=== PATIENT | female | born 1960 | race Caucasian/White ===

== ENCOUNTER → 2017-01-14 | Outpatient (CLI) | payer BC ==
[~2017-01-14] MED LIST: ASPI81TA3 PO; CAPT25TA3 PO; HEPARIN 1000 UNITS/ML 10 ML INJ ONE; HYD25 PO; LIDOCAINE 2%/EPI 30 ML INJ ONE
--- NOTE | 2017-01-15 16:50 | RADRPT ---
Echocardiogram Report Patient Name: CHANDLER HANSON Gender: Female Date: 1960 Study Date: 14-Jan-2017 Aquatic Biologist: Patel [facility] Location: EKG Ref. Physician: JENNA TSE Quality: Adequate Procedures: Transthoracic echocardiogram with complete 2D, M-Mode, and doppler examination. Indications: Breast Cancer. 2D/M Mode Doppler Measurement Value Normal Ranges Measurement Value Normal Ranges LVIDd 2D 3.6 3.5 - 5.6 cm AV Peak Ramirez 1.2 m/sec LVIDs 2D 2.5 2.1 - 4.1 cm AV Peak PG 5.9 mmHg LVPWd 2D 1.0 0.6 - 1.1 cm LVOT Peak Ramirez 1.1 m/sec IVSd 2D 1.0 0.6 - 1.1 cm LVOT Peak PG 4.7 mmHg AoR Diam 2D 2.7 2.0 - 3.7 cm MV E Peak Ramirez 0.5 m/sec EDV 2D 54.0 cm3 MV A Peak Ramirez 0.9 m/sec ESV 2D 15.1 cm3 MV E/A 0.5 LA Dimen 2D 3.2 2.3 - 4.0 cm MV Decel Time 213 msec MV Decel [place] 2 MV E/A 0.5 Findings Left Ventricle: Normal left ventricular systolic function. Normal left ventricular cavity size. Mild concentric left ventricular hypertrophy. Ejection fraction is visually estimated at 60 %. Abnormal Diastolic Function. Right Ventricle: Normal right ventricular size. Normal right ventricular systolic function. Left Atrium: The left atrium is normal in size. Right Atrium: The right atrium is normal in size. Mitral Valve: Normal appearance and function of the mitral valve with trace physiologic regurgitation. Aortic Valve: Normal appearance of the aortic valve. No significant aortic stenosis or insufficiency. Tricuspid Valve: Normal appearance and function of the tricuspid valve with trace physiologic regurgitation. Unable to obtain RVSP due to minimal presence of tricuspid regurgitation. Pulmonic Valve: Normal pulmonic valve appearance. There is trace pulmonic regurgitation. Pericardium: Normal pericardium with no significant pericardial effusion. Aorta: Normal aortic root. IVC: Normal size and normal respiratory collapse consistent with normal right atrial pressure. Conclusions 1.Normal left ventricular systolic function. Normal left ventricular cavity size. Mild concentric left ventricular hypertrophy. Ejection fraction is visually estimated at 60 %. Abnormal Diastolic Function. 2.Normal appearance and function of the mitral valve with trace physiologic regurgitation. 3.Normal appearance and function of the tricuspid valve with trace physiologic regurgitation. Unable to obtain RVSP due to minimal presence of tricuspid regurgitation. 4.Normal pulmonic valve appearance. There is trace pulmonic regurgitation. Electronically Signed By: Sabas Coughlin 15-Jan-2017 16:49:50 -0700 Patient Name: CHANDLER HANSON Study Date: 14-Jan-2017 [id number]
== END | disposition home or self-care (01) ==
LOC: EKG 10:08
PROVIDERS: ATTEND Internal Medicine Hematology & Oncology
DX: R55 Syncope and collapse (principal); R25.1 Tremor, unspecified; R26.9 Unspecified abnormalities of gait and mobility; G20 Parkinson's disease; E11.9 Type 2 diabetes mellitus without complications; F32.9 Major depressive disorder, single episode, unspecified
CPT/HCPCS: 93306; J1644

== ENCOUNTER 2017-01-15 06:24 | Day surgery (SDC) | payer BC ==
[~2017-01-15] VITALS: Ht 147.3 cm; Wt 56.0 kg
[2017-01-15] MEDS ORDERED: HYD25 PO (07:57)
[2017-01-15] MEDS ORDERED: CAPT25TA3 PO (07:57)
[2017-01-15] MEDS ORDERED: ASPI81TA3 PO (07:58)
[2017-01-15] MEDS ORDERED: SOD CHLORIDE 0.9% 1,000 ML IV SCH (08:00)
[2017-01-15] MEDS ORDERED: POLYMYXIN/BACITRACIN 1L IRRIG IRR ONE (08:00)
[2017-01-15 08:16] VITALS: BP 88/59; PULSE 115; RESP 18; Ht 147.3 cm; Wt 56.0 kg
[2017-01-15] MEDS ORDERED: CEFAZOLIN 1 GM/50 ML (PMX) 50 ML IVPB ONE (08:42)
[2017-01-15] MEDS ORDERED: FENTAnyl 50 MCG/ML VIAL ONE (08:43)
[2017-01-15] MEDS ORDERED: MIDAZOLAM 1 MG/ML 2 ML INJ ONE (08:43)
[2017-01-15] MEDS ORDERED: DIPHENHYDRAMINE 50 MG INJ ONE (08:43)
--- NOTE | 2017-01-15 10:35 | RADRPT ---
AMENDMENT: 01/15/2017 5:42:38 PM Gato Tenorio MD Please delete the original report. The following report is correct. PROCEDURE: FLUOROSCOPIC AND ULTRASONOGRAPHIC-GUIDED PLACEMENT OF LEFT CHEST PORT. CLINICAL INDICATION: History of right breast cancer. Venous access for chemotherapy. TECHNIQUE: INTRAPROCEDURE MEDICATIONS: PB antibiotic solution 40 cc applied topically. 1 gram Ancef intravenous ly, intra-op. IV Versed and Fentanyl per protocol. TECHNIQUE: Informed consent was obtained. The procedure, risks, benefits, complications and alternat raegan were explained to the patient. Risks including bleeding, infection, and pneumothorax were expl ained. The patient understood and was willing to proceed. A procedural pause was performed. The patient's name, date of , and procedure to be performed w ere verified. The central line was inserted with all elements of maximal sterile barrier technique. All of the fol lowing were used: head covering, facial mask, sterile gown, sterile gloves, a large sterile sheet, h and hygiene, and 2% chlorhexidine for cutaneous antisepsis. The left neck and anterior/superior chest wall were prepped and draped in usual sterile fashion. Limited sonography of the left neck was then performed. Noted is a patent left internal jugular vein . Following the local injection of 1% lidocaine, the left internal jugular vein was punctured under so nographic guidance with a 20-gauge needle through which a 0.018 inch floppy tip guidewire was advanc ed into the superior vena cava with fluoroscopic guidance. The tract was dilated to 5 [place] and t he wire was then replaced with a 0.035 in Glidewire. Serial dilatation was then performed and a 7 F rench peel away sheath was introduced. A site just inferior to the clavicle in the superior anterior left chest wall was localized. One per cent lidocaine was used as local anesthesia. A transverse 3 cm incision was made utilizing a 15 blad e scalpel. Utilizing blunt dissection a subcutaneous pocket was created inferior to the incision. Th e cavity was flushed with approximately 40 cc of PB antibiotic solution. The catheter was tunneled underneath the skin from the newly created pocket to the puncture site in the neck. The central line catheter was pulled through the tract. The catheter was then advanced thr ough the sheath until the tip was positioned in the right atrium. The peel-away sheath was removed. The catheter was flushed and clamped. The catheter was then connected to the 6.6 [place] Angiodynamics power port. The port was then placed into the pocket. Prior to closing the instrument and sponge count was verified and was correct. The subcutaneous tissue was closed with 3-0 Vicryl interrupted suture. The skin at the site of the pock et and in the neck was closed with 4-0 Vicryl suture in a running subcuticular technique. The port w as flushed with 2000 units of heparin in 2 cc utilizing a Burnham needle. The needle was removed. A dr essing was applied. The patient tolerated procedure well. COMPARISON: None. FINDINGS: Ultrasound images were recorded and stored in the patient's medical record. 9 images of the chest we re obtained with the image intensifier. Final radiographic images demonstrate the tip of the catheter in the upper right atrium. A total of 0.1 minutes of fluoroscopy time was used. The ultrasound images demonstrate the needle entering th e jugular vein. IMPRESSION: 1. Successful ultrasonographic and fluoroscopic guided placement of left chest port. RPTAT: QQ PROCEDURE: FLUOROSCOPIC AND ULTRASONOGRAPHIC-GUIDED PLACEMENT OF LEFT CHEST PORT. CLINICAL INDICATION: History of right breast cancer. Venous access for chemotherapy. TECHNIQUE: INTRAPROCEDURE MEDICATIONS: PB antibiotic solution 40 cc applied topically. 1 gram Ancef intravenous ly, intra-op. IV Versed and Fentanyl per protocol. TECHNIQUE: Informed consent was obtained. The procedure, risks, benefits, complications and alternat raegan were explained to the patient. Risks including bleeding, infection, and pneumothorax were expl ained. The patient understood and was willing to proceed. A procedural pause was performed. The patient's name, date of , and procedure to be performed w ere verified. The central line was inserted with all elements of maximal sterile barrier technique. All of the fol lowing were used: head covering, facial mask, sterile gown, sterile gloves, a large sterile sheet, h and hygiene, and 2% chlorhexidine for cutaneous antisepsis. The left neck and anterior/superior chest wall were prepped and draped in usual sterile fashion. Limited sonography of the left neck was then performed. Noted is a patent left internal jugular vein . Following the local injection of 1% lidocaine, the left internal jugular vein was punctured under so nographic guidance with a 20-gauge needle through which a 0.018 inch floppy tip guidewire was advanc ed into the superior vena cava with fluoroscopic guidance. The tract was dilated to 5 [place] and t he wire was then replaced with a 0.035 in Glidewire. Serial dilatation was then performed and a 7 F rench peel away sheath was introduced. A site just inferior to the clavicle in the superior anterior left chest wall was localized. One per cent lidocaine was used as local anesthesia. A transverse 3 cm incision was made utilizing a 15 blad e scalpel. Utilizing blunt dissection a subcutaneous pocket was created inferior to the incision. Th e cavity was flushed with approximately 40 cc of PB antibiotic solution. The catheter was tunneled underneath the skin from the newly created pocket to the puncture site in the neck. The central line catheter was pulled through the tract. The catheter was then advanced thr ough the sheath until the tip was positioned in the right atrium. The peel-away sheath was removed. The catheter was flushed and clamped. The catheter was then connected to the 6.6 [place] Angiodynamics power port. The port was then placed into the pocket. Prior to closing the instrument and sponge count was verified and was correct. The subcutaneous tissue was closed with 3-0 Vicryl interrupted suture. The skin at the site of the pock et and in the neck was closed with 4-0 Vicryl suture in a running subcuticular technique. The port w as flushed with 2000 units of heparin in 2 cc utilizing a Burnham needle. The needle was removed. A dr essing was applied. The patient tolerated procedure well. COMPARISON: None. FINDINGS: Ultrasound images were recorded and stored in the patient's medical record. 7 images of the chest we re obtained with the image intensifier. Final radiographic images demonstrate the tip of the catheter in the upper right atrium. A total of 0.1 minutes of fluoroscopy time was used. The ultrasound images demonstrate the needle entering th e jugular vein. IMPRESSION: 1. Successful ultrasonographic and fluoroscopic guided placement of left chest port. RPTAT: QQ .Gato Tenorio MD, MD Date Time Electronically viewed and signed by .Gato Tenorio MD, on 01/15/2017 17:42 .R/
[2017-01-15 10:53] VITALS: BP 118/78; PULSE 94; RESP 17
[2017-01-15] MEDS ORDERED: HYDROCODONE/APAP (5/325) TAB PO PRN (11:00)
[2017-01-15 11:30] VITALS: BP 123/85; PULSE 100; RESP 18
--- NOTE | 2017-01-15 17:25 | RADRPT ---
PROCEDURE: Ultrasound guidance for placement of needle in left internal jugular vein. CLINICAL INDICATION: Venous access. TECHNIQUE: Prior to the procedure, informed consent was obtained. Risks including bleeding, infection, and pneu mothorax were explained to the patient. The patient understood and was willing to proceed. A procedu ral pause was performed. The patient's name, date of , and procedure to be performed were verif ied. The central line was inserted with all elements of maximal sterile barrier technique. All of th e following were used: head covering, facial mask, sterile gown, sterile gloves, a large sterile she et, hand hygiene, and 2% chlorhexidine for cutaneous antisepsis. The left neck and anterior/superi or chest wall was prepped and draped in usual sterile fashion. Limited sonography of the left neck was then performed. Noted is a patent left internal jugular vein . Ultrasound images were recorded and stored in the patient's medical record. Following the local injection of Xylocaine, the left internal jugular vein was punctured under sonog raphic guidance with a 20-gauge needle through which a 0.018 inch floppy tip guidewire was advanced into the superior vena cava. The patient tolerated the procedure well. The remainder of the proced ure was performed and dictated under separate cover. COMPARISON: None. FINDINGS: The ultrasound images demonstrate a patent left internal jugular vein. The subsequent images demons trate the needle entering the left internal jugular vein. IMPRESSION: 1. Ultrasound guidance for a needle placement in left internal jugular vein. RPTAT: QQ .Gato Tenorio MD, Date Time Electronically viewed and signed by .Gato Tenorio MD, on 01/15/2017 17:25 .R/
== END 2017-01-15 12:40 | disposition home or self-care (01) ==
LOC: SDS 06:24
PROVIDERS: ATTEND Internal Medicine Hematology & Oncology
DX: C50.911 Malignant neoplasm of unspecified site of right female breast (principal); I10 Essential (primary) hypertension
CPT/HCPCS: 36561; 76942; C1788; J0690; J1200; J2250; J3010; Z7610

== ENCOUNTER 2017-06-12 07:14 | Inpatient (IN) | payer BC ==
[2017-06-11 10:58] VITALS: BMI 25.0
[~2017-06-12] VITALS: Ht 149.9 cm; Wt 57.2 kg
[2017-06-12] VITALS (25 sets, daily range): BP systolic 124–174; BP diastolic 65–86; PULSE 72–96; RESP 12–20; Ht 149.9 cm; Wt 57.2 kg
[~2017-06-12 07:14] MED LIST changes: +EPHEDrine SULFATE 50 MG/5 ML SYG ONE; -HEPARIN 1000 UNITS/ML 10 ML INJ ONE; -HYD25 PO; +HYDR25TA6 PO; -LIDOCAINE 2%/EPI 30 ML INJ ONE
--- NOTE | 2017-06-12 07:58 | RADRPT ---
PROCEDURE: XR Chest. CLINICAL INDICATION: Breast cancer, preop TECHNIQUE: AP Portable chest. COMPARISON: No pertinent prior examinations were submitted for comparison. FINDINGS: There is a left Port-A-Cath with the tip in the proximal right atrium. The cardiomediastinal silhouette is normal. The aorta is normal. No focal consolidation, pleural eff usion or pneumothorax is seen. The osseous structures are intact. IMPRESSION: No radiographic evidence of acute cardiopulmonary disease. Left Port-A-Cath in satisfactory position . Terry Sena Physician Date Time Electronically viewed and signed by Terry Sena Physician on 06/12/2017 07:57 CS/
[2017-06-12 08:24] LABS: BASOPHILS % 0.2 % (0.0-2.0); EOSINOPHILS % 0.2 % (0.0-7.0); HEMATOCRIT 36.9 % (37.0-47.0); LYMPHOCYTES # 1.8 10^3/ul (0.8-2.9); LYMPHOCYTES % 39.2 % (15.0-51.0); MEAN CORPUSCULAR HEMOGLOBIN 32.5 pg (29.0-33.0); MEAN CORPUSCULAR HGB CONC 32.5 g/dl (32.0-37.0); MEAN PLATELET VOLUME 8.7 fl (7.4-10.4); MONOCYTE # 0.4 10^3/ul (0.3-0.9); NEUTROPHIL # 2.4 10^3/ul (1.6-7.5); PLATELET COUNT 258 10^3/UL (140-415); RED BLOOD COUNT 3.69 10^6/ul (4.20-5.40); RED CELL DISTRIBUTION WIDTH 16.4 % (11.5-14.5); WHITE BLOOD COUNT 4.5 10^3/ul (4.8-10.8)
[2017-06-12 08:41] LABS: INR 0.98
[2017-06-12 08:42] LABS: PARTIAL THROMBOPLASTIN TIME 28.1 Sec (25.0-35.0)
[2017-06-12 08:47] LABS: ALBUMIN/GLOBULIN RATIO 1.37; BILIRUBIN,INDIRECT 0.6 mg/dl (0-1.1); BILIRUBIN,TOTAL 0.6 mg/dl (0.2-1.3); TOTAL PROTEIN 6.9 g/dl (6.1-8.1)
[2017-06-12 08:58] LABS: CALCIUM 9.5 mg/dl (8.4-10.2); CREATININE 0.66 mg/dl (0.44-1.00); POTASSIUM 3.3 mmol/L (3.5-5.1)
[2017-06-12] MEDS ORDERED: CEFAZOLIN 1 GM/50 ML (PMX) 50 ML IVPB ONE (09:00)
[2017-06-12] MEDS ORDERED: SOD CHLORIDE 0.9% 1,000 ML IV ONE (09:00)
[2017-06-12] MEDS ORDERED: ROCURONIUM 50 MG INJ ONE (10:09)
[2017-06-12] MEDS ORDERED: PROPOFOL 20 ML ONE (10:09)
[2017-06-12] MEDS ORDERED: MIDAZOLAM 1 MG/ML 2 ML INJ ONE (10:09)
[2017-06-12] MEDS ORDERED: CEFAZOLIN 1 GM INJ ONE (11:07)
[2017-06-12] MEDS ORDERED: PHENYLephrine (100 MCG/ML) 5ML SYG ONE (11:13)
[2017-06-12] MEDS ORDERED: ACETAMINOPHEN 1000MG/100ML IV 100 ML ONE (11:49)
[2017-06-12] MEDS ORDERED: METOCLOPRAMIDE 10 MG INJ ONE (11:49)
[2017-06-12] MEDS ORDERED: ONDANSETRON 4 MG INJ ONE (11:49)
[2017-06-12] MEDS ORDERED: DEXAMETHASONE 4 MG/ML 1 ML INJ ONE (11:49)
[2017-06-12] MEDS ORDERED: EPHEDrine SULFATE 50 MG/5 ML SYG IV PRN (12:00)
[2017-06-12] MEDS ORDERED: morphine (1 MG/ML) 10ML SYRINGE IV PRN ×3 (12:00)
[2017-06-12] MEDS ORDERED: ONDANSETRON 4 MG INJ IV PRN ×2 (12:00→12:30)
[2017-06-12] MEDS ORDERED: hydrALAzine 20 MG INJ IV PRN (12:00)
[2017-06-12] MEDS ORDERED: MEPERIDINE 25 MG INJ IV PRN (12:00)
[2017-06-12] MEDS ORDERED: LABETALOL HCL 20MG INJ IV PRN (12:00)
[2017-06-12] MEDS ORDERED: FENTAnyl 50 MCG/ML VIAL IV PRN ×3 (12:00)
[2017-06-12] MEDS ORDERED: DIPHENHYDRAMINE 50 MG INJ IV PRN (12:00)
[2017-06-12] MEDS ORDERED: SUGAMMADEX SODIUM 200 MG/2 ML VIAL IV ONE (12:01)
--- NOTE | 2017-06-12 12:22 | OPR ---
DATE OF OPERATION: 06/12/2017 PREOPERATIVE DIAGNOSIS: Invasive cancer, left breast. POSTOPERATIVE DIAGNOSIS: Invasive cancer, left breast. OPERATION PERFORMED: Left modified radical mastectomy. ANESTHESIA: General. ANESTHESIOLOGIST: . SURGEON: Cong Luna MD MAILING MACHINE HELPER: Dr. Jakob Kilgore. INDICATIONS FOR PROCEDURE: The patient is a 57-year-old female who presented with right nipple inve rsion. Radiographic workup and biopsy confirmed an invasive cancer which was HER2 positive; therefo re, the patient underwent neoadjuvant chemotherapy with Herceptin, Perjeta, Taxotere and carboplatin regimen. She had very good response; however, due to the fact that she had presented with nipple i nversion, the recommendation was for her to undergo a modified radical mastectomy. She consented an d was scheduled for surgery. DESCRIPTION OF PROCEDURE: The patient was brought to the operating theater, placed under general en dotracheal tube anesthesia. The right breast and axillary region was prepped and draped in the usua l sterile fashion. Planned elliptical incision around the nipple areolar complex including a portio n of the central skin of the breast was demarcated with marking pen and carried out with 15 blade sc peter. Subcutaneous tissue was dissected with cautery. The skin edges were then elevated with Dionicio s [place] clamps and skin flaps were created using cautery in a sequential fashion, first superiorly t o the clavicle, then medially to the sternal border, inferiorly to the inframammary fold and then la terally until the latissimus dorsi muscle was identified throughout its course. Mastectomy then too k place from medial to lateral using cautery. At the border of the pectoralis major muscle, the pec toralis minor muscle was identified. Clavipectoral fascia was incised with blunt dissection along t he chest wall. The long thoracic nerve was identified and kept out of harm's way. More superiorly, the axillary vein was identified and dissected from medial to lateral. The thoracodorsal neurovasc ular bundle was identified and dissected throughout its course and kept out of harm's way. Signific ant node bearing tissue between the long thoracic nerve and thoracodorsal nerve was then harvested u sing LigaSure device, taking great care to preserve as many intercostal brachial nerves as possible. The specimen was then transected, removed, oriented and sent for permanent pathologic analysis. T he wound was irrigated. Minimal bleeding was controlled with cautery. Two #10 [place] Frantz-Serrano drains were then brought through the right mid axillary line in standard fashion. One was cut to s ize and laid over the pectoralis major muscle, the other was cut to size and laid within the axilla. Both drains were secured in place with 2-0 nylon sutures in the standard fashion and the skin was then reapproximated with skin letty. The patient tolerated the procedure well. The estimated blo od loss was approximately 75 mL. There were no complications and the patient was transported in sta ble condition to the recovery room where circumferential compression dressing was applied. Dictated By: CONG MOCTEZUMA/SERINA Conf#: [id number] DID#: [id number]
--- NOTE | 2017-06-12 12:28 | SIPON ---
Date/Time of Note Date/Time of Note DATE: 06/12/17 TIME: 12:24 Operative Report Preoperative Diagnosis Invasive cancer right breast Postoperative Diagnosis Same Operation/Procedure Performed Right modified radical mastectomy Surgeon see signature line assistant manager airside operations Dr Kilgore Anesthesia: general Estimated blood loss: 50 - 100 ml's Transfusion Required none Specimen Right breast and axillary contents Grafts/Implants none Complications none MAX ROCHA MD Jun 12, 2017 12:28
[2017-06-12] MEDS ORDERED: ACETAMINOPHEN 1000MG/100ML IV 100 ML IVPB PRN (12:30)
[2017-06-12] MEDS: morphine 2 MG INJ IV PRN (13:55)
[2017-06-12] MEDS: D5W-0.45 NACL + KCL 20 MEQ 1,000 ML IV SCH ×2 (13:56→21:53)
[2017-06-13] MEDS: morphine 2 MG INJ IV PRN ×2 (01:47→08:04)
[2017-06-13 02:02] VITALS: BP 128/62; RESP 20
[2017-06-13] MEDS: D5W-0.45 NACL + KCL 20 MEQ 1,000 ML IV SCH (05:13)
[2017-06-13 08:23] VITALS: BP 118/70; RESP 20
[2017-06-13] MEDS ORDERED: GUAIFENESIN/DM 5ML CUP PO PRN (10:30)
[2017-06-13] MEDS ORDERED: HYDROCHLOROTHIAZIDE 25 MG TAB PO SCH (10:30)
[2017-06-13] MEDS: HYDROCODONE/APAP (5/325) TAB PO PRN ×2 (11:21→17:13)
[2017-06-13 12:45] VITALS: BP 115/85; PULSE 88; RESP 20
--- NOTE | 2017-06-13 13:19 | RADRPT ---
Vent Rate: 97 bpm RR Interval: 0 msec CO Interval: 134 msec QRS Duration: 94 msec QT Interval: 372 msec QTC Interval: 472 msec P-R-T [place]: 49 - -1 - 39 degrees Normal sinus rhythm Normal ECG Electronically Signed By: Jeremiah Espino [id number]
[2017-06-13 15:30] VITALS: BP 140/83; RESP 20
[2017-06-13] MEDS ORDERED: HYDR-3498 PO (15:58)
--- NOTE | 2017-06-13 16:39 | HP ---
Date/Time of Note Date/Time of Note DATE: Late entry for 06/12/17 Pt is seen at 16:30 Assessment/Plan VTE Prophylaxis VTE Prophylaxis Intervention: SCD's Lines/Catheters IV Catheter Type (from Nrsg): Peripheral IV Urinary Cath still in place: No Assessment/Plan Assessment/Plan - Invasive cancer of the right breast with nipple inversion, s/p chemo, status post right modified radical mastectomy on 06/[address] Luna. Continue [place] and Morphine for pain. - HTN, continue Hydralazine PRN for pain. D/W Dr Edward. HPI/ROS Admit Date/Time Admit Date/Time Jun 12, 2017 at 07:14 Hx of Present Illness The patient is a 57-year-old female with invasive CA of the right breast. The radiographic workup and biopsy confirmed an invasive cancer which was HER2 positive. Patient underwent neoadjuvant chemotherapy with Herceptin, Perjeta, Taxotere and carboplatin regimen. Patient had a good response; however, due to the fact that she had presented with nipple inversion, the recommendation was for her to undergo a modified radical mastectomy. Patient underwent right radical mastectomy by Dr Luna on 06/12. Postoperatively, patient experience significant pain and she was admitted for for further care and management. ROS per HPI PMH/Family/Social Past Medical History Medical History: hypertension Family History Significant Family History: no pertinent family hx Social History Alcohol Use: none Smoking Status: Never smoker Drug Use: none Exam/Review of Systems Vital Signs Vitals Vital Signs Date Time Temp Pulse Resp B/P Pulse Ox O2 Delivery O2 Flow Rate FiO2 06/13/17 15:30 98.1 97 20 140/83 97 06/13/17 12:45 Room Air 06/12/17 12:24 8.0 Intake and Output 06/12/17 06/12/17 06/13/17 15:00 23:00 07:00 Intake Total 870 ml 1360 ml 1300 ml Output Total 59 ml 40 ml 38 ml Balance 811 ml 1320 ml 1262 ml Exam Constitutional: alert, oriented Head: normocephalic Neck: non-tender, supple Respiratory: normal air movement Cardiovascular: nl pulses Gastrointestinal: non-tender Musculoskeletal: nl extremities to inspection Extremities: normal pulses Neurological: nl mental status Skin: nl turgor, other (s/p Right mastectomy) Additional Comments Left kyle-cath Labs Result Diagram: 06/12/17 0750 06/12/17 0750 Medications Medications Current Medications Ondansetron HCl (Zofran Inj) 4 mg Q6H PRN IV NAUSEA AND/OR VOMITING; Start at 12:30 Morphine Sulfate 2 mg 2 mg Q1H PRN IV PAIN Last administered on 06/13/17 08: 04; Admin Dose 2 MG; Start 06/12/17 at 12:30 Acetaminophen (Ofirmev 1000mg/ 100ml Iv) 100 ml @ 400 mls/hr Q6H PRN IVPB PAIN ; Start 06/12/17 at 12:30 Captopril (Capoten) 25 mg BID PO Last administered on 06/13/17 12:45; Admin Dose 25 MG; Start 06/13/17 at 11:00 Hydrochlorothiazide (Hydrochlorothiazide) 25 mg DAILY PO Last administered on 06/13/17 10:37; Admin Dose 25 MG; Start 06/13/17 at 10:30 Guaifenesin/ Dextromethorphan (Robitussin Dm Liquid Cup) 10 ml Q4H PRN PO COUGH Last administered on 06/13/17 10:37; Admin Dose 10 ML; Start 06/13/17 at 10:30 Acetaminophen/ Hydrocodone Bitart ([place] (5/325)) 1 tab Q4H PRN PO PAIN Last administered on 06/13/17 11:21; Admin Dose 1 TAB; Start 06/13/17 at 10:30 DENI DIXON Jun 13, 2017 16:39
[2017-06-13 16:47] VITALS: BP 127/71; PULSE 86; RESP 18
--- NOTE | 2017-06-13 18:28 | HP ---
DATE OF ADMISSION: 06/12/2017 CHIEF COMPLAINT: A 56-year-old female with approximately 2 cm invasive cancer of her right breast. HISTORY OF PRESENT ILLNESS: The patient states she fell a lump. Eventually, she underwent medical workup and mammography and ultrasonography and biopsy was performed, which revealed a moderately dif ferentiated cancer. She is admitted today for surgery. PAST MEDICAL HISTORY: Significant for hypertension. PAST SURGICAL HISTORY: None. MEDICATIONS: Include Depakote, dose not provided. ALLERGIES: PATIENT HAS NO KNOWN DRUG ALLERGIES. SOCIAL HISTORY: The patient is otherwise healthy, lives with her family, does not abuse cigarettes or alcohol. FAMILY HISTORY: Negative for breast or ovarian cancer. PHYSICAL EXAMINATION: Focused exam is performed. The right breast is examined. There is ecchymosi s consistent with recent biopsy. A vaguely palpable mass at the 12 o'clock location near the nipple -areolar border. No other findings on exam. ASSESSMENT: A 56-year-old female with invasive cancer of her right breast as described above. PLAN: Will proceed with surgery. Dictated By: MAX MOCTEZUMA/SERINA Conf#: [id number] DID#: [id number]
--- NOTE | 2017-06-13 18:36 | PN ---
DATE: 06/13/2017 Status post right modified radical mastectomy with axillary resection. SUBJECTIVE: The patient states that when she walks she has been dizzy and she wants to use a walker . Also when she stands up to walk, she is getting pain in her thighs and knees and legs bilaterally and this is since patient has been started on chemotherapy, which was a couple of months ago. OBJECTIVE: GENERAL: Awake, alert, oriented x3. VITAL SIGNS: Temperature 98.3, heart rate 96, respirations 20, blood pressure 118/70, saturation 98 % on room air. PHYSICAL EXAMINATION: The patient has bilateral cataracts. Dressing is intact. Frantz-Serrano drai ns are with serosanguineous fluid. It is not bloody and in past 24 hours it has drained 105 mL all together, both of them. Abdomen is soft. ASSESSMENT AND PLAN: A 57-year-old female status post right modified radical mastectomy postop day #1. The patient is stable, but apparently it has been a while that she is feeling dizziness when sh e walks and also she has pain in her legs and thighs. This has been going on post chemotherapy. Cosme bobson-Serrano is functioning properly, serosanguineous fluid. I do not know the cause of tachycardia. The cause of dizziness not clear. The cause of pain in the lower extremities not clear. From surgical point of view, the patient is stable from mastectomy op eration. Therefore, the patient can be discharged home today. I requested an order for a walker fo r this patient. I advised the patient's son to take the patient to the primary physician so that ey can investigate the cause of dizziness and pain in the lower extremity and cataracts. It should be mentioned that the patient is supposed to call Dr. Luna' office on Friday and make a p jenny for followup. Also, the patient's son was taught how to take care of the Frantz-Serrano drains. Dictated By: SANDY ROSALES/SERINA Conf#: [id number] DID#: [id number]
--- NOTE | 2017-06-13 21:02 | DS ---
Date/Time of Note Date/Time of Note DATE: 06/13/17 TIME: 21:01 Discharge Summary Admission/Discharge Info Admit Date/Time Jun 12, 2017 at 07:14 Discharge Date/Time Jun 13, 2017 at 17:25 Patient Condition: Stable Hx of Present Illness The patient is a 57-year-old female with invasive CA of the right breast. The radiographic workup and biopsy confirmed an invasive cancer which was HER2 positive. Patient underwent neoadjuvant chemotherapy with Herceptin, Perjeta, Taxotere and carboplatin regimen. Patient had a good response; however, due to the fact that she had presented with nipple inversion, the recommendation was for her to undergo a modified radical mastectomy. Patient underwent right radical mastectomy by Dr Luna on 06/12. Postoperatively, patient experience significant pain and she was admitted for for further care and management. Hospital Course - Invasive cancer of the right breast with nipple inversion, s/p chemo, status post right modified radical mastectomy on 06/[address] Luna. Continue [place] and Morphine for pain. - HTN, continue Hydralazine PRN for pain. Home Meds Active Scripts Hydrocodone Bit-Acetaminophen (Hydrocodone Bit-APAP) 5-325MG Tablet, 1 TAB PO Q4H Y for PAIN, #30 TAB Prov:DENI DIXON 06/13/17 Reported Medications Aspirin* (Aspirin* Chew) 81 Mg Tab.chew, 81 MG PO DAILY, TAB.CHEW 01/15/17 Hydrochlorothiazide* (Hydrochlorothiazide*) 25 Mg Tab, 25 MG PO DAILY, #30 TAB 01/15/17 Captopril* (Captopril*) 25 Mg Tablet, 25 MG PO BID, #60 TAB 01/15/17 Follow-up Plan f/up with Dr Luna in 1 week. Primary Care Provider [facility] Time spent on discharge: > 30 minutes DENI DIXON Jun 13, 2017 21:02
== END 2017-06-13 17:25 | disposition home or self-care (01) | DRG 583 ==
LOC: REC 07:14 → EDSTATUS 10:30 → MS1 13:34
PROVIDERS: ADMIT Surgery Surgical Oncology; ATTEND Surgery Surgical Oncology
PROC: 0HTU0ZZ Resection of Left Breast, Open Approach (ICD-10-PCS; principal; 2017-06-12 10:30)
DX: C50.912 Malignant neoplasm of unspecified site of left female breast (principal); I10 Essential (primary) hypertension
CPT/HCPCS: 71010; 80053; 85025; 85610; 85730; 88307; 93005; J0131; J0360; J0690; J1100; J2250; J2270; J2370; J2405; J2765; J3010; J3480

== ENCOUNTER 2018-09-14 13:52 | Inpatient (IN) | payer BC ==
[~2018-09-14] VITALS: Ht 167.6 cm; Wt 61.7 kg
[2018-09-14] VITALS (10 sets, daily range): BP systolic 120–145; BP diastolic 81–95; PULSE 85–93; RESP 18–25; Ht 167.6 cm; Wt 61.7 kg
[~2018-09-14 13:52] MED LIST changes: +ASPI-903 PO; -ASPI81TA3 PO; -EPHEDrine SULFATE 50 MG/5 ML SYG ONE; +HYDR-3601 PO
[2018-09-14] MEDS: POTASSIUM CHLORIDE 100 ML IVPB SCH ×2 (16:15→18:18)
[2018-09-14] MEDS ORDERED: ONDANSETRON 4 MG INJ IV STA (16:47)
[2018-09-14] MEDS ORDERED: morphine 2 MG INJ IV STA (16:47)
[2018-09-14] MEDS ORDERED: DEXAMETHASONE 10 MG/ML 1 ML INJ IV ONE (17:00)
--- NOTE | 2018-09-14 17:20 | QN ---
Documentation Comment seen and examined OLIVIA VIDES MD Sep 14, 2018 17:20
[2018-09-14] MEDS ORDERED: DOCUSATE SODIUM 100 MG CAP PO PRN (17:30)
[2018-09-14] MEDS ORDERED: ONDANSETRON 4 MG TAB PO PRN (17:30)
[2018-09-14] MEDS ORDERED: NACL 0.9% 3 ML SYG IV SCH (17:30)
--- NOTE | 2018-09-14 18:09 | ERD ---
ER Documentation Chief Complaint Chief Complaint headache x 2 days Hx of HTN HPI The patient is a 58-year-old female, presenting to the ER because of having had headache for 1 week, worse today, denies similar symptoms previously, complains of minimal slurred speech in the ER. She is obtained from the [id number]. She denies blurred vision, facial pain, neck pain, chest pain, dyspnea, abdominal pain, vomiting, dizzy, diarrhea. She does not smoke nor drink Past medical history: Hypertension, history of breast CA treated with mastectomy, chemotherapy a year ago ROS All systems reviewed and are negative except as per history of present illness. Medications Home Meds Active Scripts Hydrocodone Bit-Acetaminophen (Hydrocodone Bit-APAP) 5-325MG Tablet, 1 TAB PO Q4H PRN for PAIN, #30 TAB Prov:DENI DIXON 06/13/17 Reported Medications Aspirin* (Aspirin* Chew) 81 Mg Tab.chew, 81 MG PO DAILY, TAB.CHEW 01/15/17 Hydrochlorothiazide* (Hydrochlorothiazide*) 25 Mg Tab, 25 MG PO DAILY, #30 TAB 01/15/17 Captopril* (Captopril*) 25 Mg Tablet, 25 MG PO BID, #60 TAB 01/15/17 Allergies Allergies: Coded Allergies: No Known Allergy (Unverified , 06/12/17) PMhx/Soc History of Surgery: Yes (RIGHT SIDED MASTECTOMY ) Anesthesia Reaction: No Hx Neurological Disorder: No Hx Respiratory Disorders: No Hx Cardiac Disorders: Yes (HTN) Hx Psychiatric Problems: No Hx Miscellaneous Medical Probl: No Hx Alcohol Use: No Hx Substance Use: No Hx Tobacco Use: No Smoking Status: Never smoker Physical Exam Vitals Vital Signs Date Temp Pulse Resp B/P (MAP) Pulse Ox O2 O2 Flow FiO2 Time Delivery Rate 09/14/18 79 17 141/100 100 Nasal 2.0 17:43 (114) Cannula 09/14/18 80 17 123/82 100 Room Air 2.0 15:14 (96) High Flow Nasal Cannula 09/14/18 97.5 96 20 153/91 100 14:04 (111) Physical Exam Const: No acute distress. Head: Atraumatic. Eyes: Normal Conjunctiva. ENT: Normal External Ears, Nose and Mouth. Neck: Full range of motion. No meningismus. Resp: Clear to auscultation bilaterally. Cardio: Regular rate and rhythm. Abd: Soft, non distended, normal bowel sounds, non tender. Skin: No petechiae or rashes. Back: No midline or flank tenderness. Ext: No cyanosis, or edema. Neur: Awake and alert. No focal deficit Psych: Normal Mood and Affect. Result Diagram: 09/14/18 1515 09/14/18 1515 Results 24 hrs Laboratory Tests Test 09/14/18 15:15 White Blood Count 10.4 10^3/ul Red Blood Count 4.75 10^6/ul Hemoglobin 14.6 g/dl Hematocrit 42.0 % Mean Corpuscular Volume 88.4 fl Mean Corpuscular Hemoglobin 30.7 pg Mean Corpuscular Hemoglobin Concent 34.8 g/dl Red Cell Distribution Width 12.4 % Platelet Count 282 10^3/UL Mean Platelet Volume 8.8 fl Immature Granulocytes % 0.500 % Neutrophils % 65.4 % Lymphocytes % 29.8 % Monocytes % 4.0 % Eosinophils % 0.1 % Basophils % 0.2 % Nucleated Red Blood Cells % 0.0 /100WBC Immature Granulocytes # 0.050 10^3/ul Neutrophils # 6.8 10^3/ul Lymphocytes # 3.1 10^3/ul Monocytes # 0.4 10^3/ul Eosinophils # 0.0 10^3/ul Basophils # 0.0 10^3/ul Nucleated Red Blood Cells # 0.0 10^3/ul Prothrombin Time 12.6 Sec Prothrombin Time Ratio 1.0 INR International Normalized Ratio 0.93 Activated Partial Thromboplast Time 24.0 Sec Sodium Level 132 mmol/L Potassium Level 3.1 mmol/L Chloride Level 93 mmol/L Carbon Dioxide Level 21 mmol/L Anion Gap 18 Blood Urea Nitrogen 14 mg/dl Creatinine 0.59 mg/dl Est Glomerular Filtrat Rate mL/min > 60 mL/min Glucose Level 155 mg/dl Calcium Level 9.9 mg/dl Troponin I < 0.012 ng/ml Current Medications Medications Dose Sig/Chelsey Start Time Status Last (Trade) Ordered Route PRN Stop Time Admin Dose Reason Admin Potassium 100 ml @ Q2H IVPB 09/14/18 09/14/18 Chloride 50 mls/hr 16:00 16:15 09/14/18 19:59 10 mg ONCE ONCE 09/14/18 DC 09/14/18 Dexamethasone IV 17:00 17:24 (Decadron) 09/14/18 17:01 Morphine 2 mg ONCE STAT 09/14/18 DC 09/14/18 Sulfate IV 16:47 17:24 (morphine) 09/14/18 16:48 Ondansetron 4 mg ONCE STAT 09/14/18 DC 09/14/18 HCl (Zofran IV 16:47 17:24 Inj) 09/14/18 16:48 1,000 ml @ Q24H IV 09/14/18 Dextrose/Sodi 20 mls/hr 17:27 um Chloride IV Flush 3 ml PER 09/14/18 (NS 3 ml) PROTOCOL IV 17:30 Ondansetron 4 mg Q6H PRN 09/14/18 HCl (Zofran PO 17:30 Tab) NAUSEA/VOMITI NG 650 mg Q6H PRN 09/14/18 Acetaminophen PO .PAIN 1-3 17:30 (Tylenol OR TEMP Tab) Morphine 2 mg Q4H PRN 09/14/18 Sulfate IV .SEVERE 17:30 (morphine) PAIN 7-10 Docusate 100 mg Q12H PRN 09/14/18 Sodium PO 17:30 (Colace) .CONSTIPATION 40 mg DAILY@06 09/15/18 Pantoprazole IV 06:00 (Protonix Iv) 4 mg Q8 IV 09/14/18 Dexamethasone 22:00 (Decadron) 100 ml @ BID IVPB 09/14/18 Levetiracetam 400 mls/hr 21:00 Procedures/[place] [id number] Radiology Main Line: [phone] DIAGNOSTIC IMAGING REPORT Patient: CHANDLER HANSON : 1960 Age: 58 Sex: F MR #: [id number] DOS: 09/14/18 1504 Ordering MD: ANDRES DICKEY MD Location: E/R Room/Bed: AMENDMENT: 09/14/2018 3:36:55 PM Ramírez Mercer M.D Results called to Dr. Dickey at 03:36 p.m., 09/14/2018. PROCEDURE: CT brain without contrast CLINICAL INDICATION: Headache, anxiety, numbness TECHNIQUE: CT of the brain without contrast was performed on a multidetector CT scanner, with multiplanar reformats. One or more of the following dose reduction techniques were used: Automated exposure control, adjustment in mA and / or kV according to patient size, use of iterative reconstructive technique. CTDIvol = 39 mGy; DLP = 699 mGy-cm. DICOM images are available. COMPARISON: None available FINDINGS: At least a few heterogeneous parenchymal lesions are identified, the largest at the inferior right frontal lobe measuring up to approximately 2.7 cm with mild to moderate surrounding edema, with small lesions also seen in the anterior right frontal, and left parietal lobes with mild adjacent edema. There is also mild edema in the right parietal region. No acute intracranial hemorrhage is identified. No extra-axial fluid collection is seen. No midline shift or definite hydrocephalus is identified. An acute/recent territorial infarct is identified. Atherosclerotic calcification is seen at the intracranial left internal carotid artery. Calvarium and skull base are intact. Mastoid air cells and imaged paranasal sinuses grossly clear. IMPRESSION: 1. Cerebral parenchymal lesions with associated mild-moderate edema, the largest/greatest at the right frontal lobe as described above, suspicious for metastatic disease. Further evaluation with contrast-enhanced MRI of the brain is recommended. 2. No midline shift. RPTAT: VV .Ramírez Mercer MD, MD Date Time Electronically viewed and signed by .Ramírez Mercer MD, on 09/14/2018 15:37 .O/ CC: ANDRES DICKEY MD [phone] Consultation: I discussed the patient with the neurosurgeon Elaine, who was made aware patient condition, and a CT scan finding. He personally reviewed the CT himself and accepted the consult MEDICAL MAKING DECISION: The patient is a 58-year-old female, presenting to the ER with acute severe headache, found to have multiple brain tumor, suspicious for metastasis, acute hypokalemia. She was treated with potassium chloride 40 mg iv acute hypokalemia, Decadron 10 mg IV due to cerebral edema per neurosurgeon's recommendation, morphine 2 mg IV for pain, Zofran 4 mg IV for nausea with good response. The differential diagnoses considered include but are not limited to recurrent breast CA, primary RECEIVABLE CLERK tumor, subarachnoid hemorrhage, occult trauma, CVA, meningitis, encephalitis, hypertension, tension, migraine, cluster, narcotic withdrawal, cervical spine disease. Critical Care: Time: 35 minutes excluding all billable procedures. Treatments/Evaluations: Close monitoring and treatment of unstable vital signs, cardiorespiratory, and neurologic status, while maintaining tight balance of fluid, respiratory, and cardiac interventions. Departure Diagnosis: Primary Impression: Brain tumor Additional Impression: Hypokalemia Condition: Stable Comments I discussed the findings with the patient. I discussed the patient with the hospitalist Dr Longoria at 4 p. who was made aware of the lab, the treatment, the patient condition. The patient is admitted to ICU Disclaimer: Inadvertent spelling and grammatical errors are likely due to EHR/dictation software use and do not reflect on the overall quality of patient care. Also, please note that the electronic time recorded on this note does not necessarily reflect the actual time of the patient encounter. ANDRES DICKEY MD Sep 14, 2018 18:09
[2018-09-14] MEDS: DEXTROSE 5%-0.45% NACL 1,000 ML IV SCH (18:18)
--- NOTE | 2018-09-14 19:09 | HP ---
DATE OF ADMISSION: 06/12/2017 REASON FOR ADMISSION: Headache, nausea, vomiting. HISTORY OF PRESENT ILLNESS: A 58-year-old female with a past medical history of right breast cancer status post right mastectomy followed by Dr. Colunga as an outpatient. The patient had received 6 cycles of chemo and also had right mastectomy. According to oncologist, she had been in remission. According to the patient, she had been having headaches for the past few days. She was also having some episodes of nausea and vomiting. She also noticed blurry vision. The patient was feeling weak and tired. The last 2 days, she was having some episodes of vomiting. She came to the emergency dep artment for further evaluation. On arrival to ED, vital signs showed blood pressure of 127/71, heart rate 86, respirations 18, and is afebrile. The patient had a CT of the head that showed cerebral pa renchymal lesions as well as mild to moderate edema, largest greater than right frontal lobe suspicio us for metastatic disease and no midline shift and the patient was given Decadron, morphine, Zofran a nd was admitted for further management. PAST MEDICAL HISTORY: 1. Right breast cancer status post mastectomy. 2. Hypertension. 3. Prediabetes. ALLERGIES: NONE. PAST SURGICAL HISTORY: Right mastectomy. The patient had a left Port-A-Cath in place. MEDICATIONS: Taking at home: 1. Captopril 25 b.i.d. 2. Aspirin 81 3. Pillager. 4. Hydrochlorothiazide 25. SOCIAL HISTORY: Denies any history of smoking, alcohol or any drug use. Currently lives at home wit h family. FAMILY HISTORY: Not significant for any cancer. REVIEW OF SYSTEMS: The patient complains of frontal headaches, nausea or vomiting for past few days. Also complains of generalized weakness have 2 episodes of vomiting. The patient also is noticing b lurry vision. Denies any hematemesis, any melena, any blood per rectum. Denies any focal neurologic al deficit. PHYSICAL EXAMINATION: VITAL SIGNS: Currently, blood pressure 123/80, pulse 80, respirations 17, saturating 100%. GENERAL: The patient is awake, alert, oriented, able to follow all commands, speak full sentences. HEENT: Pupils equal, round, reactive to light. NECK: Supple, no JVD. HEART: Regular rate and rhythm. LUNGS: Clear to auscultation bilaterally. ABDOMEN: Soft, nontender, nondistended, positive normoactive bowel sounds. EXTREMITIES: No clubbing, cyanosis, or edema. The patient has a right total mastectomy. The patien t has a left Port-A-Cath in place. NEUROLOGIC: Awake, alert, oriented. He is able to move all extremities. Strength 5/5 bilateral upp er and lower extremities. DIAGNOSTIC DATA: Showed sodium 132, potassium 3.1, chloride 93, bicarbonate 21, BUN 14, creatinine 0 .5. White count of 10.4, hemoglobin 14.6, platelet count 282. Brain CT shows cerebral parenchymal l esions mild to moderate edema, large is greater than the right frontal lobe suspicion of metast atic disease. No midline shift. ASSESSMENT AND PLAN: This is a 58-year-old female who presented with: 1. Headache, nausea, vomiting, blurry vision, likely secondary to multiple brain lesions with mild t o moderate edema, likely suspicious of metastatic disease given the history of right breast cancer. 2. Mild hypokalemia. 3. Hyponatremia. 4. History of hypertension. PLAN: At this period of time, the patient will be admitted to telemetry. Case has been discussed wi neurosurgeon and Dr. Colunga who will see the case. The patient will be on Decadron. The raphael ent will have neuro checks every 4 hours. Also, the patient will be on IV Keppra and some Protonix. The patient will also need radiation oncology. MRI of the brain is pending. Rest of the treatment will depend on the patient's hospitalization course. Dictated By: OLIVIA LEMOS/SERINA Conf#: [id number] DID#: [id number] CC: MAX ROCHA MD;*EndCC*
[2018-09-14] MEDS: ACETAMINOPHEN 325 MG TAB PO PRN (21:12)
[2018-09-14] MEDS: LEVETIRACETAM 500 MG (PMX) 100 ML IVPB SCH (21:41)
[2018-09-14] MEDS: DEXAMETHASONE 4 MG/ML 1 ML INJ IV SCH (22:48)
[2018-09-14] MEDS: morphine 2 MG INJ IV PRN (23:13)
[2018-09-14] MEDS ORDERED: ONDANSETRON (ODT) 4 MG TAB ODT PRN (23:30)
[2018-09-15] VITALS (26 sets, daily range): BP systolic 99–141; BP diastolic 69–97; PULSE 59–98; RESP 13–29
[2018-09-15] MEDS: morphine 2 MG INJ IV PRN ×4 (03:23→18:24)
[2018-09-15] MEDS: ONDANSETRON 4 MG INJ IV PRN ×4 (05:19→22:15)
[2018-09-15] MEDS ORDERED: PANTOPRAZOLE 40 MG INJ IV SCH (06:00)
[2018-09-15] MEDS: DEXAMETHASONE 4 MG/ML 1 ML INJ IV SCH ×3 (06:32→21:00)
--- NOTE | 2018-09-15 07:16 | CONS ---
Assessment/Plan Assessment/Plan Assessment/Plan (Daily) Patient with: 1) Brain metastases 2) Cerebral edema These cerebral masses are likely to be related to her prior breast CA (she is a non-smoker, chest X-ray grossly clear). Given their multiplicity, I would not recommend surgical management. Please consider the followin) Radiation oncology consult - breast CA is relatively radiation sensitive 2) Continue dexamethasone. Taper per rad onc, or consider 1 week taper to 2 tid 3) Body imaging for staging - CT C/A/P 4) Floor transfer 5) Regular diet Consultation Date/Type/Reason Admit Date/Time Sep 14, 2018 at 16:47 Date of Consultation: Sep 15, 2018 Type of Consult Neurosurgery Reason for Consultation Brain masses Date/Time of Note DATE: 09/15/18 TIME: 06:58 Hx of Present Illness Ms. Kunz is a 58 year old female who has a history of treated breast cancer dx Spring 2016 s/p mastectomy. She was noted to be free of disease by serum markers but has not had any body imaging in the interval per family. She has had a recent history of headaches and was brought to the ER, where multiple brain masses were found. After starting steroids, her headaches have markedly improved and are currently resolved. She denies weakness or vision difficulties. Neurologic: headache Past Medical History Breast CA Home Meds Active Scripts Hydrocodone Bit-Acetaminophen (Hydrocodone Bit-APAP) 5-325MG Tablet, 1 TAB PO Q4H PRN for PAIN, #30 TAB Prov:DENI DIXON 06/13/17 Reported Medications Aspirin* (Aspirin* Chew) 81 Mg Tab.chew, 81 MG PO DAILY, TAB.CHEW 01/15/17 Hydrochlorothiazide* (Hydrochlorothiazide*) 25 Mg Tab, 25 MG PO DAILY, #30 TAB 01/15/17 Captopril* (Captopril*) 25 Mg Tablet, 25 MG PO BID, #60 TAB 01/15/17 Medications Current Medications Dextrose/Sodium Chloride 1,000 ml @ 20 mls/hr Q24H IV Last administered on at 18:18; Admin Dose 20 MLS/HR; Start 09/14/18 at 17:27 IV Flush (NS 3 ml) 3 ml PER PROTOCOL IV ; Start 09/14/18 at 17:30 Acetaminophen (Tylenol Tab) 650 mg Q6H PRN PO .PAIN 1-3 OR TEMP Last ad ministered on 09/14/18 21:12; Admin Dose 650 MG; Start 09/14/18 at 17:30 Morphine Sulfate (morphine) 2 mg Q4H PRN IV .SEVERE PAIN 7-10 Last administered on 09/15/18 05:24; Admin Dose 2 MG; Start 09/14/18 at 17:30 Docusate Sodium (Colace) 100 mg Q12H PRN PO .CONSTIPATION; Start 09/14/18 at 17:30 Pantoprazole (Protonix Iv) 40 mg DAILY@06 IV Last administered on 09/15/18 06:42; Admin Dose 40 MG; Start 09/15/18 at 06:00 Dexamethasone (Decadron) 4 mg Q8 IV Last administered on 09/15/18 06:32; Admin Dose 4 MG; Start 09/14/18 at 22:00 Levetiracetam 100 ml @ 400 mls/hr BID IVPB Last administered on 09/14/18 21:41; Admin Dose 400 MLS/HR; Start 09/14/18 at 21:00 Ondansetron HCl (Zofran Odt) 4 mg Q6H PRN ODT NAUSEA AND/OR VOMITING; Start 09/14/18 at 23:30 Ondansetron HCl (Zofran Inj) 4 mg Q4H PRN IV NAUSEA AND/OR VOMITING Last administered on 09/15/18 05:19; Admin Dose 4 MG; Start 09/15/18 at 05:30 Allergies: Coded Allergies: No Known Allergy (Unverified , 06/12/17) Social History Smoking Status: Unknown if ever smoked Exam/Review of Systems Exam Vitals Vital Signs Date Temp Pulse Resp B/P (MAP) Pulse Ox O2 O2 Flow FiO2 Time Delivery Rate 09/15/18 70 04:00 09/15/18 97.7 17 105/74 92 Room Air 02:00 (84) 09/14/18 2.0 17:43 Intake and Output 09/14/18 09/14/18 09/15/18 1515:00 23:00 07:00 IntakeIntake Total 225 ml 0 ml OutputOutput Total 320 ml BalanceBalance -95 ml 0 ml Exam Patient is bengali speaking. She is alert, awake and oriented. CN grossly intact 5/5 no drift Results Result Diagram: 09/15/18 0446 09/15/18 0446 Results 24hrs Laboratory Tests Test 09/14/18 15:15 09/15/18 04:46 White Blood Count 10.4 # 7.1 # Red Blood Count 4.75 # 4.37 Hemoglobin 14.6 # 13.4 Hematocrit 42.0 39.1 Mean Corpuscular Volume 88.4 89.5 Mean Corpuscular Hemoglobin 30.7 30.7 Mean Corpuscular Hemoglobin Concent 34.8 34.3 Red Cell Distribution Width 12.4 # 12.1 Platelet Count 282 251 Mean Platelet Volume 8.8 8.6 Immature Granulocytes % 0.500 H 0.400 Neutrophils % 65.4 84.2 H Lymphocytes % 29.8 14.9 L Monocytes % 4.0 0.4 Eosinophils % 0.1 0.0 Basophils % 0.2 0.1 Nucleated Red Blood Cells % 0.0 0.0 Immature Granulocytes # 0.050 H 0.030 Neutrophils # 6.8 5.9 Lymphocytes # 3.1 H 1.1 Monocytes # 0.4 0.0 L Eosinophils # 0.0 0.0 Basophils # 0.0 0.0 Nucleated Red Blood Cells # 0.0 0.0 Prothrombin Time 12.6 Prothrombin Time Ratio 1.0 INR International Normalized Ratio 0.93 Activated Partial Thromboplast Time 24.0 Sodium Level 132 L 132 L Potassium Level 3.1 L 3.7 Chloride Level 93 L 90 L Carbon Dioxide Level 21 25 Anion Gap 18 H 17 H Blood Urea Nitrogen 14 18 Creatinine 0.59 0.56 Est Glomerular Filtrat Rate mL/min > 60 > 60 Glucose Level 155 173 Calcium Level 9.9 9.7 Troponin I < 0.012 Phosphorus Level 4.4 Magnesium Level 1.8 Imaging Imaging MRI demonstrates at least 5 medium sized brain metastases. There is moderate cerebral edema related to an inferior right frontal metastasis. Medications Medication Current Medications Dextrose/Sodium Chloride 1,000 ml @ 20 mls/hr Q24H IV Last administered on 09/14/18at 18:18; Admin Dose 20 MLS/HR; Start 09/14/18 at 17:27 IV Flush (NS 3 ml) 3 ml PER PROTOCOL IV ; Start 09/14/18 at 17:30 Acetaminophen (Tylenol Tab) 650 mg Q6H PRN PO .PAIN 1-3 OR TEMP Last administered on 09/14/18 21:12; Admin Dose 650 MG; Start 09/14/18 at 17:30 Morphine Sulfate (morphine) 2 mg Q4H PRN IV .SEVERE PAIN 7-10 Last administered on 09/15/18 05:24; Admin Dose 2 MG; Start 09/14/18 at 17:30 Docusate Sodium (Colace) 100 mg Q12H PRN PO .CONSTIPATION; Start 09/14/18 at 17 :30 Pantoprazole (Protonix Iv) 40 mg DAILY@06 IV Last administered on 09/15/18 06:42; Admin Dose 40 MG; Start 09/15/18 at 06:00 Dexamethasone (Decadron) 4 mg Q8 IV Last administered on 09/15/18 06:32; Admin Dose 4 MG; Start 09/14/18 at 22:00 Levetiracetam 100 ml @ 400 mls/hr BID IVPB Last administered on 09/14/18 21:41; Admin Dose 400 MLS/HR; Start 09/14/18 at 21:00 Ondansetron HCl (Zofran Odt) 4 mg Q6H PRN ODT NAUSEA AND/OR VOMITING; Start 09/14/18 at 23:30 Ondansetron HCl (Zofran Inj) 4 mg Q4H PRN IV NAUSEA AND/OR VOMITING Last administered on 09/15/18 05:19; Admin Dose 4 MG; Start 09/15/18 at 05:30 KARY MCCABE MD Sep 15, 2018 07:09
[2018-09-15] MEDS: LEVETIRACETAM 500 MG (PMX) 100 ML IVPB SCH ×2 (08:34→20:52)
[2018-09-15] MEDS: ACETAMINOPHEN 325 MG TAB PO PRN ×2 (08:37→16:42)
--- NOTE | 2018-09-15 10:59 | PN ---
Date/Time of Note Date/Time of Note DATE: 09/15/18 TIME: 10:51 Assessment/Plan VTE Prophylaxis Risk score (from Ns)>0 risk: 2 SCD applied (from Ns): Yes Pharmacological prophylaxis: NA/contraindicated Pharm contraindication: low risk/ambulating Lines/Catheters IV Catheter Type (from [facility]): [place] Assessment/Plan Hospital Course 58 y/o with #Multiple brain masses likely secondary to breast cancer headaches nausea vomiting and blurry vision #hx of right breast cancer status post mastectomy # Pre DM # HTN Plan -Seen by neurosurgery and not deemed any surgical candidate -Dr. Hassan radiation oncology called -Dr. Guzman and will see the patient today - CT CAP - IV Decadron 4 mg q 8 - seizure precautions - neuro checks q4 - pain control - zofran Result Diagram: 09/15/1844509/15/186 Results 24hrs Laboratory Tests Test 09/14/18 15:15 09/15/18 04:46 White Blood Count 10.4 # 7.1 # Red Blood Count 4.75 # 4.37 Hemoglobin 14.6 # 13.4 Hematocrit 42.0 39.1 Mean Corpuscular Volume 88.4 89.5 Mean Corpuscular Hemoglobin 30.7 30.7 Mean Corpuscular Hemoglobin Concent 34.8 34.3 Red Cell Distribution Width 12.4 # 12.1 Platelet Count 282 251 Mean Platelet Volume 8.8 8.6 Immature Granulocytes % 0.500 H 0.400 Neutrophils % 65.4 84.2 H Lymphocytes % 29.8 14.9 L Monocytes % 4.0 0.4 Eosinophils % 0.1 0.0 Basophils % 0.2 0.1 Nucleated Red Blood Cells % 0.0 0.0 Immature Granulocytes # 0.050 H 0.030 Neutrophils # 6.8 5.9 Lymphocytes # 3.1 H 1.1 Monocytes # 0.4 0.0 L Eosinophils # 0.0 0.0 Basophils # 0.0 0.0 Nucleated Red Blood Cells # 0.0 0.0 Prothrombin Time 12.6 Prothrombin Time Ratio 1.0 INR International Normalized Ratio 0.93 Activated Partial Thromboplast Time 24.0 Sodium Level 132 L 132 L Potassium Level 3.1 L 3.7 Chloride Level 93 L 90 L Carbon Dioxide Level 21 25 Anion Gap 18 H 17 H Blood Urea Nitrogen 14 18 Creatinine 0.59 0.56 Est Glomerular Filtrat Rate mL/min > 60 > 60 Glucose Level 155 173 Calcium Level 9.9 9.7 Troponin I < 0.012 Hemoglobin A1c 5.5 Phosphorus Level 4.4 Magnesium Level 1.8 Subjective 24 Hr Interval Summary Free Text/Dictation some headches episodes of nausea/vomiting Exam/Review of Systems Exam Vitals Vital Signs Date Temp Pulse Resp B/P (MAP) Pulse Ox O2 O2 Flow FiO2 Time Delivery Rate 09/15/18 77 08:00 09/15/18 20 130/87 95 07:30 (101) 09/15/18 97.7 06:30 09/15/18 Room Air 05:00 09/14/18 2.0 17:43 Intake and Output 09/14/18 09/14/18 09/15/18 1515:00 23:00 07:00 IntakeIntake Total 225 ml 0 ml OutputOutput Total 320 ml BalanceBalance -95 ml 0 ml Exam Patient is kazakh speaking. She is alert, awake and oriented. CN grossly intact 5/5 no drift rt mastectomy left portacath Results Results 24hrs Laboratory Tests Test 09/14/18 15:15 09/15/18 04:46 White Blood Count 10.4 # 7.1 # Red Blood Count 4.75 # 4.37 Hemoglobin 14.6 # 13.4 Hematocrit 42.0 39.1 Mean Corpuscular Volume 88.4 89.5 Mean Corpuscular Hemoglobin 30.7 30.7 Mean Corpuscular Hemoglobin Concent 34.8 34.3 Red Cell Distribution Width 12.4 # 12.1 Platelet Count 282 251 Mean Platelet Volume 8.8 8.6 Immature Granulocytes % 0.500 H 0.400 Neutrophils % 65.4 84.2 H Lymphocytes % 29.8 14.9 L Monocytes % 4.0 0.4 Eosinophils % 0.1 0.0 Basophils % 0.2 0.1 Nucleated Red Blood Cells % 0.0 0.0 Immature Granulocytes # 0.050 H 0.030 Neutrophils # 6.8 5.9 Lymphocytes # 3.1 H 1.1 Monocytes # 0.4 0.0 L Eosinophils # 0.0 0.0 Basophils # 0.0 0.0 Nucleated Red Blood Cells # 0.0 0.0 Prothrombin Time 12.6 Prothrombin Time Ratio 1.0 INR International Normalized Ratio 0.93 Activated Partial Thromboplast Time 24.0 Sodium Level 132 L 132 L Potassium Level 3.1 L 3.7 Chloride Level 93 L 90 L Carbon Dioxide Level 21 25 Anion Gap 18 H 17 H Blood Urea Nitrogen 14 18 Creatinine 0.59 0.56 Est Glomerular Filtrat Rate mL/min > 60 > 60 Glucose Level 155 173 Calcium Level 9.9 9.7 Troponin I < 0.012 Hemoglobin A1c 5.5 Phosphorus Level 4.4 Magnesium Level 1.8 Medications Medication Current Medications Dextrose/Sodium Chloride 1,000 ml @ 20 mls/hr Q24H IV Last administered on 09/14/18 18:18; Admin Dose 20 MLS/HR; Start 09/14/18 at 17:27 IV Flush (NS 3 ml) 3 ml PER PROTOCOL IV ; Start 09/14/18 at 17:30 Acetaminophen (Tylenol Tab) 650 mg Q6H PRN PO .PAIN 1-3 OR TEMP Last administered on 09/15/18 08:37; Admin Dose 650 MG; Start 09/14/18 at 17:30 Morphine Sulfate (morphine) 2 mg Q4H PRN IV .SEVERE PAIN 7-10 Last administered on 09/15/18 09:48; Admin Dose 2 MG; Start 09/14/18 at 17:30 Docusate Sodium (Colace) 100 mg Q12H PRN PO .CONSTIPATION; Start 09/14/18 at 17:30 Pantoprazole (Protonix Iv) 40 mg DAILY@06 IV Last administered on 09/15/18 06:42; Admin Dose 40 MG; Start 09/15/18 at 06:00 Dexamethasone (Decadron) 4 mg Q8 IV Last administered on 09/15/18 06:32; Admin Dose 4 MG; Start 09/14/18 at 22:00 Levetiracetam 100 ml @ 400 mls/hr BID IVPB Last administered on 09/15/18 08:34; Admin Dose 400 MLS/HR; Start 09/14/18 at 21:00 Ondansetron HCl (Zofran Odt) 4 mg Q6H PRN ODT NAUSEA AND/OR VOMITING; Start 09/14/18 at 23:30 Ondansetron HCl (Zofran Inj) 4 mg Q4H PRN IV NAUSEA AND/OR VOMITING Last administered on 2/19/19at 10:44; Admin Dose 4 MG; Start 09/15/18 at 05:30 OLIVIA VIDES MD Sep 15, 2018 10:59
[2018-09-15] MEDS ORDERED: IOHEXOL 100 ML ONE (13:56)
[2018-09-15] MEDS ORDERED: SOD CHLORIDE 0.9% 100 ML ONE (13:56)
--- NOTE | 2018-09-15 13:58 | CONS ---
DATE OF ADMISSION: 09/14/2018 DATE OF CONSULTATION: 09/15/2018 REASON FOR EVALUATION: Breast cancer now mets to the brain. HISTORY OF PRESENT ILLNESS: This is a 58-year-old female who was diagnosed with right-sided locally advanced amplified HER-2 positive breast cancer back in 2016, underwent neoadjuvant preopera tive systemic chemotherapy PTCH - pertuzumab, Taxotere, carboplatin, Herceptin with complete response . On 05/2017, the patient underwent modified radical mastectomy and virgie evaluation which showed no residual carcinoma, only inflammatory cells. All lymph nodes are negative. Post-neoadjuvant treatm ent, PCR pathological complete response, T0 N0 MX. The patient had ER positive, CO negative, HER-2/n eu amplified. She was put on letrozole tablets, hormonal blockade and neratinib tablets. Unfortunat rin, she comes to [facility] last night because of neurological symptoms including headache, blurred vision, balance problems with nausea and vomiting. Imaging studies: MRI and CAT s can of the brain showed multiple bilateral brain metastases, largest 2-1/2 cm likely metastatic carci noma with some brain edema and probable cerebellar changes with meningeal irritation and carcinomatos is. Currently, she is in the ICU getting neuro evaluation. Neurosurgery has been evaluated. Not a candidate for surgery on Decadron IV to decrease the pressure in addition to diuretic and Keppra anti -seizure medication. No active bleeding, no hematemesis, no melena. The headache is improved. PAST MEDICAL HISTORY: Positive for breast cancer in 2017, hypertension, prediabetes. MEDICATIONS: 1. Captopril. 2. Aspirin. 3. [place]. 4. Hydrochlorothiazide. SOCIAL HISTORY: Does not smoke, does not drink. . Has adult sons at bedside. FAMILY HISTORY: Negative for cancer. PHYSICAL EXAMINATION: VITAL SIGNS: Temperature is 97, BP 120/78, respiration 18, pulse of 76. LYMPHATICS: No supraclavicular nodes, no axillary nodes. CHEST: Clear. HEART: Normal S1, S2. ABDOMEN: Soft. 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 The largest lesion is 2.5 cm. ASSESSMENT: 1. A 58-year-old unfortunate female with locally advanced right-sided HER-2 amplified breast cancer in 2017. 2. Status post neoadjuvant chemotherapy PTCH. 3. Status post surgery of mastectomy on the right breast that showed no evidence of disease, T0 N0 M X disease, has been on hormonal blockade and anti-HER2 adjuvant treatment neratinib. Unfortunately d isease recurrence mainly in the brain, central nervous system and metastatic disease. PLAN: 1. Steroids will be continued, Decadron, to decrease the pressure. 2. Diuretic to decrease cerebral edema. 3. Radiation therapy evaluation for whole brain radiation. 4. We will change the medications later on to [place] anti-HER2 that passes the blood brain barrier B BB in addition to Xeloda per protocol as an outpatient. 5. Prognosis is poor and discussed with the family in agreement. 6. We will see the patient. Probably if no improvement over the next few weeks, she may need to und ergo an intrathecal, IT methotrexate if the symptoms do not disappear. Dictated By: JENNA HAAS Conf#: [id number] DID#: [id number] CC: OLIVIA VIDES;*EndCC*
[2018-09-15] MEDS ORDERED: ONDANSETRON INJ 8 MG in DEXTROSE 5% 50 ML IV PRN (14:00)
[2018-09-15] MEDS: DEXTROSE 5%-0.45% NACL 1,000 ML IV SCH (16:29)
[2018-09-16] VITALS (12 sets, daily range): BP systolic 112–147; BP diastolic 59–79; PULSE 68–80; RESP 16–19
[2018-09-16] MEDS: HYDROmorphONE 1 MG/ML SYG IV PRN ×3 (00:47→22:10)
[2018-09-16] MEDS: DEXAMETHASONE 4 MG/ML 1 ML INJ IV SCH ×4 (05:02→23:23)
[2018-09-16] MEDS: PANTOPRAZOLE (EC) 40 MG TAB PO SCH (05:02)
[2018-09-16] MEDS: ONDANSETRON 4 MG INJ IV PRN ×2 (05:02→09:09)
[2018-09-16] MEDS: KETOROLAC 15 MG INJ IV PRN ×2 (07:32→13:21)
[2018-09-16] MEDS: LEVETIRACETAM 500 MG (PMX) 100 ML IVPB SCH ×2 (09:39→20:37)
--- NOTE | 2018-09-16 10:12 | PN ---
Date/Time of Note Date/Time of Note DATE: 09/16/18 TIME: 10:09 Assessment/Plan VTE Prophylaxis Risk score (from Ns)>0 risk: 2 SCD applied (from Ns): Yes Pharmacological prophylaxis: NA/contraindicated Pharm contraindication: low risk/ambulating Lines/Catheters IV Catheter Type (from [facility]): Peripheral IV Assessment/Plan Hospital Course 58 y/o with # Stage IV breast cancer now with multiple brain masses likely secondary to breast cancer headaches nausea vomiting and blurry vision with increased intracranial pressure #hx of right breast cancer status post mastectomy # Pre DM # HTN #Hyponatremia likely secondary to SIADH Plan -Spoke to neurosurgery again will get another CAT scan of the head due to headaches nausea vomiting to evaluate for increased intracranial edema -Increase Decadron to 6 mg IV every 6 -Dr. Hassan radiation oncology called> have seen the patient with Dr. Sandoval and will discuss with him, plan of care -Toradol/Dilaudid for pain Zofran nausea vomiting - seizure precautions -? Role of mannitol discussed with neurosurgery who will evaluate -Repeat sodium check in the afternoon fluid restriction, recheck check a urine sodium and urine osmolarity - neuro checks q4 - pain control - scd Result Diagram: 09/15/18 0446 09/16/18 0509 Results 24hrs Laboratory Tests Test 09/16/18 05:09 Sodium Level 126 L Potassium Level 3.3 L Chloride Level 91 L Carbon Dioxide Level 26 Anion Gap 9 # Blood Urea Nitrogen 25 H Creatinine 0.55 Est Glomerular Filtrat Rate mL/min > 60 Glucose Level 155 Calcium Level 9.2 Subjective 24 Hr Interval Summary Free Text/Dictation Patient still having headaches. Dilaudid was added last night however Toradol today helped with the pain Had episode of nausea vomiting last night Sodium 126 Exam/Review of Systems Exam Vitals Vital Signs Date Temp Pulse Resp B/P (MAP) Pulse Ox O2 O2 Flow FiO2 Time Delivery Rate 09/16/18 73 08:07 09/16/18 97.7 19 127/79 97 07:16 (95) 09/15/18 Room Air 16:18 09/14/18 2.0 17:43 Intake and Output 09/15/18 09/15/18 09/16/18 1414:59 22:59 06:59 IntakeIntake Total 900 ml 280 ml 650 ml OutputOutput Total 200 ml BalanceBalance 900 ml 80 ml 650 ml Exam atient is japanese speaking. She is alert, awake and oriented. CN grossly intact 5/5 no drift rt mastectomy left portacath Results Results 24hrs Laboratory Tests Test 09/16/18 05:09 Sodium Level 126 L Potassium Level 3.3 L Chloride Level 91 L Carbon Dioxide Level 26 Anion Gap 9 # Blood Urea Nitrogen 25 H Creatinine 0.55 Est Glomerular Filtrat Rate mL/min > 60 Glucose Level 155 Calcium Level 9.2 Medications Medication Current Medications IV Flush (NS 3 ml) 3 ml PER PROTOCOL IV ; Start 09/14/18 at 17:30 Acetaminophen (Tylenol Tab) 650 mg Q6H PRN PO .PAIN 1-3 OR TEMP Last administered on 09/15/18 16:42; Admin Dose 650 MG; Start 09/14/18 at 17:30 Docusate Sodium (Colace) 100 mg Q12H PRN PO .CONSTIPATION; Start 09/14/18 at 17:30 Levetiracetam 100 ml @ 400 mls/hr BID IVPB Last administered on 09/15/18at 20:52; Admin Dose 400 MLS/HR; Start 09/14/18 at 21:00 Ondansetron HCl (Zofran Odt) 4 mg Q6H PRN ODT NAUSEA AND/OR VOMITING; Start 09/14/18 at 23:30 Ondansetron HCl (Zofran Inj) 4 mg Q4H PRN IV NAUSEA AND/OR VOMITING Last administered on 09/16/18 09:09; Admin Dose 4 MG; Start 09/15/18 at 05:30 Pantoprazole (Protonix Tab) 40 mg DAILY@06 PO Last administered on 09/16/18at 05:02; Admin Dose 40 MG; Start 09/16/18 at 06:00 Ondansetron HCl 8 mg/Dextrose 54 ml @ 108 mls/hr Q6H PRN IV NAUSEA AND/OR VOMITING; Start 09/15/18 at 14:00 Hydromorphone HCl (Dilaudid) 1 mg Q4H PRN IV SEVERE PAIN LEVEL 7-10 Last administered on 09/16/18at 00:47; Admin Dose 1 MG; Start 09/15/18 at 22:00 Ketorolac Tromethamine (Toradol) 15 mg Q6H PRN IV PAIN Last administered on 09/16/18at 07:32; Admin Dose 15 MG; Start 09/15/18 at 22:00; Stop 09/18/18 at 21:59 Potassium Chloride 100 ml @ 50 mls/hr Q2H IVPB ; Start 09/16/18 at 09:00; Stop 09/16/18 at 12:59 Dexamethasone (Decadron) 6 mg Q6 IV ; Start 09/16/18 at 12:00; Status UNV Sodium Chloride 1,000 ml @ 30 mls/hr Q24H IV ; Start 09/16/18 at 10:30; Status UNV OLIVIA VIDES MD Sep 16, 2018 10:12
[2018-09-16] MEDS: POTASSIUM CHLORIDE 100 ML IVPB SCH ×2 (10:16→10:57)
[2018-09-16] MEDS ORDERED: SOD CHLORIDE 0.45% 1,000 ML IV SCH (10:30)
--- NOTE | 2018-09-16 15:55 | CONS ---
Assessment/Plan Assessment/Plan Hospital Course 58 F c/ reported Hx of breast Ca s/p surgery and chemo...who presents for evaluation of days of headache, blurred vision, N/V.. She was found on MRI brain to have multiple supra and intra-tentorial enhancing lesions with surrounding edema, consistent w/ metastases...which is certainly the underlying cause of her acute Sx.. P: Agree w/ increased Decadron in the short-term Schedule Toradol for now (rather than prn) Keppra not essential in the absence of prior seizure.. Ativan iv prn prolonged seizure (> 5 min) SIADH and other medical management per primary Will follow Consultation Date/Type/Reason Admit Date/Time Sep 14, 2018 at 16:47 Type of Consult Neurology Reason for Consultation brain mets complicated by headache w/ N/V Date/Time of Note DATE: 09/16/18 TIME: 15:43 Hx of Present Illness A 58-year-old female with a past medical history of right breast cancer status post right mastectomy followed by Dr. Colunga as an outpatient. The patient had received 6 cycles of chemo and also had right mastectomy. According to oncologist, she had been in remission. According to the patient, she had been having headaches for the past few days. She was also having some episodes of nausea and vomiting. She also noticed blurry vision. The patient was feeling weak and tired. The last 2 days, she was having some episodes of vomiting. She came to the emergency department for further evaluation. On arrival to ED, vital signs showed blood pressure of 127/71, heart rate 86, respirations 18, and is afebrile. The patient had a CT of the head that showed cerebral parenchymal lesions as well as mild to moderate edema, largest greater than right frontal lobe suspicious for metastatic disease and no midline shift and the patient was given Decadron, morphine, Zofran and was admitted for further management. 12 PT ROS otherwise negative, barring that noted in HPI Exam/Review of Systems Exam Vitals Vital Signs Date Temp Pulse Resp B/P (MAP) Pulse Ox O2 O2 Flow FiO2 Time Delivery Rate 09/16/18 98.5 72 18 133/78 93 15:07 (96) 09/15/18 Room Air 16:18 09/14/18 2.0 17:43 Intake and Output 2/09/15/18 09/16/18 1515:00 23:00 07:00 IntakeIntake Total 1020 ml 160 ml 650 ml OutputOutput Total 200 ml BalanceBalance 1020 ml -40 ml 650 ml Exam PE: Gen Appearance: Visibly in discomfort HEENT: Normocephalic Cardiovascular: Regular rate Abdomen: Soft Extremities: Dry NE: The patient was awake, though sparsely verbal. Cranial nerve examination was limited. Pupils were equal and reactive to light. There was no afferent pupillary defect. Funduscopic examination was limited. Face was grossly symmetric, w/ present corneal and cough reflexes. Tone was normal. Muscle bulk was normal. I did not see fasciculations. The patient moved her limbs spontaneously. Coordination and gait testing was limited by mental status. Arm and leg reflexes were within normal limits and symmetric. Jose's sign was absent. Plantar responses were flexor. Results Result Diagram: 09/15/18 0446 09/16/18 0509 Results 24hrs Laboratory Tests Test 09/16/18 05:09 09/16/18 13:00 Sodium Level 126 L Potassium Level 3.3 L Chloride Level 91 L Carbon Dioxide Level 26 Anion Gap 9 # Blood Urea Nitrogen 25 H Creatinine 0.55 Est Glomerular Filtrat Rate mL/min > 60 Glucose Level 155 Calcium Level 9.2 Urine Osmolality 893 Urine Random Sodium 164 H Medications Medication Current Medications IV Flush (NS 3 ml) 3 ml PER PROTOCOL IV ; Start 09/14/18 at 17:30 Acetaminophen (Tylenol Tab) 650 mg Q6H PRN PO .PAIN 1-3 OR TEMP Last administered on 09/15/18at 16:42; Admin Dose 650 MG; Start 09/14/18 at 17:30 Docusate Sodium (Colace) 100 mg Q12H PRN PO .CONSTIPATION; Start 09/14/18 at 17:30 Levetiracetam 100 ml @ 400 mls/hr BID IVPB Last administered on 09/16/18at 09:39; Admin Dose 400 MLS/HR; Start 09/14/18 at 21:00 Ondansetron HCl (Zofran Odt) 4 mg Q6H PRN ODT NAUSEA AND/OR VOMITING; Start 09/14/18 at 23:30 Ondansetron HCl (Zofran Inj) 4 mg Q4H PRN IV NAUSEA AND/OR VOMITING Last administered on 09/16/18 09:09; Admin Dose 4 MG; Start 09/15/18 at 05:30 Pantoprazole (Protonix Tab) 40 mg DAILY@06 PO Last administered on 09/16/18 05:02; Admin Dose 40 MG; Start 09/16/18 at 06:00 Ondansetron HCl 8 mg/Dextrose 54 ml @ 108 mls/hr Q6H PRN IV NAUSEA AND/OR VOMITING Last administered on 09/16/18 12:09; Admin Dose 108 MLS/HR; Start 09/15/18 at 14:00 Hydromorphone HCl (Dilaudid) 1 mg Q4H PRN IV SEVERE PAIN LEVEL 7-10 Last administered on 09/16/18 15:01; Admin Dose 1 MG; Start 09/15/18 at 22:00 Ketorolac Tromethamine (Toradol) 15 mg Q6H PRN IV PAIN Last administered on 13:21; Admin Dose 15 MG; Start 09/15/18 at 22:00; Stop 09/18/18 at 21:59 Dexamethasone (Decadron) 6 mg Q6 IV Last administered on 09/16/18at 11:11; Admin Dose 6 MG; Start 09/16/18 at 12:00 Sodium Chloride 1,000 ml @ 30 mls/hr Q24H IV Last administered on 09/16/18at 10:57; Admin Dose 30 MLS/HR; Start 09/16/18 at 10:30 Past Medical History reviewed Home Meds Active Scripts Hydrocodone Bit-Acetaminophen (Hydrocodone Bit-APAP) 5-325MG Tablet, 1 TAB PO Q4H PRN for PAIN, #30 TAB Prov:DENI DIXON 06/13/17 Reported Medications Aspirin* (Aspirin* Chew) 81 Mg Tab.chew, 81 MG PO DAILY, TAB.CHEW 01/15/17 Hydrochlorothiazide* (Hydrochlorothiazide*) 25 Mg Tab, 25 MG PO DAILY, #30 TAB 01/15/17 Captopril* (Captopril*) 25 Mg Tablet, 25 MG PO BID, #60 TAB 01/15/17 Medications Current Medications IV Flush (NS 3 ml) 3 ml PER PROTOCOL IV ; Start 09/14/18 at 17:30 Acetaminophen (Tylenol Tab) 650 mg Q6H PRN PO .PAIN 1-3 OR TEMP Last adminis tered on 09/15/18 16:42; Admin Dose 650 MG; Start 09/14/18 at 17:30 Docusate Sodium (Colace) 100 mg Q12H PRN PO .CONSTIPATION; Start 09/14/18 at 17:30 Levetiracetam 100 ml @ 400 mls/hr BID IVPB Last administered on 09/16/18 09:39; Admin Dose 400 MLS/HR; Start 09/14/18 at 21:00 Ondansetron HCl (Zofran Odt) 4 mg Q6H PRN ODT NAUSEA AND/OR VOMITING; Start 09/14/18 at 23:30 Ondansetron HCl (Zofran Inj) 4 mg Q4H PRN IV NAUSEA AND/OR VOMITING Last administered on 09/16/18 09:09; Admin Dose 4 MG; Start 09/15/18 at 05:30 Pantoprazole (Protonix Tab) 40 mg DAILY@06 PO Last administered on 09/16/18 05:02; Admin Dose 40 MG; Start 09/16/18 at 06:00 Ondansetron HCl 8 mg/Dextrose 54 ml @ 108 mls/hr Q6H PRN IV NAUSEA AND/OR VOMITING Last administered on 09/16/18 12:09; Admin Dose 108 MLS/HR; Start 09/15/18 at 14:00 Hydromorphone HCl (Dilaudid) 1 mg Q4H PRN IV SEVERE PAIN LEVEL 7-10 Last adm inistered on 09/16/18 15:01; Admin Dose 1 MG; Start 09/15/18 at 22:00 Ketorolac Tromethamine (Toradol) 15 mg Q6H PRN IV PAIN Last administered on 09/16/18 13:21; Admin Dose 15 MG; Start 09/15/18 at 22:00; Stop 09/18/18 at 21:59 Dexamethasone (Decadron) 6 mg Q6 IV Last administered on 09/16/18 11:11; Admin Dose 6 MG; Start 09/16/18 at 12:00 Sodium Chloride 1,000 ml @ 30 mls/hr Q24H IV Last administered on 09/16/18 10:57; Admin Dose 30 MLS/HR; Start 09/16/18 at 10:30 Allergies: Coded Allergies: No Known Allergy (Unverified , 06/12/17) Past Surgical History reviewed Social History Smoking Status: Unknown if ever smoked KELLY OBANDO Sep 16, 2018 15:54
[2018-09-16] MEDS: KETOROLAC 15 MG INJ IV SCH ×3 (16:45→21:32)
[2018-09-16] MEDS ORDERED: SOD CHLORIDE 0.9% 1,000 ML IV SCH (18:30)
[2018-09-17] VITALS (14 sets, daily range): BP systolic 102–142; BP diastolic 75–85; PULSE 62–90; RESP 15–26
[2018-09-17] MEDS: SODIUM CHLORIDE 1 GM TAB PO SCH ×2 (03:38→08:11)
[2018-09-17] MEDS: KETOROLAC 15 MG INJ IV SCH ×4 (03:39→21:08)
[2018-09-17] MEDS: PANTOPRAZOLE (EC) 40 MG TAB PO SCH (05:24)
[2018-09-17] MEDS: DEXAMETHASONE 4 MG/ML 1 ML INJ IV SCH ×3 (05:24→20:18)
[2018-09-17] MEDS: HYDROmorphONE 1 MG/ML SYG IV PRN (06:55)
[2018-09-17] MEDS: LEVETIRACETAM 500 MG (PMX) 100 ML IVPB SCH (08:11)
--- NOTE | 2018-09-17 09:17 | PN ---
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 Given the multiplicity of her tumors and the presence of leptomeningeal disease, in particular, surgery for resection is absolutely contraindicated. Her new symptoms of delirium are partly attributable to hyponatremia, as her repeat CT scan is stable. - Would consider whole-brain radiotherapy - Med/onc recs - chemo? intrathecal chemo (could consider [place] reservoir if indicated)? - Aggressively treat hyponatremia as this will increase confusion and ICP - Would fluid restrict to 800cc Subjective 24 Hr Interval Summary Pt with Multiple brain metastases and leptomeningeal disease Now more confused, Repeat CT was stable, no midline shift or herniation Hyponatremic --> fluid restricted Exam/Review of Systems Vital Signs Vitals Vital Signs Date Temp Pulse Resp B/P (MAP) Pulse Ox O2 O2 Flow FiO2 Time Delivery Rate 09/17/18 64 08:07 09/17/18 97.7 16 131/77 95 07:36 (95) 09/15/18 Room Air 16:18 09/14/18 2.0 17:43 Intake and Output 09/16/18 09/16/18 09/17/18 1515:00 23:00 07:00 IntakeIntake Total 354 ml 200 ml 820 ml OutputOutput Total 300 ml BalanceBalance 354 ml -100 ml 820 ml Exam Free Text/Dictation Patient is talking, but does not participate in conversation Moving all extremities Results Result Diagram: 09/17/18 0524 09/17/18 0524 KARY MCCABE MD Sep 17, 2018 09:17
--- NOTE | 2018-09-17 11:35 | PN ---
Date/Time of Note Date/Time of Note DATE: 09/17/18 TIME: 11:35 Assessment/Plan VTE Prophylaxis Risk score (from [place])>0 risk: 5 [place] [facility] [place] contraindicated: low risk/ambulating Pharmacological prophylaxis: NA/contraindicated Pharm contraindication: low risk/ambulating Lines/Catheters IV Catheter Type (from [facility]): Peripheral IV Assessment/Plan Hospital Course 58 y/o with # Stage IV breast cancer now with multiple brain masses likely secondary to breast cancer headaches nausea vomiting and blurry vision with increased intracranial pressure With leptomeningeal spread #hx of right breast cancer status post mastectomy # Pre DM # HTN #Hyponatremia likely secondary to SIADH consistent with high urine sodium and high urine osmolarity # AMS due to metabolic encephalopathy Plan -repeat CT of the head is stable - cw Decadron to 6 mg IV every 6 -Spoke to neurology and neurosurgery there is no role of mannitol currently it can worsen the condition -Fluid restriction/salt tablets if does not consume it will put in NG tube and probably also give Samsca -Dr. Hassan radiation oncology called> is submitted authorization to insurance -Toradol/zofran ; avoid Dilaudid due to AMS - seizure precautions, first neurosurgery is okay now to give Keppra since sodium levels are low -Sodium checks every 8 hours - neuro checks q4 - pain control - scd -Second line of chemo per Dr. Guzman Spoke to the son/[id number] at bedside and all questions were answered Result Diagram: 09/17/18 0524 09/17/18 0524 Results 24hrs Laboratory Tests Test 09/16/18 13:00 09/16/18 16:14 09/16/18 18:54 09/17/18 00:27 Urine Osmolality 893 Urine Random Sodium 164 H Sodium Level 122 L 123 L 122 L Test 09/17/18 05:24 White Blood Count 11.5 #H Red Blood Count 4.15 L Hemoglobin 12.8 Hematocrit 36.2 L Mean Corpuscular 87.2 Volume Mean Corpuscular 30.8 Hemoglobin Mean Corpuscular 35.4 Hemoglobin Concent Red Cell 11.9 Distribution Width Platelet Count 260 Mean Platelet Volume 8.8 Immature 1.000 H Granulocytes % Neutrophils % 87.3 H Lymphocytes % 7.4 L Monocytes % 4.1 Eosinophils % 0.0 Basophils % 0.2 Nucleated Red Blood 0.0 Cells % Immature 0.110 H Granulocytes # Neutrophils # 10.0 H Lymphocytes # 0.9 Monocytes # 0.5 Eosinophils # 0.0 Basophils # 0.0 Nucleated Red Blood 0.0 Cells # Sodium Level 122 L Potassium Level 3.6 Chloride Level 89 L Carbon Dioxide Level 22 Anion Gap 12 Blood Urea Nitrogen 22 H Creatinine 0.48 Est Glomerular > 60 Filtrat Rate mL/min Glucose Level 134 Calcium Level 8.9 Phosphorus Level 3.0 Magnesium Level 1.9 Subjective 24 Hr Interval Summary Free Text/Dictation Patient is more confused today And is pulling out more things Spoke to the family they were frustrated about further actions and treatment Spoke to Dr. Harley and discussed plan of care patient he submitted authorization to the insurance for radiation treatments Spoke to Dr. Brasher who will offer a second line of treatment Sodium 123 today pt is not eating Exam/Review of Systems Exam Vitals Vital Signs Date Temp Pulse Resp B/P (MAP) Pulse Ox O2 O2 Flow FiO2 Time Delivery Rate 09/17/18 64 08:07 09/17/18 97.7 16 131/77 95 07:36 (95) 09/15/18 Room Air 16:18 09/14/18 2.0 17:43 Intake and Output 09/16/18 09/16/18 09/17/18 1515:00 23:00 07:00 IntakeIntake Total 354 ml 200 ml 820 ml OutputOutput Total 300 ml BalanceBalance 354 ml -100 ml 820 ml Exam atient is tamazight speaking. Awake, only responds to her name, does not follow any commands CN grossly intact 5/5 no drift rt mastectomy left portacath Results Results 24hrs Laboratory Tests Test 09/16/18 13:00 09/16/18 16:14 09/16/18 18:54 09/17/18 00:27 Urine Osmolality 893 Urine Random Sodium 164 H Sodium Level 122 L 123 L 122 L Test 09/17/18 05:24 White Blood Count 11.5 #H Red Blood Count 4.15 L Hemoglobin 12.8 Hematocrit 36.2 L Mean Corpuscular 87.2 Volume Mean Corpuscular 30.8 Hemoglobin Mean Corpuscular 35.4 Hemoglobin Concent Red Cell 11.9 Distribution Width Platelet Count 260 Mean Platelet Volume 8.8 Immature 1.000 H Granulocytes % Neutrophils % 87.3 H Lymphocytes % 7.4 L Monocytes % 4.1 Eosinophils % 0.0 Basophils % 0.2 Nucleated Red Blood 0.0 Cells % Immature 0.110 H Granulocytes # Neutrophils # 10.0 H Lymphocytes # 0.9 Monocytes # 0.5 Eosinophils # 0.0 Basophils # 0.0 Nucleated Red Blood 0.0 Cells # Sodium Level 122 L Potassium Level 3.6 Chloride Level 89 L Carbon Dioxide Level 22 Anion Gap 12 Blood Urea Nitrogen 22 H Creatinine 0.48 Est Glomerular > 60 Filtrat Rate mL/min Glucose Level 134 Calcium Level 8.9 Phosphorus Level 3.0 Magnesium Level 1.9 Medications Medication Current Medications IV Flush (NS 3 ml) 3 ml PER PROTOCOL IV ; Start 09/14/18 at 17:30 Acetaminophen (Tylenol Tab) 650 mg Q6H PRN PO .PAIN 1-3 OR TEMP Last administered on 09/15/18 16:42; Admin Dose 650 MG; Start 09/14/18 at 17:30 Docusate Sodium (Colace) 100 mg Q12H PRN PO .CONSTIPATION; Start 09/14/18 at 17:30 Ondansetron HCl (Zofran Odt) 4 mg Q6H PRN ODT NAUSEA AND/OR VOMITING; Start at 23:30 Ondansetron HCl (Zofran Inj) 4 mg Q4H PRN IV NAUSEA AND/OR VOMITING Last administered on 09/16/18 09:09; Admin Dose 4 MG; Start 09/15/18 at 05:30 Pantoprazole (Protonix Tab) 40 mg DAILY@06 PO Last administered on 09/17/18 05:24; Admin Dose 40 MG; Start 09/16/18 at 06:00 Ondansetron HCl 8 mg/Dextrose 54 ml @ 108 mls/hr Q6H PRN IV NAUSEA AND/OR VOMITING Last administered on 09/16/18 12:09; Admin Dose 108 MLS/HR; Start 09/15/18 at 14:00 Hydromorphone HCl (Dilaudid) 1 mg Q4H PRN IV SEVERE PAIN LEVEL 7-10 Last administered on 09/17/18 06:55; Admin Dose 1 MG; Start 09/15/18 at 22:00 Dexamethasone (Decadron) 6 mg Q6 IV Last administered on 2/21/19at 11:33; Admin Dose 6 MG; Start 09/16/18 at 12:00 Ketorolac Tromethamine (Toradol) 15 mg Q6H IV Last administered on 09/17/18at 10:26; Admin Dose 15 MG; Start 09/16/18 at 16:00; Stop 09/19/18 at 15:59 Sodium Chloride (Nacl) 2 gm BID PO ; Start 09/17/18 at 21:00 OLIVIA VIDES MD Sep 17, 2018 11:35
--- NOTE | 2018-09-17 13:29 | CONS ---
DATE OF ADMISSION: 09/14/2018 DATE OF CONSULTATION: DIAGNOSIS: Carcinoma of the breast with multiple brain metastases. HISTORY OF PRESENT ILLNESS: The patient is a 58-year-old female with no family history of breast can cer whose oncologic history dates back to early 2016 when she presented to medical attention with a p alpable mass located at the 12 o'clock position of the right breast. Diagnostic mammography on November 21, 2016, confirmed the presence of a 2.5 cm mass in the right upper hemisphere with no calcificatio ns. On ultrasound, this was a 19 mm mass at 12 o'clock. The axilla was negative. A biopsy on November 252016, confirmed moderately to poorly differentiated invasive ductal carcinoma, ER-positive, [place]-pos itive, HER-2/michael-positive with a high proliferation index. She then received 6 cycles of P-TCH start ing in December and completed in April 2017. On June 12, 2017, she underwent a right modified radi janes mastectomy, and no residual carcinoma was detected in the breast or in 7 lymph nodes. She was th en seen by me for consideration of post-mastectomy irradiation in July 2017. I found no indicatio n for such a recommendation. She did continue, thereafter, for a total of 1 year of adjuvant Hercept in. She now remains on letrozole and neratinib. The patient had been well until mid-May when she began to complain of generalized weakness and f atigue. More recently, she had developed complaints of progressive headaches with some dizziness. O ne to 2 days shortly before admission, she also did experience nausea and vomiting and double vision. On 09/14/2018, the patient underwent a CT brain without contrast. This observed several heterogene ous parenchymal lesions, the largest at the inferior right frontal lobe measuring nearly 3 cm with mi [id number] surrounding edema. Smaller lesions were also identified in the anterior right frontal and left parietal lobes with mild edema. There was no evidence of hemorrhage. There was no midline shift or hydrocephalus. The patient then underwent a whole brain MRI with gadolinium on 09/15/2018, and this, again, confirmed multiple enhancing lesions throughout the cerebral and cerebellar hemisph eres with surrounding vasogenic edema. A 2.5 cm abnormality was noted in the right frontal lobe, a 2 mm lesion also in the right frontal lobe, a 13 mm lesion in the right parietal lobe, a 4 mm finding in the left parasagittal front lobe, a 21 mm lesion in the left parietal lobe and an 11 mm abnormalit y in the right lateral cerebellar hemisphere. There was also nodular and leptomeningeal enhancement identified. The patient was started on steroids, and the headache and dizziness as well as the nause a and vomiting have resolved. She still, however, remains quite fatigued. She denies any specific b jamari discomfort. She has no new pulmonary complaints. She denies any appetite or weight loss. PAST MEDICAL HISTORY: 1. Hypertension. 2. Prediabetes. PAST SURGICAL HISTORY: Right mastectomy in 2017. MEDICATIONS: 1. Captopril. 2. Aspirin. 3. [place]. 4. Hydrochlorothiazide. 5. Decadron. SOCIAL HISTORY: She is . She has 2 sons. She denies any significant tobacco or alcohol use. FAMILY HISTORY: There is no family history of breast, uterine, or ovarian cancer. REVIEW OF SYSTEMS: GENERAL: Admits to fatigue. No fevers, chills, or sweats. ENT: Denies otalgia, dysphagia, or hoarseness. NEUROLOGIC: No history of seizure activity or focal extremity weakness. She does admit to generaliz ed weakness, especially in the lower extremities. RESPIRATORY: Denies shortness of breath, cough, hemoptysis, or wheezing. CARDIOVASCULAR: No history chest pain, palpitations, heart attacks, or strokes. GASTROINTESTINAL: As above. No cramping, diarrhea, or constipation. No rectal bleeding. GENITOURINARY: No dysuria, hematuria, or incontinence. ENDOCRINE: No history of thyroid disease. SKIN: No history of lupus or scleroderma. MUSCULOSKELETAL: No new worsening back, hip, or rib pain. PHYSICAL EXAMINATION: GENERAL: Well-developed female who is lying comfortably in bed. HEENT: Normocephalic, atraumatic. Sclerae anicteric. No facial asymmetry. Cranial nerves intact. Extraocular motions are intact. No facial droop. Oral cavity without mucositis or thrush. NODES: No palpable cervical, supraclavicular, or axillary adenopathy. LUNGS: Clear without wheezes. ABDOMEN: Soft, nontender. No rebound or guarding. EXTREMITIES: No cyanosis or edema. MUSCULOSKELETAL: No spine or flank tenderness. NEUROLOGIC EXAMINATION: Again, cranial nerves are intact. No focal motor or sensory deficits in the upper or lower extremities. No dysmetria. Gait not assessed. The patient is awake, alert, and jose m ented. IMPRESSION AND PLAN: The patient is a 58-year-old female who was diagnosed with clinical T2N0 invasi ve ductal carcinoma of the right breast, triple positive, who underwent neoadjuvant therapy with a co mplete pathologic response. She was not offered post-mastectomy radiation. She did continue on adju vant endocrine therapy as well as adjuvant anti-HER-2/michael medications. She now has been found to hav e evidence of multiple brain metastases with edema. I do agree with the recommendation regarding steroid administration. I do await the patient to be ev aluated by neurology. Though, I do not believe that there is any indication for surgical interventio n, the family may want to consider a neurosurgery evaluation just to more clearly understand standard recommendations. Also, I believe there would be benefit to complete staging studies with a computed tomography (CT) of the chest, abdomen, and pelvis. This would further allow for better understandin g as to the patient's current disease burden. Based on the current findings within the brain, I do not feel that she is a candidate for stereotacti c treatment. I would recommend whole brain irradiation with a slower fractionation scheme to minimiz e acute and late side effects. Because of the potential for neurocognitive complications, I would al so recommend the use of Namenda going forward. The patient would require a computed tomography (CT) simulation for planning purposes. The nature, rational, risks, and benefits of treatment were review ed. Side effects were discussed. This includes, but is not limited to, discussion of the potential for significant fatigue, including somnolence syndrome; worsening intracranial pressure; brain necros is; neurocognitive complications, including worsening short-term memory, concentration, and focus; mtz ir loss and skin changes. Questions were answered. The family does wish to take some time to make a formal decision, but I did suggest submitting for urgent authorization for if and when they are read y to proceed. Dictated By: ZURI ARELLANO/SERINA Conf#: [id number] DID#: [id number] CC: JENNA TSE; OLIVIA VIDES;*EndCC*
[2018-09-17] MEDS ORDERED: TOLVAPTAN 15 MG TABLET PO ONE (14:00)
--- NOTE | 2018-09-17 14:36 | CONS ---
Assessment/Plan Assessment/Plan Hospital Course 58 F c/ reported Hx of breast Ca s/p surgery and chemo...who presents for evaluation of days of headache, blurred vision, N/V.. She was found on MRI brain to have multiple supra and intra-tentorial enhancing lesions with surrounding edema, consistent w/ metastases...which is certainly the underlying cause of her acute Sx.. P: Agree w/ increased Decadron in the short-term Cont scheduled Toradol for now (rather than prn); monitor renal function closely.. Keppra not essential in the absence of prior seizure.. Ativan iv prn prolonged seizure (> 5 min) SIADH and other medical management per primary Will follow Consultation Date/Type/Reason Admit Date/Time Sep 14, 2018 at 16:47 Type of Consult Neurology Requesting Provider: OLIVIA VIDES MD Date/Time of Note DATE: 09/17/18 TIME: 14:36 24 HR Interval Summary Free Text/Dictation Continues telemetry monitoring. Pt reportedly more lethargic today. Still hyponatremic. No c/o further headaches Exam Vital Signs Vitals Vital Signs Date Temp Pulse Resp B/P (MAP) Pulse Ox O2 O2 Flow FiO2 Time Delivery Rate 09/17/18 64 12:27 09/17/18 97.7 16 131/77 95 07:36 (95) 09/15/18 Room Air 16:18 09/14/18 2.0 17:43 Intake and Output 09/16/18 09/16/18 09/17/18 1515:00 23:00 07:00 IntakeIntake Total 354 ml 200 ml 820 ml OutputOutput Total 300 ml BalanceBalance 354 ml -100 ml 820 ml Exam PE: Gen Appearance: Visibly in discomfort HEENT: Normocephalic Cardiovascular: Regular rate Abdomen: Soft Extremities: Dry NE: The patient was awake, though sparsely verbal. Cranial nerve examination was limited. Pupils were equal and reactive to light. There was no afferent pupillary defect. Funduscopic examination was limited. Face was grossly symmetric, w/ present corneal and cough reflexes. Tone was normal. Muscle bulk was normal. I did not see fasciculations. The patient moved her limbs spontaneously. Coordination and gait testing was limited by mental status. Arm and leg reflexes were within normal limits and symmetric. Jose's sign was absent. Plantar responses were flexor. BEENA NIETO NP Sep 17, 2018 14:36 KELLY OBANDO Sep 17, 2018 20:11
[2018-09-17] MEDS ORDERED: SODIUM CHLORIDE 1 GM TAB PO SCH (21:00)
[2018-09-17] MEDS: LEVETIRACETAM IV 500 MG in DEXTROSE 5% 100 ML IVPB SCH (21:13)
[2018-09-18] VITALS (20 sets, daily range): BP systolic 87–148; BP diastolic 65–100; PULSE 67–102; RESP 9–27
[2018-09-18] MEDS: DEXAMETHASONE 4 MG/ML 1 ML INJ IV SCH ×4 (00:16→21:11)
[2018-09-18] MEDS: KETOROLAC 15 MG INJ IV SCH ×2 (04:51→10:00)
[2018-09-18] MEDS: PANTOPRAZOLE (EC) 40 MG TAB PO SCH (05:00)
--- NOTE | 2018-09-18 08:38 | PN ---
Date/Time of Note Date/Time of Note DATE: 09/18/18 TIME: 08:33 Outpatient Progress Note HPI better less vomiting no pain no bleeding Review of Systems Const: No Fever, no chills, no Wt. loss, no Fatigue, normal appetite, no diaphoresis. S1S2 CLEAR LUNGS SOFT ABDOMEN Physical Exam Vital Signs Date Temp Pulse Resp B/P (MAP) Pulse Ox O2 O2 Flow FiO2 Time Delivery Rate 09/18/18 97.8 69 15 148/86 Room Air 05:00 (106) 09/17/18 96 20:00 09/14/18 2.0 17:43 Intake and Output 09/17/18 09/17/18 09/18/18 1414:59 22:59 06:59 IntakeIntake Total 220 ml 155 ml 120 ml BalanceBalance 220 ml 155 ml 120 ml Result Diagram: 09/17/1852309/17/18 2247 Allergies Coded Allergies: No Known Allergy (Unverified , 06/12/17) Assessment/Plan Recurrent breast cancer mainly multiple brain mets Her2 amplified progressed after Herceptin based therapy Progressed even being on Neratinib PO Optione 1 comfort care supportive measures 2 Whole brain RT >> Dr. Sai Curran, js morales, 3 Later to add Tykerb Xeloda which is ordered already 4 Hyponatremia improving already 5. Prognosis poor survival 10 % only 6 family aware Medications Home Meds Active Scripts Hydrocodone Bit-Acetaminophen (Hydrocodone Bit-APAP) 5-325MG Tablet, 1 TAB PO Q4H PRN for PAIN, #30 TAB Prov:DENI DIXON 06/13/17 Reported Medications Aspirin* (Aspirin* Chew) 81 Mg Tab.chew, 81 MG PO DAILY, TAB.CHEW 01/15/17 Hydrochlorothiazide* (Hydrochlorothiazide*) 25 Mg Tab, 25 MG PO DAILY, #30 TAB 01/15/17 Captopril* (Captopril*) 25 Mg Tablet, 25 MG PO BID, #60 TAB 01/15/17 JENNA TSE Sep 18, 2018 08:38
[2018-09-18] MEDS: LEVETIRACETAM IV 500 MG in DEXTROSE 5% 100 ML IVPB SCH ×2 (09:26→21:11)
--- NOTE | 2018-09-18 13:00 | CONS ---
Assessment/Plan Assessment/Plan Hospital Course 58 F c/ reported Hx of breast Ca s/p surgery and chemo...who presents for evaluation of days of headache, blurred vision, N/V.. She was found on MRI brain to have multiple supra and intra-tentorial enhancing lesions with surrounding edema, consistent w/ metastases...which is certainly the underlying cause of her acute Sx.. P: Agree w/ Decadron in the short-term Change Toradol to prn (rather than scheduled); given significantly improved headache Keppra not essential in the absence of prior seizure.. Ativan iv prn prolonged seizure (> 5 min) SIADH and other medical management per primary Will follow Consultation Date/Type/Reason Admit Date/Time Sep 14, 2018 at 16:47 Type of Consult Neurology Requesting Provider: OLIVIA VIDES MD Date/Time of Note DATE: 09/18/18 TIME: 13:00 24 HR Interval Summary Free Text/Dictation Transferred to ICU for increasing ams/agitation in the context of hyponatremia. Sodium corrected today. Pt reportedly more calm, awake and alert today. Pt denies headaches. States that she is upset about her brain cancer. Exam Vital Signs Vitals Vital Signs Date Temp Pulse Resp B/P (MAP) Pulse Ox O2 O2 Flow FiO2 Time Delivery Rate 09/18/18 87 08:00 09/18/18 97.8 15 148/86 Room Air 05:00 (106) 09/17/18 96 20:00 09/14/18 2.0 17:43 Intake and Output 09/17/18 09/17/18 09/18/18 1515:00 23:00 07:00 IntakeIntake Total 220 ml 155 ml 120 ml BalanceBalance 220 ml 155 ml 120 ml Exam PE: Gen Appearance: No Apparent Distress HEENT: Normocephalic Cardiovascular: Regular rate Lungs: Clear bilaterally Abdomen: Soft Extremities: Dry NE: The patient was alert and mildly disoriented. Language was normal. Fund of knowledge was adequate. Pupils were equal and reactive to light. There was no afferent pupillary defect. Visual [place] were normal. Funduscopic examination was limited.. Extra-ocular movements were full. Ptosis was absent. There was no nystagmus. Facial sensation was normal. Face was symmetric with normal strength. Hearing was intact. Palate movements were normal. Neck strength was normal. There was normal tongue bulk and speed of movement. Tone was normal. Muscle bulk was normal. I did not see fasciculations. Arms and legs were strong. Vibration sensation was normal. Temperature and pinprick sensation was normal. Rapid alternating movements were normal. There was no dysmetria. There was no intention tremor. Gait was deferred due to bedrest. Arm and leg reflexes were 2+ and symmetric. Jose's sign was absent. Plantar responses were flexor. BEENA NIETO NP Sep 18, 2018 13:00 KELLY OBANDO Sep 18, 2018 15:41
--- NOTE | 2018-09-18 13:48 | PN ---
CORINA TIERNEY 09/18/18 1348: Date/Time of Note Date/Time of Note DATE: 09/18/18 TIME: 13:44 Assessment/Plan VTE Prophylaxis Risk score (from [facility] [place]0 risk: 5 SCD applied (from [facility] [place]): No SCD contraindicated: other (apply) Pharmacological prophylaxis: NA/contraindicated Pharm contraindication: other Lines/Catheters IV Catheter Type (from [facility] [place] Assessment/Plan Hospital Course # Stage IV breast cancer now with multiple brain masses likely secondary to breast cancer headaches nausea vomiting and blurry vision with increased intracranial pressure With leptomeningeal spread # hx of right breast cancer status post mastectomy # Pre DM # HTN # Hyponatremia likely secondary to SIADH consistent with high urine sodium and high urine osmolarity # AMS due to metabolic encephalopathy Assessment/Plan -advance diet -repeat CT of the head is stable - cw Decadron to 6 mg IV every 6 -Spoke to neurology and neurosurgery there is no role of mannitol currently it can worsen the condition -Fluid restriction/salt tablets if does not consume it will put in NG tube and probably also give Samscrey -Dr. Hassan radiation oncology called> is submitted authorization to insurance -Toradol/zofran ; avoid Dilaudid due to AMS - seizure precautions, first neurosurgery is okay now to give Keppra since sodium levels are low -Sodium checks every 8 hours - neuro checks q4 - pain control - scd -Second line of chemo per Dr. Guzman Result Diagram: 09/17/18 0524 09/18/18 0841 Results 24hrs Laboratory Tests Test 09/17/18 15:46 09/17/18 22:47 09/18/18 08:41 Sodium Level 121 L 132 L 136 Aspartate Amino Transf (AST/SGOT) 22 Alanine Aminotransferase (ALT/SGPT) 25 Subjective 24 Hr Interval Summary Constitutional: improved Exam/Review of Systems Exam Vitals Vital Signs Date Temp Pulse Resp B/P (MAP) Pulse Ox O2 O2 Flow FiO2 Time Delivery Rate 09/18/18 87 08:00 09/18/18 97.8 15 148/86 Room Air 05:00 (106) 09/17/18 96 20:00 09/14/18 2.0 17:43 Intake and Output 09/17/18 09/17/18 09/18/18 1515:00 23:00 07:00 IntakeIntake Total 220 ml 155 ml 120 ml BalanceBalance 220 ml 155 ml 120 ml Constitutional: alert, oriented Respiratory: clear to auscultation Cardiovascular: regular rate and rhythm Gastrointestinal: soft Results Result Diagram: 09/17/18 0524 09/18/18 0841 Results 24hrs Laboratory Tests Test 09/17/18 15:46 09/17/18 22:47 09/18/18 08:41 Sodium Level 121 L 132 L 136 Aspartate Amino Transf (AST/SGOT) 22 Alanine Aminotransferase (ALT/SGPT) 25 Medications Medication Current Medications IV Flush (NS 3 ml) 3 ml PER PROTOCOL IV ; Start 09/14/18 at 17:30 Acetaminophen (Tylenol Tab) 650 mg Q6H PRN PO .PAIN 1-3 OR TEMP Last administered on 09/15/18at 16:42; Admin Dose 650 MG; Start 09/14/18 at 17:30 Docusate Sodium (Colace) 100 mg Q12H PRN PO .CONSTIPATION; Start 09/14/18 at 17:30 Ondansetron HCl (Zofran Odt) 4 mg Q6H PRN ODT NAUSEA AND/OR VOMITING; Start 09/14/18 at 23:30 Ondansetron HCl (Zofran Inj) 4 mg Q4H PRN IV NAUSEA AND/OR VOMITING Last ad ministered on 09/16/18at 09:09; Admin Dose 4 MG; Start 09/15/18 at 05:30 Pantoprazole (Protonix Tab) 40 mg DAILY@06 PO Last administered on 09/18/18 05:00; Admin Dose 40 MG; Start 09/16/18 at 06:00 Ondansetron HCl 8 mg/Dextrose 54 ml @ 108 mls/hr Q6H PRN IV NAUSEA AND/OR VOMITING Last administered on 09/16/18 12:09; Admin Dose 108 MLS/HR; Start 09/15/18 at 14:00 Dexamethasone (Decadron) 6 mg Q6 IV Last administered on 09/18/18 05:00; Admin Dose 6 MG; Start 09/16/18 at 12:00 Ketorolac Tromethamine (Toradol) 15 mg Q6H IV Last administered on 09/18/18 04:51; Admin Dose 15 MG; Start 09/16/18 at 16:00; Stop 09/19/18 at 15:59 Levetiracetam 500 mg/Dextrose 105 ml @ 430 mls/hr Q12 IVPB Last administered on 09/18/18at 09:26; Admin Dose 430 MLS/HR; Start 09/17/18 at 21:00 OLIVIA VIDES MD 09/18/18 1836: Assessment/Plan Assessment/Plan Assessment/Plan SEEN AND EXAMIEND WITH FIRING PIN GAUGER DEC STEROIDS NA CORRECTED TOO FAST ADD D5W AND WATER TO DRINK Result Diagram: 09/17/18 0524 09/18/18 0841 CORINA TIERNEY Sep 18, 2018 13:48 OLIVIA VIDES MD Sep 18, 2018 18:36
[2018-09-18] MEDS ORDERED: KETOROLAC 15 MG INJ IV PRN (16:00)
[2018-09-18] MEDS ORDERED: DEXTROSE 5% 1,000 ML IV SCH (16:00)
[2018-09-19] VITALS (11 sets, daily range): BP systolic 114–127; BP diastolic 60–83; PULSE 64–94; RESP 18–19
[2018-09-19] MEDS: ZOLPIDEM 5 MG TAB PO PRN ×2 (00:15→20:59)
[2018-09-19] MEDS: DEXAMETHASONE 4 MG/ML 1 ML INJ IV SCH ×3 (05:12→21:00)
[2018-09-19] MEDS: PANTOPRAZOLE (EC) 40 MG TAB PO SCH (05:13)
[2018-09-19] MEDS: LEVETIRACETAM IV 500 MG in DEXTROSE 5% 100 ML IVPB SCH (08:48)
--- NOTE | 2018-09-19 10:04 | CONS ---
Assessment/Plan Assessment/Plan Hospital Course 58 F c/ reported Hx of breast Ca s/p surgery and chemo...who presents for evaluation of days of headache, blurred vision, N/V.. She was found on MRI brain to have multiple supra and intra-tentorial enhancing lesions with surrounding edema, consistent w/ metastases...which is certainly the underlying cause of her acute Sx.. P: Agree w/ increased Decadron in the short-term Cont prn Toradol for now Keppra not essential in the absence of prior seizure.. Ativan iv prn prolonged seizure (> 5 min) Will follow Consultation Date/Type/Reason Admit Date/Time Sep 14, 2018 at 16:47 Type of Consult Neurology Requesting Provider: OLIVIA VIDES MD Date/Time of Note DATE: 09/19/18 TIME: 10:04 24 HR Interval Summary Free Text/Dictation Continues telemetry monitoring. No c/o headaches or other changes today. Exam Vital Signs Vitals Vital Signs Date Temp Pulse Resp B/P (MAP) Pulse Ox O2 O2 Flow FiO2 Time Delivery Rate 09/19/18 70 08:01 09/19/18 98.1 19 119/60 95 07:19 (79) 09/18/18 Room Air 05:00 Intake and Output 09/18/18 09/18/18 09/19/18 1515:00 23:00 07:00 IntakeIntake Total 160 ml 105 ml 550 ml BalanceBalance 160 ml 105 ml 550 ml Exam PE: Gen Appearance: No Apparent Distress HEENT: Normocephalic Cardiovascular: Regular rate Lungs: Clear bilaterally Abdomen: Soft Extremities: Dry NE: The patient was alert and mildly disoriented. Language was normal. Fund of knowledge was adequate. Pupils were equal and reactive to light. There was no afferent pupillary defect. Visual madison were normal. Funduscopic examination was limited.. Extra-ocular movements were full. Ptosis was absent. There was no nystagmus. Facial sensation was normal. Face was symmetric with normal strength. Hearing was intact. Palate movements were normal. Neck strength was normal. There was normal tongue bulk and speed of movement. Tone was normal. Muscle bulk was normal. I did not see fasciculations. Arms and legs were strong. Vibration sensation was normal. Temperature and pinprick sensation was normal. Rapid alternating movements were normal. There was no dysmetria. There was no intention tremor. Gait was deferred due to bedrest. Arm and leg reflexes were 2+ and symmetric. Jose's sign was absent. Plantar responses were flexor. BEENA NEITO NP Sep 19, 2018 10:04 KELLY OBANDO Sep 19, 2018 11:52
--- NOTE | 2018-09-19 11:52 | PN ---
Date/Time of Note Date/Time of Note DATE: 09/19/18 TIME: 11:50 Assessment/Plan VTE Prophylaxis Risk score (from [facility] [place])>0 risk: 1 SCD applied (from [facility] [place]): No SCD contraindicated: low risk/ambulating Pharmacological prophylaxis: NA/contraindicated Pharm contraindication: low risk/ambulating Lines/Catheters IV Catheter Type (from [facility]): Saline Lock Urinary Cath still in place: No Assessment/Plan Hospital Course # Stage IV breast cancer now with multiple brain masses likely secondary to breast cancer headaches nausea vomiting and blurry vision with increased intracranial pressure With leptomeningeal spread # hx of right breast cancer status post mastectomy # Pre DM # HTN # Hyponatremia likely secondary to SIADH consistent with high urine sodium and high urine osmolarity # AMS due to metabolic encephalopathy Assessment/Plan -c/w advance diet -repeat CT of the head is stable - cw Decadron to 6 mg IV every 6 -Fluid restriction/salt tablets if does not consume it will put in NG tube and probably also give Samsca -Dr. Hassan radiation oncology called> is submitted authorization to insurance -Toradol/zofran ; avoid Dilaudid due to AMS - seizure precautions, first neurosurgery is okay now to give Keppra since sodium levels are low - neuro checks q4 - pain control - scd -Second line of chemo per Dr. Guzman Result Diagram: 09/19/18 0509 09/19/18 0509 Results 24hrs Laboratory Tests Test 09/18/18 17:20 09/18/18 22:03 09/19/18 05:09 Sodium Level 139 133 L 132 L White Blood Count 11.1 H Red Blood Count 4.99 # Hemoglobin 15.5 # Hematocrit 43.8 # Mean Corpuscular Volume 87.8 Mean Corpuscular Hemoglobin 31.1 Mean Corpuscular Hemoglobin Concent 35.4 Red Cell Distribution Width 12.7 Platelet Count 310 Mean Platelet Volume 8.7 Immature Granulocytes % 0.700 H Neutrophils % 82.3 H Lymphocytes % 10.5 L Monocytes % 6.3 Eosinophils % 0.0 Basophils % 0.2 Nucleated Red Blood Cells % 0.0 Immature Granulocytes # 0.080 H Neutrophils # 9.1 H Lymphocytes # 1.2 Monocytes # 0.7 Eosinophils # 0.0 Basophils # 0.0 Nucleated Red Blood Cells # 0.0 Potassium Level 3.4 L Chloride Level 99 # Carbon Dioxide Level 22 Anion Gap 11 Blood Urea Nitrogen 37 #H Creatinine 0.73 Est Glomerular Filtrat Rate mL/min > 60 Glucose Level 142 Calcium Level 9.5 Subjective 24 Hr Interval Summary Free Text/Dictation insomnia Exam/Review of Systems Exam Vitals Vital Signs Date Temp Pulse Resp B/P (MAP) Pulse Ox O2 O2 Flow FiO2 Time Delivery Rate 09/19/18 98.3 69 19 115/80 96 11:39 (92) 09/18/18 Room Air 05:00 Intake and Output 09/18/18 09/18/18 09/19/18 1414:59 22:59 06:59 IntakeIntake Total 160 ml 105 ml 550 ml BalanceBalance 160 ml 105 ml 550 ml Exam no right breast Constitutional: alert, oriented Respiratory: clear to auscultation Cardiovascular: regular rate and rhythm Results Results 24hrs Laboratory Tests Test 09/18/18 17:20 09/18/18 22:03 09/19/18 05:09 Sodium Level 139 133 L 132 L White Blood Count 11.1 H Red Blood Count 4.99 # Hemoglobin 15.5 # Hematocrit 43.8 # Mean Corpuscular Volume 87.8 Mean Corpuscular Hemoglobin 31.1 Mean Corpuscular Hemoglobin Concent 35.4 Red Cell Distribution Width 12.7 Platelet Count 310 Mean Platelet Volume 8.7 Immature Granulocytes % 0.700 H Neutrophils % 82.3 H Lymphocytes % 10.5 L Monocytes % 6.3 Eosinophils % 0.0 Basophils % 0.2 Nucleated Red Blood Cells % 0.0 Immature Granulocytes # 0.080 H Neutrophils # 9.1 H Lymphocytes # 1.2 Monocytes # 0.7 Eosinophils # 0.0 Basophils # 0.0 Nucleated Red Blood Cells # 0.0 Potassium Level 3.4 L Chloride Level 99 # Carbon Dioxide Level 22 Anion Gap 11 Blood Urea Nitrogen 37 #H Creatinine 0.73 Est Glomerular Filtrat Rate mL/min > 60 Glucose Level 142 Calcium Level 9.5 Medications Medication Current Medications IV Flush (NS 3 ml) 3 ml PER PROTOCOL IV ; Start 09/14/18 at 17:30 Acetaminophen (Tylenol Tab) 650 mg Q6H PRN PO .PAIN 1-3 OR TEMP Last administered on 09/15/18at 16:42; Admin Dose 650 MG; Start 09/14/18 at 17:30 Docusate Sodium (Colace) 100 mg Q12H PRN PO .CONSTIPATION; Start 09/14/18 at 17:30 Ondansetron HCl (Zofran Odt) 4 mg Q6H PRN ODT NAUSEA AND/OR VOMITING; Start 09/14/18 at 23:30 Ondansetron HCl (Zofran Inj) 4 mg Q4H PRN IV NAUSEA AND/OR VOMITING Last administered on 09/16/18at 09:09; Admin Dose 4 MG; Start 09/15/18 at 05:30 Pantoprazole (Protonix Tab) 40 mg DAILY@06 PO Last administered on 09/19/18at 05:13; Admin Dose 40 MG; Start 09/16/18 at 06:00 Ondansetron HCl 8 mg/Dextrose 54 ml @ 108 mls/hr Q6H PRN IV NAUSEA AND/OR VOMITING Last administered on 09/16/18at 12:09; Admin Dose 108 MLS/HR; Start 09/15/18 at 14:00 Dexamethasone (Decadron) 6 mg Q8 IV Last administered on 09/19/18at 05:12; Admin Dose 6 MG; Start 09/18/18 at 22:00 Ketorolac Tromethamine (Toradol) 15 mg Q6H PRN IV headache; Start 09/18/18 at 16:00; Stop 09/21/18 at 15:59 Zolpidem Tartrate (Ambien) 5 mg HS PRN PO INSOMNIA Last administered on 09/19/18at 00:15; Admin Dose 5 MG; Start 09/19/18 at 00:30 Levetiracetam (Keppra) 500 mg BID PO ; Start 09/19/18 at 21:00; Status CORINA BALDWIN Sep 19, 2018 11:52
[2018-09-19] MEDS ORDERED: POTASSIUM CHLORIDE 20 MEQ POWDER FOR ORAL SOLN GTB ONE (12:00)
--- NOTE | 2018-09-19 16:42 | CONS ---
Assessment/Plan Assessment/Plan Assessment/Plan (Daily) 1. A 58-year-old unfortunate female with locally advanced right-sided HER-2 amplified breast cancer in 2017. 2. Status post neoadjuvant chemotherapy PTCH. 3. Status post surgery of mastectomy on the right breast that showed no evidence of disease, T0 N0 MX disease, has been on hormonal blockade and anti- HER2 adjuvant treatment neratinib. Unfortunately disease recurrence mainly in the brain, central nervous system and metastatic disease. 4. Acute Hypokalemia- replace per PMD PLAN: 1. continue Steroids- Decadron, to decrease the pressure. 2. Diuretic to decrease cerebral edema. 3. Radiation therapy by Dr Hassan- SCHEDULED ON FRIDAY 4. Plan to change the medications later on to Tykerb anti-HER2 that passes the blood brain barrier BBB in addition to Xeloda per protocol as an outpatient. 5. Cont Keppra; Seizure precautions 6. cont Antiemetics 7. Prognosis is poor and discussed with the family in agreement by Dr Colunga 8. Probably if no improvement over the next few weeks, she may need to undergo an intrathecal, IT methotrexate if the symptoms do not disappear. Patient seen in collaboration with Dr Colunga Consultation Date/Type/Reason Admit Date/Time Sep 14, 2018 at 16:47 Initial Consult Date 09/15/18 Type of Consult ONCOLOGY Reason for Consultation RIGHT BREAST CANCER Requesting Provider: OLIVIA VIDES MD Date/Time of Note DATE: 09/19/18 TIME: 14:41 24 HR Interval Summary Free Text/Dictation - C/O pain right breast - effective pain control Radiation therapy by Dr Hassan- SCHEDULED ON FRIDAY - family at bed side-all Qs answered - no new issues reported overnight Detailed Summary Eyes: no complaints ENT: no complaints Respiratory: no complaints Cardiovascular: no complaints Gastrointestinal: no complaints Genitourinary: no complaints Musculoskeletal: no complaints Exam/Review of Systems Exam Vitals Vital Signs Date Temp Pulse Resp B/P (MAP) Pulse Ox O2 O2 Flow FiO2 Time Delivery Rate 09/19/18 94 12:01 09/19/18 98.3 19 115/80 96 11:39 (92) 09/18/18 Room Air 05:00 Intake and Output 09/18/18 09/18/18 09/19/18 1515:00 23:00 07:00 IntakeIntake Total 160 ml 105 ml 550 ml BalanceBalance 160 ml 105 ml 550 ml Constitutional: alert, well developed Psych: nl mood/affect Head: normocephalic Eyes: EOMI, nl lids, nl sclera ENMT: nl external ears & nose Neck: non-tender Respiratory: clear to auscultation Cardiovascular: nl pulses, other Gastrointestinal: soft, non-tender Musculoskeletal: nl extremities to inspection Extremities: normal pulses Neurological: nl mental status, nl speech Skin: nl turgor Lymph: nontender Results Result Diagram: 09/19/18 0509 09/19/18 0509 Results 24hrs Laboratory Tests Test 09/18/18 17:20 09/18/18 22:03 09/19/18 05:09 Sodium Level 139 133 L 132 L White Blood Count 11.1 H Red Blood Count 4.99 # Hemoglobin 15.5 # Hematocrit 43.8 # Mean Corpuscular Volume 87.8 Mean Corpuscular Hemoglobin 31.1 Mean Corpuscular Hemoglobin Concent 35.4 Red Cell Distribution Width 12.7 Platelet Count 310 Mean Platelet Volume 8.7 Immature Granulocytes % 0.700 H Neutrophils % 82.3 H Lymphocytes % 10.5 L Monocytes % 6.3 Eosinophils % 0.0 Basophils % 0.2 Nucleated Red Blood Cells % 0.0 Immature Granulocytes # 0.080 H Neutrophils # 9.1 H Lymphocytes # 1.2 Monocytes # 0.7 Eosinophils # 0.0 Basophils # 0.0 Nucleated Red Blood Cells # 0.0 Potassium Level 3.4 L Chloride Level 99 # Carbon Dioxide Level 22 Anion Gap 11 Blood Urea Nitrogen 37 #H Creatinine 0.73 Est Glomerular Filtrat Rate mL/min > 60 Glucose Level 142 Calcium Level 9.5 Medications Medication Current Medications IV Flush (NS 3 ml) 3 ml PER PROTOCOL IV ; Start 09/14/18 at 17:30 Acetaminophen (Tylenol Tab) 650 mg Q6H PRN PO .PAIN 1-3 OR TEMP Last administered on 09/15/18at 16:42; Admin Dose 650 MG; Start 09/14/18 at 17:30 Docusate Sodium (Colace) 100 mg Q12H PRN PO .CONSTIPATION; Start 09/14/18 at 17:30 Ondansetron HCl (Zofran Odt) 4 mg Q6H PRN ODT NAUSEA AND/OR VOMITING; Start 09/14/18 at 23:30 Ondansetron HCl (Zofran Inj) 4 mg Q4H PRN IV NAUSEA AND/OR VOMITING Last administered on 09/16/18 09:09; Admin Dose 4 MG; Start 09/15/18 at 05:30 Pantoprazole (Protonix Tab) 40 mg DAILY@06 PO Last administered on 09/19/18at 05:13; Admin Dose 40 MG; Start 09/16/18 at 06:00 Ondansetron HCl 8 mg/Dextrose 54 ml @ 108 mls/hr Q6H PRN IV NAUSEA AND/OR VOMITING Last administered on 09/16/18at 12:09; Admin Dose 108 MLS/HR; Start 09/15/18 at 14:00 Dexamethasone (Decadron) 6 mg Q8 IV Last administered on 09/19/18at 13:55; Admin Dose 6 MG; Start 09/18/18 at 22:00 Ketorolac Tromethamine (Toradol) 15 mg Q6H PRN IV headache; Start 09/18/18 at 16:00; Stop 09/21/18 at 15:59 Zolpidem Tartrate (Ambien) 5 mg HS PRN PO INSOMNIA Last administered on 09/19/18at 00:15; Admin Dose 5 MG; Start 09/19/18 at 00:30 Levetiracetam (Keppra) 500 mg BID PO ; Start 09/19/18 at 21:00 RONALD VILLARREAL Sep 19, 2018 14:51
[2018-09-19] MEDS: LEVETIRACETAM 500 MG TAB PO SCH (20:59)
[2018-09-20] VITALS (11 sets, daily range): BP systolic 115–134; BP diastolic 74–85; PULSE 60–77; RESP 18–19
[2018-09-20] MEDS: PANTOPRAZOLE (EC) 40 MG TAB PO SCH (05:26)
[2018-09-20] MEDS: DEXAMETHASONE 4 MG/ML 1 ML INJ IV SCH ×3 (05:26→21:04)
[2018-09-20] MEDS: LEVETIRACETAM 500 MG TAB PO SCH ×2 (08:28→21:04)
--- NOTE | 2018-09-20 08:46 | CONS ---
Assessment/Plan Assessment/Plan Hospital Course 58 F c/ reported Hx of breast Ca s/p surgery and chemo...who presents for evaluation of days of headache, blurred vision, N/V.. She was found on MRI brain to have multiple supra and intra-tentorial enhancing lesions with surrounding edema, consistent w/ metastases...which is certainly the underlying cause of her acute Sx.. P: Agree w/ increased Decadron in the short-term Cont prn Toradol for now Keppra not essential in the absence of prior seizure.. Ativan iv prn prolonged seizure (> 5 min) Will sign off for now; please call w/ ?s Consultation Date/Type/Reason Admit Date/Time Sep 14, 2018 at 16:47 Type of Consult Neurology Reason for Consultation brain mets complicated by headache w/ N/V Requesting Provider: OLIVIA VIDES MD Date/Time of Note DATE: 09/20/18 TIME: 08:46 24 HR Interval Summary Free Text/Dictation Continues acute care Exam Vital Signs Vitals Vital Signs Date Temp Pulse Resp B/P (MAP) Pulse Ox O2 O2 Flow FiO2 Time Delivery Rate 09/20/18 98.2 68 19 133/85 95 07:18 (101) 09/18/18 Room Air 05:00 Intake and Output 09/19/18 09/19/18 09/20/18 1414:59 22:59 06:59 IntakeIntake Total 100 ml 500 ml 250 ml BalanceBalance 100 ml 500 ml 250 ml Exam PE: Gen Appearance: No Apparent Distress HEENT: Normocephalic Cardiovascular: Regular rate Lungs: Clear bilaterally Abdomen: Soft Extremities: Dry NE: The patient was alert and mildly disoriented. Language was normal. Fund of knowledge was adequate. Pupils were equal and reactive to light. There was no afferent pupillary defect. Visual madison were normal. Funduscopic examination was limited.. Extra-ocular movements were full. Ptosis was absent. There was no nystagmus. Facial sensation was normal. Face was symmetric with normal strength. Hearing was intact. Palate movements were normal. Neck strength was normal. There was normal tongue bulk and speed of movement. Tone was normal. Muscle bulk was normal. I did not see fasciculations. Arms and legs were strong. Vibration sensation was normal. Temperature and pinprick sensation was normal. Rapid alternating movements were normal. There was no dysmetria. There was no intention tremor. Gait was deferred due to bedrest. Arm and leg reflexes were 2+ and symmetric. Jose's sign was absent. Plantar responses were flexor. KELLY OBANDO Sep 20, 2018 08:46
--- NOTE | 2018-09-20 13:21 | CONS ---
Assessment/Plan Assessment/Plan Assessment/Plan (Daily) 1. A 58-year-old unfortunate female with locally advanced right-sided HER-2 amplified breast cancer in 2017. 2. Status post neoadjuvant chemotherapy PTCH. 3. Status post surgery of mastectomy on the right breast that showed no evidence of disease, T0 N0 MX disease, has been on hormonal blockade and anti- HER2 adjuvant treatment neratinib. Unfortunately disease recurrence mainly in the brain, central nervous system and metastatic disease. 4. Acute Hypokalemia- replace per PMD PLAN: 1. continue Steroids- Decadron, to decrease the pressure. 2. Diuretic to decrease cerebral edema. 3. Radiation therapy by Dr Hassan- SCHEDULED ON FRIDAY 4. Plan to change the medications later on to Tykerb anti-HER2 that passes the blood brain barrier BBB in addition to Xeloda per protocol as an outpatient. 5. Cont Keppra; Seizure precautions 6. cont Antiemetics 7. Prognosis is poor and discussed with the family in agreement by Dr Colunga 8. Probably if no improvement over the next few weeks, she may need to undergo an intrathecal, IT methotrexate if the symptoms do not disappear. Patient seen in collaboration with Dr Colunga Consultation Date/Type/Reason Admit Date/Time Sep 14, 2018 at 4:47 pm Initial Consult Date 09/15/18 Type of Consult ONCOLOGY Reason for Consultation RIGHT BREAST CANCER Requesting Provider: OLIVIA VIDES MD Date/Time of Note DATE: 09/20/18 TIME: 13:18 24 HR Interval Summary Free Text/Dictation - denies any pain - family at bed side-all Qs answered -Radiation therapy by Dr Hassan- SCHEDULED ON FRIDAY - no new issues reported overnight Detailed Summary Eyes: no complaints ENT: no complaints Respiratory: no complaints Cardiovascular: no complaints Gastrointestinal: no complaints Genitourinary: no complaints Musculoskeletal: no complaints Skin: no complaints Endocrine: no complaints Lymphatic: no complaints Psychological: nl mood/affect Exam/Review of Systems Exam Vitals Vital Signs Date Temp Pulse Resp B/P (MAP) Pulse Ox O2 O2 Flow FiO2 Time Delivery Rate 09/20/18 75 12:42 09/20/18 98.2 18 133/79 98 11:24 (97) 09/18/18 Room Air 05:00 Intake and Output 09/19/18 09/19/18 09/20/18 1515:00 23:00 07:00 IntakeIntake Total 100 ml 500 ml 250 ml BalanceBalance 100 ml 500 ml 250 ml Constitutional: alert, well developed Psych: nl mood/affect Head: normocephalic Eyes: nl lids ENMT: nl external ears & nose Neck: non-tender Respiratory: clear to auscultation Cardiovascular: nl pulses, other (s1s2) Gastrointestinal: soft, non-tender Musculoskeletal: nl extremities to inspection Extremities: normal pulses Neurological: nl mental status, nl speech Skin: nl turgor Lymph: nontender Results Result Diagram: 09/20/1844909/20/18 045 Results 24hrs Laboratory Tests Test 09/20/18 04:50 White Blood Count 10.5 Red Blood Count 4.74 Hemoglobin 14.8 Hematocrit 43.5 Mean Corpuscular Volume 91.8 Mean Corpuscular Hemoglobin 31.2 Mean Corpuscular Hemoglobin Concent 34.0 Red Cell Distribution Width 12.9 Platelet Count 299 Mean Platelet Volume 8.7 Immature Granulocytes % 0.800 H Neutrophils % 83.0 H Lymphocytes % 10.1 L Monocytes % 5.9 Eosinophils % 0.0 Basophils % 0.2 Nucleated Red Blood Cells % 0.0 Immature Granulocytes # 0.080 H Neutrophils # 8.7 H Lymphocytes # 1.1 Monocytes # 0.6 Eosinophils # 0.0 Basophils # 0.0 Nucleated Red Blood Cells # 0.0 Sodium Level 138 Potassium Level 3.9 Chloride Level 107 Carbon Dioxide Level 21 Anion Gap 10 Blood Urea Nitrogen 35 H Creatinine 0.63 Est Glomerular Filtrat Rate mL/min > 60 Glucose Level 157 Calcium Level 9.2 Medications Medication Current Medications IV Flush (NS 3 ml) 3 ml PER PROTOCOL IV ; Start 09/14/18 at 17:30 Acetaminophen (Tylenol Tab) 650 mg Q6H PRN PO .PAIN 1-3 OR TEMP Last administered on 09/15/18at 16:42; Admin Dose 650 MG; Start 09/14/18 at 17:30 Docusate Sodium (Colace) 100 mg Q12H PRN PO .CONSTIPATION Last administered on 09/19/18at 16:11; Admin Dose 100 MG; Start 09/14/18 at 17:30 Ondansetron HCl (Zofran Odt) 4 mg Q6H PRN ODT NAUSEA AND/OR VOMITING; Start 09/14/18 at 23:30 Ondansetron HCl (Zofran Inj) 4 mg Q4H PRN IV NAUSEA AND/OR VOMITING Last administered on 09/16/18 09:09; Admin Dose 4 MG; Start 09/15/18 at 05:30 Pantoprazole (Protonix Tab) 40 mg DAILY@06 PO Last administered on 09/20/18 05:26; Admin Dose 40 MG; Start 09/16/18 at 06:00 Ondansetron HCl 8 mg/Dextrose 54 ml @ 108 mls/hr Q6H PRN IV NAUSEA AND/OR VOMITING Last administered on 09/16/18 12:09; Admin Dose 108 MLS/HR; Start 09/15/18 at 14:00 Dexamethasone (Decadron) 6 mg Q8 IV Last administered on 09/20/18 05:26; Admin Dose 6 MG; Start 09/18/18 at 22:00 Ketorolac Tromethamine (Toradol) 15 mg Q6H PRN IV headache; Start 09/18/18 at 16:00; Stop 09/21/18 at 15:59 Zolpidem Tartrate (Ambien) 5 mg HS PRN PO INSOMNIA Last administered on 09/19/18 20:59; Admin Dose 5 MG; Start 09/19/18 at 00:30 Levetiracetam (Keppra) 500 mg BID PO Last administered on 09/20/18 08:28; Admin Dose 500 MG; Start 09/19/18 at 21:00 RONALD VILLARREAL Sep 20, 2018 13:21
--- NOTE | 2018-09-20 16:36 | PN ---
Date/Time of Note Date/Time of Note DATE: 09/20/18 TIME: 16:34 Assessment/Plan VTE Prophylaxis Risk score (from [facility])>0 risk: 1 SCD applied (from [facility]): Yes SCD contraindicated: other Pharmacological prophylaxis: other Lines/Catheters IV Catheter Type (from [facility]): Peripheral IV Urinary Cath still in place: No Assessment/Plan Hospital Course # Stage IV breast cancer now with multiple brain masses likely secondary to breast cancer With leptomeningeal spread stable # hx of right breast cancer status post mastectomy # Pre DM # HTN # Hyponatremia likely secondary to SIADH plan per oncology Result Diagram: 09/20/18 04509/20/18 0450 Results 24hrs Laboratory Tests Test 09/20/18 04:50 White Blood Count 10.5 Red Blood Count 4.74 Hemoglobin 14.8 Hematocrit 43.5 Mean Corpuscular Volume 91.8 Mean Corpuscular Hemoglobin 31.2 Mean Corpuscular Hemoglobin Concent 34.0 Red Cell Distribution Width 12.9 Platelet Count 299 Mean Platelet Volume 8.7 Immature Granulocytes % 0.800 H Neutrophils % 83.0 H Lymphocytes % 10.1 L Monocytes % 5.9 Eosinophils % 0.0 Basophils % 0.2 Nucleated Red Blood Cells % 0.0 Immature Granulocytes # 0.080 H Neutrophils # 8.7 H Lymphocytes # 1.1 Monocytes # 0.6 Eosinophils # 0.0 Basophils # 0.0 Nucleated Red Blood Cells # 0.0 Sodium Level 138 Potassium Level 3.9 Chloride Level 107 Carbon Dioxide Level 21 Anion Gap 10 Blood Urea Nitrogen 35 H Creatinine 0.63 Est Glomerular Filtrat Rate mL/min > 60 Glucose Level 157 Calcium Level 9.2 Subjective 24 Hr Interval Summary Cardiovascular: no complaints Gastrointestinal: no complaints Neurologic: no complaints, dizziness; No confusion, No focal-weakness, No headache, No syncope, No seizure Exam/Review of Systems Exam Vitals Vital Signs Date Temp Pulse Resp B/P (MAP) Pulse Ox O2 O2 Flow FiO2 Time Delivery Rate 09/20/18 98.3 74 18 134/74 98 16:12 (94) 09/18/18 Room Air 05:00 Intake and Output 09/19/18 09/19/18 09/20/18 1515:00 23:00 07:00 IntakeIntake Total 100 ml 500 ml 250 ml BalanceBalance 100 ml 500 ml 250 ml Neck: supple Respiratory: clear to auscultation Cardiovascular: regular rate and rhythm Gastrointestinal: soft Musculoskeletal: nl extremities to inspection Extremities: normal pulses Neurological: COUNSELING PSYCHOLOGIST II-XII intact Results Results 24hrs Laboratory Tests Test 09/20/18 04:50 White Blood Count 10.5 Red Blood Count 4.74 Hemoglobin 14.8 Hematocrit 43.5 Mean Corpuscular Volume 91.8 Mean Corpuscular Hemoglobin 31.2 Mean Corpuscular Hemoglobin Concent 34.0 Red Cell Distribution Width 12.9 Platelet Count 299 Mean Platelet Volume 8.7 Immature Granulocytes % 0.800 H Neutrophils % 83.0 H Lymphocytes % 10.1 L Monocytes % 5.9 Eosinophils % 0.0 Basophils % 0.2 Nucleated Red Blood Cells % 0.0 Immature Granulocytes # 0.080 H Neutrophils # 8.7 H Lymphocytes # 1.1 Monocytes # 0.6 Eosinophils # 0.0 Basophils # 0.0 Nucleated Red Blood Cells # 0.0 Sodium Level 138 Potassium Level 3.9 Chloride Level 107 Carbon Dioxide Level 21 Anion Gap 10 Blood Urea Nitrogen 35 H Creatinine 0.63 Est Glomerular Filtrat Rate mL/min > 60 Glucose Level 157 Calcium Level 9.2 Medications Medication Current Medications IV Flush (NS 3 ml) 3 ml PER PROTOCOL IV ; Start 09/14/18 at 17:30 Acetaminophen (Tylenol Tab) 650 mg Q6H PRN PO .PAIN 1-3 OR TEMP Last administered on 09/15/18at 16:42; Admin Dose 650 MG; Start 09/14/18 at 17:30 Docusate Sodium (Colace) 100 mg Q12H PRN PO .CONSTIPATION Last administered on 09/19/18at 16:11; Admin Dose 100 MG; Start 09/14/18 at 17:30 Ondansetron HCl (Zofran Odt) 4 mg Q6H PRN ODT NAUSEA AND/OR VOMITING; Start 09/14/18 at 23:30 Ondansetron HCl (Zofran Inj) 4 mg Q4H PRN IV NAUSEA AND/OR VOMITING Last administered on 09/16/18at 09:09; Admin Dose 4 MG; Start 09/15/18 at 05:30 Pantoprazole (Protonix Tab) 40 mg DAILY@06 PO Last administered on 09/20/18at 05:26; Admin Dose 40 MG; Start 09/16/18 at 06:00 Ondansetron HCl 8 mg/Dextrose 54 ml @ 108 mls/hr Q6H PRN IV NAUSEA AND/OR VOMITING Last administered on 09/16/18 12:09; Admin Dose 108 MLS/HR; Start 09/15/18 at 14:00 Dexamethasone (Decadron) 6 mg Q8 IV Last administered on 09/20/18 14:18; Admin Dose 6 MG; Start 09/18/18 at 22:00 Ketorolac Tromethamine (Toradol) 15 mg Q6H PRN IV headache; Start 09/18/18 at 16:00; Stop 09/21/18 at 15:59 Zolpidem Tartrate (Ambien) 5 mg HS PRN PO INSOMNIA Last administered on at 20:59; Admin Dose 5 MG; Start 09/19/18 at 00:30 Levetiracetam (Keppra) 500 mg BID PO Last administered on 09/20/18 08:28; Admin Dose 500 MG; Start 09/19/18 at 21:00 KATARZYNA HUMPHREY MD Sep 20, 2018 16:36
[2018-09-20] MEDS: ZOLPIDEM 5 MG TAB PO PRN (21:04)
[2018-09-21] VITALS (13 sets, daily range): BP systolic 117–139; BP diastolic 74–113; PULSE 63–99; RESP 16–18
[2018-09-21] MEDS: PANTOPRAZOLE (EC) 40 MG TAB PO SCH (05:09)
[2018-09-21] MEDS: DEXAMETHASONE 4 MG/ML 1 ML INJ IV SCH ×3 (05:10→22:47)
[2018-09-21] MEDS: LEVETIRACETAM 500 MG TAB PO SCH ×2 (08:16→21:41)
--- NOTE | 2018-09-21 09:18 | PN ---
Date/Time of Note Date/Time of Note DATE: 09/21/18 TIME: 09:12 Assessment/Plan VTE Prophylaxis Risk score (from Ns)>0 risk: 4 SCD applied (from Ns): Yes Pharmacological prophylaxis: NA/contraindicated Pharm contraindication: low risk/ambulating Lines/Catheters [facility] Saline Lock Urinary Cath still in place: No Assessment/Plan Hospital Course 58 y/o with # Stage IV breast cancer now with multiple brain masses likely secondary to breast cancer headaches nausea vomiting and blurry vision with increased intracranial pressure With leptomeningeal spread #hx of right breast cancer status post mastectomy # Pre DM # HTN # Hyponatremia likely secondary to SIADH consistent with high urine sodium and high urine osmolarity # AMS due to metabolic encephalopathy improved Plan -repeat CT of the head is stable -Decrease Decadron -Left call out to Dr. Escamilla status/Dr. Sandoval seen to talk to the patient -Patient scheduled for radiation today [facility]zo[facility] - seizure precaution -Second line of chemo per Dr. Guzman - SCD Spoke to the son/[id number] at bedside and all questions were answered Result Diagram: 09/20/18 0450 09/20/18 0450 Subjective 24 Hr Interval Summary Free Text/Dictation . Patient is wide awake and has questions before starting radiation today Spoke to the patient/[id number]-wl-kgo at bedside tried reaching Dr. ESCAMILLA/Dr. GUZMAN Exam/Review of Systems Exam Vitals Vital Signs Date Temp Pulse Resp B/P (MAP) Pulse Ox O2 O2 Flow FiO2 Time Delivery Rate 09/21/18 80 08:56 09/21/18 97.7 17 131/80 97 07:43 (97) 09/18/18 Room Air 05:00 Intake and Output 09/20/18 09/20/18 09/21/18 1515:00 23:00 07:00 IntakeIntake Total 700 ml 150 ml BalanceBalance 700 ml 150 ml Exam That is post right mastectomy Patient is awake alert oriented Constitutional: alert, oriented Respiratory: clear to auscultation Cardiovascular: regular rate and rhythm Medications Medication Current Medications IV Flush (NS 3 ml) 3 ml PER PROTOCOL IV ; Start 09/14/18 at 17:30 Acetaminophen (Tylenol Tab) 650 mg Q6H PRN PO .PAIN 1-3 OR TEMP Last administered on 09/15/18 16:42; Admin Dose 650 MG; Start 09/14/18 at 17:30 Docusate Sodium (Colace) 100 mg Q12H PRN PO .CONSTIPATION Last administered on 09/19/18 16:11; Admin Dose 100 MG; Start 09/14/18 at 17:30 Ondansetron HCl (Zofran Odt) 4 mg Q6H PRN ODT NAUSEA AND/OR VOMITING; Start 09/14/18 at 23:30 Ondansetron HCl (Zofran Inj) 4 mg Q4H PRN IV NAUSEA AND/OR VOMITING Last administered on 09/16/18 09:09; Admin Dose 4 MG; Start 09/15/18 at 05:30 Pantoprazole (Protonix Tab) 40 mg DAILY@06 PO Last administered on 09/21/18 05:09; Admin Dose 40 MG; Start 09/16/18 at 06:00 Ondansetron HCl 8 mg/Dextrose 54 ml @ 108 mls/hr Q6H PRN IV NAUSEA AND/OR VOMITING Last administered on 09/16/18 12:09; Admin Dose 108 MLS/HR; Start 09/15/18 at 14:00 Ketorolac Tromethamine (Toradol) 15 mg Q6H PRN IV headache; Start 09/18/18 at 16:00; Stop 09/21/18 at 15:59 Zolpidem Tartrate (Ambien) 5 mg HS PRN PO INSOMNIA Last administered on 09/20/18 21:04; Admin Dose 5 MG; Start 09/19/18 at 00:30 Levetiracetam (Keppra) 500 mg BID PO Last administered on 09/21/18 08:16; Admin Dose 500 MG; Start 09/19/18 at 21:00 Dexamethasone (Decadron) 4 mg Q8 IV ; Start 09/21/18 at 14:00 OLIVIA VIDES MD Sep 21, 2018 09:18
[2018-09-21] MEDS: ZOLPIDEM 5 MG TAB PO PRN (21:41)
[2018-09-22 05:23] VITALS: BP 137/94; PULSE 73; RESP 18
[2018-09-22] MEDS: PANTOPRAZOLE (EC) 40 MG TAB PO SCH (05:59)
[2018-09-22] MEDS: DEXAMETHASONE 4 MG/ML 1 ML INJ IV SCH ×2 (05:59→13:53)
[2018-09-22 07:21] VITALS: BP 141/79; PULSE 71; RESP 14
--- NOTE | 2018-09-22 08:29 | CONS ---
Assessment/Plan Assessment/Plan Assessment/Plan (Daily) Stage IV breast cancer multiple brain metastasis with mental status changes nausea and vomiting Hypertension be treated by primary care physician Hyponatremia secondary to MADYSON DH Plan from a palliative care standpoint Contact primary care physician and oncology prior to any discussion of palliation of care. Consultation Date/Type/Reason Admit Date/Time Sep 14, 2018 at 4:47 pm Date/Time of Note DATE: 09/22/18 TIME: 08:27 Hx of Present Illness Have been asked to see this unfortunate female by Dr. Gilliam. She is a 58-year-ol d female who presented to [facility] with new onset of visual disturbances. Patient has a history of metastatic breast cancer with CT findings which shows new cerebral lesions, edema. She has been treated aggressively with steroids and opioids and has markedly improved since admission. Patient's initial diagnosis goes back to 2016 that that time was diagnosed with right breast cancer. She had negative axillary biopsy at that time and november 2016 biopsy confirmed a poorly differentiated invasive ductal carcinoma, ER positive, UT positive, Her2/michael pos. According to medical records patient had been well until May 2018 then presented August 2018 with neurological findings as noted above. Patient is status post six cycles of chemotherapy status post right mastectomy. I am asked to speak to family members introduce myself in offer only supportive measures at this time. I had an initial discussion with patients family at bedside introduce myself and will take the opportunity speak patients primary care physician as well as oncology before initiating any further discus duglas on goals of care, and level of care. Past Medical History Medical History: cancer Home Meds Active Scripts Hydrocodone Bit-Acetaminophen (Hydrocodone Bit-APAP) 5-325MG Tablet, 1 TAB PO Q4H PRN for PAIN, #30 TAB Prov:DENI DIXON 06/13/17 Reported Medications Aspirin* (Aspirin* Chew) 81 Mg Tab.chew, 81 MG PO DAILY, TAB.CHEW 01/15/17 Hydrochlorothiazide* (Hydrochlorothiazide*) 25 Mg Tab, 25 MG PO DAILY, #30 TAB 01/15/17 Captopril* (Captopril*) 25 Mg Tablet, 25 MG PO BID, #60 TAB 01/15/17 Medications Current Medications IV Flush (NS 3 ml) 3 ml PER PROTOCOL IV ; Start 09/14/18 at 17:30 Acetaminophen (Tylenol Tab) 650 mg Q6H PRN PO .PAIN 1-3 OR TEMP Last administered on 09/15/18 16:42; Admin Dose 650 MG; Start 09/14/18 at 17:30 Docusate Sodium (Colace) 100 mg Q12H PRN PO .CONSTIPATION Last administered on 09/19/18 16:11; Admin Dose 100 MG; Start 09/14/18 at 17:30 Ondansetron HCl (Zofran Odt) 4 mg Q6H PRN ODT NAUSEA AND/OR VOMITING; Start 09/14/18 at 23:30 Ondansetron HCl (Zofran Inj) 4 mg Q4H PRN IV NAUSEA AND/OR VOMITING Last administered on 09/16/18 09:09; Admin Dose 4 MG; Start 09/15/18 at 05:30 Pantoprazole (Protonix Tab) 40 mg DAILY@06 PO Last administered on 09/22/18 05:59; Admin Dose 40 MG; Start 09/16/18 at 06:00 Ondansetron HCl 8 mg/Dextrose 54 ml @ 108 mls/hr Q6H PRN IV NAUSEA AND/OR VOMI TING Last administered on 09/16/18 12:09; Admin Dose 108 MLS/HR; Start 09/15/18 at 14:00 Zolpidem Tartrate (Ambien) 5 mg HS PRN PO INSOMNIA Last administered on 09/21/18 21:41; Admin Dose 5 MG; Start 09/19/18 at 00:30 Levetiracetam (Keppra) 500 mg BID PO Last administered on 09/21/18 21:41; Adm in Dose 500 MG; Start 09/19/18 at 21:00 Dexamethasone (Decadron) 4 mg Q8 IV Last administered on 09/22/18 05:59; Admin Dose 4 MG; Start 09/21/18 at 14:00 Allergies: Coded Allergies: No Known Allergy (Unverified , 06/12/17) Past Surgical History Past Surgical Hx: other (Right mastectomy) Social History Alcohol Use: none Smoking Status: Unknown if ever smoked Drug Use: none Exam/Review of Systems Exam Vitals Vital Signs Date Temp Pulse Resp B/P (MAP) Pulse Ox O2 O2 Flow FiO2 Time Delivery Rate 09/22/18 97.8 71 14 141/79 99 07:21 (99) Intake and Output 09/21/18 09/21/18 09/22/18 1515:00 23:00 07:00 IntakeIntake Total 300 ml BalanceBalance 300 ml Constitutional: alert, oriented, well developed Eyes: nl conjunctiva, EOMI, nl lids, nl sclera, PERRL ENMT: No nl external ears & nose, No nl lips & teeth, No nl nasal mucosa & septum, No mucosa pink and moist, No intubated, No tympanic membranes, No other Respiratory: clear to auscultation, normal air movement Cardiovascular: regular rate and rhythm, nl pulses Neurological: SKEIN DRIER II-XII intact, nl mental status, nl speech, nl strength Results Result Diagram: 09/20/1844909/22/18 0427 Results 24hrs Laboratory Tests Test 09/22/18 04:27 Sodium Level 136 Potassium Level 4.0 Chloride Level 101 Carbon Dioxide Level 26 Anion Gap 9 Blood Urea Nitrogen 23 #H Creatinine 0.58 Est Glomerular Filtrat Rate mL/min > 60 Glucose Level 127 Calcium Level 8.9 Medications Medication Current Medications IV Flush (NS 3 ml) 3 ml PER PROTOCOL IV ; Start 09/14/18 at 17:30 Acetaminophen (Tylenol Tab) 650 mg Q6H PRN PO .PAIN 1-3 OR TEMP Last administered on 09/15/18at 16:42; Admin Dose 650 MG; Start 09/14/18 at 17:30 Docusate Sodium (Colace) 100 mg Q12H PRN PO .CONSTIPATION Last administered on 09/19/18at 16:11; Admin Dose 100 MG; Start 09/14/18 at 17:30 Ondansetron HCl (Zofran Odt) 4 mg Q6H PRN ODT NAUSEA AND/OR VOMITING; Start 09/14/18 at 23:30 Ondansetron HCl (Zofran Inj) 4 mg Q4H PRN IV NAUSEA AND/OR VOMITING Last administered on 09/16/18at 09:09; Admin Dose 4 MG; Start 09/15/18 at 05:30 Pantoprazole (Protonix Tab) 40 mg DAILY@06 PO Last administered on 09/22/18at 05:59; Admin Dose 40 MG; Start 09/16/18 at 06:00 Ondansetron HCl 8 mg/Dextrose 54 ml @ 108 mls/hr Q6H PRN IV NAUSEA AND/OR VOMITING Last administered on 09/16/18 12:09; Admin Dose 108 MLS/HR; Start 09/15/18 at 14:00 Zolpidem Tartrate (Ambien) 5 mg HS PRN PO INSOMNIA Last administered on 09/21/18 21:41; Admin Dose 5 MG; Start 09/19/18 at 00:30 Levetiracetam (Keppra) 500 mg BID PO Last administered on 09/21/18at 21:41; Admin Dose 500 MG; Start 09/19/18 at 21:00 Dexamethasone (Decadron) 4 mg Q8 IV Last administered on 09/22/18 05:59; Admin Dose 4 MG; Start 09/21/18 at 14:00 MOISÉS QUINTANA Sep 22, 2018 08:29
[2018-09-22] MEDS: LEVETIRACETAM 500 MG TAB PO SCH ×2 (08:46→20:58)
--- NOTE | 2018-09-22 14:27 | PN ---
Date/Time of Note Date/Time of Note DATE: 09/22/18 TIME: 14:25 Outpatient Progress Note Chief Complaint better no pain no vomiting no bleeding Review of Systems Const: No Fever, no chills, no Wt. loss, no Fatigue, normal appetite, no diaphoresis. Eyes: No pain, no discharge, no redness, no visual change, no foreign body. ENT: No pain, no bleeding, no congestion, no sore throat, no dysphagia, no d ischarge or rhinitis. Lymph: No adenopathy, no tender nodes, no lymphedema. Resp: No SOB, no cough, no sputum, no wheezing, no chest pain. CV: No chest pain, no palpitaions, no PARSONS, no PND, no edema. GI: Normal appetite, no pain, no nausea, no vomiting, no diarrhea, no blood, no constipation. : No frequency, no urgency, no dysuria, no hematuria, no flank pain, no discharge, no bleeding. Musc: No bone/joint pain, no back pain, no neck pain, no knee pain, no restricted ROM. Skin: No rash, no skin lesions, no erythema, no laceration, no bruising, no pruritus. Neuro: No MACDONALD, no dizziness, no syncope, no seizure, no focal-weakness. Endo: No polyuria, no polydypsia, no dry-skin, no temp-intolerance. Psych: No hallucinations, no depression, no anxiety, no suicidal ideation. Ext: No edema, no pain, no ulcer, no weakness. Physical Exam Vital Signs Date Temp Pulse Resp B/P (MAP) Pulse Ox O2 O2 Flow FiO2 Time Delivery Rate 09/22/18 97.8 71 14 141/79 99 07:21 (99) Intake and Output 09/21/18 09/21/18 09/22/18 1414:59 22:59 06:59 IntakeIntake Total 300 ml BalanceBalance 300 ml General Appearance: A [] year-old [] who appears well-developed, well-nourished, in no acute distress. HEENT: Head normocephalic, atraumatic. Pupils equal, round, reactive to light and accommodate. Sclerae are no jaundice. Nasal turbinates pink without erythema or nasal discharge. Mucous membranes pink and moist without lesions. Oropharynx clear without any exudate or discharge. NECK: Supple. Trachea midline, No thyromegaly, No cervical lymphadenopathy, No mass, No carotid bruits, No JVD, Carotid pulses 2+ bilaterally. PULMONARY: Clear to auscultaion bilaterally, No retractions, Chest expansion symmetric bilaterally, no rales, no ronchi, no dulness on percussion. CARDIAC: Normal SI and S2, Regular rate and rythm, no murmur, gallop, or rub. GASTROINTESTINAL: Abdomen is soft, non-tender, Non Rigid, No distention, Positive bowel sounds x4 quadrants, Liver normal. SKIN: Warm, dry, no rash, no bruise, no echmosis. EXTREMITIES: Bilateral lower extremities normal, no edema, no phlabitus, pulse palpable, no contracture. MUSCULOSKELETAL: Spine Normal, Non-tender, Normal range of motion, No swelling, no deformity, no clubbing, or cyanosis, the patient has no edema to bilateral lower extremities, dorsalis pedis pulses palpable bilaterally. NEUROLOGIC: The patient is awake, alert, oriented, responding to yes/no questions appropriately, moving all extremities, cranial nerve intact, normal strenght, normal power, normal coordination, normal gait. Result Diagram: 09/20/18 0450 09/22/18 0427 Allergies Coded Allergies: No Known Allergy (Unverified , 06/12/17) Assessment/Plan Recurrent breast cancer mainly multiple brain mets Her2 amplified progressed after Herceptin perjeta based therapy Progressed even being on Neratinib PO 1 stage 4 breast cancer 2 Whole brain RT >> Dr. Sai Curran, js morales, 3 Later to add Tykerb Xeloda which is ordered already 4 Hyponatremia improving already 5. Prognosis poor 6 family aware Medications Home Meds Active Scripts Hydrocodone Bit-Acetaminophen (Hydrocodone Bit-APAP) 5-325MG Tablet, 1 TAB PO Q4H PRN for PAIN, #30 TAB Prov:DENI DIXON 06/13/17 Reported Medications Aspirin* (Aspirin* Chew) 81 Mg Tab.chew, 81 MG PO DAILY, TAB.CHEW 01/15/17 Hydrochlorothiazide* (Hydrochlorothiazide*) 25 Mg Tab, 25 MG PO DAILY, #30 TAB 01/15/17 Captopril* (Captopril*) 25 Mg Tablet, 25 MG PO BID, #60 TAB 01/15/17 JENNA TSE Sep 22, 2018 14:27
[2018-09-22 14:30] VITALS: BP 134/89; PULSE 89; RESP 16
--- NOTE | 2018-09-22 16:55 | PN ---
Date/Time of Note Date/Time of Note DATE: 09/22/18 TIME: 16:51 Assessment/Plan VTE Prophylaxis Risk score (from Ns)>0 risk: 1 SCD applied (from Ns): Yes Pharmacological prophylaxis: NA/contraindicated Pharm contraindication: low risk/ambulating Lines/Catheters IV Catheter Type (from [facility]rsg): Peripheral IV Urinary Cath still in place: No Assessment/Plan Hospital Course 58 y/o with # Stage IV breast cancer now with multiple brain masses likely secondary to [place] cancer headaches nausea vomiting and blurry vision with increased intracranial pressure With leptomeningeal spread #hx of right breast cancer status post mastectomy # Pre DM # HTN # Hyponatremia likely secondary to SIADH consistent with high urine sodium and high urine osmolarity # AMS due to metabolic encephalopathy improved Plan -repeat CT of the head is stable -Decadron to p.o. -Patient scheduled for radiation tmw - Toradol/zofran - seizure precaution -Second line of chemo per Dr. Guzman after discharged - SCD spoke To Dr. Colunga/Dr. Hassan plan is to to give 2 radiations in-house if patient is clinically feeling better after that than to discharge home to her to follow-up with out patient radiation treatments [employer] to arrange for transportation Result Diagram: 09/20/18 0450 09/22/18 0427 Results 24hrs Laboratory Tests Test 09/22/18 04:27 Sodium Level 136 Potassium Level 4.0 Chloride Level 101 Carbon Dioxide Level 26 Anion Gap 9 Blood Urea Nitrogen 23 #H Creatinine 0.58 Est Glomerular Filtrat Rate mL/min > 60 Glucose Level 127 Calcium Level 8.9 Subjective 24 Hr Interval Summary Free Text/Dictation She is going to start radiation tomorrow no Acute events Exam/Review of Systems Exam Vitals Vital Signs Date Temp Pulse Resp B/P (MAP) Pulse Ox O2 O2 Flow FiO2 Time Delivery Rate 09/22/18 98.3 89 16 134/89 98 14:30 (104) Intake and Output 09/21/18 09/21/18 09/22/18 1515:00 23:00 07:00 IntakeIntake Total 300 ml BalanceBalance 300 ml Exam Exam That is post right mastectomy Patient is awake alert oriented Constitutional: alert, oriented Respiratory: clear to auscultation Cardiovascular: regular rate and rhythm Results Results 24hrs Laboratory Tests Test 09/22/18 04:27 Sodium Level 136 Potassium Level 4.0 Chloride Level 101 Carbon Dioxide Level 26 Anion Gap 9 Blood Urea Nitrogen 23 #H Creatinine 0.58 Est Glomerular Filtrat Rate mL/min > 60 Glucose Level 127 Calcium Level 8.9 Medications Medication Current Medications IV Flush (NS 3 ml) 3 ml PER PROTOCOL IV ; Start 09/14/18 at 17:30 Acetaminophen (Tylenol Tab) 650 mg Q6H PRN PO .PAIN 1-3 OR TEMP Last administered on 09/15/18 16:42; Admin Dose 650 MG; Start 09/14/18 at 17:30 Docusate Sodium (Colace) 100 mg Q12H PRN PO .CONSTIPATION Last administered on 09/19/18 16:11; Admin Dose 100 MG; Start 09/14/18 at 17:30 Ondansetron HCl (Zofran Odt) 4 mg Q6H PRN ODT NAUSEA AND/OR VOMITING; Start 09/14/18 at 23:30 Ondansetron HCl (Zofran Inj) 4 mg Q4H PRN IV NAUSEA AND/OR VOMITING Last administered on 09/16/18 09:09; Admin Dose 4 MG; Start 09/15/18 at 05:30 Pantoprazole (Protonix Tab) 40 mg DAILY@06 PO Last administered on 09/22/18 05:59; Admin Dose 40 MG; Start 09/16/18 at 06:00 Ondansetron HCl 8 mg/Dextrose 54 ml @ 108 mls/hr Q6H PRN IV NAUSEA AND/OR VOMITING Last administered on 09/16/18 12:09; Admin Dose 108 MLS/HR; Start 09/15/18 at 14:00 Zolpidem Tartrate (Ambien) 5 mg HS PRN PO INSOMNIA Last administered on 09/21/18 21:41; Admin Dose 5 MG; Start 09/19/18 at 00:30 Levetiracetam (Keppra) 500 mg BID PO Last administered on 09/22/18 08:46; Admin Dose 500 MG; Start 09/19/18 at 21:00 Dexamethasone (Decadron) 4 mg Q8 IV Last administered on 09/22/18 13:53; Admin Dose 4 MG; Start 09/21/18 at 14:00 OLIVIA VIDES MD Sep 22, 2018 16:55
[2018-09-22 19:26] VITALS: BP 138/91; PULSE 77; RESP 18
[2018-09-22 19:34] VITALS: BP 84/52; PULSE 82; RESP 18
[2018-09-22] MEDS: DEXAMETHASONE 4 MG TAB PO SCH (20:58)
[2018-09-22] MEDS: ZOLPIDEM 5 MG TAB PO PRN (20:59)
[2018-09-23 01:43] VITALS: BP 108/70; PULSE 76; RESP 18
[2018-09-23 01:46] VITALS: BP 108/70; PULSE 69; RESP 18
[2018-09-23] MEDS: PANTOPRAZOLE (EC) 40 MG TAB PO SCH (05:44)
[2018-09-23 07:59] VITALS: BP 130/87; PULSE 69; RESP 18
[2018-09-23] MEDS: LEVETIRACETAM 500 MG TAB PO SCH ×2 (08:52→20:59)
[2018-09-23] MEDS: DEXAMETHASONE 4 MG TAB PO SCH ×3 (08:52→22:40)
[2018-09-23] MEDS: ACETAMINOPHEN 325 MG TAB PO PRN ×2 (11:44→21:16)
--- NOTE | 2018-09-23 12:58 | PN ---
Date/Time of Note Date/Time of Note DATE: 09/23/18 TIME: 12:55 Outpatient Progress Note HPI BETTER NO HEADACHES no bleeding no SOB NO VOMITING Review of Systems Const: No Fever, no chills, no Wt. loss, no Fatigue, normal appetite, no diaphoresis. Eyes: No pain, no discharge, no redness, no visual change, no foreign body. ENT: No pain, no bleeding, no congestion, no sore throat, no dysphagia, no d ischarge or rhinitis. Lymph: No adenopathy, no tender nodes, no lymphedema. Resp: No SOB, no cough, no sputum, no wheezing, no chest pain. CV: No chest pain, no palpitaions, no PARSONS, no PND, no edema. GI: Normal appetite, no pain, no nausea, no vomiting, no diarrhea, no blood, no constipation. : No frequency, no urgency, no dysuria, no hematuria, no flank pain, no discharge, no bleeding. Musc: No bone/joint pain, no back pain, no neck pain, no knee pain, no restricted ROM. Skin: No rash, no skin lesions, no erythema, no laceration, no bruising, no pruritus. Neuro: No MACDONALD, no dizziness, no syncope, no seizure, no focal-weakness. Endo: No polyuria, no polydypsia, no dry-skin, no temp-intolerance. Psych: No hallucinations, no depression, no anxiety, no suicidal ideation. Ext: No edema, no pain, no ulcer, no weakness. Physical Exam Vital Signs Date Temp Pulse Resp B/P (MAP) Pulse Ox O2 O2 Flow FiO2 Time Delivery Rate 09/23/18 98.4 69 18 130/87 97 07:59 (101) Intake and Output 09/22/18 09/22/18 09/23/18 1515:00 23:00 07:00 IntakeIntake Total 680 ml 560 ml OutputOutput Total 900 ml BalanceBalance 680 ml -340 ml General Appearance: A [] year-old [] who appears well-developed, well-nourished, in no acute distress. HEENT: Head normocephalic, atraumatic. Pupils equal, round, reactive to light and accommodate. Sclerae are no jaundice. Nasal turbinates pink without erythema or nasal discharge. Mucous membranes pink and moist without lesions. Oropharynx clear without any exudate or discharge. NECK: Supple. Trachea midline, No thyromegaly, No cervical lymphadenopathy, No mass, No carotid bruits, No JVD, Carotid pulses 2+ bilaterally. PULMONARY: Clear to auscultaion bilaterally, No retractions, Chest expansion symmetric bilaterally, no rales, no ronchi, no dulness on percussion. CARDIAC: Normal SI and S2, Regular rate and rythm, no murmur, gallop, or rub. GASTROINTESTINAL: Abdomen is soft, non-tender, Non Rigid, No distention, Positive bowel sounds x4 quadrants, Liver normal. SKIN: Warm, dry, no rash, no bruise, no echmosis. EXTREMITIES: Bilateral lower extremities normal, no edema, no phlabitus, pulse palpable, no contracture. MUSCULOSKELETAL: Spine Normal, Non-tender, Normal range of motion, No swelling, no deformity, no clubbing, or cyanosis, the patient has no edema to bilateral lower extremities, dorsalis pedis pulses palpable bilaterally. NEUROLOGIC: The patient is awake, alert, oriented, responding to yes/no questions appropriately, moving all extremities, cranial nerve intact, normal strenght, normal power, normal coordination, normal gait. 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 Sai Curran, js morales, 3 Later to add Tykerb Xeloda which is ordered already 4 Hyponatremia improving already 5. Prognosis poor 6 family aware 7. Later out pt XRT 8. Add PPI Medications Home Meds Active Scripts Hydrocodone Bit-Acetaminophen (Hydrocodone Bit-APAP) 5-325MG Tablet, 1 TAB PO Q4H PRN for PAIN, #30 TAB Prov:YIN DIXONLANA 06/13/17 Reported Medications Aspirin* (Aspirin* Chew) 81 Mg Tab.chew, 81 MG PO DAILY, TAB.CHEW 01/15/17 Hydrochlorothiazide* (Hydrochlorothiazide*) 25 Mg Tab, 25 MG PO DAILY, #30 TAB 01/15/17 Captopril* (Captopril*) 25 Mg Tablet, 25 MG PO BID, #60 TAB 01/15/17 JENNA TSE Sep 23, 2018 12:57
--- NOTE | 2018-09-23 13:52 | PN ---
Date/Time of Note Date/Time of Note DATE: 09/23/18 TIME: 13:51 Assessment/Plan VTE Prophylaxis Risk score (from Ns)>0 risk: 3 SCD applied (from Ns): Yes Pharmacological prophylaxis: NA/contraindicated Pharm contraindication: low risk/ambulating Lines/Catheters IV Catheter Type (from Nrsg): Peripheral IV Urinary Cath still in place: No Assessment/Plan Hospital Course 58 y/o with # Stage IV breast cancer now with multiple brain masses likely secondary to br east cancer headaches nausea vomiting and blurry vision with increased intracranial pressure With leptomeningeal spread #hx of right breast cancer status post mastectomy # Pre DM # HTN # Hyponatremia likely secondary to SIADH consistent with high urine sodium and high urine osmolarity # AMS due to metabolic encephalopathy improved Plan -repeat CT of the head is stable -Decadron to p.o. -Patient scheduled for radiation bhupinder - Toradol/zofran - seizure precaution -Second line of chemo per Dr. Guzman after discharged - SCD spoke To Dr. Colunga/Dr. Hassan plan is to to give 2 radiations in-house if patient is clinically feeling better after that than to discharge home to her to follow-up with out patient radiation treatments possibly dc tmw Result Diagram: 09/20/18 0450 09/22/18 0427 Subjective 24 Hr Interval Summary Free Text/Dictation Feels good s/p XRT # 1 today Exam/Review of Systems Exam Vitals Vital Signs Date Temp Pulse Resp B/P (MAP) Pulse Ox O2 O2 Flow FiO2 Time Delivery Rate 09/23/18 98.4 69 18 130/87 97 07:59 (101) Intake and Output 09/22/18 09/22/18 09/23/18 1515:00 23:00 07:00 IntakeIntake Total 680 ml 560 ml OutputOutput Total 900 ml BalanceBalance 680 ml -340 ml Exam Exam That is post right mastectomy Patient is awake alert oriented Constitutional: alert, oriented Respiratory: clear to auscultation Cardiovascular: regular rate and rhythm Medications Medication Current Medications IV Flush (NS 3 ml) 3 ml PER PROTOCOL IV ; Start 09/14/18 at 17:30 Acetaminophen (Tylenol Tab) 650 mg Q6H PRN PO .PAIN 1-3 OR TEMP Last administered on 09/23/18at 11:44; Admin Dose 650 MG; Start 09/14/18 at 17:30 Docusate Sodium (Colace) 100 mg Q12H PRN PO .CONSTIPATION Last administered on 09/19/18 16:11; Admin Dose 100 MG; Start 09/14/18 at 17:30 Ondansetron HCl (Zofran Odt) 4 mg Q6H PRN ODT NAUSEA AND/OR VOMITING; Start 09/14/18 at 23:30 Ondansetron HCl (Zofran Inj) 4 mg Q4H PRN IV NAUSEA AND/OR VOMITING Last administered on 09/16/18 09:09; Admin Dose 4 MG; Start 09/15/18 at 05:30 Pantoprazole (Protonix Tab) 40 mg DAILY@06 PO Last administered on 09/23/18 05:44; Admin Dose 40 MG; Start 09/16/18 at 06:00 Ondansetron HCl 8 mg/Dextrose 54 ml @ 108 mls/hr Q6H PRN IV NAUSEA AND/OR VOMITING Last administered on 09/16/18 12:09; Admin Dose 108 MLS/HR; Start 09/15/18 at 14:00 Zolpidem Tartrate (Ambien) 5 mg HS PRN PO INSOMNIA Last administered on 09/22/18 20:59; Admin Dose 5 MG; Start 09/19/18 at 00:30 Levetiracetam (Keppra) 500 mg BID PO Last administered on 09/23/18 08:52; Admin Dose 500 MG; Start 09/19/18 at 21:00 Dexamethasone (Decadron) 4 mg TID PO Last administered on 09/23/18 13:14; Admin Dose 4 MG; Start 09/22/18 at 21:00 OLIVIA VIDES MD Sep 23, 2018 13:52
[2018-09-23 14:04] VITALS: BP 124/85; PULSE 79; RESP 18
[2018-09-23 19:29] VITALS: BP 105/80; PULSE 89; RESP 18
[2018-09-24 01:45] VITALS: BP 113/80; PULSE 80; RESP 18
[2018-09-24] MEDS: PANTOPRAZOLE (EC) 40 MG TAB PO SCH (06:19)
[2018-09-24 07:37] VITALS: BP 120/82; PULSE 61; RESP 18
[2018-09-24] MEDS: LEVETIRACETAM 500 MG TAB PO SCH (10:42)
[2018-09-24] MEDS: DEXAMETHASONE 4 MG TAB PO SCH ×2 (10:42→13:31)
[2018-09-24 15:06] VITALS: BP 138/80; PULSE 60; RESP 18
--- NOTE | 2018-09-24 16:26 | PDOCDIS ---
Discharge Instructions DIAGNOSIS Discharge Diagnosis metastatic cancer to brain CONDITION [id number] Patient Condition: Byjvw4m Fair HOME CARE INSTRUCTIONS: [id number] Diet Instructions: Aagyy2s Regular ACTIVITY: [id number] Activity Restrictions: [id number] Slowly Increase Activity Rest between Activity Avoid heavy lifting FOLLOW UP/APPOINTMENTS Follow-up Plan f/u XRT EVERYDAY F/U PCP in 1-2 weeks f/U dr Guzman in 2 weeks OLIVIA VIDES MD Sep 24, 2018 16:26
[2018-09-24] MEDS ORDERED: DEC4 PO (16:29)
[2018-09-24] MEDS ORDERED: ONDA4TAB14 ODT (16:29)
[2018-09-24] MEDS ORDERED: DOCU-144 PO (16:29)
== END 2018-09-24 17:47 | disposition home or self-care (01) | DRG 54 ==
LOC: E/R 13:52 → ICU 16:47 → 6WM 09-15 16:00 → ICU 09-17 15:00 → 6WM 09-18 16:20 → 2NE 09-21 18:00
PROVIDERS: ADMIT Internal Medicine; ATTEND Internal Medicine
DX: C79.31 Secondary malignant neoplasm of brain (principal); G93.6 Cerebral edema; G93.41 Metabolic encephalopathy; C79.32 Secondary malignant neoplasm of cerebral meninges; E22.2 Syndrome of inappropriate secretion of antidiuretic hormone; I10 Essential (primary) hypertension; R73.03 Prediabetes; E87.6 Hypokalemia; Z90.11 Acquired absence of right breast and nipple; Z85.3 Personal history of malignant neoplasm of breast; Z79.82 Long term (current) use of aspirin
CPT/HCPCS: 36415; 70450; 70553; 71045; 71260; 74177; 77014; 77290; 77334; 77412; 80048; 80177; 83036; 83735; 83935; 84100; 84295; 84300; 84450; 84460; 84484; 85025; 85610; 85730; 97110; 97116; 97162; 97530; C9113; J1100; J1170; J1885; J1953; J2270; J2405; J3480; J7030; J7042; J7070; Q9967

== ENCOUNTER 2018-11-10 09:12 | Emergency (ER) | payer BC ==
[~2018-11-10] VITALS: Ht 149.9 cm; Wt 61.6 kg
[~2018-11-10 09:12] MED LIST changes: +DEC4 PO; +DOCU-144 PO; -HYDR-3601 PO; +ONDA4TAB14 ODT
[2018-11-10 09:14] VITALS: Ht 149.9 cm; Wt 61.6 kg
[2018-11-10] MEDS ORDERED: ONDANSETRON (ODT) 4 MG TAB ODT STA (09:26)
[2018-11-10] MEDS ORDERED: SOD CHLORIDE 0.9% 1,000 ML IV STA (09:28)
[2018-11-10] MEDS ORDERED: HYDROCODONE/APAP (10/325) TAB PO ONE (09:30)
[2018-11-10] MEDS ORDERED: METO-335 PO (10:08)
[2018-11-10] MEDS ORDERED: TYKE250 PO (10:11)
[2018-11-10] MEDS ORDERED: MEMA5TAB PO (10:12)
[2018-11-10] MEDS ORDERED: CAPE500T17 PO (10:13)
[2018-11-10] MEDS ORDERED: POTASSIUM CHLORIDE (SR) 20 MEQ TAB PO STA (10:28)
[2018-11-10] MEDS ORDERED: IBUP-1542 PO (11:15)
[2018-11-10] MEDS ORDERED: HYDR-3980 PO (11:16)
[2018-11-10] MEDS ORDERED: NALO4SPR NS (11:16)
[2018-11-10 11:31] VITALS: BP 141/78; PULSE 74; RESP 19
--- NOTE | 2018-11-10 12:28 | ERD ---
ER Documentation Chief Complaint Chief Complaint head pain/bilat eye "pressure" body weakness x his am Brain CA HPI Patient is a 58-year-old female with hypertension and breast cancer with metastases to brain who presents with bilateral eye pain. The symptoms started this morning at 3 AM. The patient has had no treatment as of yet. She had radiation done on October 10 and she is getting chemotherapy. She has generalized weakness. Upon review of old medical records this is the patient's third visit to the ER since May 2017. She has a primary doctor and oncologist. ROS All systems reviewed and are negative except as per history of present illness. Medications Home Meds Active Scripts Naloxone HCl nasal spray (Narcan 4 mg/0.1 mL nasal) 4 Mg Florence, 4 MG NS .Q2-3MIN for OPIOID OVERDOSE, #2 SPRAY 0 Refills Florence 0.1 mL into one nostril. Repeat with second device into other nostril after 2-3 minutes if no or minimal response Prov:DANNY BRANCH MD 11/10/18 Hydrocodone/Acetaminophen ([place] 10-325 Tablet) 1 Each Tablet, 1 TAB PO Q6H PRN for PAIN, #7 TAB Prov:DANNY BRANCH MD 11/10/18 Ibuprofen* (Motrin*) 600 Mg Tab, 600 MG PO Q6H PRN for PAIN AND OR ELEVATED TEMP, #30 TAB Prov:DANNY BRANCH MD 11/10/18 Reported Medications Capecitabine* (Xeloda*) 500 Mg Tablet, 1000 MG PO BID, TBS STOP FOR 7 DAYS, START DAY 11/12/18 11/10/18 Memantine* (Namenda*) 5 Mg Tablet, 5 MG PO DAILY, #30 TAB 11/10/18 Lapatinib (Tykerb) 250 Mg Tab, 250 MG PO Q 2 OR 3 HOURS, TAB TAKE 5 TAB-DAILY 11/10/18 Metoprolol Succinate* (Toprol XL*) 25 Mg Tab.sr.24h, 25 MG PO QHS, #30 TAB 11/10/18 Discontinued Reported Medications Aspirin* (Aspirin* Chew) 81 Mg Tab.chew, 81 MG PO DAILY, TAB.CHEW 01/15/17 Hydrochlorothiazide* (Hydrochlorothiazide*) 25 Mg Tab, 25 MG PO DAILY, #30 TAB 01/15/17 Captopril* (Captopril*) 25 Mg Tablet, 25 MG PO BID, #60 TAB 01/15/17 Discontinued Scripts Ondansetron (Ondansetron Odt) 4 Mg Tab.rapdis, 4 MG ODT Q6H PRN for NAUSEA AND/OR VOMITING for 30 Days Prov:OLIVIA VIDES MD 09/24/18 Docusate Sodium* (Colace*) 100 Mg Capsule, 100 MG PO Q12H PRN for .CONSTIPATION for 30 Days, CAP Prov:OLIVIA VIDES MD 09/24/18 Dexamethasone* (Decadron*) 4 Mg Tab, 4 MG PO TID for 30 Days, TAB Prov:OLIVIA VIDES MD 09/24/18 Allergies Allergies: Coded Allergies: No Known Allergy (Unverified , 11/10/18) PMhx/Soc History of Surgery: Yes (R mastectomy) Anesthesia Reaction: No Hx Neurological Disorder: No Hx Respiratory Disorders: No Hx Cardiac Disorders: Yes (HTN) Hx Psychiatric Problems: No Hx Miscellaneous Medical Probl: Yes (See technical record) Hx Alcohol Use: No Hx Substance Use: No Hx Tobacco Use: No Smoking Status: Never smoker FmHx Family History: diabetes Physical Exam Vitals Vital Signs Date Temp Pulse Resp B/P (MAP) Pulse Ox O2 O2 Flow FiO2 Time Delivery Rate 11/10/18 98.1 74 19 141/78 97 Room Air 11:31 (99) 11/10/18 97.2 105 19 147/109 97 09:14 (122) Physical Exam Const: Moderate distress Head: Atraumatic Eyes: Normal Conjunctiva ENT: Normal External Ears, Nose and Mouth. Neck: Full range of motion. No meningismus. Resp: Clear to auscultation bilaterally Cardio: Regular rate and rhythm, no murmurs Abd: Soft, non tender, non distended. Normal bowel sounds Skin: No petechiae or rashes Back: No midline or flank tenderness Ext: No cyanosis, or edema Neur: Awake and alert, cranial nerves II through XII intact, strength is 5 out of 5 in all 4 extremities, no slurred speech, no pronator drift Psych: Normal Mood and Affect Result Diagram: 11/10/18 0947 11/10/18 0947 Results 24 hrs Laboratory Tests Test 11/10/18 09:47 11/10/18 10:45 White Blood Count 6.5 10^3/ul Red Blood Count 4.21 10^6/ul Hemoglobin 13.3 g/dl Hematocrit 38.8 % Mean Corpuscular Volume 92.2 fl Mean Corpuscular Hemoglobin 31.6 pg Mean Corpuscular Hemoglobin Concent 34.3 g/dl Red Cell Distribution Width 17.7 % Platelet Count 120 10^3/UL Mean Platelet Volume 8.1 fl Immature Granulocytes % 4.600 % Neutrophils % 77.8 % Lymphocytes % 12.6 % Monocytes % 4.8 % Eosinophils % 0.0 % Basophils % 0.2 % Nucleated Red Blood Cells % 0.9 /100WBC Immature Granulocytes # 0.300 10^3/ul Neutrophils # 5.1 10^3/ul Lymphocytes # 0.8 10^3/ul Monocytes # 0.3 10^3/ul Eosinophils # 0.0 10^3/ul Basophils # 0.0 10^3/ul Nucleated Red Blood Cells # 0.1 10^3/ul Sodium Level 131 mmol/L Potassium Level 2.9 mmol/L Chloride Level 95 mmol/L Carbon Dioxide Level 30 mmol/L Anion Gap 6 Blood Urea Nitrogen 14 mg/dl Creatinine 0.46 mg/dl Est Glomerular Filtrat Rate mL/min > 60 mL/min Glucose Level 92 mg/dl Calcium Level 8.7 mg/dl Urine Color STRAW Urine Clarity CLEAR Urine pH 7.0 Urine Specific Spring 1.006 Urine Ketones NEGATIVE mg/dL Urine Nitrite NEGATIVE mg/dL Urine Bilirubin NEGATIVE mg/dL Urine Urobilinogen NEGATIVE mg/dL Urine Leukocyte Esterase NEGATIVE Deon/ul Urine Microscopic RBC 2 /HPF Urine Microscopic WBC 1 /HPF Urine Hemoglobin 1+ mg/dL Urine Glucose NEGATIVE mg/dL Urine Total Protein NEGATIVE mg/dl Current Medications Medications Dose Sig/Chelsey Start Time Status Last (Trade) Ordered Route PRN Stop Time Admin Dose Reason Admin 1 tab ONCE ONCE 11/10/18 DC 11/10/18 Acetaminophen PO 09:30 09:53 / 11/10/18 09:31 Hydrocodone Bitart ([place] ()) Ondansetron 4 mg ONCE STAT 11/10/18 DC 11/10/18 HCl (Zofran ODT 09:26 09:52 Odt) 11/10/18 09:27 Sodium 1,000 ml @ Q1H STAT 11/10/18 DC 11/10/18 Chloride 1,000 mls/hr IV 09:28 09:53 11/10/18 10:27 Potassium 40 meq ONCE STAT 11/10/18 DC 11/10/18 Chloride PO 10:28 10:46 (Klor-Con 20) 11/10/18 10:30 Procedures/MDM CT brain shows improvement from previous per radiology. Patient is a 58-year-old female who presents with bilateral eye pain and headache. CT scan shows improvement. Laboratory studies show mild hypokalemia and the patient was given potassium by mouth. The patient feels better after p ain medication and fluids. The patient will be discharged but will need to follow-up with the primary oncologist for reevaluation within 24-48 hours. The patient can return for any worsening symptoms. Departure Diagnosis: Primary Impression: Headache Headache type: unspecified Headache chronicity pattern: acute headache Intractability: not intractable Qualified Codes: R51 - Headache Additional Impressions: Acute weakness Hypokalemia Condition: Fair Patient Instructions: Self-Care for Headaches Referrals: JENNA TSE Additional Instructions: Call your primary care doctor TOMORROW for an appointment during the next 1-2 days.See the doctor sooner or return here if your condition worsens before your appointment time. DANNY BRANCH MD Nov 10, 2018 12:28
== END 2018-11-10 11:32 | disposition home or self-care (01) ==
LOC: E/R 09:12
DX: R51 Headache (principal); R53.1 Weakness; E87.6 Hypokalemia; I10 Essential (primary) hypertension
CPT/HCPCS: 36415; 70450; 80048; 81001; 85025; 86850; 86900; 86901; J7030; Z7502; Z7610

== ENCOUNTER 2018-11-10 21:59 | Inpatient (IN) | payer BC ==
[~2018-11-10] VITALS: Ht 149.9 cm; Wt 63.3 kg
[~2018-11-10 21:59] MED LIST changes: +CAPE500T17 PO; +HYDR-3980 PO; +IBUP-1542 PO; +MEMA5TAB PO; +METO-335 PO; +NALO4SPR NS; +TYKE250 PO
[2018-11-10] MEDS ORDERED: SOD CHLORIDE 0.9% 500 ML IV STA (22:28)
[2018-11-10] MEDS ORDERED: ONDANSETRON 4 MG INJ IV STA (22:28)
[2018-11-11] VITALS (10 sets, daily range): BP systolic 111–135; BP diastolic 78–88; PULSE 78–127; RESP 16–19; Ht 149.9 cm; Wt 63.3 kg
[2018-11-11] MEDS: POTASSIUM CHLORIDE 100 ML IVPB SCH ×4 (00:18→09:54)
--- NOTE | 2018-11-11 01:18 | ERD ---
ER Documentation Chief Complaint Chief Complaint MACDONALD, NAUSEA, VOMITING. HX OF BRAIN TUMOR, ACTIVE CHEMOTHARAPY HPI This is a very pleasant patient who is seen earlier today for nausea and vomiting. Patient has history of metastatic brain cancer and is on active chemotherapy. Apparently she was discharged and went home and continued to vomit. Family brought her making after having 3-4 episodes nonbilious nonbloody vomiting. She is unable to tolerate p.o. ROS All systems reviewed and are negative except as per history of present illness. Medications Home Meds Active Scripts Naloxone HCl nasal spray (Narcan 4 mg/0.1 mL nasal) 4 Mg Franklin, 4 MG NS .Q2-3MIN for OPIOID OVERDOSE, #2 SPRAY 0 Refills Franklin 0.1 mL into one nostril. Repeat with second device into other nostril after 2-3 minutes if no or minimal response Prov:DANNY BRANCH MD 11/10/18 Hydrocodone/Acetaminophen ([place] 10-325 Tablet) 1 Each Tablet, 1 TAB PO Q6H PRN for PAIN, #7 TAB Prov:DANNY BRANCH MD 11/10/18 Ibuprofen* (Motrin*) 600 Mg Tab, 600 MG PO Q6H PRN for PAIN AND OR ELEVATED TEMP, #30 TAB Prov:DANNY BRANCH MD 11/10/18 Reported Medications Capecitabine* (Xeloda*) 500 Mg Tablet, 1000 MG PO BID, TBS STOP FOR 7 DAYS, START DAY 11/12/18 11/10/18 Memantine* (Namenda*) 5 Mg Tablet, 5 MG PO DAILY, #30 TAB 11/10/18 Lapatinib (Tykerb) 250 Mg Tab, 250 MG PO Q 2 OR 3 HOURS, TAB TAKE 5 TAB-DAILY 11/10/18 Metoprolol Succinate* (Toprol XL*) 25 Mg Tab.sr.24h, 25 MG PO QHS, #30 TAB 11/10/18 Discontinued Reported Medications Aspirin* (Aspirin* Chew) 81 Mg Tab.chew, 81 MG PO DAILY, TAB.CHEW 01/15/17 Hydrochlorothiazide* (Hydrochlorothiazide*) 25 Mg Tab, 25 MG PO DAILY, #30 TAB 01/15/17 Captopril* (Captopril*) 25 Mg Tablet, 25 MG PO BID, #60 TAB 01/15/17 Discontinued Scripts Ondansetron (Ondansetron Odt) 4 Mg Tab.rapdis, 4 MG ODT Q6H PRN for NAUSEA AND/OR VOMITING for 30 Days Prov:OLIVIA VIDES MD 09/24/18 Docusate Sodium* (Colace*) 100 Mg Capsule, 100 MG PO Q12H PRN for .CONSTIPATION for 30 Days, CAP Prov:OLIVIA VIDES MD 09/24/18 Dexamethasone* (Decadron*) 4 Mg Tab, 4 MG PO TID for 30 Days, TAB Prov:OLIVIA VIDES MD 09/24/18 Allergies Allergies: Coded Allergies: No Known Allergy (Unverified , 11/10/18) PMhx/Soc History of Surgery: Yes (R mastectomy) Anesthesia Reaction: No Hx Neurological Disorder: No Hx Respiratory Disorders: No Hx Cardiac Disorders: Yes (HTN) Hx Psychiatric Problems: No Hx Miscellaneous Medical Probl: Yes (See technical record) Hx Alcohol Use: No Hx Substance Use: No Hx Tobacco Use: No Smoking Status: Never smoker Physical Exam Vitals Vital Signs Date Temp Pulse Resp B/P (MAP) Pulse Ox O2 O2 Flow FiO2 Time Delivery Rate 11/10/18 Nasal 2 23:07 Cannula 11/10/18 97.1 80 20 133/91 97 Room Air 22:35 (105) 11/10/18 97.1 97 20 146/94 97 22:07 (111) Physical Exam Const: No acute distress Head: Atraumatic Eyes: Normal Conjunctiva ENT: Normal External Ears, Nose and Mouth. Neck: Full range of motion. No meningismus. Resp: Clear to auscultation bilaterally Cardio: Regular rate and rhythm, no murmurs Abd: Soft, non tender, non distended. Normal bowel sounds Skin: No petechiae or rashes Back: No midline or flank tenderness Ext: No cyanosis, or edema Neur: Awake and alert Psych: Normal Mood and Affect Result Diagram: 11/10/18225711/10/182257 Results 24 hrs Laboratory Tests Test 11/10/18 22:58 White Blood Count 5.1 10^3/ul Red Blood Count 3.73 10^6/ul Hemoglobin 12.1 g/dl Hematocrit 34.8 % Mean Corpuscular Volume 93.3 fl Mean Corpuscular Hemoglobin 32.4 pg Mean Corpuscular Hemoglobin Concent 34.8 g/dl Red Cell Distribution Width 17.0 % Platelet Count 81 10^3/UL Mean Platelet Volume 7.6 fl Immature Granulocytes % 4.100 % Neutrophils % 81.4 % Lymphocytes % 8.2 % Monocytes % 5.5 % Eosinophils % 0.2 % Basophils % 0.6 % Nucleated Red Blood Cells % 0.4 /100WBC Immature Granulocytes # 0.210 10^3/ul Neutrophils # 4.2 10^3/ul Lymphocytes # 0.4 10^3/ul Monocytes # 0.3 10^3/ul Eosinophils # 0.0 10^3/ul Basophils # 0.0 10^3/ul Nucleated Red Blood Cells # 0.0 10^3/ul Sodium Level 121 mmol/L Potassium Level 2.8 mmol/L Chloride Level 85 mmol/L Carbon Dioxide Level 26 mmol/L Anion Gap 10 Blood Urea Nitrogen 11 mg/dl Creatinine 0.34 mg/dl Est Glomerular Filtrat Rate mL/min > 60 mL/min Glucose Level 101 mg/dl Calcium Level 8.4 mg/dl Total Bilirubin 2.0 mg/dl Direct Bilirubin 0.00 mg/dl Indirect Bilirubin 2.0 mg/dl Aspartate Amino Transf (AST/SGOT) 27 IU/L Alanine Aminotransferase (ALT/SGPT) 33 IU/L Alkaline Phosphatase 96 IU/L Troponin I < 0.012 ng/ml B-Type Natriuretic Peptide 101 PG/ML Total Protein 5.8 g/dl Albumin 3.3 g/dl Globulin 2.50 g/dl Albumin/Globulin Ratio 1.32 Current Medications Medications Dose Sig/Chelsey Start Time Status Last (Trade) Ordered Route PRN Stop Time Admin Dose Reason Admin Sodium 500 ml @ Q1H STAT 11/10/18 DC 11/10/18 Chloride 500 mls/hr IV 22:28 23:02 11/10/18 23:27 Ondansetron 4 mg ONCE STAT 11/10/18 DC 11/10/18 HCl (Zofran IV 22:28 23:02 Inj) 11/10/18 22:31 Potassium 100 ml @ Q2H IVPB 11/11/18 11/11/18 Chloride 50 mls/hr 00:00 00:18 11/11/18 07:59 Procedures/MDM Medical decision making: This patient worsening hypokalemia and hyponatremia and volume depletion. She is been repleted here. Patient be admitted to on-call for Dr. Gilliam Departure Diagnosis: Primary Impression: Hypokalemia Condition: Serious JUAN F MERRITT Nov 11, 2018 01:18
[2018-11-11] MEDS ORDERED: LAPATINIB 250 MG PO SCH (04:30)
[2018-11-11] MEDS ORDERED: NON-FORMULARY/PATIENT OWN MED (Naloxone HCl nasal spray (Narcan 4 mg/0.1 mL nasal) 4 MG) XX SCH (04:30)
[2018-11-11] MEDS ORDERED: HYDROCODONE/APAP (10/325) TAB PO PRN (04:30)
[2018-11-11] MEDS ORDERED: ACETAMINOPHEN 325 MG TAB PO PRN (05:00)
[2018-11-11] MEDS ORDERED: PANTOPRAZOLE 40 MG INJ IV SCH (06:00)
[2018-11-11] MEDS ORDERED: CAPECITABINE 500 MG TAB PO SCH (09:00)
[2018-11-11] MEDS: MEMANTINE 5 MG TAB PO SCH (09:54)
--- NOTE | 2018-11-11 15:01 | QN ---
Documentation Comment pt seen and examined OLIVIA VIDES MD Nov 11, 2018 15:01
[2018-11-11] MEDS ORDERED: [UNRECOGNIZED DRUG - OTHER] PO ONE (18:30)
[2018-11-11] MEDS ORDERED: TYKERB PO ONE (18:30)
--- NOTE | 2018-11-11 19:57 | HP ---
DATE OF ADMISSION: 11/11/2018 REASON FOR ADMISSION: Weakness. HISTORY OF PRESENTING ILLNESS: This is a 58-year-old female with a history of right breast cancer st atus post right mastectomy, who was admitted in 08/2018 secondary to brain mets. At that time, the p atient had stage IV breast cancer. The patient had multiple mets to the brain with leptomeningeal sp read. The patient was seen discharged on 09/24/2018. Followup with radiology/oncology as an outpati ent. The patient was started on radiation as an outpatient and received 15 cycles. The patient was just started on oral chemotherapy [address] Tse. According to the patient and raphaele nt's family, the patient has been having nausea and vomiting for past 2 days. The patient was also f eeling generalized weakness. She was unable to tolerate any p.o. and came to the emergency departmen t for further evaluation. On arrival, vital signs showed blood pressure 146/96, heart rate of 97. L abs showed white count of 5.1, hemoglobin 12.1, platelet count 81, sodium was 121, potassium 2.8, chl oride 85, bicarbonate 26, BUN of 11, creatinine 0.34. The patient received NS bolus, had chest x-ray and patient was admitted for further management. PAST MEDICAL HISTORY: 1. Hypertension. 2. History of right breast cancer, status post right mastectomy and now stage IV with brain mets. 3. Prediabetes. 4. History of hyponatremia secondary to SIADH. 5. History of delirium. ALLERGIES: NONE. PAST SURGICAL HISTORY: Right mastectomy and the left Port-A-Cath placement. SOCIAL HISTORY: No history of smoking, alcohol or any drug use. Currently lives at home with the rachael lee. MEDICATIONS TAKING AT HOME: 1. Xeloda 1000 p.o. b.i.d. 2. Tykerb 250 mg p.o. q.2. 3. Metoprolol XL 25 at bedtime. 4. Vicodin one tab p.o. q.6 p.r.n. pain. 5. Motrin p.r.n. pain. 6. Namenda 5 mg p.o. daily. REVIEW OF SYSTEMS: The patient complains of some generalized weakness and some burning in the eyes. Has episodes of nausea and vomiting yesterday. Denied any hematemesis, any melena, any bright red b lood per rectum. The patient just came off of Decadron. PHYSICAL EXAMINATION: VITAL SIGNS: Currently afebrile, heart rate 80s, respirations 18, blood pressure 111/82, saturating 99%. GENERAL: The patient is awake, alert, oriented, does not appear to in any acute distress. HEENT: The patient has alopecia. NECK: Supple. No JVD. HEART: Tachycardic. LUNGS: Clear to auscultation bilaterally. ABDOMEN: Soft, nontender, nondistended. Positive normoactive bowel sounds. EXTREMITIES: No clubbing, cyanosis or edema. NEUROLOGIC: Nonfocal. SKIN: The patient has a left Port-A-Cath in place. LABORATORY DATA: Show initial sodium 121, potassium 2.8, chloride 85, bicarbonate 26, BUN of 11, cre atinine 0.34. UA had showed a urine osmolality of 111. Urine sodium was 14. ASSESSMENT AND PLAN: This is a 58-year-old female who presented with: 1. Hypokalemia, likely secondary to the nausea, vomiting secondary to chemo. 2. Hyponatremia, likely hypovolemic, with a urine sodium less than 14, responded to fluids. 3. Stage IV breast cancer with metastases to the brain. 4. Nausea and vomiting secondary to #1. 5. Hypertension. 6. History of breast cancer. PLAN: At this point of time, the patient is admitted to telemetry. The patient received already flu ids and sodium has improved. Potassium will be adequately repleted. Serial troponins were done that were negative. We will also call oncology consultation with Dr. Tse. Rest of the treatment will depend on the patient's hospitalization course. Dictated By: OLIVIA LEMOS/SERINA Conf#: [id number] DID#: [id number] CC: JENNA TSE;*EndCC*
[2018-11-11] MEDS: ONDANSETRON 4 MG INJ IV PRN (20:14)
[2018-11-11] MEDS: METOPROLOL (XL) 25 MG TAB PO SCH (20:14)
[2018-11-12] VITALS (9 sets, daily range): BP systolic 106–152; BP diastolic 74–92; PULSE 87–122; RESP 18–19
[2018-11-12] MEDS: PANTOPRAZOLE (EC) 40 MG TAB PO SCH (05:22)
[2018-11-12] MEDS: TYKERB PO SCH ×4 (07:00→13:00)
[2018-11-12] MEDS: [UNRECOGNIZED DRUG - OTHER] PO SCH ×4 (07:00→13:00)
[2018-11-12] MEDS: ONDANSETRON 4 MG INJ IV PRN (08:04)
[2018-11-12] MEDS: SPECIAL NON-STANDARD MEDICATION (CHEMO) PO SCH (09:00)
[2018-11-12] MEDS: MEMANTINE 5 MG TAB PO SCH (09:42)
[2018-11-12] MEDS ORDERED: METOPROLOL (XL) 25 MG TAB PO ONE (13:30)
[2018-11-12] MEDS ORDERED: LORAZEPAM 0.5 MG TAB PO PRN (14:00)
--- NOTE | 2018-11-12 14:23 | PN ---
Date/Time of Note Date/Time of Note DATE: 11/12/18 TIME: 14:20 Assessment/Plan VTE Prophylaxis Risk score (from Ns)>0 risk: 4 SCD applied (from Ns): Yes Pharmacological prophylaxis: NA/contraindicated Pharm contraindication: low risk/ambulating Lines/Catheters [facility]from [facility] portacath Urinary Cath still in place: No Assessment/Plan Hospital Course 58-year-old female who presented with: 1. Hypokalemia, likely secondary to the nausea, vomiting secondary to chemo. 2. Hyponatremia, likely hypovolemic, with a urine sodium less than 14, respond ed to fluids. 3. Stage IV breast cancer with metastases to the brain. 4. Nausea and vomiting secondary to #1. 5. Hypertension. 6. History of breast cancer. 7 sinus tachycardia could be secondary to anxiety/dehydration Plan -MRI of the brain per oncology -Zofran to be given before chemotherapy -Check TSH d-dimer, gentle IV fluids, Ativan as needed anxiety -Follow-up with oncology recs -Repeat sodium in the evening -GI/DVT prophylaxis Result Diagram: 11/10/18 2258 11/12/18 0720 Results 24hrs Laboratory Tests Test 11/11/18 18:05 11/12/18 07:20 Sodium Level 133 L 132 L Potassium Level 4.8 Chloride Level 95 L Carbon Dioxide Level 31 Anion Gap 6 Blood Urea Nitrogen 8 Creatinine 0.50 Est Glomerular Filtrat Rate mL/min > 60 Glucose Level 101 Calcium Level 8.7 Phosphorus Level 2.9 Magnesium Level 2.0 Subjective 24 Hr Interval Summary Free Text/Dictation Patient says that she is feeling anxious. She was refusing chemo medication having nausea Exam/Review of Systems Exam Vitals Vital Signs Date Temp Pulse Resp B/P (MAP) Pulse Ox O2 O2 Flow FiO2 Time Delivery Rate 11/12/18 122 13:33 11/12/18 98.2 18 152/92 98 Room Air 11:20 (112) 11/12/18 1.0 08:00 Exam GENERAL: The patient is awake, alert, oriented, does not appear to in any acute distress. HEENT: The patient has alopecia. NECK: Supple. No JVD. HEART: Tachycardic. LUNGS: Clear to auscultation bilaterally. ABDOMEN: Soft, nontender, nondistended. Positive normoactive bowel sounds. EXTREMITIES: No clubbing, cyanosis or edema. NEUROLOGIC: Nonfocal. SKIN: The patient has a left Port-A-Cath in place. Results Results 24hrs Laboratory Tests Test 11/11/18 18:05 11/12/18 07:20 Sodium Level 133 L 132 L Potassium Level 4.8 Chloride Level 95 L Carbon Dioxide Level 31 Anion Gap 6 Blood Urea Nitrogen 8 Creatinine 0.50 Est Glomerular Filtrat Rate mL/min > 60 Glucose Level 101 Calcium Level 8.7 Phosphorus Level 2.9 Magnesium Level 2.0 Medications Medication Current Medications Acetaminophen/ Hydrocodone Bitart ([place] (10)) 1 tab Q6H PRN PO PAIN; Start 11/11/18 at 04:30 Memantine (Namenda) 5 mg DAILY PO Last administered on 11/12/18at 09:42; Admin Dose 5 MG; Start 11/11/18 at 09:00 Metoprolol Succinate (Toprol Xl) 25 mg QHS PO Last administered on 11/11/18at 20:14; Admin Dose 25 MG; Start 11/11/18 at 21:00 Acetaminophen (Tylenol Tab) 650 mg Q6H PRN PO MILD PAIN(1-3)OR ELEVATED TEMP; Start 11/11/18 at 05:00 Non-Formulary Medication 2 dose BID PO ; Start 11/12/18 at 09:00 Pantoprazole (Protonix Tab) 40 mg DAILY@06 PO Last administered on 11/12/18at 05:22; Admin Dose 40 MG; Start 11/12/18 at 06:00 Non-Formulary Medication 1 dose 0700,0900,1100,1300 PO ; Start 11/12/18 at 07:00 Non-Formulary Medication 1 dose 1500 PO ; Start 11/12/18 at 15:00 Metoprolol Succinate (Toprol Xl) 25 mg ONCE ONCE PO ; Start 11/12/18 at 13:30; Stop 11/12/18 at 13:31; Status UNV Ondansetron HCl (Zofran Inj) 4 mg Q8 IV ; Start 11/12/18 at 18:00; Status UNV Sodium Chloride 1,000 ml @ 40 mls/hr Q24H IV ; Start 11/12/18 at 14:30; Status UNV Lorazepam (Ativan) 0.5 mg Q12 PRN PO ANXIETY; Start 11/12/18 at 14:30; Status UNV OLIVIA VIDES MD Nov 12, 2018 14:23
[2018-11-12] MEDS ORDERED: [UNRECOGNIZED DRUG - OTHER] PO SCH (15:00)
[2018-11-12] MEDS ORDERED: TYKERB PO SCH (15:00)
[2018-11-12] MEDS ORDERED: ONDANSETRON 4 MG INJ ONE (15:15)
[2018-11-12] MEDS: LORAZEPAM 0.5 MG TAB PO PRN ×2 (15:19→21:34)
[2018-11-12] MEDS: ONDANSETRON 4 MG INJ IV SCH ×2 (15:23→21:34)
[2018-11-12] MEDS: ENOXAPARIN 40 MG/0.4 ML SYG SC SCH (16:36)
[2018-11-12] MEDS: SOD CHLORIDE 0.9% 1,000 ML IV SCH (16:39)
[2018-11-12] MEDS ORDERED: ONDANSETRON 4 MG INJ IV SCH (18:00)
[2018-11-12] MEDS: METOPROLOL (XL) 25 MG TAB PO SCH (21:34)
[2018-11-13] VITALS (11 sets, daily range): BP systolic 103–114; BP diastolic 74–80; PULSE 90–126; RESP 19–22
[2018-11-13] MEDS: SPECIAL NON-STANDARD MEDICATION (CHEMO) PO SCH ×3 (01:03→21:00)
[2018-11-13] MEDS: PANTOPRAZOLE (EC) 40 MG TAB PO SCH (06:11)
[2018-11-13] MEDS: ONDANSETRON 4 MG INJ IV SCH ×3 (06:11→20:54)
[2018-11-13] MEDS: [UNRECOGNIZED DRUG - OTHER] PO SCH (07:21)
[2018-11-13] MEDS: TYKERB PO SCH (07:21)
[2018-11-13] MEDS ORDERED: SPECIAL NON-STANDARD MEDICATION (CHEMO) PO SCH ×3 (09:00→12:52)
[2018-11-13] MEDS: MEMANTINE 5 MG TAB PO SCH (09:38)
[2018-11-13] MEDS: ENOXAPARIN 40 MG/0.4 ML SYG SC SCH (09:42)
[2018-11-13] MEDS ORDERED: POTASSIUM CHLORIDE (SR) 20 MEQ TAB PO STA (09:56)
--- NOTE | 2018-11-13 10:25 | CONS ---
DATE OF ADMISSION: 11/11/2018 DATE OF CONSULTATION: 11/13/2018 REASON FOR CONSULTATION: Advanced HER2 positive breast cancer. HISTORY OF PRESENT ILLNESS: This is a 58-year-old female who was diagnosed with locally adv anced right-sided breast cancer back in 2016. She underwent neoadjuvant chemotherapy, pertuzumab, Ta xotere, carboplatin, Herceptin per protocol. Thereafter, she underwent modified radical mastectomy a nd virgie evaluation, had complete response after the neoadjuvant chemotherapy. Her Herceptin based c hemotherapy continued. Unfortunately, back into the early 2018, she was admitted to [facility] because of neurological symptoms, weakness, fatigue, headaches, blurred vision and found to have multiple brain metastases. The patient underwent radiation therapy per Dr. Curran. Currently on Tykerb and Xeloda pills per protocol, which started 09/2018. She has been tolerating it well. She comes now to [facility] because of generalized weakness, fatigue, anx iety and some visual changes mainly pain in her right eye. She got some medications a couple of days ago, sent home and still felt bad, came back to [facility]. On admission, found t o have some electrolyte disturbance including hypokalemia and hyponatremia, currently doing better. Her potassium is normal now after supplements. Latest potassium 5.4 and sodium also improved to 134. No headache, no blurred vision, no active bleeding, no hematemesis, no melena. She has stage IV HE R2 positive breast cancer with recurrent disease mainly in the brain. She completed radiation therap y few weeks ago. PAST MEDICAL HISTORY: Hypertension. SOCIAL HISTORY: She does not smoke, does not drink. , has 2 sons. FAMILY HISTORY: Negative for cancer. SOCIAL HISTORY: She does not smoke. PHYSICAL EXAMINATION: VITAL SIGNS: At this time include the following: Temperature 97, respiration of 18, pulse of 82, Bl ood pressure 125/85. NECK: No supraclavicular nodes. No axillary nodes. LUNGS: Clear. HEART: Normal S1, S2. ABDOMEN: Soft. LABORATORY DATA: Per EMR. ASSESSMENT AND PLAN: 1. A 58-year-old female with initially diagnosed poorly differentiated HER-2 amplified right-sided breast cancer diagnosed in 2016. 2. Completed neoadjuvant chemotherapy PTCH per protocol, completed adjuvant Herceptin then neratinib tablets. 3. 08/2018. This is recurrent, mainly in the brain. Completed radiation therapy. 4. Continue Tykerb and Xeloda per protocol. We will do some adjustment apparently the medication is getting too strong on her instead of taking 5 tablets of Tykerb, we will lower to 3 tablets a day an d Xeloda also will modify the dose instead of 2 tablets twice a day. We will lower the dose to 1 tab let twice a day. 5. MRI of the brain will be ordered to evaluate the disease recurrence and response to treatment rad iation therapy. 6. Fluid, electrolyte balance. 7. EKG evaluation to evaluate the QT interval. Dictated By: JENNA HOWELL/SERINA Conf#: [id number] DID#: [id number] CC: OLIVIA VIDES; JENNA TSE;*[facility]*
[2018-11-13] MEDS ORDERED: SOD CHLORIDE 0.9% 100 ML ONE (10:42)
[2018-11-13] MEDS ORDERED: IOHEXOL 100 ML ONE (10:42)
[2018-11-13] MEDS: SOD CHLORIDE 0.9% 1,000 ML IV SCH ×2 (11:34→20:54)
--- NOTE | 2018-11-13 11:36 | PN ---
Date/Time of Note Date/Time of Note DATE: 11/13/18 TIME: 11:32 Assessment/Plan VTE Prophylaxis Risk score (from Ns)>0 risk: 6 SCD applied (from Nsg): Yes Pharmacological prophylaxis: LMWH Lines/Catheters IV Catheter Type (from Nrs): Port-A-cath Urinary Cath still in place: No Assessment/Plan Hospital Course 1. Hypokalemia, likely secondary to the nausea, vomiting secondary to chemo. 2. Hyponatremia, likely hypovolemic, with a urine sodium less than 14, responded to fluids. 3. Stage IV breast cancer with metastases to the brain. 4. Nausea and vomiting secondary to #1. 5. Hypertension. 6. History of breast cancer. 7 sinus tachycardia could be secondary to anxiety/dehydration 8. Overweight Assessment/Plan -MRI of the brain per oncology pending -Zofran to be given before chemotherapy -normal TSH -d-dimer elevated, 1848, -c/w gentle IV fluids, Ativan as needed anxiety -Follow-up with oncology recs -Repeat sodium 133-134 -GI proph. Protonix 40 mg po -DVT prophylaxis Lovenox -K was supplemented today Result Diagram: 11/10/18 2258 11/13/18 0604 Results 24hrs Laboratory Tests Test 11/12/18 18:20 11/13/18 06:04 Sodium Level 134 L 133 L D-Dimer 1848.85 H D-Dimer Comment Potassium Level 3.2 L Chloride Level 99 Carbon Dioxide Level 28 Anion Gap 6 Blood Urea Nitrogen 7 Creatinine 0.40 L Est Glomerular Filtrat Rate mL/min > 60 Glucose Level 89 Calcium Level 8.1 L Thyroid Stimulating Hormone (TSH) 0.950 Subjective 24 Hr Interval Summary Free Text/Dictation weakness Exam/Review of Systems Exam Vitals Vital Signs Date Temp Pulse Resp B/P (MAP) Pulse Ox O2 O2 Flow FiO2 Time Delivery Rate 11/13/18 98.7 112 22 112/80 96 Nasal 2.0 11:30 (91) Cannula Intake and Output 11/12/18 11/12/18 11/13/18 1515:00 23:00 07:00 IntakeIntake Total 750 ml BalanceBalance 750 ml Exam left chest Portocath Constitutional: alert, oriented Neck: supple Respiratory: clear to auscultation Cardiovascular: regular rate and rhythm Results Results 24hrs Laboratory Tests Test 11/12/18 18:20 11/13/18 06:04 Sodium Level 134 L 133 L D-Dimer 1848.85 H D-Dimer Comment Potassium Level 3.2 L Chloride Level 99 Carbon Dioxide Level 28 Anion Gap 6 Blood Urea Nitrogen 7 Creatinine 0.40 L Est Glomerular Filtrat Rate mL/min > 60 Glucose Level 89 Calcium Level 8.1 L Thyroid Stimulating Hormone (TSH) 0.950 Medications Medication Current Medications Acetaminophen/ Hydrocodone Bitart ([place] (10/325)) 1 tab Q6H PRN PO PAIN; Star t 11/11/18 at 04:30 Memantine (Namenda) 5 mg DAILY PO Last administered on 11/13/18 09:38; Admin Dose 5 MG; Start 11/11/18 at 09:00 Metoprolol Succinate (Toprol Xl) 25 mg QHS PO Last administered on 11/12/18 21:34; Admin Dose 25 MG; Start 11/11/18 at 21:00 Acetaminophen (Tylenol Tab) 650 mg Q6H PRN PO MILD PAIN(1-3)OR ELEVATED TEMP; Start 11/11/18 at 05:00 Pantoprazole (Protonix Tab) 40 mg DAILY@06 PO Last administered on 11/13/18 06:11; Admin Dose 40 MG; Start 11/12/18 at 06:00 Non-Formulary Medication 1 dose 1500 PO Last administered on 11/12/18 15:00; Admin Dose 1 DOSE; Start 11/12/18 at 15:00 Ondansetron HCl (Zofran Inj) 4 mg Q8 IV Last administered on 11/13/18 06:11; Admin Dose 4 MG; Start 11/12/18 at 18:00 Sodium Chloride 1,000 ml @ 70 mls/hr [id number] IV Last administered on 11/12/18 16:39; Admin Dose 40 MLS/HR; Start 11/12/18 at 14:30 Lorazepam (Ativan) 0.5 mg Q12 PRN PO ANXIETY Last administered on 11/12/18 21:34; Admin Dose 0.5 MG; Start 11/12/18 at 14:30 Enoxaparin Sodium (Lovenox) 40 mg DAILY SC Last administered on 11/13/18 09:42; Admin Dose 40 MG; Start 4/18/19 at 14:30 Non-Formulary Medication 1 dose BID PO ; Start 11/13/18 at 09:00 Non-Formulary Medication 1 dose BID PO ; Start 11/13/18 at 09:00 CORINA TIERNEY Nov 13, 2018 11:36
[2018-11-13] MEDS ORDERED: LORAZEPAM 2 MG INJ IV ONE (13:30)
[2018-11-13] MEDS: METOPROLOL (XL) 25 MG TAB PO SCH (21:00)
[2018-11-14] VITALS (9 sets, daily range): BP systolic 112–173; BP diastolic 72–88; PULSE 79–125; RESP 18–20
[2018-11-14] MEDS: PANTOPRAZOLE (EC) 40 MG TAB PO SCH (05:52)
[2018-11-14] MEDS: ONDANSETRON 4 MG INJ IV SCH ×2 (05:52→14:11)
[2018-11-14] MEDS: MEMANTINE 5 MG TAB PO SCH (10:18)
[2018-11-14] MEDS: METOPROLOL (XL) 25 MG TAB PO SCH (10:18)
[2018-11-14] MEDS: ENOXAPARIN 40 MG/0.4 ML SYG SC SCH (10:20)
[2018-11-14] MEDS: SPECIAL NON-STANDARD MEDICATION (CHEMO) PO SCH ×2 (10:21)
[2018-11-14] MEDS: SOD CHLORIDE 0.9% 1,000 ML IV SCH (10:29)
--- NOTE | 2018-11-14 14:15 | PN ---
Date/Time of Note Date/Time of Note DATE: 11/14/18 TIME: 14:14 Assessment/Plan VTE Prophylaxis Risk score (from Ns)>0 risk: 1 SCD applied (from Ns): No SCD contraindicated: low risk/ambulating Pharmacological prophylaxis: LMWH Lines/Catheters IV [facility] Port-A-cath Urinary Cath still in place: No Assessment/Plan Hospital Course 1. Hypokalemia, likely secondary to the nausea, vomiting secondary to chemo. 2. Hyponatremia, likely hypovolemic, with a urine sodium less than 14, responded to fluids. 3. Stage IV breast cancer with metastases to the brain. 4. Nausea and vomiting secondary to #1. 5. Hypertension. 6. History of breast cancer. 7 sinus tachycardia could be secondary to anxiety/dehydration 8. Overweight Assessment/Plan -MRI of the brain: 1. No acute intracranial abnormality. No intracranial hemorrhage, infarction or hydrocephalous. Significant interval treatment response, with severe improvement in the size and appearance of the multiple intracranial metastases as discussed above, with near-complete resolution of the right parietal lobe metastasis and the right cerebellar metastasis as well as improved leptomeningeal enhancement overlying the cerebellum. Moderate patchy periventricular and subcortical white matter lesions, likely related to post- treatment changes versus chronic microangiopathic changes. -Zofran to be given before chemotherapy -normal TSH -d-dimer elevated, 1848, -c/w gentle IV fluids, Ativan as needed anxiety -Follow-up with oncology recs -Repeat sodium 133-134 -GI proph. Protonix 40 mg po -DVT prophylaxis Lovenox -K was supplemented today Result Diagram: 11/14/18 0626 11/14/18 0626 Results 24hrs Laboratory Tests Test 11/14/18 06:26 White Blood Count 3.2 #L Red Blood Count 3.32 L Hemoglobin 10.7 L Hematocrit 31.1 L Mean Corpuscular Volume 93.7 Mean Corpuscular Hemoglobin 32.2 Mean Corpuscular Hemoglobin Concent 34.4 Red Cell Distribution Width 17.7 H Platelet Count 77 L Mean Platelet Volume 7.7 Immature Granulocytes % 0.900 H Neutrophils % 76.5 Lymphocytes % 15.4 Monocytes % 6.9 Eosinophils % 0.0 Basophils % 0.3 Nucleated Red Blood Cells % 0.0 Immature Granulocytes # 0.030 Neutrophils # 2.4 Lymphocytes # 0.5 L Monocytes # 0.2 L Eosinophils # 0.0 Basophils # 0.0 Nucleated Red Blood Cells # 0.0 Sodium Level 131 L Potassium Level 3.3 L Chloride Level 99 Carbon Dioxide Level 25 Anion Gap 7 Blood Urea Nitrogen 5 L Creatinine 0.42 L Est Glomerular Filtrat Rate mL/min > 60 Glucose Level 96 Calcium Level 7.8 L Subjective 24 Hr Interval Summary Constitutional: no complaints, improved Exam/Review of Systems Exam Vitals Vital Signs Date Temp Pulse Resp B/P (MAP) Pulse Ox O2 O2 Flow FiO2 Time Delivery Rate 11/14/18 112 12:01 11/14/18 98.4 19 125/88 97 11:13 (100) 11/14/18 Room Air 04:00 11/13/18 2.0 11:30 Intake and Output 11/13/18 11/13/18 11/14/18 1515:00 23:00 07:00 IntakeIntake Total 300 ml 1950 ml 400 ml BalanceBalance 300 ml 1950 ml 400 ml Constitutional: alert, oriented Eyes: nl conjunctiva Neck: supple Respiratory: clear to auscultation Cardiovascular: regular rate and rhythm Gastrointestinal: soft Results Results 24hrs Laboratory Tests Test 11/14/18 06:26 White Blood Count 3.2 #L Red Blood Count 3.32 L Hemoglobin 10.7 L Hematocrit 31.1 L Mean Corpuscular Volume 93.7 Mean Corpuscular Hemoglobin 32.2 Mean Corpuscular Hemoglobin Concent 34.4 Red Cell Distribution Width 17.7 H Platelet Count 77 L Mean Platelet Volume 7.7 Immature Granulocytes % 0.900 H Neutrophils % 76.5 Lymphocytes % 15.4 Monocytes % 6.9 Eosinophils % 0.0 Basophils % 0.3 Nucleated Red Blood Cells % 0.0 Immature Granulocytes # 0.030 Neutrophils # 2.4 Lymphocytes # 0.5 L Monocytes # 0.2 L Eosinophils # 0.0 Basophils # 0.0 Nucleated Red Blood Cells # 0.0 Sodium Level 131 L Potassium Level 3.3 L Chloride Level 99 Carbon Dioxide Level 25 Anion Gap 7 Blood Urea Nitrogen 5 L Creatinine 0.42 L Est Glomerular Filtrat Rate mL/min > 60 Glucose Level 96 Calcium Level 7.8 L Medications Medication Current Medications Acetaminophen/ Hydrocodone Bitart ([place] (10/325)) 1 tab Q6H PRN PO PAIN; Start 11/11/18 at 04:30 Memantine (Namenda) 5 mg DAILY PO Last administered on 11/14/18 10:18; Admin Dose 5 MG; Start 11/11/18 at 09:00 Acetaminophen (Tylenol Tab) 650 mg Q6H PRN PO MILD PAIN(1-3)OR ELEVATED TEMP; Start 11/11/18 at 05:00 Pantoprazole (Protonix Tab) 40 mg DAILY@06 PO Last administered on 11/14/18 05:52; Admin Dose 40 MG; Start 11/12/18 at 06:00 Ondansetron HCl (Zofran Inj) 4 mg Q8 IV Last administered on 11/14/18 14:11; Admin Dose 4 MG; Start 11/12/18 at 18:00 Sodium Chloride 1,000 ml @ 70 mls/hr [id number] IV Last administered on 11/14/18 10:29; Admin Dose 70 MLS/HR; Start 11/12/18 at 14:30 Lorazepam (Ativan) 0.5 mg Q12 PRN PO ANXIETY Last administered on 11/12/18 21:34; Admin Dose 0.5 MG; Start 11/12/18 at 14:30 Enoxaparin Sodium (Lovenox) 40 mg DAILY SC Last administered on 11/14/18 10:20; Admin Dose 40 MG; Start 11/12/18 at 14:30 Non-Formulary Medication 1 dose BID PO Last administered on 11/14/18 10:21; Admin Dose 1 DOSE; Start 11/13/18 at 21:00 Non-Formulary Medication 1 dose BID PO Last administered on 11/14/18 10:21; Admin Dose 1 DOSE; Start 11/13/18 at 21:00 Metoprolol Succinate (Toprol Xl) 25 mg BID PO Last administered on 11/14/18 10:18; Admin Dose 25 MG; Start 11/13/18 at 21:00 CORINA TIERNEY Nov 14, 2018 14:15
[2018-11-14] MEDS ORDERED: POTASSIUM CHLORIDE 20 MEQ POWDER FOR ORAL SOLN PO ONE (14:30)
--- NOTE | 2018-11-14 15:11 | PDOCDIS ---
Discharge Instructions DIAGNOSIS Discharge Diagnosis hypokalemia CONDITION [id number] Patient Condition: [id number] Stable HOME CARE INSTRUCTIONS: [id number] Diet Instructions: [id number] Regular ACTIVITY: [id number] Activity Restrictions: [id number] Slowly Increase Activity Rest between Activity Avoid heavy lifting FOLLOW UP/APPOINTMENTS Follow-up Plan PCP 1 week, f/up Oncology CORINA TIERNEY Nov 14, 2018 15:11
--- NOTE | 2018-11-14 15:11 | CONS ---
Assessment/Plan Assessment/Plan Assessment/Plan (Daily) 1. A 58-year-old female with initially diagnosed poorly differentiated HER-2 amplified right-sided breast cancer diagnosed in 2017. 2. Completed neoadjuvant chemotherapy PTCH per protocol, completed adjuvant Herceptin then neratinib tablets. 3. 08/2018. This is recurrent, mainly in the brain. Completed radiation therapy. 4. Continue Tykerb and Xeloda per protocol. We will do some adjustment apparently the medication is getting too strong on her instead of taking tablets of Tykerb, we will lower to 3 tablets a day and Xeloda also will modify the dose instead of 2 tablets twice a day. We will lower the dose to 1 tablet twice a day. 5. MRI of the brain - - Significant interval treatment response, with severe improvement in the size and appearance of the multiple intracranial metastases as discussed above, with near-complete resolution of the right parietal lobe metastasis and the right cerebellar metastasis as well as improved leptomeningeal enhancement overlying the cerebellum. 6. Fluid, electrolyte balance. 7. EKG evaluation to evaluate the QT interval. Patient seen in collaboration with Dr Pham Consultation Date/Type/Reason Admit Date/Time Nov 11, 2018 at 00:36 Initial Consult Date Type of Consult ONCOLOGY/HEMATOLOGY Reason for Consultation BREAST CANCER Date/Time of Note DATE: 11/14/18 TIME: 15:06 24 HR Interval Summary Free Text/Dictation feels better; nausea/pain controlled family at bed side-all Qs answered no new events reported last night dw staff Exam/Review of Systems Exam Vitals Vital Signs Date Temp Pulse Resp B/P (MAP) Pulse Ox O2 O2 Flow FiO2 Time Delivery Rate 11/14/18 112 12:01 11/14/18 98.4 19 125/88 97 11:13 (100) 11/14/18 Room Air 04:00 11/13/18 2.0 11:30 Intake and Output 11/13/18 11/13/18 11/14/18 1515:00 23:00 07:00 IntakeIntake Total 300 ml 1950 ml 400 ml BalanceBalance 300 ml 1950 ml 400 ml Constitutional: alert, well developed Psych: nl mood/affect Head: atraumatic Eyes: nl lids, nl sclera ENMT: nl external ears & nose Neck: non-tender Respiratory: clear to auscultation Cardiovascular: nl pulses, other (s1s2) Gastrointestinal: soft, non-tender Musculoskeletal: nl extremities to inspection Extremities: normal pulses Neurological: nl mental status, nl speech Skin: nl turgor Lymph: nontender Results Result Diagram: 11/14/1862511/14/18625 Results 24hrs Laboratory Tests Test 11/14/18 06:26 White Blood Count 3.2 #L Red Blood Count 3.32 L Hemoglobin 10.7 L Hematocrit 31.1 L Mean Corpuscular Volume 93.7 Mean Corpuscular Hemoglobin 32.2 Mean Corpuscular Hemoglobin Concent 34.4 Red Cell Distribution Width 17.7 H Platelet Count 77 L Mean Platelet Volume 7.7 Immature Granulocytes % 0.900 H Neutrophils % 76.5 Lymphocytes % 15.4 Monocytes % 6.9 Eosinophils % 0.0 Basophils % 0.3 Nucleated Red Blood Cells % 0.0 Immature Granulocytes # 0.030 Neutrophils # 2.4 Lymphocytes # 0.5 L Monocytes # 0.2 L Eosinophils # 0.0 Basophils # 0.0 Nucleated Red Blood Cells # 0.0 Sodium Level 131 L Potassium Level 3.3 L Chloride Level 99 Carbon Dioxide Level 25 Anion Gap 7 Blood Urea Nitrogen 5 L Creatinine 0.42 L Est Glomerular Filtrat Rate mL/min > 60 Glucose Level 96 Calcium Level 7.8 L Medications Medication Current Medications Acetaminophen/ Hydrocodone Bitart ([place] (10325)) 1 tab Q6H PRN PO PAIN; Start 11/11/18 at 04:30 Memantine (Namenda) 5 mg DAILY PO Last administered on 11/14/18at 10:18; Admin Dose 5 MG; Start 11/11/18 at 09:00 Acetaminophen (Tylenol Tab) 650 mg Q6H PRN PO MILD PAIN(1-3)OR ELEVATED TEMP; Start 11/11/18 at 05:00 Pantoprazole (Protonix Tab) 40 mg DAILY@06 PO Last administered on 11/14/18at 05:52; Admin Dose 40 MG; Start 11/12/18 at 06:00 Ondansetron HCl (Zofran Inj) 4 mg Q8 IV Last administered on 11/14/18at 14:11; Admin Dose 4 MG; Start 11/12/18 at 18:00 Sodium Chloride 1,000 ml @ 70 mls/hr [id number] IV Last administered on 11/14/18at 10:29; Admin Dose 70 MLS/HR; Start 11/12/18 at 14:30 Lorazepam (Ativan) 0.5 mg Q12 PRN PO ANXIETY Last administered on 11/12/18 21:34; Admin Dose 0.5 MG; Start 11/12/18 at 14:30 Enoxaparin Sodium (Lovenox) 40 mg DAILY SC Last administered on 11/14/18 10:20; Admin Dose 40 MG; Start 11/12/18 at 14:30 Non-Formulary Medication 1 dose BID PO Last administered on 11/14/18 10:21; Admin Dose 1 DOSE; Start 11/13/18 at 21:00 Non-Formulary Medication 1 dose BID PO Last administered on 11/14/18 10:21; Admin Dose 1 DOSE; Start 11/13/18 at 21:00 Metoprolol Succinate (Toprol Xl) 25 mg BID PO Last administered on 11/14/18 10:18; Admin Dose 25 MG; Start 11/13/18 at 21:00 RONALD VILLARREAL Nov 14, 2018 15:11
--- NOTE | 2018-11-14 15:12 | DS ---
Date/Time of Note Date/Time of Note DATE: 11/14/18 TIME: 15:12 Discharge Summary Admission/Discharge Info Admit Date/Time Nov 11, 2018 at 00:36 Discharge Date/Time Discharge Diagnosis hypokalemia Patient Condition: Stable Consults [facility] Hospital Course This is a 58-year-old female with a history of right breast cancer status post right mastectomy, who was admitted in 08/2018 secondary to brain mets. At that time, the patient had stage IV breast cancer. 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 The patient was seen discharged on 09/24/2018. Followup with radiology/oncology as an outpatient. The patient was started on radiation as an outpatient and received 15 cycles. The patient was just started on oral chemotherapy [address] Colunga. According to the patient and patient's family, the patient has been having nausea and vomiting for past 2 days. The patient was also feeling generalized weakness. She was unable to tolerate any p.o. and came to the emergency department for further evaluation. On arrival, vital signs showed blood pressure 146/96, heart rate of 97. Labs showed white count of 5.1, hemoglobin 12.1, platelet count 81, sodium was 121, potassium 2.8, chloride 85, bicarbonate 26, BUN of 11, creatinine 0.34. The patient received NS bolus, had chest x-ray and patient was admitted for further management. PAST MEDICAL HISTORY: 1. Hypertension. 2. History of right breast cancer, status post right mastectomy and now stage IV with brain mets. 3. Prediabetes. 4. History of hyponatremia secondary to SIADH. 5. History of delirium. Admission ds: 1. Hypokalemia, likely secondary to the nausea, vomiting secondary to chemo. 2. Hyponatremia, likely hypovolemic, with a urine sodium less than 14, responded to fluids. 3. Stage IV breast cancer with metastases to the brain. 4. Nausea and vomiting secondary to #1. 5. Hypertension. 6. History of breast cancer. 7 sinus tachycardia could be secondary to anxiety/dehydration 8. Overweight During hospitalization pt had MRI of the brain, that showed : 1. No acute intr acranial abnormality. No intracranial hemorrhage, infarction or hydrocephalous. Significant interval treatment response, with severe improvement in the size and appearance of the multiple intracranial metastases as discussed above, with near-complete resolution of the right parietal lobe metastasis and the right cerebellar metastasis as well as improved leptomeningeal enhancement overlying the cerebellum. Moderate patchy periventricular and subcortical white matter lesions, likely related to post-treatment changes versus chronic microangiopathic changes. Pt was managed by technical services specialist Dr Garcia, she was given Zofran before chemotherapy. We determined that pt has normal TSH. We found that d-dimer elevated, 1848. We gave pt gentle IV fluids,we gave her Ativan as needed anxiety. We repeat sodium periodically, it is consistednt with SIADH and in range 133-134. We used for DVT prophylaxis Lovenox. K was supplemented often. Dr Colunga, technical services specialist reported completion of neoadjuvant chemotherapy PTCH per protocol, completed adjuvant Herceptin then neratinib tablets. He recommended to continue Tykerb and Xeloda per protocol. We followed all his recommendations. Pt reported improvement Home Meds Active Scripts Naloxone HCl nasal spray (Narcan 4 mg/0.1 mL nasal) 4 Mg [place], 4 MG NS .Q2-3MIN for OPIOID OVERDOSE, #2 SPRAY 0 Refills [place] 0.1 mL into one nostril. Repeat with second device into other nostril after 2-3 minutes if no or minimal response Prov:DANNY BRANCH MD 11/10/18 Hydrocodone/Acetaminophen ([place] 10-325 Tablet) 1 Each Tablet, 1 TAB PO Q6H PRN for PAIN, #7 TAB Prov:DANNY BRANCH MD 11/10/18 Ibuprofen* (Motrin*) 600 Mg Tab, 600 MG PO Q6H PRN for PAIN AND OR ELEVATED TEMP, #30 TAB Prov:DANNY BRANCH MD 11/10/18 Reported Medications Capecitabine* (Xeloda*) 500 Mg Tablet, 1000 MG PO BID, TBS STOP FOR 7 DAYS, START DAY 11/12/18 11/10/18 Memantine* (Namenda*) 5 Mg Tablet, 5 MG PO DAILY, #30 TAB 11/10/18 Lapatinib (Tykerb) 250 Mg Tab, 250 MG PO Q 2 OR 3 HOURS, TAB TAKE 5 TAB-DAILY 11/10/18 Metoprolol Succinate* (Toprol XL*) 25 Mg Tab.sr.24h, 25 MG PO QHS, #30 TAB 11/10/18 Discontinued Reported Medications Aspirin* (Aspirin* Chew) 81 Mg Tab.chew, 81 MG PO DAILY, TAB.CHEW 01/15/17 Hydrochlorothiazide* (Hydrochlorothiazide*) 25 Mg Tab, 25 MG PO DAILY, #30 TAB 01/15/17 Captopril* (Captopril*) 25 Mg Tablet, 25 MG PO BID, #60 TAB 01/15/17 Discontinued Scripts Ondansetron (Ondansetron Odt) 4 Mg Tab.rapdis, 4 MG ODT Q6H PRN for NAUSEA AND/OR VOMITING for 30 Days Prov:OLIVIA VIDES MD 09/24/18 Docusate Sodium* (Colace*) 100 Mg Capsule, 100 MG PO Q12H PRN for .CONSTIPATION for 30 Days, CAP Prov:OLIVIA VIDSE MD 09/24/18 Dexamethasone* (Decadron*) 4 Mg Tab, 4 MG PO TID for 30 Days, TAB Prov:OLIVIA VIDES MD 09/24/18 Follow-up Plan PCP 1 week, f/up Oncology Primary Care Provider Not On Staff Doctor Time spent on discharge: < 30 minutes Pending Labs Laboratory Tests Test 11/14/18 06:26 White Blood Count 3.2 10^3/ul (4.8-10.8) Red Blood Count 3.32 10^6/ul (4.20-5.40) Hemoglobin 10.7 g/dl (12.0-16.0) Hematocrit 31.1 % (37.0-47.0) Mean Corpuscular Volume 93.7 fl (82.0-101.0) Mean Corpuscular Hemoglobin 32.2 pg (29.0-33.0) Mean Corpuscular Hemoglobin Concent 34.4 g/dl (32.0-37.0) Red Cell Distribution Width 17.7 % (11.5-14.5) Platelet Count 77 10^3/UL (140-415) Mean Platelet Volume 7.7 fl (7.4-10.4) Immature Granulocytes % 0.900 % (0.001-0.429) Neutrophils % 76.5 % (39.0-77.0) Lymphocytes % 15.4 % (15.0-51.0) Monocytes % 6.9 % (0.0-11.0) Eosinophils % 0.0 % (0.0-7.0) Basophils % 0.3 % (0.0-2.0) Nucleated Red Blood Cells % 0.0 /100WBC (0.0-0.0) Immature Granulocytes # 0.030 10^3/ul (0.0-0.031) Neutrophils # 2.4 10^3/ul (1.6-7.5) Lymphocytes # 0.5 10^3/ul (0.8-2.9) Monocytes # 0.2 10^3/ul (0.3-0.9) Eosinophils # 0.0 10^3/ul (0.0-0.5) Basophils # 0.0 10^3/ul (0.0-0.1) Nucleated Red Blood Cells # 0.0 10^3/ul (0.0-0.0) Sodium Level 131 mmol/L (135-144) Potassium Level 3.3 mmol/L (3.5-5.1) Chloride Level 99 mmol/L (97-110) Carbon Dioxide Level 25 mmol/L (21-31) Anion Gap 7 (5-13) Blood Urea Nitrogen 5 mg/dl (7-20) Creatinine 0.42 mg/dl (0.44-1.00) Est Glomerular Filtrat Rate mL/min > 60 mL/min (>60) Glucose Level 96 mg/dl (70-220) Calcium Level 7.8 mg/dl (8.4-10.2) CORINA TIERNEY Nov 14, 2018 15:12
[2018-11-14] MEDS ORDERED: HEPARIN (100 UNITS/ML) 5 ML SYG CATHETER ONE (16:00)
== END 2018-11-14 16:27 | disposition home or self-care (01) | DRG 641 ==
LOC: E/R 21:59 → TEL 11-11 00:36
PROVIDERS: ADMIT Internal Medicine; ATTEND Internal Medicine
DX: E87.6 Hypokalemia (principal); C79.31 Secondary malignant neoplasm of brain; E22.2 Syndrome of inappropriate secretion of antidiuretic hormone; R11.2 Nausea with vomiting, unspecified; T45.1X5A Adverse effect of antineoplastic and immunosuppressive drugs, initial encounter; I10 Essential (primary) hypertension; R73.03 Prediabetes; F41.9 Anxiety disorder, unspecified; E86.0 Dehydration; E66.3 Overweight; C50.911 Malignant neoplasm of unspecified site of right female breast; Z68.28 Body mass index [BMI] 28.0-28.9, adult
CPT/HCPCS: 36415; 70552; 71045; 71275; 80048; 80053; 82550; 82553; 83735; 83880; 83935; 84100; 84295; 84300; 84443; 84484; 85025; 85378; 93005; 96374; C9113; J1642; J1650; J2060; J2405; J3480; J7030; J7040; Q9967

== ENCOUNTER 2018-11-28 01:25 | Emergency (ER) | payer BC ==
[~2018-11-28] VITALS: Ht 149.9 cm; Wt 61.1 kg
[~2018-11-28 01:25] MED LIST changes: -ASPI-903 PO; -CAPT25TA3 PO; -DEC4 PO; -DOCU-144 PO; -HYDR25TA6 PO; -ONDA4TAB14 ODT
[2018-11-28 01:30] VITALS: Ht 149.9 cm; Wt 61.1 kg
--- NOTE | 2018-11-28 01:54 | ERD ---
ER Documentation Chief Complaint Chief Complaint pressure MACDONALD started in the morning,nausea,dizziness,hx HTN,brain tumors HPI This is a 58-year-old woman with history of metastatic breast cancer to the brain and meninges presenting with mild headache all day long and some nausea and dizziness. She has been using acetaminophen only at home without relief. She has had no slurred speech or paresis, no vomiting or diarrhea, no blood per rectum or melena. Patient is currently undergoing oral chemotherapy ROS All systems reviewed and are negative except as per history of present illness. Medications Home Meds Active Scripts Cephalexin* (Keflex*) 500 Mg Capsule, 500 MG PO QID for 5 Days, CAP Prov:MAYRA JURADO MD 11/28/18 Oxycodone HCl/Acetaminophen (Percocet 5-325 mg Tablet) 1 Each Tablet, 1 EACH PO TID PRN for PAIN, #15 TAB Prov:MAYRA JURADO MD 11/28/18 Naloxone HCl nasal spray (Narcan 4 mg/0.1 mL nasal) 4 Mg [place], 4 MG NS .Q2-3MIN for OPIOID OVERDOSE, #2 SPRAY 0 Refills [place] 0.1 mL into one nostril. Repeat with second device into other nostril after 2-3 minutes if no or minimal response Prov:DANNY BRANCH MD 11/10/18 Hydrocodone/Acetaminophen ([place] 10-325 Tablet) 1 Each Tablet, 1 TAB PO Q6H PRN for PAIN, #7 TAB Prov:DANNY BRANCH MD 11/10/18 Ibuprofen* (Motrin*) 600 Mg Tab, 600 MG PO Q6H PRN for PAIN AND OR ELEVATED TEMP, #30 TAB Prov:DANNY BRANCH MD 11/10/18 Reported Medications Capecitabine* (Xeloda*) 500 Mg Tablet, 1000 MG PO BID, TBS STOP FOR 7 DAYS, START DAY 11/12/18 11/10/18 Memantine* (Namenda*) 5 Mg Tablet, 5 MG PO DAILY, #30 TAB 11/10/18 Lapatinib (Tykerb) 250 Mg Tab, 250 MG PO Q 2 OR 3 HOURS, TAB TAKE 5 TAB-DAILY 11/10/18 Metoprolol Succinate* (Toprol XL*) 25 Mg Tab.sr.24h, 25 MG PO QHS, #30 TAB 11/10/18 Allergies Allergies: Coded Allergies: No Known Allergy (Unverified , 11/10/18) PMhx/Soc History of metastatic right breast cancer status post mastectomy with brain and leptomeningeal metastasis, active chemotherapy, diabetes mellitus, SIADH and hyponatremia, diabetes mellitus, hypertension, anxiety History of Surgery: Yes (R mastectomy) Anesthesia Reaction: No Hx Neurological Disorder: No Hx Respiratory Disorders: No Hx Cardiac Disorders: Yes (HTN) Hx Psychiatric Problems: No Hx Miscellaneous Medical Probl: Yes (Brain tumor, Active chemotherapy) Hx Alcohol Use: No Hx Substance Use: No Hx Tobacco Use: No FmHx Family History: No diabetes Physical Exam Vitals Vital Signs Date Temp Pulse Resp B/P (MAP) Pulse Ox O2 O2 Flow FiO2 Time Delivery Rate 11/28/18 97.5 88 18 133/94 98 01:30 (107) Physical Exam Const: No acute distress, afebrile Resp: Clear to auscultation bilaterally Cardio: Regular rate and rhythm, no murmurs Skin: No petechiae or rashes. No ecchymosis or contusions Back: No midline or flank tenderness Ext: No cyanosis, or edema Neur: Awake and alert x3, no focal deficits or facial asymmetry, pupils equal round reactive to light Psych: Normal Mood and Affect Result Diagram: 11/28/1821811/28/18 0219 Results 24 hrs Laboratory Tests Test 11/28/18 02:19 White Blood Count 4.5 10^3/ul Red Blood Count 3.75 10^6/ul Hemoglobin 12.1 g/dl Hematocrit 35.7 % Mean Corpuscular Volume 95.2 fl Mean Corpuscular Hemoglobin 32.3 pg Mean Corpuscular Hemoglobin Concent 33.9 g/dl Red Cell Distribution Width 19.4 % Platelet Count 213 10^3/UL Mean Platelet Volume 7.7 fl Immature Granulocytes % 3.800 % Neutrophils % % Lymphocytes % % Monocytes % % Eosinophils % % Basophils % % Nucleated Red Blood Cells % 0.0 /100WBC Immature Granulocytes # 0.170 10^3/ul Neutrophils # 10^3/ul Lymphocytes # 10^3/ul Monocytes # 10^3/ul Eosinophils # 10^3/ul Basophils # 10^3/ul Nucleated Red Blood Cells # 10^3/ul Urine Color RED Urine Clarity CLEAR Urine pH 9.0 Urine Specific [place] 1.004 Urine Ketones NEGATIVE mg/dL Urine Nitrite NEGATIVE mg/dL Urine Bilirubin NEGATIVE mg/dL Urine Urobilinogen NEGATIVE mg/dL Urine Leukocyte Esterase TRACE [place]/ul Urine Microscopic RBC 1 /HPF Urine Microscopic WBC 4 /HPF Urine Hemoglobin 1+ mg/dL Urine Glucose NEGATIVE mg/dL Urine Total Protein NEGATIVE mg/dl Sodium Level 139 mmol/L Potassium Level 4.1 mmol/L Chloride Level 101 mmol/L Carbon Dioxide Level 32 mmol/L Anion Gap 6 Blood Urea Nitrogen 7 mg/dl Creatinine 0.56 mg/dl Est Glomerular Filtrat Rate mL/min > 60 mL/min Glucose Level 92 mg/dl Calcium Level 9.3 mg/dl Total Bilirubin 0.8 mg/dl Direct Bilirubin 0.00 mg/dl Indirect Bilirubin 0.8 mg/dl Aspartate Amino Transf (AST/SGOT) 21 IU/L Alanine Aminotransferase (ALT/SGPT) 28 IU/L Alkaline Phosphatase 105 IU/L Total Protein 6.1 g/dl Albumin 3.2 g/dl Globulin 2.90 g/dl Albumin/Globulin Ratio 1.10 Lipase 191 U/L Current Medications Medications Dose Sig/Chelsey Start Time Status Last (Trade) Ordered Route PRN Stop Time Admin Dose Reason Admin Sodium 500 ml @ Q1H STAT 11/28/18 DC 11/28/18 Chloride 500 mls/hr IV 02:03 11/28/18 02:48 03:02 Ondansetron 4 mg ONCE STAT 11/28/18 DC 11/28/18 HCl (Zofran IV 02:03 11/28/18 02:48 Inj) 02:05 Ketorolac 15 mg ONCE STAT 11/28/18 DC 11/28/18 Tromethamine IV 02:03 11/28/18 02:48 (Toradol) 02:05 Oxycodone/ 1 tab ONCE ONCE 11/28/18 DC 11/28/18 Acetaminophen PO 02:30 11/28/18 02:48 (Percocet 02:31 (5/ )) Procedures/MDM IV line was established patient was placed on cardiac rehabilitation specialist rhythm strip revealed a sinus rhythm at about 80 bpm with upright P and T waves. Patient was afebrile I administered 500 cc normal saline IV, Toradol 15 mg IV, Zofran 4 mg IV, Percocet 1 tablet p.o. CBC and electrolytes were normal, liver function tests were normal, urinalysis concerning for early infection CT scan of the brain was negative for acute bleed mass or shift, IMPRESSION: 1. Multiple low attenuation brain lesions correlate with metastases identified on recent MRI of 11/13/2018, largest lesion at the base of the right frontal lobe measures 1.6 cm diameter. No significant interim change compared with previous imaging. 2. Negative for intracranial hemorrhage or significant mass effect. Differential diagnoses considered, included but not limited to acute coronary syndrome, pulmonary embolism, aortic dissection, abdominal aortic aneurysm, sep sis, stroke, meningitis, encephalitis, pneumonia, appendicitis, cholecystitis, bowel obstruction, pyelonephritis, nephrolithiasis, cystitis, as well as metabolic, hematologic, and electrolyte abnormalities. As well as abscess, cellulitis, fractures, and dislocations. Patient feels much better at this time, and vital signs are normal, symptoms have improved. I did give strict instructions to return to the ED if symptoms continue or worsen, patient will otherwise follow-up with primary care physi jerel. Patient understood instructions and agreed to plan. Disclaimer: Inadvertent spelling and grammatical errors are likely due to EHR/dictation software use and do not reflect on the overall quality of patient care. Also, please note that the electronic time recorded on this note does not necessarily reflect the actual time of the patient encounter. Departure Diagnosis: Primary Impression: Metastatic breast cancer Additional Impressions: Headache Headache type: tension-type Headache chronicity pattern: acute headache Intractability: not intractable Qualified Codes: G44.209 - Tension-type headache, unspecified, not intractable Acute UTI Condition: MAYRA Neal MD November 28, 2018 01:54
[2018-11-28] MEDS ORDERED: KETOROLAC 15 MG INJ IV STA (02:03)
[2018-11-28] MEDS ORDERED: SOD CHLORIDE 0.9% 500 ML IV STA (02:03)
[2018-11-28] MEDS ORDERED: ONDANSETRON 4 MG INJ IV STA (02:03)
[2018-11-28] MEDS ORDERED: OXYCODONE/ACETAMINOPHEN (5/325) TAB PO ONE (02:30)
[2018-11-28] MEDS ORDERED: CEPH-443 PO (03:57)
[2018-11-28] MEDS ORDERED: OXYC-279 PO (03:57)
[2018-11-28 04:21] VITALS: BP 116/79; PULSE 69; RESP 18
== END 2018-11-28 04:24 | disposition home or self-care (01) ==
LOC: E/R 01:25
DX: C79.81 Secondary malignant neoplasm of breast (principal); I10 Essential (primary) hypertension; E11.9 Type 2 diabetes mellitus without complications; N39.0 Urinary tract infection, site not specified; G44.209 Tension-type headache, unspecified, not intractable
CPT/HCPCS: 36415; 70450; 80053; 81001; 83690; 85025; 96374; 96375; J1885; J2405; J7040; Z7502; Z7610

== ENCOUNTER 2018-12-31 20:25 | Inpatient (IN) | payer BC ==
[~2018-12-31] VITALS: Ht 147.3 cm; Wt 58.1 kg
[~2018-12-31 20:25] MED LIST changes: +CEPH-443 PO; +OXYC-279 PO
[2018-12-31] MEDS ORDERED: SODIUM CHLORIDE 0.9% 1L BAG IV* STA (21:18)
[2018-12-31] MEDS ORDERED: CEFEPIME 2GM/50 ML (PMX) 50 ML IVPB STA (21:18)
[2018-12-31] MEDS ORDERED: morphine 4 MG/ML VIAL IV STA (21:18)
[2018-12-31] MEDS ORDERED: ONDANSETRON 4 MG INJ IV STA (21:18)
[2018-12-31] MEDS ORDERED: VANCOMYCIN 1 GM (PMX) 250 ML IVPB ONE (21:30)
[2018-12-31] MEDS ORDERED: MEMA5TAB14 PO (22:48)
[2018-12-31] MEDS ORDERED: IBUP-1542 PO (22:48)
[2018-12-31] MEDS ORDERED: TRAZ-149 PO (22:48)
[2018-12-31] MEDS ORDERED: HYDR25TA6 PO (22:48)
[2018-12-31] MEDS ORDERED: VALS40TA10 PO (22:48)
--- NOTE | 2018-12-31 23:20 | ERD ---
ER Documentation Chief Complaint Chief Complaint headache since last night, glf this am, c/o back pain,on chemo/brain tumor HPI Patient is a 58-year-old female with breast cancer and brain tumor as well as hypertension who presents with headache. Headache is radiating to the front. The symptoms started last night. Patient has no fevers. The patient is on chemotherapy. Her heart rate was fast. She took to not Tylenol at 3:30 PM. She fell yesterday. Upon review of old medical records the patient has multiple visits to the ER since 2017. ROS All systems reviewed and are negative except as per history of present illness. Medications Home Meds Active Scripts Hydrocodone/Acetaminophen ([place] 10-325 Tablet) 1 Each Tablet, 1 TAB PO Q6H PRN for PAIN, #7 TAB Prov:DANNY BRANCH MD 11/10/18 Ibuprofen* (Motrin*) 600 Mg Tab, 600 MG PO Q6H PRN for PAIN AND OR ELEVATED TEMP, #30 TAB Prov:DANNY BRANCH MD 11/10/18 Reported Medications Memantine HCl (Memantine HCl) 5 Mg Tablet, 5 MG PO BID for 30 Days, #60 12/31/18 Ibuprofen* (Ibuprofen*) 600 Mg Tablet, 600 MG PO Q6H for PAIN for 10 Days, #30 12/31/18 Valsartan (Valsartan) 40 Mg Tablet, 40 MG PO DAILY for 30 Days, #30 12/31/18 Trazodone Hcl* (Desyrel*) 50 Mg Tab, 50 MG PO QHS for 30 Days, #30 12/31/18 Hydrochlorothiazide* (Hydrochlorothiazide*) 25 Mg Tab, 25 MG PO DAILY for 30 Days, #30 12/31/18 Capecitabine* (Xeloda*) 500 Mg Tablet, 1000 MG PO BID, TBS STOP FOR 7 DAYS, START DAY 11/12/18 11/10/18 Lapatinib (Tykerb) 250 Mg Tab, 250 MG PO Q 2 OR 3 HOURS, TAB TAKE 5 TAB-DAILY 11/10/18 Metoprolol Succinate* (Toprol XL*) 25 Mg Tab.sr.24h, 25 MG PO QHS, #30 TAB 11/10/18 Discontinued Reported Medications Memantine* (Namenda*) 5 Mg Tablet, 5 MG PO DAILY, #30 TAB 11/10/18 Discontinued Scripts Cephalexin* (Keflex*) 500 Mg Capsule, 500 MG PO QID for 5 Days, CAP Prov:MAYRA JURADO MD 11/28/18 Oxycodone HCl/Acetaminophen (Percocet 5-325 mg Tablet) 1 Each Tablet, 1 EACH PO TID PRN for PAIN, #15 TAB Prov:MAYRA JURADO MD 11/28/18 Naloxone HCl nasal spray (Narcan 4 mg/0.1 mL nasal) 4 Mg [place], 4 MG NS .Q2-3MIN for OPIOID OVERDOSE, #2 SPRAY 0 Refills [place] 0.1 mL into one nostril. Repeat with second device into other nostril after 2-3 minutes if no or minimal response Prov:DANNY BRANCH MD 11/10/18 Allergies Allergies: Coded Allergies: No Known Allergy (Unverified , 12/31/18) PMhx/Soc History of Surgery: Yes (R mastectomy) Anesthesia Reaction: No Hx Neurological Disorder: No Hx Respiratory Disorders: No Hx Cardiac Disorders: Yes (HTN) Hx Psychiatric Problems: No Hx Miscellaneous Medical Probl: Yes (Brain tumor, Active chemotherapy) Hx Alcohol Use: No Hx Substance Use: No Hx Tobacco Use: No Smoking Status: Never smoker FmHx Family History: diabetes Physical Exam Vitals Vital Signs Date Temp Pulse Resp B/P (MAP) Pulse Ox O2 O2 Flow FiO2 Time Delivery Rate 12/31/18 98.1 138 22 152/90 99 20:41 (110) Physical Exam Const: Moderate distress Head: Atraumatic Eyes: Normal Conjunctiva ENT: Normal External Ears, Nose and Mouth. Neck: Full range of motion. No meningismus. Resp: Clear to auscultation bilaterally Cardio: Tachycardic rate without murmur Abd: Soft, non tender, non distended. Normal bowel sounds Skin: No petechiae or rashes Back: No midline or flank tenderness Ext: No cyanosis, or edema Neur: Awake and alert Psych: Normal Mood and Affect Result Diagram: 12/31/18211412/31/182114 Results 24 hrs Laboratory Tests Test 12/31/18 21:15 12/31/18 21:18 White Blood Count 5.3 10^3/ul Red Blood Count 4.41 10^6/ul Hemoglobin 14.6 g/dl Hematocrit 43.6 % Mean Corpuscular Volume 98.9 fl Mean Corpuscular Hemoglobin 33.1 pg Mean Corpuscular Hemoglobin Concent 33.5 g/dl Red Cell Distribution Width 17.8 % Platelet Count 332 10^3/UL Mean Platelet Volume 8.6 fl Immature Granulocytes % 0.200 % Neutrophils % 43.2 % Lymphocytes % 44.8 % Monocytes % 11.2 % Eosinophils % 0.4 % Basophils % 0.2 % Nucleated Red Blood Cells % 0.0 /100WBC Immature Granulocytes # 0.010 10^3/ul Neutrophils # 2.3 10^3/ul Lymphocytes # 2.4 10^3/ul Monocytes # 0.6 10^3/ul Eosinophils # 0.0 10^3/ul Basophils # 0.0 10^3/ul Nucleated Red Blood Cells # 0.0 10^3/ul Prothrombin Time 12.3 Sec Prothrombin Time Ratio 1.0 INR International Normalized Ratio 0.90 Activated Partial Thromboplast Time 26.8 Sec Urine Color YELLOW Urine Clarity CLEAR Urine pH 6.0 Urine Specific [place] 1.004 Urine Ketones NEGATIVE mg/dL Urine Nitrite NEGATIVE mg/dL Urine Bilirubin NEGATIVE mg/dL Urine Urobilinogen NEGATIVE mg/dL Urine Leukocyte Esterase 2+ [place]/ul Urine Microscopic RBC 1 /HPF Urine Microscopic WBC 15 /HPF Urine Bacteria FEW /HPF Urine Hemoglobin 2+ mg/dL Urine Glucose NEGATIVE mg/dL Urine Total Protein NEGATIVE mg/dl Sodium Level 135 mmol/L Potassium Level 3.6 mmol/L Chloride Level 98 mmol/L Carbon Dioxide Level 25 mmol/L Anion Gap 12 Blood Urea Nitrogen 6 mg/dl Creatinine 0.58 mg/dl Est Glomerular Filtrat Rate mL/min > 60 mL/min Glucose Level 117 mg/dl Calcium Level 9.4 mg/dl Total Bilirubin 1.1 mg/dl Direct Bilirubin 0.00 mg/dl Indirect Bilirubin 1.1 mg/dl Aspartate Amino Transf (AST/SGOT) 38 IU/L Alanine Aminotransferase (ALT/SGPT) 24 IU/L Alkaline Phosphatase 92 IU/L Troponin I < 0.012 ng/ml Total Protein 6.9 g/dl Albumin 3.7 g/dl Globulin 3.20 g/dl Albumin/Globulin Ratio 1.15 POC Venous Lactate 2.4 mmol/L Current Medications Medications Dose Sig/Chelsey Start Time Status Last (Trade) Ordered Route PRN Stop Time Admin Dose Reason Admin Sodium 1,700 ml BOLUS OVER 2 12/31/18 DC 12/31/18 Chloride HOURS STAT 21:18 12/31/18 21:26 (NS) IV* 21:20 Morphine 4 mg ONCE STAT 12/31/18 DC 12/31/18 Sulfate IV 21:18 12/31/18 21:26 (morphine) 21:20 Ondansetron 4 mg ONCE STAT 12/31/18 DC 12/31/18 HCl (Zofran IV 21:18 12/31/18 21:26 Inj) 21:20 Cefepime HCl 50 ml @ ONCE STAT 12/31/18 DC 12/31/18 100 mls/hr IVPB 21:18 12/31/18 21:26 21:47 Vancomycin 250 ml @ ONCE ONCE 12/31/18 12/31/18 HCl 125 mls/hr IVPB 21:30 12/31/18 22:04 23:29 Ondansetron 4 mg BRIDGE ORDER 12/31/18 HCl (Zofran PRN IV 23:30 01/01/19 Inj) NAUSEA/VOMITI 23:29 NG 650 mg ER BRIDGE 12/31/18 Acetaminophen PRN PO 23:30 01/01/19 (Tylenol .MILD PAIN 23:29 Tab) 1-3 OR TEMP Procedures/MDM CT brain read by radiology. CT abdomen pelvis read by radiology. Chest x-ray read by radiology. EKG read by me: Rate/Rhythm: Sinus tachycardia without ischemia Intervals: Normal Impression: Tachycardia without ischemia Sepsis Documentation: Patient's infectious symptoms have not stabilized and the patient is at risk of rapid decompensation. The patient will be admitted for careful hydration, antibiotic therapy, and infectious source control. SEVERE SEPSIS CRITERIA: Infectious source: Cystitis End organ damage indicated by: Lactate greater than 2 SEPSIS MANAGEMENT Time of recognition of sepsis: 2117. Time of recognition of severe sepsis: 2117. Time of recognition of septic shock: No septic shock at this time. 3 HOUR BUNDLE Blood cultures x 2 before broad-spectrum antibiotics: Yes 30 ml/kg NS bolus completed Initial lactate 2.4 Repeat lactate pending SEPTIC SHOCK ASSESSMENT: No lactic acid > 4.0 No persistent hypotension (SBP < 90 or 40 mmHg drop, MAP < 65) despite 30 mL/kg IV fluid bolus VOLUME REASSESSMENT FOR SEPTIC SHOCK: No septic shock at this time PERSISTENT HYPOTENSION TREATMENT: Comfort care no Central line not Required Vasopressor started not required I considered further perfusion assessment with CVP measurement, SCVO2, bedside ultrasound volume assessment, passive leg raise, trial of further fluid bolus. And proceeded with 30 ml/kg fluid bolus of NSS, broad spectrum antibiotics, and admission. I spoke with Dr. Gilliam for admission via [employer] as the patient has [facility] insurance. CRITICAL CARE Critical care time 35 minutes Emergent fluid management while maintaining close respiratory support. Provision of immediate and broad-spectrum antibiotic therapy. Simultaneous assessment for possible sources in order to direct targeted therapy. Consideration for invasive and chemical support to prevent cardiopulmonary collapse. Critical care time is independent of procedures performed. Departure Diagnosis: Primary Impression: Severe sepsis Additional Impressions: Headache Headache type: unspecified Headache chronicity pattern: acute headache Intractability: not intractable Qualified Codes: R51 - Headache Cystitis Condition: DANNY Jasso MD Dec 31, 2018 23:20
[2018-12-31] MEDS ORDERED: ONDANSETRON 4 MG INJ IV PRN (23:30)
[2018-12-31] MEDS ORDERED: ACETAMINOPHEN 325 MG TAB PO PRN (23:30)
[2019-01-01 01:56] VITALS: Ht 147.3 cm; Wt 58.1 kg
[2019-01-01 02:15] VITALS: BP 137/67; PULSE 95; RESP 18
[2019-01-01] MEDS ORDERED: DOCUSATE SODIUM 100 MG CAP PO PRN (03:00)
[2019-01-01] MEDS ORDERED: ACETAMINOPHEN 325 MG TAB PO PRN (03:00)
[2019-01-01] MEDS ORDERED: HYDROCODONE/APAP (5/325) TAB PO PRN (03:00)
[2019-01-01] MEDS: SOD CHLORIDE 0.9% 1,000 ML IV SCH (03:10)
[2019-01-01] MEDS: CEFTRIAXONE 1 GM/50 ML (PMX) 50 ML IVPB SCH (03:10)
[2019-01-01] MEDS: ONDANSETRON 4 MG INJ IV PRN ×2 (03:21→10:00)
[2019-01-01] MEDS ORDERED: CAPE500T13 PO (04:04)
[2019-01-01] MEDS ORDERED: TYKE250 PO (04:08)
[2019-01-01] MEDS ORDERED: OMEP20CA16 PO (04:08)
[2019-01-01 07:35] VITALS: BP 121/88; PULSE 83; RESP 18
--- NOTE | 2019-01-01 07:59 | HP ---
CORINA TIERNEY 01/01/19 0759: Date/Time of Note Date/Time of Note DATE: 01/01/19 TIME: 07:57 Assessment/Plan VTE Prophylaxis Pharmacological prophylaxis: NA/contraindicated Pharm contraindication: low risk/ambulating Lines/Catheters IV Catheter Type (from Nrsg): kyle catheter site Central line still needed: Yes Assessment/Plan Hospital Course 1. S/p fall ground , headache and back pain on arrival to ER 2. SIRS 2/2 UTI, one of 3 lactic acid was abnormal 3. Hypertension. 4. History of right breast cancer, status post right mastectomy and now stage IV with brain mets. On oral chemotherapy Xeloda, ordered by dr Olson. Nausea 5. History of delirium. 6. Prediabetes. 7. Port-A-Cath placement. 8. History of hyponatremia secondary to SIADH Assessment/Plan -medsurg -CT scan abd. and pelvis reviewed normal -Brain CT scan is similar to previous , no changes -GI proph. Protonix -c/w home meds, inc Onco treatment -DVT proph. SCD in bed -c.w ab -c/w IV fluids -CT scan of back Result Diagram: 12/31/18211412/31/182114 Results 24hrs Laboratory Tests Test 12/31/18 21:15 12/31/18 21:18 12/31/18 22:43 01/01/19 02:25 White Blood Count 5.3 Red Blood Count 4.41 Hemoglobin 14.6 # Hematocrit 43.6 # Mean Corpuscular Volume 98.9 Mean Corpuscular 33.1 H Hemoglobin Mean Corpuscular 33.5 Hemoglobin Concent Red Cell Distribution 17.8 H Width Platelet Count 332 # Mean Platelet Volume 8.6 Immature Granulocytes % 0.200 Neutrophils % 43.2 Lymphocytes % 44.8 Monocytes % 11.2 H Eosinophils % 0.4 Basophils % 0.2 Nucleated Red Blood 0.0 Cells % Immature Granulocytes # 0.010 Neutrophils # 2.3 Lymphocytes # 2.4 Monocytes # 0.6 Eosinophils # 0.0 Basophils # 0.0 Nucleated Red Blood 0.0 Cells # Prothrombin Time 12.3 Prothrombin Time Ratio 1.0 INR International 0.90 Normalized Ratio Activated 26.8 Partial Thromboplast Time Urine Color YELLOW Urine Clarity CLEAR Urine pH 6.0 Urine Specific [place] 1.004 Urine Ketones NEGATIVE Urine Nitrite NEGATIVE Urine Bilirubin NEGATIVE Urine Urobilinogen NEGATIVE Urine Leukocyte Esterase 2+ H Urine Microscopic RBC 1 Urine Microscopic WBC 15 H Urine Bacteria FEW A Urine Hemoglobin 2+ H Urine Glucose NEGATIVE Urine Total Protein NEGATIVE Sodium Level 135 Potassium Level 3.6 Chloride Level 98 Carbon Dioxide Level 25 Anion Gap 12 Blood Urea Nitrogen 6 L Creatinine 0.58 Est Glomerular Filtrat > 60 Rate mL/min Glucose Level 117 Calcium Level 9.4 Total Bilirubin 1.1 Direct Bilirubin 0.00 Indirect Bilirubin 1.1 Aspartate Amino 38 Transf (AST/SGOT) Alanine 24 Aminotransferase (ALT/SG PT) Alkaline Phosphatase 92 Troponin I < 0.012 Total Protein 6.9 Albumin 3.7 Globulin 3.20 Albumin/Globulin Ratio 1.15 POC Venous Lactate 2.4 *H Lactic Acid Level 1.3 1.4 HPI/ROS Admit Date/Time Admit Date/Time Dec 31, 2018 at 23:16 Hx of Present Illness This 58-year-old female with right breast cancer, brain tumor (with leptomeningeal spread) , status post right mastectomy, hypertension who presents with headache to ER after fall. She was watering gruber and lost balance. Headache is radiating to the front of the head 01/04, she said it started before fall 1 day prior fall. She also has has back pain and left flank bruise, her symptoms are not relieved with Tylenol. The patient was discharged on 10/2018. She is followup with radiology as an outpatient. The patient is on active chemotherapy with Xeloda. Her oncology MD is Dr. Colunga. On arrival, vital signs showed blood pressure 152/90, heart rate of 138, respiration 22. Labs showed CBC and BMP normal, lactic acid was 2.4. The patient had abdomen and pelvic CT scan, brain CT scan, and chest x-ray and patient was admitted for further management. PAST MEDICAL HISTORY: 1. Hypertension. 2. History of right breast cancer, status post right mastectomy and now stage IV with brain mets. 3. Prediabetes. 4. History of hyponatremia secondary to SIADH. 5. History of delirium. PAST SURGICAL HISTORY: Right mastectomy and the left Port-A-Cath placement. ROS unable to eat solid food for 3 month, has nausea Eyes: no complaints ENT: no complaints, bleeding, pain (head), congestion, discharge, dysphagia, sore throat, other Gastrointestinal: no complaints, pain, blood, constipation, decreased appetite, diarrhea, flatus, nausea, passing stool, vomiting (2 times last week), other Musculoskeletal: back pain Skin: bruising PMH/Family/Social Past Medical History Medical History: hypertension Medications Current Medications Sodium Chloride 1,000 ml @ 40 mls/hr Q24H IV Last administered on 01/01/19at 03:10; Admin Dose 40 MLS/HR; Start 01/01/19 at 03:00 Acetaminophen (Tylenol Tab) 650 mg Q6H PRN PO MILD PAIN(1-3)OR ELEVATED TEMP; Start 01/01/19 at 03:00 Docusate Sodium (Colace) 100 mg BID PRN PO CONSTIPATION; Start 01/01/19 at 03:00 Ondansetron HCl (Zofran Inj) 4 mg Q6H PRN IV NAUSEA AND/OR VOMITING Last administered on 01/01/19at 03:21; Admin Dose 4 MG; Start 01/01/19 at 03:00 Ceftriaxone Sodium 50 ml @ 100 mls/hr Q24H IVPB Last administered on 01/01/19at 03:10; Admin Dose 100 MLS/HR; Start 01/01/19 at 03:00 Acetaminophen/ Hydrocodone Bitart ([place] (5/325)) 1 tab Q6H PRN PO MODERATE PAIN LEVEL 4-6; Start 01/01/19 at 03:00 Memantine (Namenda) 5 mg BID PO ; Start 01/01/19 at 09:00 Metoprolol Succinate (Toprol Xl) 25 mg QHS PO ; Start 01/01/19 at 21:00 Capecitabine (Xeloda) 500 mg BID PO ; Start 01/01/19 at 09:00; Status UNV Miscellaneous Information (*Order Clarification Bulletin) MEDICATION REQUIRES CLARIFICATI... Q8H XX ; Start 01/01/19 at 04:30 Miscellaneous Information (* Miscellaneous Pharmacy Order) 250 ea ONCE XX ; Start 01/01/19 at 09:00; Status UNV Coded Allergies: No Known Allergy (Unverified , 12/31/18) Past Surgical History Past Surgical Hx: other (status post right mastectomy, Port a cath placement) Family History Significant Family History: no pertinent family hx Social History Alcohol Use: none Smoking Status: Never smoker Drug Use: none Exam/Review of Systems Vital Signs Vitals Vital Signs Date Temp Pulse Resp B/P (MAP) Pulse Ox O2 O2 Flow FiO2 Time Delivery Rate 01/01/19 97.8 95 18 137/67 98 02:15 (90) 01/01/19 Room Air 01:08 Intake and Output 12/31/18 12/31/18 01/01/19 1515:00 23:00 07:00 IntakeIntake Total 50 ml 380 ml BalanceBalance 50 ml 380 ml Exam Exam lumbar pain on palpation Constitutional: alert, oriented Neck: supple Respiratory: clear to auscultation, other (port a cath) Gastrointestinal: soft Genitourinary - Female: CVA tenderness; No nl adnexae, No nl external genitalia, No CMT, No uterus, No other Musculoskeletal: other (bruise left flank) OLIVIA VIDES MD 01/01/19 1519: Assessment/Plan Assessment/Plan Assessment/Plan PT WAS EEN AND EXAMINED LOW BACK SP FALL> CT ORDERED WEAKNESS IN LEG DUE TO UTI/CHEMO ABX UCX PT EVAL Result Diagram: 12/31/18211412/31/18 2115 PMH/Family/Social Past Medical History Coded Allergies: No Known Allergy (Unverified , 12/31/18) CORINA TIERNEY Jan 01, 2019 07:59 OLIVIA VIDES MD Jan 01, 2019 15:19
[2019-01-01] MEDS ORDERED: CAPECITABINE 500 MG TAB PO SCH ×2 (09:00)
[2019-01-01] MEDS: MEMANTINE 5 MG TAB PO SCH ×2 (10:00→20:42)
[2019-01-01] MEDS: PANTOPRAZOLE (EC) 40 MG TAB PO SCH (10:03)
[2019-01-01] MEDS ORDERED: XELODA 500 MG PO SCH (13:00)
[2019-01-01] MEDS: TYKERB PO SCH ×2 (14:00→20:32)
[2019-01-01 14:28] VITALS: BP 124/78; PULSE 92; RESP 16
[2019-01-01 20:22] VITALS: BP 117/77; PULSE 77; RESP 2
[2019-01-01] MEDS: XELODA 500 MG PO SCH (20:32)
[2019-01-01] MEDS: METOPROLOL (XL) 25 MG TAB PO SCH (20:42)
[2019-01-02 02:25] VITALS: BP 98/63; PULSE 106; RESP 2
[2019-01-02] MEDS: CEFTRIAXONE 1 GM/50 ML (PMX) 50 ML IVPB SCH (02:46)
[2019-01-02] MEDS: SOD CHLORIDE 0.9% 1,000 ML IV SCH (05:51)
[2019-01-02] MEDS: PANTOPRAZOLE (EC) 40 MG TAB PO SCH (05:52)
[2019-01-02] MEDS ORDERED: POTASSIUM CHLORIDE (SR) 20 MEQ TAB PO STA (08:17)
[2019-01-02 08:23] VITALS: BP 118/74; PULSE 85; RESP 16
[2019-01-02] MEDS ORDERED: MULTIVITAMINS 30 ML CUP GTB SCH (09:00)
[2019-01-02] MEDS: MEMANTINE 5 MG TAB PO SCH ×2 (09:02→21:09)
[2019-01-02] MEDS: XELODA 500 MG PO SCH ×2 (09:04→21:13)
[2019-01-02] MEDS: TYKERB PO SCH ×3 (09:05→21:12)
--- NOTE | 2019-01-02 09:32 | PN ---
Date/Time of Note Date/Time of Note DATE: 01/02/19 TIME: 09:31 Assessment/Plan VTE Prophylaxis Risk score (from Nsg)>0 risk: 2 SCD applied (from Ns): Yes SCD contraindicated: low risk/ambulating Pharmacological prophylaxis: NA/contraindicated Pharm contraindication: low risk/ambulating Lines/Catheters IV [facility] (from [facility] kyle catheter site Assessment/Plan Hospital Course 1. S/p fall ground , headache and back pain on arrival to ER.ct SCAN SHOWED: At L4-L5 there is a small left eccentric disc bulge and mild facet arthropathy with moderate left and mild right foraminal stenosis. At L5-S1 there is small right eccentric disc bulge and mild facet arthropathy with mild right foraminal stenosis. No evidence of fracture. 2. SIRS 2/2 UTI, one of 3 lactic acid was abnormal 3. Hypertension. 4. History of right breast cancer, status post right mastectomy and now stage IV with brain mets. On oral chemotherapy Xeloda, ordered by dr Olson. Nausea 5. History of delirium. 6. Prediabetes. 7. Port-A-Cath placement. 8. History of hyponatremia secondary to SIADH 9. Hypokalemia Assessment/Plan -potassium supplement -CT scan abd. and pelvis reviewed normal -Brain CT scan is similar to previous , no changes -GI proph. Protonix -blood culture is neg. so far -c/w home meds, inc Onco treatment -DVT proph. SCD in bed -c.w ab -c/w IV fluids -CT scan of back noramal Result Diagram: 01/02/19 0501/02/19 0513 Results 24hrs Laboratory Tests Test 01/02/19 05:13 White Blood Count 3.4 #L Red Blood Count 3.89 L Hemoglobin 13.0 Hematocrit 38.7 Mean Corpuscular Volume 99.5 Mean Corpuscular Hemoglobin 33.4 H Mean Corpuscular Hemoglobin Concent 33.6 Red Cell Distribution Width 17.5 H Platelet Count 253 # Mean Platelet Volume 8.9 Immature Granulocytes % 0.300 Neutrophils % 53.3 Lymphocytes % 31.7 Monocytes % 13.2 H Eosinophils % 1.2 Basophils % 0.3 Nucleated Red Blood Cells % 0.0 Immature Granulocytes # 0.010 Neutrophils # 1.8 Lymphocytes # 1.1 Monocytes # 0.5 Eosinophils # 0.0 Basophils # 0.0 Nucleated Red Blood Cells # 0.0 Sodium Level 138 Potassium Level 2.7 *L Chloride Level 105 Carbon Dioxide Level 26 Anion Gap 7 Blood Urea Nitrogen 2 L Creatinine 0.44 Est Glomerular Filtrat Rate mL/min > 60 Glucose Level 88 Calcium Level 8.5 Subjective 24 Hr Interval Summary Constitutional: improved Exam/Review of Systems Exam Vitals Vital Signs Date Temp Pulse Resp B/P (MAP) Pulse Ox O2 O2 Flow FiO2 Time Delivery Rate 01/02/19 97.7 85 16 118/74 93 08:23 (89) 01/01/19 Room Air 14:28 Intake and Output 01/01/19 01/01/19 01/02/19 1515:00 23:00 07:00 IntakeIntake Total 810 ml 1270 ml OutputOutput Total 125 ml BalanceBalance 685 ml 1270 ml Constitutional: alert, oriented Psych: no complaints Neck: supple Respiratory: clear to auscultation Cardiovascular: regular rate and rhythm Gastrointestinal: soft Results Results 24hrs Laboratory Tests Test 01/02/19 05:13 White Blood Count 3.4 #L Red Blood Count 3.89 L Hemoglobin 13.0 Hematocrit 38.7 Mean Corpuscular Volume 99.5 Mean Corpuscular Hemoglobin 33.4 H Mean Corpuscular Hemoglobin Concent 33.6 Red Cell Distribution Width 17.5 H Platelet Count 253 # Mean Platelet Volume 8.9 Immature Granulocytes % 0.300 Neutrophils % 53.3 Lymphocytes % 31.7 Monocytes % 13.2 H Eosinophils % 1.2 Basophils % 0.3 Nucleated Red Blood Cells % 0.0 Immature Granulocytes # 0.010 Neutrophils # 1.8 Lymphocytes # 1.1 Monocytes # 0.5 Eosinophils # 0.0 Basophils # 0.0 Nucleated Red Blood Cells # 0.0 Sodium Level 138 Potassium Level 2.7 *L Chloride Level 105 Carbon Dioxide Level 26 Anion Gap 7 Blood Urea Nitrogen 2 L Creatinine 0.44 Est Glomerular Filtrat Rate mL/min > 60 Glucose Level 88 Calcium Level 8.5 Medications Medication Current Medications Sodium Chloride 1,000 ml @ 40 mls/hr Q24H IV Last administered on 01/02/19at 05:51; Admin Dose 40 MLS/HR; Start 01/01/19 at 03:00 Acetaminophen (Tylenol Tab) 650 mg Q6H PRN PO MILD PAIN(1-3)OR ELEVATED TEMP; Start 01/01/19 at 03:00 Docusate Sodium (Colace) 100 mg BID PRN PO CONSTIPATION; Start 01/01/19 at 03:00 Ondansetron HCl (Zofran Inj) 4 mg Q6H PRN IV NAUSEA AND/OR VOMITING Last administered on 01/01/19 10:00; Admin Dose 4 MG; Start 01/01/19 at 03:00 Ceftriaxone Sodium 50 ml @ 100 mls/hr Q24H IVPB Last administered on 01/02/19 02:46; Admin Dose 100 MLS/HR; Start 01/01/19 at 03:00 Memantine (Namenda) 5 mg BID PO Last administered on 01/02/19 09:02; Admin Dose 5 MG; Start 01/01/19 at 09:00 Metoprolol Succinate (Toprol Xl) 25 mg QHS PO Last administered on 01/01/19 20:42; Admin Dose 25 MG; Start 01/01/19 at 21:00 Pantoprazole (Protonix Tab) 40 mg DAILY@06 PO Last administered on 01/02/19 05:52; Admin Dose 40 MG; Start 01/01/19 at 09:00 Patient Own Medication 1 ea TID PO Last administered on 01/02/19 09:05; Admin Dose 1 EA; Start 01/01/19 at 14:00 Patient Own Medication 1 ea BID PO Last administered on 01/02/19 09:04; Admin Dose 1 EA; Start 01/01/19 at 21:00 CORINA TIERNEY Jan 02, 2019 09:32
[2019-01-02 14:52] VITALS: BP 120/66; PULSE 100; RESP 16
[2019-01-02 20:00] VITALS: BP 121/84; PULSE 83; RESP 18
[2019-01-02] MEDS: METOPROLOL (XL) 25 MG TAB PO SCH (21:14)
[2019-01-02 21:19] VITALS: BP 135/80; PULSE 80
[2019-01-03 02:00] VITALS: BP 131/90; PULSE 88; RESP 18
[2019-01-03] MEDS: SOD CHLORIDE 0.9% 1,000 ML IV SCH (03:00)
[2019-01-03] MEDS: CEFTRIAXONE 1 GM/50 ML (PMX) 50 ML IVPB SCH (03:08)
[2019-01-03] MEDS: PANTOPRAZOLE (EC) 40 MG TAB PO SCH (06:21)
[2019-01-03 08:06] VITALS: BP 100/74; PULSE 79; RESP 16
[2019-01-03] MEDS: TYKERB PO SCH (08:26)
[2019-01-03] MEDS: MEMANTINE 5 MG TAB PO SCH (08:26)
[2019-01-03] MEDS: XELODA 500 MG PO SCH (08:26)
[2019-01-03] MEDS ORDERED: POTASSIUM CHLORIDE 20 MEQ POWDER FOR ORAL SOLN PO ONE (09:30)
--- NOTE | 2019-01-03 09:47 | PDOCDIS ---
Discharge Instructions CONDITION [id number] Patient Condition: [id number] Stable HOME CARE INSTRUCTIONS: [id number] Special Diet: [id number] hogh potassium diet ACTIVITY: [id number] Activity Restrictions: [id number] Slowly Increase Activity Rest between Activity Avoid heavy lifting FOLLOW UP/APPOINTMENTS Follow-up Plan F/up your oncology CORINA KHAN Jan 03, 2019 09:47
[2019-01-03] MEDS ORDERED: NITR100C7 PO (09:52)
[2019-01-03] MEDS ORDERED: POTA20TA9 PO (09:52)
--- NOTE | 2019-01-03 09:53 | DS ---
Date/Time of Note Date/Time of Note DATE: 01/03/19 TIME: 09:52 Discharge Summary Admission/Discharge Info Admit Date/Time Dec 31, 2018 at 23:16 Discharge Date/Time Discharge Diagnosis s/p fall, UTI Patient Condition: Stable Hx of Present Illness Hospital Course This 58-year-old female with right breast cancer, brain tumor (with leptomeningeal spread) , status post right mastectomy, hypertension who presents with headache to ER after fall. She was watering gruber and lost balance. Headache is radiating to the front of the head 01/04, she said it started before fall 1 day prior fall. She also has has back pain and left flank bruise, her symptoms are not relieved with Tylenol. The patient was discharged on 10/2018. She is followup with radiology as an outpatient. The patient is on active chemotherapy with Xeloda. Her oncology MD is Dr. Colunga. On arrival, vital signs showed blood pressure 152/90, heart rate of 138, respiration 22. Labs showed CBC and BMP normal, lactic acid was 2.4. The patient had abdomen and pelvic CT scan, brain CT scan, and chest x-ray and pat ient was admitted for further management. PAST MEDICAL HISTORY: 1. Hypertension. 2. History of right breast cancer, status post right mastectomy and now stage IV with brain mets. 3. Prediabetes. 4. History of hyponatremia secondary to SIADH. 5. History of delirium. PAST SURGICAL HISTORY: Right mastectomy and the left Port-A-Cath placement. 1. S/p fall ground , headache and back pain on arrival to ER.ct SCAN SHOWED: At L4-L5 there is a small left eccentric disc bulge and mild facet arthropathy with moderate left and mild right foraminal stenosis. At L5-S1 there is small right eccentric disc bulge and mild facet arthropathy with mild right foraminal stenosis. No evidence of fracture. 2. SIRS 2/2 UTI, one of 3 lactic acid was abnormal 3. Hypertension. 4. History of right breast cancer, status post right mastectomy and now stage IV with brain mets. On oral chemotherapy Xeloda, ordered by dr Olson. Nausea 5. History of delirium. 6. Prediabetes. 7. Port-A-Cath placement. 8. History of hyponatremia secondary to SIADH 9. Hypokalemia During hospitalization pt was on IV a/b for urinary tract infection. She was taking her oral chemotherapy and was supplemented potassium as needed. CT scan of back showed DDD and she was offered NSAIDs. Pt reported less pain in back and was sent home with additional potassium supplement due to hypokalemia, she was instructed to use high in Potassium food and in event of weakness take one 20 meQ tablet of potassium chloride Home Meds Active Scripts Nitrofurantoin Macrocrystal* (Nitrofurantoin Macrocrystal*) 100 Mg Capsule, 100 MG PO HS for 7 Days, CAP Prov:CORINA TIERNEY 01/03/19 Potassium Chloride (Klor-Con M20) 20 Meq Tab.prt.sr, 20 MEQ PO DAILY for 10 Days Prov:CORINA TIERNEY 01/03/19 Hydrocodone/Acetaminophen ([place] 10-325 Tablet) 1 Each Tablet, 1 TAB PO Q6H PRN for PAIN, #7 TAB Prov:DANNY BRANCH MD 11/10/18 Reported Medications Omeprazole* (Omeprazole*) 20 Mg Capsule.dr, 20 MG PO DAILY, #30 CAP 01/01/19 Lapatinib (Tykerb) 250 Mg Tab, 250 MG PO TID, TAB 01/01/19 Memantine HCl (Memantine HCl) 5 Mg Tablet, 5 MG PO BID for 30 Days, #60 12/31/18 Ibuprofen* (Ibuprofen*) 600 Mg Tablet, 600 MG PO Q6H for PAIN for 10 Days, #30 12/31/18 Trazodone Hcl* (Desyrel*) 50 Mg Tab, 50 MG PO QHS for 30 Days, #30 12/31/18 Hydrochlorothiazide* (Hydrochlorothiazide*) 25 Mg Tab, 25 MG PO DAILY for 30 Day s, #30 12/31/18 Capecitabine* (Xeloda*) 500 Mg Tablet, 1000 MG PO BID, TBS STOP FOR 7 DAYS, START DAY 11/12/18 11/10/18 Metoprolol Succinate* (Toprol XL*) 25 Mg Tab.sr.24h, 25 MG PO QHS, #30 TAB 11/10/18 Discontinued Reported Medications Capecitabine (Capecitabine) 500 Mg Tablet, 500 MG PO BID, TAB 01/01/19 Valsartan (Valsartan) 40 Mg Tablet, 40 MG PO DAILY for 30 Days, #30 6/6/19 Lapatinib (Tykerb) 250 Mg Tab, 250 MG PO Q 2 OR 3 HOURS, TAB TAKE 5 TAB-DAILY 11/10/18 Discontinued Scripts Ibuprofen* (Motrin*) 600 Mg Tab, 600 MG PO Q6H PRN for PAIN AND OR ELEVATED TEMP, #30 TAB Prov:DANNY BRANCH MD 11/10/18 Follow-up Plan F/up your oncology MD Primary Care Provider Not On Staff Doctor Time spent on discharge: < 30 minutes Pending Labs Laboratory Tests Test 01/02/19 14:56 01/03/19 05:29 Potassium Level 3.8 mmol/L (3.5-5.1) 2.7 mmol/L (3.5-5.1) White Blood Count 3.2 10^3/ul (4.8-10.8) Red Blood Count 3.19 10^6/ul (4.20-5.40) Hemoglobin 10.9 g/dl (12.0-16.0) Hematocrit 32.5 % (37.0-47.0) Mean Corpuscular Volume 101.9 fl (82.0-101.0) Mean Corpuscular Hemoglobin 34.2 pg (29.0-33.0) Mean Corpuscular 33.5 g/dl (32.0-37.0) Hemoglobin Concent Red Cell Distribution Width 17.4 % (11.5-14.5) Platelet Count 225 10^3/UL (140-415) Mean Platelet Volume 8.5 fl (7.4-10.4) Immature Granulocytes % 0.300 % (0.001-0.429) Neutrophils % 57.9 % (39.0-77.0) Lymphocytes % 29.7 % (15.0-51.0) Monocytes % 10.9 % (0.0-11.0) Eosinophils % 0.9 % (0.0-7.0) Basophils % 0.3 % (0.0-2.0) Nucleated Red Blood Cells % 0.0 /100WBC (0.0-0.0) Immature Granulocytes # 0.010 10^3/ul (0.0-0.031) Neutrophils # 1.9 10^3/ul (1.6-7.5) Lymphocytes # 1.0 10^3/ul (0.8-2.9) Monocytes # 0.4 10^3/ul (0.3-0.9) Eosinophils # 0.0 10^3/ul (0.0-0.5) Basophils # 0.0 10^3/ul (0.0-0.1) Nucleated Red Blood Cells # 0.0 10^3/ul (0.0-0.0) Sodium Level 138 mmol/L (135-144) Chloride Level 111 mmol/L (97-110) Carbon Dioxide Level 22 mmol/L (21-31) Anion Gap 5 (5-13) Blood Urea Nitrogen 3 mg/dl (7-20) Creatinine 0.43 mg/dl (0.44-1.00) Est Glomerular Filtrat > 60 mL/min (>60) Rate mL/min Glucose Level 85 mg/dl (70-220) Calcium Level 7.4 mg/dl (8.4-10.2) CORINA TIERNEY Jan 03, 2019 09:53
== END 2019-01-03 11:20 | disposition home or self-care (01) | DRG 690 ==
LOC: E/R 20:25 → MS1 23:16 → PP2 01-01 02:25
PROVIDERS: ADMIT Internal Medicine Nephrology; ATTEND Internal Medicine Nephrology
DX: N39.0 Urinary tract infection, site not specified (principal); C79.31 Secondary malignant neoplasm of brain; E22.2 Syndrome of inappropriate secretion of antidiuretic hormone; I10 Essential (primary) hypertension; E87.6 Hypokalemia; Z91.81 History of falling; Z85.3 Personal history of malignant neoplasm of breast; Z90.11 Acquired absence of right breast and nipple
CPT/HCPCS: 36415; 70450; 71045; 72131; 74176; 80048; 80053; 81001; 83605; 84132; 84484; 85025; 85610; 85730; 87045; 87086; 93005; 96365; 96368; 96375; 97162; J0692; J0696; J2270; J2405; J3370; J7030

== ENCOUNTER 2019-01-25 20:07 | Inpatient (IN) | payer BC ==
[~2019-01-25] VITALS: Ht 149.9 cm; Wt 54.4 kg
[~2019-01-25 20:07] MED LIST changes: -CEPH-443 PO; +HYDR25TA6 PO; -MEMA5TAB PO; +MEMA5TAB14 PO; -NALO4SPR NS; +NITR100C7 PO; +OMEP20CA16 PO; -OXYC-279 PO; +POTA20TA9 PO; +TRAZ-149 PO
[2019-01-25 20:34] VITALS: Ht 149.9 cm; Wt 54.4 kg
[2019-01-25] MEDS ORDERED: DIPHENHYDRAMINE 50 MG INJ IV STA (21:13)
[2019-01-25] MEDS ORDERED: METOCLOPRAMIDE 10 MG INJ IV STA (21:13)
[2019-01-25] MEDS ORDERED: SOD CHLORIDE 0.9% 1,000 ML IV STA (21:13)
--- NOTE | 2019-01-25 21:15 | ERD ---
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 She has intermittent dizziness and blurry vision. No focal weakness or numbness. She was taking [place] for her pain today. She was not getting much relief. She had one episode of nonbloody and nonbilious vomiting. Because her pain was not improving, she came to the ER for evaluation. Patient has finished radiation to the brain for the brain tumors and is currently only on oral chemotherapy. She has experienced headaches like this before and this is not the worst. ROS All systems reviewed and are negative except as per history of present illness. Medications Home Meds Active Scripts Nitrofurantoin Macrocrystal* (Nitrofurantoin Macrocrystal*) 100 Mg Capsule, 100 MG PO HS for 7 Days, CAP Prov:CORINA TIERNEY 01/03/19 Potassium Chloride (Klor-Con M20) 20 Meq Tab.prt.sr, 20 MEQ PO DAILY for 10 Days Prov:CORINA TIERNEY 01/03/19 Hydrocodone/Acetaminophen ([place] 10-325 Tablet) 1 Each Tablet, 1 TAB PO Q6H PRN for PAIN, #7 TAB Prov:DANNY BRANCH MD 11/10/18 Reported Medications Omeprazole* (Omeprazole*) 20 Mg Capsule.dr, 20 MG PO DAILY, #30 CAP 01/01/19 Lapatinib (Tykerb) 250 Mg Tab, 250 MG PO TID, TAB 01/01/19 Memantine HCl (Memantine HCl) 5 Mg Tablet, 5 MG PO BID for 30 Days, #60 12/31/18 Ibuprofen* (Ibuprofen*) 600 Mg Tablet, 600 MG PO Q6H for PAIN for 10 Days, #30 12/31/18 Trazodone Hcl* (Desyrel*) 50 Mg Tab, 50 MG PO QHS for 30 Days, #30 12/31/18 Hydrochlorothiazide* (Hydrochlorothiazide*) 25 Mg Tab, 25 MG PO DAILY for 30 Days, #30 12/31/18 Capecitabine* (Xeloda*) 500 Mg Tablet, 1000 MG PO BID, TBS STOP FOR 7 DAYS, START DAY 11/12/18 11/10/18 Metoprolol Succinate* (Toprol XL*) 25 Mg Tab.sr.24h, 25 MG PO QHS, #30 TAB 11/10/18 Allergies Allergies: Coded Allergies: morphine (Verified Allergy, Unknown, 01/25/19) PMhx/Soc History of Surgery: Yes (right radical mastectomy(2017)) Anesthesia Reaction: No Hx Neurological Disorder: No Hx Respiratory Disorders: No Hx Cardiac Disorders: Yes (htn) Hx Psychiatric Problems: No Hx Miscellaneous Medical Probl: Yes (HTN, right breast cancer, s/p mastectomy and now stage IV with brain mets,) Hx Alcohol Use: No Hx Substance Use: No Hx Tobacco Use: No Smoking Status: Never smoker FmHx Family History: diabetes Physical Exam Vitals Vital Signs Date Temp Pulse Resp B/P (MAP) Pulse Ox O2 O2 Flow FiO2 Time Delivery Rate 01/26/19 85 18 118/82 100 Room Air 02:11 (94) 01/26/19 81 18 108/94 100 Room Air 00:30 (99) 01/25/19 85 18 109/81 100 Room Air 23:50 (90) 01/25/19 82 18 108/79 100 Room Air 23:10 (89) 01/25/19 80 18 137/90 100 Room Air 22:46 (106) 01/25/19 96 20 126/95 100 Room Air 21:08 (105) 01/25/19 97.8 121 22 131/83 98 20:34 (99) Physical Exam Const: No acute distress Head: Atraumatic Eyes: Normal Conjunctiva, PERRLA, EOMI. No nystagmus ENT: Normal External Ears, Nose and Mouth. dry mucous membranes. Neck: Full range of motion. No meningismus. Resp: Clear to auscultation bilaterally Cardio: Regular rate and rhythm, no murmurs. 2+ distal pulses in all 4 extremities Abd: Soft, non tender, non distended. Normal bowel sounds Skin: No petechiae or rashes Back: No midline or flank tenderness Ext: No cyanosis, or edema Neur: Awake and alert, oriented x3, normal speech, cranial nerves intact, strength and sensations intact in all 4 extremities. Psych: Normal Mood and Affect Result Diagram: 01/25/19212001/25/192120 Results 24 hrs Laboratory Tests Test 01/25/19 21:21 White Blood Count 3.7 10^3/ul Red Blood Count 3.66 10^6/ul Hemoglobin 12.6 g/dl Hematocrit 36.0 % Mean Corpuscular Volume 98.4 fl Mean Corpuscular Hemoglobin 34.4 pg Mean Corpuscular Hemoglobin Concent 35.0 g/dl Red Cell Distribution Width 15.2 % Platelet Count 237 10^3/UL Mean Platelet Volume 8.4 fl Immature Granulocytes % 0.500 % Neutrophils % 68.7 % Lymphocytes % 18.6 % Monocytes % 11.9 % Eosinophils % 0.0 % Basophils % 0.3 % Nucleated Red Blood Cells % 0.0 /100WBC Immature Granulocytes # 0.020 10^3/ul Neutrophils # 2.6 10^3/ul Lymphocytes # 0.7 10^3/ul Monocytes # 0.4 10^3/ul Eosinophils # 0.0 10^3/ul Basophils # 0.0 10^3/ul Nucleated Red Blood Cells # 0.0 10^3/ul Prothrombin Time 16.0 Sec Prothrombin Time Ratio 1.3 INR International Normalized Ratio 1.27 Activated Partial Thromboplast Time > 180.0 Sec Sodium Level 132 mmol/L Potassium Level 2.8 mmol/L Chloride Level 98 mmol/L Carbon Dioxide Level 23 mmol/L Anion Gap 11 Blood Urea Nitrogen 8 mg/dl Creatinine 0.55 mg/dl Est Glomerular Filtrat Rate mL/min > 60 mL/min Glucose Level 122 mg/dl Calcium Level 8.5 mg/dl Current Medications Medications Dose Sig/Chelsey Start Time Status Last (Trade) Ordered Route PRN Stop Time Admin Dose Reason Admin Sodium 1,000 ml @ Q1H STAT 01/25/19 DC 01/25/19 Chloride 1,000 mls/hr IV 21:13 01/25/19 21:31 22:12 10 mg ONCE STAT 01/25/19 DC 01/25/19 Metoclopramid IV 21:13 01/25/19 21:32 e HCl 21:14 (Reglan) 25 mg ONCE STAT 01/25/19 DC 01/25/19 Diphenhydrami IV 21:13 01/25/19 21:32 ne HCl 21:14 (Benadryl) 0.5 mg ONCE STAT 01/25/19 DC 01/25/19 Hydromorphone IV 21:24 01/25/19 21:31 HCl 21:26 (Dilaudid) Magnesium 50 ml @ 25 ONCE ONCE 01/25/19 DC 01/25/19 Sulfate mls/hr IVPB 22:00 01/25/19 22:06 23:59 Potassium 40 meq ONCE ONCE 01/25/19 DC 01/25/19 Chloride PO 22:00 01/25/19 22:07 (Potassium 22:01 Chloride Pwd/Soln) Potassium 100 ml @ Q2H IVPB 01/25/19 DC 01/26/19 Chloride 50 mls/hr 22:00 01/26/19 00:59 01:59 Ondansetron 4 mg BRIDGE ORDER 01/26/19 HCl (Zofran PRN IV 00:30 01/27/19 Inj) NAUSEA/VOMITI 00:29 NG 650 mg ER BRIDGE 01/26/19 Acetaminophen PRN PO 00:30 01/27/19 (Tylenol .MILD PAIN 00:29 Tab) 1-3 OR TEMP Procedures/MDM EMERGENT LABS AND DIAGNOSTIC STUDIES: Lab Results above were reviewed and interpreted by me. CBC: Mild leukopenia. No anemia or evidence of infection BMP: Hyponatremia with potassium 2.8. No e/o severe acidosis, alkalosis, renal failure, diabetic ketoacidosis EKG: Rate/Rhythm: Normal Sinus Rhythm QRS, ST, T-waves: No changes consistent w/ acute ischemia Impression: No changes of hypokalemia. No evidence of ischemia or arrhythm ia Radiology Results as interpreted by Radiology below were reviewed by Araceli Mitchell MD: CT brain: Lesions noted, unchanged from previous CT. No evidence of increased intracranial pressure or acute hemorrhage Initial Nursing notes reviewed. Previous Medical Records requested via the Electronic Health Record. EMERGENCY DEPARTMENT COURSE / MEDICAL DECISION MAKING: Patient is presenting with headache and vomiting. She is neurovascularly intact on exam and afebrile with normal vital signs. Given her history of mets to the brain and worsening headache, CT was done and did not show any acute abnormalities. However her labs were notable for hypokalemia. This is likely due to her vomiting and poor p.o. intake. She was treated with IV fluids, IV potassium, oral potassium, and IV magnesium supplementation. She will require admission for further stabilization. Currently she has no EKG changes of hypokalemia. Accepting Care Team: Current data and ongoing care discussed. Time: Time of admission Primary Provider: Dr. Mane Castellanos Diagnosis: Primary Impression: Headache Headache type: tension-type Headache chronicity pattern: episodic headache Intractability: not intractable Qualified Codes: G44.219 - Episodic tension-type headache, not intractable Additional Impression: Hypokalemia Condition: MERCY Rojas MD Jan 25, 2019 21:15
[2019-01-25] MEDS ORDERED: HYDROmorphONE 0.5 MG/0.5 ML SYG IV STA (21:24)
[2019-01-25] MEDS ORDERED: POTASSIUM CHLORIDE 20 MEQ POWDER FOR ORAL SOLN PO ONE (22:00)
[2019-01-25] MEDS ORDERED: MAGNESIUM SULFATE 2 GM/50 ML 50 ML IVPB ONE (22:00)
[2019-01-25] MEDS: POTASSIUM CHLORIDE 100 ML IVPB SCH (22:06)
[2019-01-26] MEDS ORDERED: ACETAMINOPHEN 325 MG TAB PO PRN ×2 (00:30→04:00)
[2019-01-26] MEDS ORDERED: ONDANSETRON 4 MG INJ IV PRN ×2 (00:30→20:00)
[2019-01-26] MEDS: POTASSIUM CHLORIDE 100 ML IVPB SCH (00:59)
[2019-01-26 03:00] VITALS: BP 95/56; PULSE 82; RESP 18
[2019-01-26] MEDS ORDERED: MAGNESIUM HYDROXIDE 30ML CUP PO PRN (04:00)
[2019-01-26] MEDS ORDERED: OXYCODONE/ACETAMINOPHEN (5/325) TAB PO PRN (04:00)
[2019-01-26] MEDS ORDERED: DOCUSATE SODIUM 100 MG CAP PO PRN (04:00)
[2019-01-26] MEDS ORDERED: SOD CHLORIDE 0.9% 1,000 ML IV SCH (04:00)
[2019-01-26 07:36] VITALS: BP 118/71; RESP 19
[2019-01-26] MEDS: FAMOTIDINE 20 MG TAB GTB SCH ×2 (08:33→20:32)
[2019-01-26] MEDS: LOSARTAN 25 MG TAB PO SCH (08:33)
[2019-01-26] MEDS: SPECIAL NON-STANDARD MEDICATION (CHEMO) PO SCH ×4 (08:37→20:00)
[2019-01-26] MEDS: METOCLOPRAMIDE 10 MG TAB PO SCH ×4 (08:41→20:32)
--- NOTE | 2019-01-26 12:13 | QN ---
Documentation Comment pt seen and examined OLIVIA VIEDS MD Jan 26, 2019 12:13
--- NOTE | 2019-01-26 12:30 | PDOCDIS ---
Discharge Instructions DIAGNOSIS Discharge Diagnosis hypokalemia nausea CONDITION [id number] Patient Condition: [id number] Fair HOME CARE INSTRUCTIONS: [id number] Diet Instructions: [id number] Regular ACTIVITY: [id number] Activity Restrictions: [id number] Slowly Increase Activity Rest between Activity Avoid heavy lifting FOLLOW UP/APPOINTMENTS Follow-up Plan fu PCP in 1-2 weeks for BMP check zofran prn nausea/vommting fu Dr Edwards for XRT Return to ER if has headches/nausea/vomting OLIVIA VIDES MD Jan 26, 2019 12:30
--- NOTE | 2019-01-26 13:29 | HP ---
DATE OF ADMISSION: 01/26/2019 REASON FOR ADMISSION: Headache and nausea. HISTORY OF PRESENT ILLNESS: This is a 58-year-old female well known to our service with a history of right breast cancer with brain mets status post right mastectomy, hypertension who presented to an emergency department on 01/25 secondary to worsening headache and nausea for 1 to 2 days. The patient had been seen by Dr. Colunga as an outpatient, Dr. Hassan for radiation. The patient finished her radiation treatment a couple of months ago. The patient was told that her cancer has been stabilized. The patient has been followed by Dr. Colunga as an outpatient and Xeloda had been reduced from 2 pills to 1 pill due to her nausea. According to the patient, yesterday she felt severe headache on the back and started having any worsening nausea and came to the emergency department for further evaluation. The patient said that she has weakness to the arms and the legs and some tingling sensation which has been secondary to chemotherapy. On arrival to ED, vital signs showed temperature 97.8, heart rate of 82, respirations 18, blood pressure of 131/83. Initial sodium 132, potassium 2.8 and the patient had a repeat CT of the head that showed no acute intracranial findings, multiple scattered hypodense foci consistent with metatstati_ disease which have been unchanged prior CT scan on 12/31/2018, and the patient received potassium supplement with IV and p.o. and was admitted for further management. PAST MEDICAL HISTORY: 1. History of right breast cancer status post mastectomy and with brain metastases. 2. Hypertension. 3. History of delirium. 4. Prediabetes. 5. Port-A-Cath placement. 6. History of hyponatremia secondary to SIADH. ALLERGIES: MORPHINE. MEDICATIONS TAKING AT HOME: 1. Reglan. 2. Prilosec. 3. Metoprolol 25 at bedtime. 4. Lapatinib 250 p.o. t.i.d. 5. Xeloda. SOCIAL HISTORY: Denies any history of smoking, alcohol or any drug use. PAST SURGICAL HISTORY: Significant for a Port-A-Cath placement and right mastectomy. Lives with family at home. REVIEW OF SYSTEMS: The patient complains weakness, some nausea, headache, which has been resolved. Her nausea is always persistent. Denies any abdominal pain, any hematemesis, any melena, any bright red per rectum. PHYSICAL EXAMINATION: VITAL SIGNS: Currently, blood pressure 118/71, afebrile, pulse of 82, saturating 98% on room air. GENERAL: The patient is awake, alert, oriented, does not appear to be in any acute distress. HEENT: Pupils are equal, round and reactive to light. NECK: Supple, no JVD. HEART: Regular rate and rhythm. LUNGS: Clear to auscultation bilaterally. ABDOMEN: Soft, nontender, nondistended, positive normoactive bowel sounds. EXTREMITIES: No clubbing, cyanosis or edema. The patient has a left Port-A-Cath in place. NEUROLOGIC: Awake, alert, oriented. Normal speech. _ 5/5 bilateral upper and lower extremities. LABORATORY DATA: White count 3.7. Potassium is 2.8, sodium 132, BUN of 8, creatinine 0.55. A CT of the head is unchanged. EKG normal sinus rhythm. ASSESSMENT: This is a 58-year-old female who presented with: 1. Headache, nausea. The patient has stage IV breast cancer with brain mets. The patient has completed radiation; however, CT of the head is unchanged from before. The patient is neurovascularly intact. 2. Persistent nausea could be secondary to chemo, could be secondary to GI disease. however no abdominal pain 3 Severe hypokalemia with no EKG changes likely secondary to nasuea/vomitting 4. History of right breast cancer status post mastectomy, now stage IV. 5. Hypertension. 6. History of hyponatremia. PLAN: At this period of time, the patient is admitted to [facility]. Potassium was aggressively repleted. The patient will be continued on chemotherapy. The patient is started on Reglan with meals, gentle fluids. Rest of the treatment will depend of the patient's hospitalization course. Dictated By: OLIVIA LEMOS/SERINA Conf#: [id number] DID#: [id number] CC: KATARZYNA HUMPHREY MD;*EndCC* MTDD
[2019-01-26] MEDS ORDERED: ONDA4VIA6 IV (14:05)
[2019-01-26] MEDS ORDERED: HEPARIN (100 UNITS/ML) 5 ML SYG CATHETER ONE (15:40)
--- NOTE | 2019-01-26 17:39 | DS ---
DATE OF ADMISSION: 01/26/2019 DATE OF DISCHARGE: 01/26/2019 HISTORY OF PRESENT ILLNESS: Please see the history and physical which was dictated. Today, a 58-yea r-old female with a past medical history of right breast cancer, brain mets status post right mastect jamaal, undergoing brain radiation, presented to the emergency couple of months ago, presented to the emergency department complaining of nausea, headache for past 2 to 3 days. On admission, vital s igns were stable. Initial sodium was 132, potassium 2.8. She had a repeat CT scan that showed mets were stable which was unchanged. The patient received potassium supplement and was admitted for furt her management. Potassium was continuously, vigorously repleted. Nausea and vomiting improved. The patient was tolerating diet. I spoke to the family over the phone and they said that they are follo wing with Dr. Hassan in about 1 to 2 weeks for repeat MRI. The patient is discharged in stable cond ition. FINAL DISCHARGE DIAGNOSES: 1. Headache and nausea, likely secondary to breast cancer with metastases. 2. Hypokalemia with nausea, resolved. 3. Persistent nausea secondary to chemo. 4. History of right breast cancer post-mastectomy. 5. Hypertension. DISCHARGE CONDITION: Stable. DISCHARGE DIET: Regular diet. DISCHARGE MEDICATIONS: Zofran. Continue with: 1. Xeloda. 2. Vicodin. 3. Ibuprofen. 4. Lapatinib. 5. Metoprolol 25 mg. 6. Omeprazole 20. 7. Potassium supplement was given 20 mEq for 15 days. 8. Reglan. DISCHARGE INSTRUCTIONS: The patient will follow up with BMP check for potassium in about 1 week with PCP. Dictated By: OLIVIA LEMOS/SERINA Conf#: [id number] DID#: [id number] CC: KATARZYNA HUMPHREY MD;*EndCC*
[2019-01-26 18:38] VITALS: BP 119/80; PULSE 87; RESP 20
[2019-01-26 20:02] VITALS: BP 129/74; PULSE 82; RESP 1; RESP 18
[2019-01-26] MEDS: METOPROLOL (XL) 25 MG TAB PO SCH (20:32)
[2019-01-26] MEDS: DEXTROSE 5%-0.45% NACL 1,000 ML IV SCH (22:08)
[2019-01-27 02:03] VITALS: BP 98/66; PULSE 72; RESP 18
[2019-01-27] MEDS: METOCLOPRAMIDE 10 MG TAB PO SCH ×4 (07:42→20:46)
[2019-01-27] MEDS: KETOROLAC 15 MG INJ IV PRN ×2 (07:43→19:59)
[2019-01-27 08:30] VITALS: BP 110/77; PULSE 76; RESP 18
[2019-01-27] MEDS: FAMOTIDINE 20 MG TAB GTB SCH ×2 (09:00→20:47)
[2019-01-27] MEDS: LOSARTAN 25 MG TAB PO SCH (09:00)
[2019-01-27] MEDS: SPECIAL NON-STANDARD MEDICATION (CHEMO) PO SCH ×4 (09:38→17:59)
--- NOTE | 2019-01-27 11:40 | PN ---
Date/Time of Note Date/Time of Note DATE: 01/27/19 TIME: 11:36 Assessment/Plan VTE Prophylaxis Risk score (from Ns)>0 risk: 5 SCD applied (from Ns): Yes Pharmacological prophylaxis: NA/contraindicated Pharm contraindication: low risk/ambulating Lines/Catheters [facility] portacath Urinary Cath still in place: No Assessment/Plan Assessment/Plan is is a 58-year-old female who presented with: 1. Headache, nausea. The patient has stage IV breast cancer with brain mets. The patient has completed radiation; however, CT of the head 02/12 is unchanged from before. The patient is neurovascularly intact. Could it be still due to increased intracranial pressure/versus chemo versus GI issues 2. Persistent nausea could be secondary to chemo, could be secondary to GI disease. however no abdominal pain 3 Severe hypokalemia with no EKG changes likely secondary to nasuea/vomitting 4. History of right breast cancer status post mastectomy, now stage IV. 5. Hypertension. 6. History of hyponatremia. plan -Check LFTs lipase again -KUB was negative -spoke to Dr. Curran will get MRI of the brain -We will also reconsult Dr. Colunga - NPO/iv fluids - iv pepcid - Reglan/zofran - cw losartan/MTP Result Diagram: 01/26/19 0440 01/27/19 1059 Results 24hrs Laboratory Tests Test 01/26/19 18:10 01/27/19 10:59 Bedside Glucose 117 Sodium Level 136 Potassium Level 3.1 L Chloride Level 108 Carbon Dioxide Level 22 Anion Gap 6 Blood Urea Nitrogen 2 L Creatinine 0.46 Est Glomerular Filtrat Rate mL/min > 60 Glucose Level 99 Calcium Level 8.1 L Total Bilirubin 0.7 Direct Bilirubin 0.00 Indirect Bilirubin 0.7 Aspartate Amino Transf (AST/SGOT) 33 Alanine Aminotransferase (ALT/SGPT) 28 Alkaline Phosphatase 52 Total Protein 5.3 L Albumin 2.7 L Globulin 2.60 Albumin/Globulin Ratio 1.03 Lipase 31 Subjective 24 Hr Interval Summary Free Text/Dictation Patient had an episode of headache and vomiting again Per registered nurse it was reported patient had green vomitus Exam/Review of Systems Exam Vitals Vital Signs Date Temp Pulse Resp B/P (MAP) Pulse Ox O2 O2 Flow FiO2 Time Delivery Rate 01/27/19 98.1 76 18 110/77 96 08:30 (88) 01/26/19 Room Air 02:11 Intake and Output 01/26/19 01/26/19 01/27/19 1515:00 23:00 07:00 IntakeIntake Total 270 ml 480 ml 450 ml OutputOutput Total 500 ml 2 ml BalanceBalance 270 ml -20 ml 448 ml Exam ENERAL: The patient is awake, alert, oriented, does not appear to be in any acute distress. HEENT: Pupils are equal, round and reactive to light. NECK: Supple, no JVD. HEART: Regular rate and rhythm. LUNGS: Clear to auscultation bilaterally. ABDOMEN: Soft, nontender, nondistended, positive normoactive bowel sounds. EXTREMITIES: No clubbing, cyanosis or edema. The patient has a left Port-A-Cath in place. NEUROLOGIC: Awake, alert, oriented. Normal speech. _ 5/5 strength bilateral upper and lower extremities. Results Results 24hrs Laboratory Tests Test 01/26/19 18:10 01/27/19 10:59 Bedside Glucose 117 Sodium Level 136 Potassium Level 3.1 L Chloride Level 108 Carbon Dioxide Level 22 Anion Gap 6 Blood Urea Nitrogen 2 L Creatinine 0.46 Est Glomerular Filtrat Rate mL/min > 60 Glucose Level 99 Calcium Level 8.1 L Total Bilirubin 0.7 Direct Bilirubin 0.00 Indirect Bilirubin 0.7 Aspartate Amino Transf (AST/SGOT) 33 Alanine Aminotransferase (ALT/SGPT) 28 Alkaline Phosphatase 52 Total Protein 5.3 L Albumin 2.7 L Globulin 2.60 Albumin/Globulin Ratio 1.03 Lipase 31 Medications Medication Current Medications Docusate Sodium (Colace) 100 mg DAILY PRN PO CONSTIPATION; Start 01/26/19 at 04:00 Magnesium Hydroxide (Milk Of Mag) 30 ml BID PRN PO CONSTIPATION; Start 01/26/19 at 04:00 Acetaminophen (Tylenol Tab) 650 mg Q6H PRN PO MILD PAIN(1-3)OR ELEVATED TEMP; Start 01/26/19 at 04:00 Oxycodone/ Acetaminophen (Percocet (5/ 325)) 1 tab Q6 PRN PO MODERATE PAIN LEVEL 4-6 Last administered on 01/26/19at 14:02; Admin Dose 1 TAB; Start 01/26/19 at 04:00 Famotidine (Pepcid) 20 mg BID GTB Last administered on 01/26/19 08:33; Admin Dose 20 MG; Start 01/26/19 at 09:00 Metoclopramide HCl (Reglan) 10 mg AC MEALS AND BEDTIME PO Last administered on 01/27/19 07:42; Admin Dose 10 MG; Start 01/26/19 at 07:20 Metoprolol Succinate (Toprol Xl) 25 mg HS PO ; Start 01/26/19 at 21:00 Losartan Potassium (Cozaar) 25 mg DAILY PO Last administered on 01/26/19 08:33; Admin Dose 25 MG; Start 01/26/19 at 09:00 Non-Formulary Medication 1 dose BID WITH MEALS PO Last administered on 01/27/19 09:38; Admin Dose 1 DOSE; Start 01/26/19 at 07:50 Non-Formulary Medication 1 dose BID WITH MEALS PO Last administered on 01/27/19 09:39; Admin Dose 1 DOSE; Start 01/26/19 at 07:50; Stop 02/07/19 at 07:49 Dextrose/Sodium Chloride 1,000 ml @ 50 mls/hr Q20H IV Last administered on 01/26/19 22:08; Admin Dose 50 MLS/HR; Start 01/26/19 at 20:00 Ondansetron HCl (Zofran Inj) 4 mg Q4H PRN IV NAUSEA AND/OR VOMITING; Start 01/26/19 at 20:00 Ketorolac Tromethamine (Toradol) 15 mg Q6H PRN IV PAIN Last administered on 01/27/19 07:43; Admin Dose 15 MG; Start 01/27/19 at 07:00; Stop 01/30/19 at 06:59 Lorazepam (Ativan) 0.5 mg ONCE ONCE PO ; Start 01/27/19 at 12:00; Stop 01/27/19 at 12:01; Status OLIVIA SCHULTZ MD Jan 27, 2019 11:39
[2019-01-27] MEDS ORDERED: LORAZEPAM 1 MG TAB PO ONE ×2 (12:00→23:02)
[2019-01-27] MEDS ORDERED: LORAZEPAM 0.5 MG TAB PO ONE (12:00)
[2019-01-27] MEDS: DEXTROSE 5%-0.45% NACL 1,000 ML IV SCH (16:46)
[2019-01-27 20:04] VITALS: BP 127/83; PULSE 80; RESP 18
[2019-01-27] MEDS: METOPROLOL (XL) 25 MG TAB PO SCH (20:47)
--- NOTE | 2019-01-27 21:29 | CONS ---
DATE OF ADMISSION: 01/27/2019 DATE OF CONSULTATION: 01/27/2019 TYPE OF CONSULTATION: Gastroenterology. From Dr. Tree Machuca to Dr. Leilani Vides. Dear Dr. Vides: Thank you for asking me to evaluate your patient. HISTORY OF PRESENT ILLNESS: The patient is a 58-year-old female with a history of breast cancer with mets to the brain, on oral chemotherapeutic agent, has been complaining of nausea, vomiting and poor appetite for the last 1 month. She had a CAT scan of the head done which was unchanged. She denies of any GI bleeding, no chest pain, no shortness of breath, no fever, no chills, no or [employer] problem . PAST MEDICAL HISTORY: Breast cancer with mets to the brain, history of hypertension. Also, history of hypokalemia. SOCIAL HISTORY: Does not smoke or drink. MEDICATIONS: All the medications reviewed. She was on: 1. Reglan. 2. Prilosec. 3. Metoprolol. 4. Xeloda. PHYSICAL EXAMINATION: GENERAL: Moderately built, nourished, not in distress. VITAL SIGNS: Stable. HEENT: Unremarkable. NECK: Supple, no thyromegaly, no lymphadenopathy. CARDIOVASCULAR: No murmur, gallop or click. LUNGS: Clear. ABDOMEN: Benign. EXTREMITIES: No edema. CENTRAL NERVOUS SYSTEM: Grossly within normal limits. LABORATORY DATA: Hematocrit is 34. WBC is 3.8, platelet is normal. CMP is also grossly within norm al limits. INR is 1.27. Abdominal x-ray was nonspecific. MEDICATIONS: All reviewed. She is on: 1. Toradol. 2. Toprol. 3. Pepcid. 4. Cozaar. 5. Reglan. IMPRESSION: 1. Nausea, vomiting. Etiology is unclear at this point. Could be related to gastroparesis, peptic ulcer disease or gastritis. Secondary possible mets to the brain, possible chemotherapeutic agent. 2. Anorexia. 3. Hypertension. PLAN: To continue Reglan, PPI. We will start her on Megace to stimulate her appetite and if the sym ptoms persist, then we will proceed with EGD. Dictated By: TREE BENJAMIN/SERINA Conf#: [id number] DID#: [id number] CC: TREE MACHUCA MD; LEILANI VIDES; KATARZYNA HUMPHREY MD;*End*
[2019-01-28 02:37] VITALS: BP 105/68; PULSE 72; RESP 18
[2019-01-28 07:23] VITALS: BP 114/71; PULSE 74; RESP 16
[2019-01-28] MEDS: SPECIAL NON-STANDARD MEDICATION (CHEMO) PO SCH ×2 (07:50→08:54)
[2019-01-28] MEDS: LOSARTAN 25 MG TAB PO SCH (08:53)
[2019-01-28] MEDS: METOCLOPRAMIDE 10 MG TAB PO SCH ×2 (08:53→12:20)
[2019-01-28] MEDS: FAMOTIDINE 20 MG TAB GTB SCH (08:53)
[2019-01-28] MEDS: KETOROLAC 15 MG INJ IV PRN (12:20)
[2019-01-28] MEDS: DEXTROSE 5%-0.45% NACL 1,000 ML IV SCH (12:25)
[2019-01-28] MEDS ORDERED: HEPARIN (100 UNITS/ML) 5 ML SYG CATHETER ONE (12:30)
--- NOTE | 2019-01-28 16:27 | DS ---
DATE OF ADMISSION: 01/27/2019 DATE OF DISCHARGE: 01/28/2019 ADDENDUM The patient's discharge summary was dictated on 01/26/2019, however, please refer to the old discharg e summary. Discharge was held as the patient was again nauseous and had episode of vomiting. HOSPITAL COURSE: The patient was seen by GI consultation, was kept on Reglan and Zofran. Case was d iscussed with Dr. Hassan and Dr. Machuca. The patient had a repeat MRI, which was done and that show ed mets in the brain, where they were unchanged. There were no new intracranial mets. Per Dr. Wagner ck, the patient would not qualify for any new radiation. The patient was advanced diet again and was able to tolerate it; however, patient was suggested to have an endoscopy. The patient was very anxi ous to go home. I spoke to the daughter at the bedside. They would like to proceed with endoscopy a s an outpatient. DISCHARGE MEDICATIONS: New medication was [place] 1 tab p.o. q.4h. p.r.n. pain. Dictated By: OLIVIA LEMOS/SERINA Conf#: [id number] DID#: [id number] CC: KATARZYNA HUMPHREY MD;*End*
== END 2019-01-28 13:49 | disposition home or self-care (01) | DRG 55 ==
LOC: E/R 20:07 → MS1 01-26 00:23 → OBSVTOIN 01-27 11:02
PROVIDERS: ADMIT Internal Medicine Nephrology; ATTEND Internal Medicine Nephrology
DX: C79.31 Secondary malignant neoplasm of brain (principal); R51 Headache; C50.911 Malignant neoplasm of unspecified site of right female breast; R11.2 Nausea with vomiting, unspecified; R73.03 Prediabetes; E87.6 Hypokalemia; I10 Essential (primary) hypertension; Z79.899 Other long term (current) drug therapy
CPT/HCPCS: 36415; 70450; 70553; 74018; 80048; 80053; 82962; 83690; 85025; 85610; 85730; 93005; 96374; 96375; G0378; J1170; J1200; J1642; J1885; J2765; J3475; J3480; J7030; J7042

== ENCOUNTER 2019-02-01 13:45 | Emergency (ER) | payer BC ==
[~2019-02-01] VITALS: Ht 149.9 cm; Wt 53.3 kg
[~2019-02-01 13:45] MED LIST changes: +ONDA4VIA6 IV
[2019-02-01 13:59] VITALS: Ht 149.9 cm; Wt 53.3 kg
--- NOTE | 2019-02-01 14:21 | ERD ---
ER Documentation Chief Complaint Chief Complaint BREAST CANCER ON CHEMO. N/V HPI The patient is a 58-year-old female, presenting to the ER because of acute on chronic vomiting since she is on chemotherapy for 3 years/diarrhea intermi ttently/lower back pain for the last 5 days, hematemesis/hematochezia. She was discharged showed 5 days ago for similar symptoms. She was evaluated by GI and treated with medication to increase appetite and possible EGD in the near future. She denies fever, chills, neck pain, chest pain, dyspnea, dysuria. She does not smoke nor drink Past medical history: Metastatic right breast CA, hypertension Past surgical history: Right mastectomy, Port-A-Cath ROS All systems reviewed and are negative except as per history of present illness. Medications Home Meds Active Scripts Pantoprazole* (Protonix*) 40 Mg Tablet., 40 MG PO DAILY, #10 TAB Prov:ANDRES DICKEY MD 02/01/19 Prochlorperazine* (Prochlorperazine*) 5 Mg Tablet, 5 MG PO Q4H PRN for NAUSEA, #10 TAB Prov:ANDRES DICKEY MD 02/01/19 Hydrocodone/Acetaminophen ([place] 10-325 Tablet) 1 Each Tablet, 1 TAB PO Q6H PRN for PAIN, #7 TAB Prov:DANNY BRANCH MD 11/10/18 Reported Medications Acetaminophen* (Acetaminophen*) 500 MG Extra Strength Tablet, 500 MG PO Q4H PRN for PAIN AND OR ELEVATED TEMP, TAB 02/01/19 Ondansetron Hcl* (Ondansetron Hcl*) 8 Mg Tablet, 1 TAB ORAL TID 02/01/19 Metoclopramide Hcl* (Metoclopramide Hcl*) 10 Mg Tablet, 1 TAB ORAL QID 02/01/19 Omeprazole* (Omeprazole*) 20 Mg Capsule.dr, 20 MG PO DAILY, #30 CAP 01/01/19 Lapatinib (Tykerb) 250 Mg Tab, 250 MG PO TID, TAB 01/01/19 Capecitabine* (Xeloda*) 500 Mg Tablet, 1000 MG PO BID, TBS STOP FOR 7 DAYS, START DAY 11/12/18 11/10/18 Metoprolol Succinate* (Toprol XL*) 25 Mg Tab.sr.24h, 25 MG PO QHS, #30 TAB 11/10/18 Discontinued Reported Medications Ibuprofen* (Ibuprofen*) 600 Mg Tablet, 600 MG PO Q6H for PAIN for 10 Days, #30 12/31/18 Trazodone Hcl* (Desyrel*) 50 Mg Tab, 50 MG PO QHS for 30 Days, #30 12/31/18 Discontinued Scripts Ondansetron Hcl* (Ondansetron Hcl* Inj) 4 Mg/2 Ml Vial, 4 MG IV .BRIDGE ORDER PRN for NAUSEA/VOMITING for 14 Days, VIAL Prov:OLIVIA VIDES MD 01/26/19 Potassium Chloride (Klor-Con M20) 20 Meq Tab.prt.sr, 20 MEQ PO DAILY for 10 Days Prov:CORINA TIERNEY 01/03/19 Allergies Allergies: Coded Allergies: morphine (Verified Allergy, Unknown, 02/01/19) PMhx/Soc History of Surgery: Yes (MASTECTOMY) Anesthesia Reaction: No Hx Neurological Disorder: Yes (METS TO THE BRAIN) Hx Respiratory Disorders: No Hx Cardiac Disorders: No Hx Psychiatric Problems: No Hx Alcohol Use: No Hx Substance Use: No Hx Tobacco Use: No Physical Exam Vitals Vital Signs Date Temp Pulse Resp B/P (MAP) Pulse Ox O2 O2 Flow FiO2 Time Delivery Rate 02/01/19 96 20 133/90 99 Room Air 16:02 (104) 02/01/19 98.4 117 26 149/81 98 13:59 (103) Physical Exam Const: No acute distress. Head: Atraumatic. Eyes: Normal Conjunctiva. ENT: Normal External Ears, Nose and Mouth. Neck: Full range of motion. No meningismus. Resp: Clear to auscultation bilaterally. Cardio: Regular tachycardic Abd: Soft, non distended, normal bowel sounds, non tender. Skin: No petechiae or rashes. Back: Mild lumbar tenderness. Ext: No cyanosis, or edema. Neur: Awake and alert. No focal deficit Psych: Normal Mood and Affect. Result Diagram: 02/01/19 1515 02/01/19 1515 Results 24 hrs Laboratory Tests Test 02/01/19 15:15 02/01/19 15:23 White Blood Count 4.0 10^3/ul Red Blood Count 3.81 10^6/ul Hemoglobin 13.1 g/dl Hematocrit 37.9 % Mean Corpuscular Volume 99.5 fl Mean Corpuscular Hemoglobin 34.4 pg Mean Corpuscular Hemoglobin Concent 34.6 g/dl Red Cell Distribution Width 15.2 % Platelet Count 230 10^3/UL Mean Platelet Volume 8.6 fl Immature Granulocytes % 0.300 % Neutrophils % 75.3 % Lymphocytes % 16.3 % Monocytes % 7.5 % Eosinophils % 0.3 % Basophils % 0.3 % Nucleated Red Blood Cells % 0.0 /100WBC Immature Granulocytes # 0.010 10^3/ul Neutrophils # 3.0 10^3/ul Lymphocytes # 0.7 10^3/ul Monocytes # 0.3 10^3/ul Eosinophils # 0.0 10^3/ul Basophils # 0.0 10^3/ul Nucleated Red Blood Cells # 0.0 10^3/ul Sodium Level 134 mmol/L Potassium Level 3.6 mmol/L Chloride Level 102 mmol/L Carbon Dioxide Level 20 mmol/L Anion Gap 12 Blood Urea Nitrogen 10 mg/dl Creatinine 0.47 mg/dl Est Glomerular Filtrat Rate mL/min > 60 mL/min Glucose Level 81 mg/dl Calcium Level 8.7 mg/dl Total Bilirubin 0.7 mg/dl Direct Bilirubin 0.00 mg/dl Indirect Bilirubin 0.7 mg/dl Aspartate Amino Transf (AST/SGOT) 31 IU/L Alanine Aminotransferase (ALT/SGPT) 34 IU/L Alkaline Phosphatase 62 IU/L Total Protein 5.6 g/dl Albumin 3.0 g/dl Globulin 2.60 g/dl Albumin/Globulin Ratio 1.15 Lipase 54 U/L Bedside Urine pH (LAB) 5.5 Bedside Urine Protein (LAB) Negative Bedside Urine Glucose (UA) Negative Bedside Urine Ketones (LAB) 3+ Bedside Urine Blood 2+ Bedside Urine Nitrite (LAB) Negative Bedside Urine Leukocyte Esterase (L Negative Current Medications Medications Dose Sig/Chelsey Start Time Status Last (Trade) Ordered Route PRN Stop Time Admin Dose Reason Admin Ondansetron 4 mg ONCE STAT 02/01/19 DC 02/01/19 HCl (Zofran IV 14:35 02/01/19 15:37 Inj) 14:37 10 mg ONCE ONCE 02/01/19 DC 02/01/19 Metoclopramid IV 15:00 02/01/19 15:37 e HCl 15:01 (Reglan) Sodium 1,000 ml @ Q1H ONCE 02/01/19 DC 02/01/19 Chloride 1,000 mls/hr IV 18:00 02/01/19 17:50 18:45 Procedures/MDM [place] [address] Radiology Main Line: [phone] DIAGNOSTIC IMAGING REPORT Patient: CHANDLER HANSON : 1960 Age: 58 Sex: F MR #: [id number] DOS: 02/01/19 1437 Ordering MD: ANDRES DICKEY MD Location: E/R Room/Bed: PROCEDURE: CT L-Spine. CLINICAL INDICATION: Low back pain with history of metastatic breast cancer TECHNIQUE: A CT of the lumbar spine was performed on a GE 64-slice CT scanner utilizing high-resolution thin section axial images from the thoracic lumbar junction through the lumbar sacral junction. Sagittal and coronal and multiplanar reformatted images were made. DICOM images are available for review. The CTDIvol is 7.39 mGy and the DLP is 256.4 mGycm. One or more the following dose reduction techniques were utilized: Automated exposure control, adjustment of the mA/ or kV according to patient's size, or use of iterative reconstruction technique. COMPARISON: [facility] 01/01/2019 FINDINGS: Images lumbar spine demonstrate there is normal lordosis. Again seen is minimal retrolisthesis of L5-S1 measuring approximate 1 mm, stable. Vertebral body is uniform in height. No evidence of fracture seen. T12-L1: The disk is normal in height. The central canal and neural foramen are adequately patent. L1-2: The disk is normal in height. The central canal and neural foramen are adequately patent. L2-3: The disk is normal in height. There is mild bilateral facet arthropathy. The central canal and neural foramen are adequately patent. L3-4: The disk is normal in height. There is a 1 mm annular disc bulge with mild bilateral facet arthropathy. The central canal and neural foramen are adequately patent. L4-5: The disk is normal in height. There is approximate 2 mm annular disc bulge with bilateral facet arthropathy, worse on the left, stable. The central canal is patent however from extension disc osteophyte complex and facet arthropathy results in progressive mild right-sided neural foraminal narrowing where there is flattening of the exiting nerve root secondary to facet arthropathy. There is stable left-sided mild neural foraminal narrowing. L5-S1: The disk is normal in height. Again seen is a 2 mm annular disc bulge with mild bilateral facet arthropathy. Central canal is patent. There is minimal right neural foraminal narrowing, stable. IMPRESSION: CT lumbar spine demonstrates mild scattered degenerative disc disease. At L4-5 again seen is an annular disc bulge with left greater than right facet arthropathy. Since the previous exam there is flattening of the exiting right L4 nerve root secondary to increased ligamentum redundancy, progressed . Continued mild left-sided neural foraminal narrowing is seen. At L5-S1 minimal retrolisthesis with annular disc bulge is again visualized with minimal right neural foraminal narrowing, stable. RPTAT: [facility] Physician Sam Date Time Electronically viewed and signed by Physician Sam on 02/01/2019 16:00 RL/ CC: ANDRES DICKEY MD [id number] [place] [id number] Radiology Main Line: [phone] DIAGNOSTIC IMAGING REPORT Patient: CHANDLER HANSON : 1960 Age: 58 Sex: F MR #: [id number] [facility] #: [id number] DOS: 02/01/19 1437 Ordering MD: ANDRES DICKEY MD Location: E/R Room/Bed: PROCEDURE: CT thoracic spine CLINICAL INDICATION: Back pain with history of metastatic breast cancer. TECHNIQUE: A CT of the thoracic spine was performed on a multi-slice CT scanner utilizing high-resolution axial imaging from the cervical thoracic junction through the thoracolumbar junction. Sagittal, coronal, and multiplanar reformatted images were made. The CTDIvol is 9.6 mGy and the DLP is 323.67 mGycm. DICOM images are available. One or more of the following dose reduction techniques were utilized: 1.) Automated exposure control 2.) Adjustment of the mA +/- kV according to patient's size 3.) Use of iterative reconstruction technique. COMPARISON: CT LSPINE 01/01/2019; CT 12/31/2018; CT [facility] 09/15/2018 FINDINGS: No evidence of acute fracture of the thoracic spine. Vertebral body heights are maintained. Mild scoliosis. No vertebral body subluxation. Mild degenerative changes of the disc spaces with areas of calcification, minimal height loss, ventral endplate osteophyte formation. No evidence of disc herniation or significant central canal stenosis. No acute abnormality of the paravertebral soft tissues. Mild serpiginous lesion in the T11 vertebral body with thin sclerotic margins, and probable communication to the T11-T12 disc space, favored to represent an atypical Schmorl node/intervertebral disc herniation. Appearance is unchanged compared to prior exams dating back to 09/15/2018. No evidence of associated pathologic fracture. No aggressive appearing osseous features. IMPRESSION: No evidence of fracture of the thoracic spine. Lesion at T11 vertebral body is stable from 09/15/2018 favored to represent a large Schmorl's node with intervertebral disc herniation. Consider MRI for further evaluation, however there are no aggressive features by CT. Minimal degenerative disc disease without evidence of significant spinal stenosis. RPTAT: [facility] Physician Arben Date Time Electronically viewed and signed by Physician Arben on 02/01/2019 15:38 RF/ CC: ANDRES DICKEY MD [id number] MEDICAL MAKING DECISION: The patient is a 58-year-old female, presenting with acute on chronic vomiting, acute leukopenia. She was treated with 1 L normal saline for dehydration, Zofran IV and Reglan IV for vomiting with good response, is stable for outpatient follow-up. The differential diagnoses considered include but are not limited to chemotherapy, cholelithiasis, cholecystitis, choledocholithiasis, cholangitis, pancreatitis, hepatitis, gastritis, peptic ulcer disease, gastric ulcer, appendicitis, cystitis, diverticulitis, partial small bowel obstruction. Departure Diagnosis: Primary Impression: Vomiting Additional Impression: Leukopenia Condition: Good Comments She was discharged with Protonix, Compazine I discussed the findings with the patient. I advised the patient to follow-up with the primary physician in about 1-2 days and GI doctor, sooner if needed and return if any concern. Disclaimer: Inadvertent spelling and grammatical errors are likely due to EHR /dictation software use and do not reflect on the overall quality of patient care. Also, please note that the electronic time recorded on this note does not necessarily reflect the actual time of the patient encounter. ANDRES DICKEY MD Feb 01, 2019 14:21
[2019-02-01] MEDS ORDERED: ONDANSETRON 4 MG INJ IV STA (14:35)
[2019-02-01] MEDS ORDERED: ONDA8TAB83 ORAL (14:52)
[2019-02-01] MEDS ORDERED: METO10TA3 ORAL (14:52)
[2019-02-01] MEDS ORDERED: ACET-141 PO (14:52)
[2019-02-01] MEDS ORDERED: METOCLOPRAMIDE 10 MG INJ IV ONE (15:00)
[2019-02-01 16:02] VITALS: BP 133/90; PULSE 96; RESP 20
[2019-02-01] MEDS ORDERED: PROC5TAB9 PO (17:40)
[2019-02-01] MEDS ORDERED: PANT40TA3 PO (17:44)
[2019-02-01] MEDS ORDERED: SOD CHLORIDE 0.9% 1,000 ML IV ONE (18:00)
== END 2019-02-01 18:45 | disposition home or self-care (01) ==
LOC: E/R 13:45
DX: D72.819 Decreased white blood cell count, unspecified (principal); C79.81 Secondary malignant neoplasm of breast; I10 Essential (primary) hypertension
CPT/HCPCS: 72128; 72131; 80053; 81003; 83690; 85025; 96374; 96375; J2405; J2765; J7030; Z7502

== ENCOUNTER 2019-02-21 03:33 | Emergency (ER) | payer BC ==
[~2019-02-21] VITALS: Ht 149.9 cm; Wt 51.6 kg
[~2019-02-21 03:33] MED LIST changes: +ACET-141 PO; -HYDR25TA6 PO; -IBUP-1542 PO; -MEMA5TAB14 PO; +METO10TA3 ORAL; -NITR100C7 PO; -ONDA4VIA6 IV; +ONDA8TAB83 ORAL; +PANT40TA3 PO; -POTA20TA9 PO; +PROC5TAB9 PO; -TRAZ-149 PO
[2019-02-21] MEDS ORDERED: SOD CHLORIDE 0.9% 1,000 ML IV STA (03:42)
[2019-02-21] MEDS ORDERED: ONDANSETRON 4 MG INJ IV STA (03:42)
[2019-02-21 03:48] VITALS: Ht 149.9 cm; Wt 51.6 kg
--- NOTE | 2019-02-21 03:52 | ERD ---
ER Documentation Chief Complaint Chief Complaint states vomiting x 1 day. on oral chemo med HPI 58-year-old female with a history of metastatic breast cancer with brain metastasis who presents to the emergency room with nausea and vomiting. Patient has had recurrent episodes of nausea and vomiting for the past several months. She has GI follow-up in the next week. Patient reports persistent nonbloody nonbilious emesis. She also describes diffuse body pain that is 8 out of 10. She took a [place] prior to arrival. She denies any headache fevers or chills. ROS All systems reviewed and are negative except as per history of present illness. Medications Home Meds Active Scripts Ondansetron (Ondansetron Odt) 4 Mg Tab.rapdis, 4 MG PO Q6H PRN for NAUSEA AND/OR VOMITING, #30 TAB Prov:MARILEE REYNAGA MD 02/21/19 Pantoprazole* (Protonix*) 40 Mg Tablet., 40 MG PO DAILY, #10 TAB Prov:ANDRES DICKEY MD 02/01/19 Prochlorperazine* (Prochlorperazine*) 5 Mg Tablet, 5 MG PO Q4H PRN for NAUSEA, #10 TAB Prov:ANDRES DICKEY MD 02/01/19 Hydrocodone/Acetaminophen ([place] 10-325 Tablet) 1 Each Tablet, 1 TAB PO Q6H PRN for PAIN, #7 TAB Prov:DANNY BRANCH MD 11/10/18 Reported Medications Acetaminophen* (Acetaminophen*) 500 MG Extra Strength Tablet, 500 MG PO Q4H PRN for PAIN AND OR ELEVATED TEMP, TAB 02/01/19 Ondansetron Hcl* (Ondansetron Hcl*) 8 Mg Tablet, 1 TAB ORAL TID 02/01/19 Metoclopramide Hcl* (Metoclopramide Hcl*) 10 Mg Tablet, 1 TAB ORAL QID 02/01/19 Omeprazole* (Omeprazole*) 20 Mg Capsule.dr, 20 MG PO DAILY, #30 CAP 01/01/19 Lapatinib (Tykerb) 250 Mg Tab, 250 MG PO TID, TAB 01/01/19 Capecitabine* (Xeloda*) 500 Mg Tablet, 1000 MG PO BID, TBS STOP FOR 7 DAYS, START DAY 11/12/18 11/10/18 Metoprolol Succinate* (Toprol XL*) 25 Mg Tab.sr.24h, 25 MG PO QHS, #30 TAB 11/10/18 Allergies Allergies: Coded Allergies: morphine (Verified Allergy, Unknown, 02/01/19) PMhx/Soc History of Surgery: Yes (R MASTECTOMY) Anesthesia Reaction: No Hx Neurological Disorder: Yes (METS TO THE BRAIN) Hx Respiratory Disorders: No Hx Cardiac Disorders: No Hx Psychiatric Problems: No Hx Alcohol Use: No Hx Substance Use: No Hx Tobacco Use: No FmHx Family History: No diabetes Physical Exam Vitals Vital Signs Date Temp Pulse Resp B/P (MAP) Pulse Ox O2 O2 Flow FiO2 Time Delivery Rate 02/21/19 72 20 130/93 100 Room Air 04:12 (105) 02/21/19 97.6 104 20 117/74 100 03:37 (88) Physical Exam General: Well developed, well nourished, no acute distress Head: Normocephalic, atraumatic. Eyes: Pupils equally reactive, EOM intact ENT: Slightly dry mucous membranes Neck: Supple, no lymphadenopathy Respiratory: Lungs clear bilaterally, no distress Cardiovascular: RRR, no murmurs, rubs, or gallops Abdominal: Soft, non-tender, non-distended, no peritoneal signs : Deferred MSK: No edema, no unilateral swelling, 5/5 strength Neurologic: Alert and oriented, moving all extremities, normal speech, no focal weakness, no cerebellar signs Skin: No rash Psych: Normal mood Result Diagram: 02/21/19 0352 02/21/19 0352 Results 24 hrs Laboratory Tests Test 02/21/19 03:52 White Blood Count 6.6 10^3/ul Red Blood Count 4.38 10^6/ul Hemoglobin 15.0 g/dl Hematocrit 43.3 % Mean Corpuscular Volume 98.9 fl Mean Corpuscular Hemoglobin 34.2 pg Mean Corpuscular Hemoglobin Concent 34.6 g/dl Red Cell Distribution Width 16.0 % Platelet Count 213 10^3/UL Mean Platelet Volume 8.5 fl Immature Granulocytes % 0.300 % Neutrophils % 57.9 % Lymphocytes % 33.7 % Monocytes % 7.6 % Eosinophils % 0.2 % Basophils % 0.3 % Nucleated Red Blood Cells % 0.0 /100WBC Immature Granulocytes # 0.020 10^3/ul Neutrophils # 3.8 10^3/ul Lymphocytes # 2.2 10^3/ul Monocytes # 0.5 10^3/ul Eosinophils # 0.0 10^3/ul Basophils # 0.0 10^3/ul Nucleated Red Blood Cells # 0.0 10^3/ul Sodium Level 135 mmol/L Potassium Level 3.0 mmol/L Chloride Level 100 mmol/L Carbon Dioxide Level 24 mmol/L Anion Gap 11 Blood Urea Nitrogen 13 mg/dl Creatinine 0.54 mg/dl Est Glomerular Filtrat Rate mL/min > 60 mL/min Glucose Level 113 mg/dl Calcium Level 9.7 mg/dl Current Medications Medications Dose Sig/Chelsey Start Time Status Last (Trade) Ordered Route PRN Stop Time Admin Dose Reason Admin Sodium 1,000 ml @ Q1H STAT 02/21/19 DC 02/21/19 Chloride 1,000 mls/hr IV 03:42 04:11 02/21/19 04:41 Ondansetron 4 mg ONCE STAT 02/21/19 DC 02/21/19 HCl (Zofran IV 03:42 04:08 Inj) 02/21/19 03:43 Potassium 20 meq ONCE ONCE 02/21/19 DC Chloride PO 04:42 (Klor-Con 20) 02/21/19 04:44 Procedures/MDM LAB INTERPRETATION: I reviewed the laboratory testing and it shows slight hypokalemia MEDICAL DECISION MAKING: Symptoms are likely consistent with acute exacerbation of chronic nausea and vomiting in the setting of metastatic breast cancer. No signs or symptoms concerning for worsening intracranial process mets or bleeding. No indication for CT imaging of the brain. This appears to be an exacerbation of a chronic issue. Patient will benefit from hydration and symptom control. If symptoms cannot be controlled inpatient hospitalization may be necessary. No signs or symptoms concerning for infectious etiology. ER COURSE: * Patient treated with IV fluids and nausea medication. Potassium replaced orally. The patient is feeling much better and would like to go home. This is reasonable. No indication for hospitalization. CONSULTATION: None DISPOSITION PLAN: The patient does not have an identifiable emergent medical condition that warrants inpatient hospitalization at this time. The patient is deemed safe for discharge with outpatient follow-up. We discussed follow up with the patient's primary care doctor within 24 to 48 hours as needed. We also discussed return to the emergency room for worsening symptoms or worsening condition. Outpatient referral: None required Discharge Medications: Zofran Departure Diagnosis: Primary Impression: Nausea and vomiting Vomiting type: unspecified Vomiting Intractability: unspecified Qualified Codes: R11.2 - Nausea with vomiting, unspecified Additional Impression: Hypokalemia Condition: Stable MARILEE REYNAGA MD Feb 21, 2019 03:52
[2019-02-21] MEDS ORDERED: POTASSIUM CHLORIDE (SR) 20 MEQ TAB PO ONE (04:42)
[2019-02-21] MEDS ORDERED: ONDA4TAB14 PO (04:47)
[2019-02-21 05:41] VITALS: BP 130/84; PULSE 63; RESP 17
== END 2019-02-21 05:42 | disposition home or self-care (01) ==
LOC: E/R 03:33
DX: E87.6 Hypokalemia (principal); C79.31 Secondary malignant neoplasm of brain; C50.911 Malignant neoplasm of unspecified site of right female breast
CPT/HCPCS: 80048; 85025; J2405; J7030; Z7610; 36415; 96374

== ENCOUNTER 2019-02-22 11:35 | Inpatient (IN) | payer BC ==
[~2019-02-22] VITALS: Ht 149.9 cm; Wt 51.4 kg
[~2019-02-22 11:35] MED LIST changes: +ONDA4TAB14 PO
[2019-02-22 11:38] VITALS: Ht 149.9 cm; Wt 51.4 kg
[2019-02-22] MEDS ORDERED: DIPHENHYDRAMINE 50 MG INJ IV STA (12:21)
[2019-02-22] MEDS ORDERED: SOD CHLORIDE 0.9% 1,000 ML IV STA (12:21)
[2019-02-22] MEDS ORDERED: METOCLOPRAMIDE 10 MG INJ IV STA (12:21)
[2019-02-22] MEDS ORDERED: ACETAMINOPHEN 325 MG TAB PO STA (12:21)
[2019-02-22] MEDS ORDERED: POTASSIUM CHLORIDE (SR) 20 MEQ TAB PO STA (13:17)
--- NOTE | 2019-02-22 13:29 | ERD ---
ER Documentation Chief Complaint Chief Complaint HEADACHE X 1 DAY WITH N/V. CURRENTLY RECEIVING CHEMO. 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 The patient was actually in the emergency department yesterday for nausea and vomiting. The patient was found to be mildly hypokalemic and was given a dose of potassium. The patient was treated for her nausea and did feel better. The patient reports that she did not have a headache yesterday when she presented. When she woke up this morning, she started to feel a throbbing pulsating occipital headache with recurrent nausea. The patient's headache has been getting progressively worse throughout the day, but it was not thunderclap in onset. The patient is alert, but she does seem slightly confused. The patient's family reports that she does appear more confused today than is typical for her. They are concerned about progression of illness. The patient does not endorse any focal deficits at this time. She does not endorse any weakness or numbness or tingling to the face or extremities. She does not have a facial droop. She is not dysarthric or aphasic. She does not endorse photophobia or phonophobia. She does not endorse double or blurry vision. She does not endorse any neck stiffness or pain. The patient's last CT scan was approximately 1 month ago. It demonstrated multiple scattered hypodense foci in the brain parenchyma, consistent with metastatic disease, unchanged from a CT of the head 1 month prior from this study. The patient denies feeling sick recently. The patient denies fever or chills. The patient does not endorse back pain. The patient denies lightheadedness or dizziness. The patient has had no chest pain or trouble breathing. The patient denies abdominal pain. The patient denies changes to bowel movements or urination. ROS All systems reviewed and are negative except as per history of present illness. Medications Home Meds Active Scripts Hydrocodone/Acetaminophen ([place] 10-325 Tablet) 1 Each Tablet, 1 TAB PO Q6H PRN for PAIN, #7 TAB Prov:DANNY BRANCH MD 11/10/18 Reported Medications Acetaminophen* (Acetaminophen*) 500 MG Extra Strength Tablet, 500 MG PO Q4H PRN for PAIN AND OR ELEVATED TEMP, TAB 02/01/19 Ondansetron Hcl* (Ondansetron Hcl*) 8 Mg Tablet, 1 TAB ORAL TID 02/01/19 Metoclopramide Hcl* (Metoclopramide Hcl*) 10 Mg Tablet, 1 TAB ORAL QID 02/01/19 Omeprazole* (Omeprazole*) 20 Mg Capsule.dr, 20 MG PO DAILY, #30 CAP 01/01/19 Lapatinib (Tykerb) 250 Mg Tab, 250 MG PO TID, TAB 01/01/19 Capecitabine* (Xeloda*) 500 Mg Tablet, 1000 MG PO BID, TBS STOP FOR 7 DAYS, START DAY 11/12/18 11/10/18 Metoprolol Succinate* (Toprol XL*) 25 Mg Tab.sr.24h, 25 MG PO QHS, #30 TAB 11/10/18 Discontinued Scripts Ondansetron (Ondansetron Odt) 4 Mg Tab.rapdis, 4 MG PO Q6H PRN for NAUSEA AND/OR VOMITING, #30 TAB Prov:MARILEE REYNAGA MD 02/21/19 Pantoprazole* (Protonix*) 40 Mg Tablet.dr, 40 MG PO DAILY, #10 TAB Prov:ANDRES DICKEY MD 02/01/19 Prochlorperazine* (Prochlorperazine*) 5 Mg Tablet, 5 MG PO Q4H PRN for NAUSEA, #10 TAB Prov:ANDRES DICKEY MD 02/01/19 Allergies Allergies: Coded Allergies: morphine (Verified Allergy, Unknown, 02/22/19) PMhx/Soc History of Surgery: Yes (R MASTECTOMY) Anesthesia Reaction: No Hx Neurological Disorder: Yes (METS TO THE BRAIN) Hx Respiratory Disorders: No Hx Cardiac Disorders: Yes (HTN not on med anymore) Hx Psychiatric Problems: No Hx Alcohol Use: No Hx Substance Use: No Hx Tobacco Use: No Smoking Status: Never smoker FmHx Family History: No diabetes Physical Exam Vitals Vital Signs Date Temp Pulse Resp B/P (MAP) Pulse Ox O2 O2 Flow FiO2 Time Delivery Rate 02/22/19 96.4 80 20 105/71 100 11:38 (82) Physical Exam Const: No apparent distress, well-developed, well-nourished Head: Normocephalic, Atraumatic Eyes: Normal Conjunctiva. Extraocular movements intact. Pupils equal, round and reactive to light ENT: Normal External Ears, Nose and Mouth. Neck: Full range of motion. No meningismus. Resp: Clear to auscultation bilaterally, No wheezes, rales or rhonchi Cardio: Regular rate and rhythm. No murmurs, rubs or gallops Abd: Soft, non tender, non distended. Normal bowel sounds Skin: No petechiae or rashes Back: No midline tenderness. No CVA tenderness Ext: No cyanosis, or edema Neur: Awake and alert. Oriented x1. Very confused. Cranial nerves intact. No facial droop. No obvious focal deficits. Normal strength and sensation. Result Diagram: 02/22/19 1251 02/22/19 1251 Results 24 hrs Laboratory Tests Test 02/22/19 12:51 White Blood Count 7.4 10^3/ul Red Blood Count 3.94 10^6/ul Hemoglobin 13.9 g/dl Hematocrit 39.4 % Mean Corpuscular Volume 100.0 fl Mean Corpuscular Hemoglobin 35.3 pg Mean Corpuscular Hemoglobin Concent 35.3 g/dl Red Cell Distribution Width 16.2 % Platelet Count 190 10^3/UL Mean Platelet Volume 8.6 fl Immature Granulocytes % 1.200 % Neutrophils % 87.4 % Lymphocytes % 7.0 % Monocytes % 4.3 % Eosinophils % 0.0 % Basophils % 0.1 % Nucleated Red Blood Cells % 0.0 /100WBC Immature Granulocytes # 0.090 10^3/ul Neutrophils # 6.5 10^3/ul Lymphocytes # 0.5 10^3/ul Monocytes # 0.3 10^3/ul Eosinophils # 0.0 10^3/ul Basophils # 0.0 10^3/ul Nucleated Red Blood Cells # 0.0 10^3/ul Prothrombin Time 12.5 Sec Prothrombin Time Ratio 1.0 INR International Normalized Ratio 0.92 Activated Partial Thromboplast Time 22.2 Sec Sodium Level 135 mmol/L Potassium Level 3.0 mmol/L Chloride Level 103 mmol/L Carbon Dioxide Level 21 mmol/L Anion Gap 11 Blood Urea Nitrogen 10 mg/dl Creatinine 0.44 mg/dl Est Glomerular Filtrat Rate mL/min > 60 mL/min Glucose Level 111 mg/dl Calcium Level 9.0 mg/dl Current Medications Medications Dose Sig/Chelsey Start Time Status Last (Trade) Ordered Route PRN Stop Time Admin Dose Reason Admin Sodium 1,000 ml @ Q1H STAT 02/22/19 DC 02/22/19 Chloride 1,000 mls/hr IV 12:21 13:26 02/22/19 13:20 650 mg ONCE STAT 02/22/19 DC 02/22/19 Acetaminophen PO 12:21 13:27 (Tylenol 02/22/19 12:25 Tab) 10 mg ONCE STAT 02/22/19 DC 02/22/19 Metoclopramid IV 12:21 13:26 e HCl 02/22/19 12:25 (Reglan) 25 mg ONCE STAT 02/22/19 DC 02/22/19 Diphenhydrami IV 12:21 13:26 ne HCl 02/22/19 12:25 (Benadryl) Potassium 80 meq ONCE STAT 02/22/19 DC 02/22/19 Chloride PO 13:17 13:32 (Klor-Con 20) 02/22/19 13:25 10 mg ONCE ONCE 02/22/19 DC 02/22/19 Dexamethasone IV 13:30 14:02 (Decadron) 02/22/19 13:47 Procedures/MDM MDM The patient's presentation warrants further investigation. Previous medical records, if available, were reviewed. LABS The patient's laboratory testing was obtained and reviewed. No emergent jeremy atment was required unless described below. CBC: No E/o systemic infection or severe anemia or thrombocytopenia Chemistry: Hypokalemia which will be treated in the ER. No E/o severe acidosis or alkalosis or renal failure or diabetic ketoacidosis PT/INR: No E/o significant coagulopathy Urinalysis: Pending IMAGING Imaging and Radiology interpretation reviewed. CT Head FINDINGS: No acute intracranial hemorrhage is identified. No extra-axial fluid collection is seen. No significant mass effect or midline shift is identified. The ventricles and sulci are mildly enlarged compatible with volume loss. Small areas of hypodensity are identified at the inferior right and superior right frontal lobes, and left temporal - parietal lobe. There are mild areas of hypodensity in the periventricular - deep white matter which are nonspecific but suggestive of chronic small vessel ischemic changes. Mcduffie-white junctions otherwise appear preserved. Atherosclerotic calcifications of the intracranial internal carotid arteries are noted. Calvarium and skull base are intact. Left greater than right mastoid air cell opacification is seen. IMPRESSION: 1. No acute intracranial pathology identified. 2. Small areas of hypodensity in the right frontal lobe, and left temporal - parietal region in areas of metastases described on prior MRI of the brain. Continued follow up with contrast-enhanced MRI of the brain is advised. 3. Mild volume loss, with mild chronic small vessel ischemic changes. Electronically viewed and signed by .Ramírez Mercer MD, MD on 02/22/2019 13:27 TREATMENT/DISPOSITION The patient presents for recurrent headache with nausea and vomiting. These symptoms are chronic and ongoing for the patient secondary to metastatic breast cancer to the brain. The patient's family endorses worsening confusion. When I spoke to the patient's oncologist, Dr. Tyler, he reports that this is actually typical of the patient's presentation. However, given the patient's persistent confusion, I am concerned about encephalopathy related potentially to the progression of her disease. I do not feel the patient is safe for discharge at this time and requires further management for her encephalopathy. The patient CT does not reveal any new lesions. The patient did have a relatively recent MRI. The decision to repeat her MRI will be deferred to the admitting team and her oncologist. The patient was given IV fluids, Toradol, Tylenol, Reglan, Benadryl and Decadron in the emergency department with improvement of her headache. I suspect that the patient's recurrent headache is related to her metastatic disease. Differential diagnosis also includes migraine, tension headache, cluster headache, which can be managed in an outpatient setting. The patient has no focal deficits. The neurologic exam is reassuring. I have decreased suspicion for cerebral ischemia. There was no trauma or injury. There is no personal or family history of cerebral aneurysm. This is not the worst headache of the patient's life. It was not acutely severe. It is been progressive in nature. I have decreased suspicion for SAH or other ICH. I have low suspicion for temporal arteritis, cavernous venous thrombosis, subdural hematoma, epidural hematoma, meningitis. Urinalysis was sent off to evaluate for possible infectious etiology. The patient does not appear systemically ill. She is not septic and does not require a septic work-up. I have decreased suspicion for an infectious etiology and did not treat with antibiotics in the emergency department. The patient's hypokalemia was again treated in the emergency department. A prescription was provided for potassium supplementation. ADMISSION At this time, I feel that the patient requires admission for further evaluation and management. The patient will be admitted to Dr. Longoria in accordance with the patient's insurance. The patient was accepted to med surg at 1440PM on February 22, 2019. DISCLAIMER Inadvertent spelling and grammatical errors are likely due to EHR/dictation software use and do not reflect on the overall quality of patient care. Note that the electronic time recorded on this note does not necessarily reflect the actual time of the patient encounter. Departure Diagnosis: Primary Impression: Encephalopathy Additional Impressions: Chronic headache Headache type: unspecified Intractability: not intractable Qualified Codes: R51 - Headache Nausea & vomiting Vomiting type: unspecified Vomiting Intractability: non-intractable Qualified Codes: R11.2 - Nausea with vomiting, unspecified Hypokalemia Metastatic cancer to brain Condition: Serious VAL SHI MD Feb 22, 2019 13:25
[2019-02-22] MEDS ORDERED: DEXAMETHASONE 10 MG/ML 1 ML INJ IV ONE (13:30)
[2019-02-22] MEDS ORDERED: ACETAMINOPHEN 325 MG TAB PO PRN (15:00)
[2019-02-22] MEDS ORDERED: ONDANSETRON 4 MG INJ IV PRN ×2 (15:00→16:00)
--- NOTE | 2019-02-22 15:52 | QN ---
Documentation Comment pt seen and examined OLIVIA VIDES MD Feb 22, 2019 15:52
[2019-02-22] MEDS ORDERED: NACL 0.9% 3 ML SYG IV SCH (16:00)
[2019-02-22] MEDS ORDERED: MAGNESIUM HYDROXIDE 30ML CUP PO PRN (16:00)
[2019-02-22 17:53] VITALS: BP 147/83; PULSE 60; RESP 18
[2019-02-22] MEDS: DEXTROSE 5%-0.45% NACL 1,000 ML IV SCH (17:55)
[2019-02-22] MEDS: KETOROLAC 30 MG INJ IV PRN (18:19)
[2019-02-22] MEDS ORDERED: METOCLOPRAMIDE 10 MG INJ IV PRN (18:30)
[2019-02-22 19:45] VITALS: BP 136/92; PULSE 82; RESP 16
--- NOTE | 2019-02-22 21:08 | HP ---
DATE OF ADMISSION: 02/22/2019 REASON FOR ADMISSION: Headache and altered level of consciousness. HISTORY OF PRESENT ILLNESS: This is a 58-year-old female with a past medical history of right breast cancer with brain mets, status post right mastectomy, hypertension, with multiple admissions in the past secondary to headache and nausea, presented to the emergency department after being brought by t he family secondary to worsening headaches. I spoke to the [id number] currently, as the patient is very altered. Patient has a history of breast cancer and is being followed by Dr. Colunga as an outpatient and also had been seen by Dr. Hassan for radiation. Her radiation had finished. Last MRI of the head done in 01/2019 showed no evidence of disease, so patient was not treated with radia tion after that. Patient has been followed by Dr. Colunga as an outpatient and is currently 2 hua mo meds. According to the family, she has been intermittently having on and off headaches. She came to the ER yesterday with headache and be discharged home. Today she complained of headache in the m orning. They gave her 2 doses of [place] then brought her to the emergency department. When she came into the ER a repeat CT of the head was done which was unchanged; however, patient also received [place] dryl and Reglan and patient became increasingly confused, as per the [id number], and we were con sulted for admission. PAST MEDICAL HISTORY: 1. History of right breast cancer, status post mastectomy with brain metastasis, status post whole b rain radiation. 2. Hypertension. 3. History of delirium. 4. Prediabetes. 5. Port-A-Cath placement. 6. History of hyponatremia secondary to SIADH. ALLERGIES: MORPHINE. MEDICATIONS: Taking at home: 1. Reglan. 2. Zofran. 3. Metoprolol, had not been taking. 4. ____ 250 mg p.o. t.i.d. 5. Xeloda. 6. [place] p.r.n. SOCIAL HISTORY: No history of smoking, alcohol or any drug use. Lives with family at home. PAST SURGICAL HISTORY: Significant for Port-A-Cath placement, right mastectomy. REVIEW OF SYSTEMS: Currently unobtainable. According to the lvzeloxs-me-lhf, the patient has been f eeling very weak, has not been eating, poor appetite for the last 1 to 2 months and has lost a lot of weight. The patient has lower extremity weakness and numbness, had an MRI of the lumbar spine at an outside hospital. PHYSICAL EXAMINATION: VITAL SIGNS: Currently, the patient has blood pressure 127/78, temperature 97.8, pulse 103, saturati ng 99%. GENERAL: The patient seems very agitated, confused, trying to get out of the bed, looks at us, tries to follow commands. HEENT: Normocephalic, atraumatic. Alopecia. NECK: Supple. HEART: Regular rate and rhythm. LUNGS: Clear to auscultate bilaterally. ABDOMEN: Soft, nontender, nondistended, positive normoactive bowel sounds. EXTREMITIES: No clubbing, cyanosis, or edema. NEUROLOGIC: Patient is awake and alert, curl toward side of the bed, tries to answer some questions, very agitated, tremulous, trying to remove all her clothes. Cranial nerve exam is limited. Sensory exam is somewhat limited. Reflexes 2+. LABORATORY DATA: Showed white count of 7.4, hemoglobin 13.9, platelet count 190. Potassium 3.0, BUN of 10, creatinine 0.44. CT of the head: No acute intracranial pathology, small area of hypodensity of the right frontal lobe, left temporoparietal lobe area of mets described on previous MRI, mild vo lume loss. ASSESSMENT AND PLAN: This is a 58-year-old female who presented with: 1. Altered mental level of consciousness which became increasingly worse after the patient received Benadryl, 2 doses of [place] this morning and Reglan. The patient has been having increased episodes o f headache, nausea, vomiting; however, CT of the head does not show any new mets, rule out drug-induc ed delirium versus increased intracranial pressure versus metabolic like UTI. 2. History of hypertension. 3. Mild hypokalemia. 4. She has a history of hyponatremia. 5. Right breast cancer, status post right mastectomy with brain mets and status post whole brain rad iation. 6. Nausea, vomiting, poor appetite, failure to thrive. ASSESSMENT AND PLAN: At this period of time, the patient will be admitted to tele. We will do neuro checks every 4 hours. We will get LFTs, ammonia levels. We will hold off all narcotics. We will a lso get a UA. The CT of the head does not show any acute disease. The patient will be on fall preca utions, seizure precautions. We will also call a neurology consultation. Dr. Colunga will be con sulted. Rest of the treatment will depend on patient's hospitalization course. If we do not have an y answer, the patient might need an LP. Dictated By: OLIVIA LEMOS/SERINA Conf#: [id number] DID#: [id number]
[2019-02-22] MEDS ORDERED: LORAZEPAM 2 MG INJ IV PRN (22:00)
[2019-02-23 02:04] VITALS: BP 147/92; PULSE 74; RESP 16
[2019-02-23] MEDS: PANTOPRAZOLE 40 MG INJ IV SCH (06:11)
[2019-02-23 09:07] VITALS: BP 114/75; PULSE 81; RESP 16
[2019-02-23] MEDS: KETOROLAC 30 MG INJ IV PRN ×2 (10:51→21:34)
[2019-02-23] MEDS: CEFTRIAXONE 1 GM/50 ML (PMX) 50 ML IVPB SCH (10:55)
--- NOTE | 2019-02-23 11:46 | PN ---
Date/Time of Note Date/Time of Note DATE: 02/23/19 TIME: 11:38 Assessment/Plan VTE Prophylaxis Risk score (from Ns)>0 risk: 5 SCD applied (from Ns): Yes Pharmacological prophylaxis: NA/contraindicated Pharm contraindication: low risk/ambulating Lines/Catheters IV Catheter Type (from Nrsg): Peripheral IV Urinary Cath still in place: No Reason Cath still needed: urinary retention Assessment/Plan Assessment/Plan 58-year-old female who presented with: 1. Altered mental level of consciousness which became increasingly worse after the patient received Benadryl, 2 doses of [place] this morning and Reglan. The patient has been having increased episodes of headache, nausea, vomiting; however, CT of the head does not show any new mets, rule out drug-induced delirium versus increased intracranial pressure versus metabolic like UTI. Slight improvement today 2. History of hypertension. 3. Mild hypokalemia. 4. She has a history of hyponatremia. 5. Right breast cancer, status post right mastectomy with brain mets and status post whole brain radiation. 6. Nausea, vomiting, poor appetite, failure to thrive. 7 bilateral lower extremity weakness? Steroid related PLAN -Advance diet -follLow up neuro recs - Avoid narcotics -Will call Dr. Guzman for chemo -Get MRI of the lumbar spine results - toradol prn pain - > nutrition will address withj family - scd Result Diagram: 02/22/19 1251 02/23/19 0932 Results 24hrs Laboratory Tests Test 02/22/19 12:21 02/22/19 12:51 02/22/19 16:42 02/22/19 19:40 Total Bilirubin 1.2 Direct Bilirubin 0.00 Indirect Bilirubin 1.2 H Aspartate Amino 27 Transf (AST/SGOT) Alanine 23 Aminotransferase (AL T/SGPT) Alkaline Phosphatase 50 Total Protein 5.9 L Albumin 3.3 Vitamin B12 Level 400 Folate 9.5 White Blood Count 7.4 Red Blood Count 3.94 L Hemoglobin 13.9 Hematocrit 39.4 Mean Corpuscular 100.0 Volume Mean Corpuscular 35.3 H Hemoglobin Mean Corpuscular 35.3 Hemoglobin Concent Red Cell 16.2 H Distribution Width Platelet Count 190 Mean Platelet Volume 8.6 Immature 1.200 H Granulocytes % Neutrophils % 87.4 H Lymphocytes % 7.0 L Monocytes % 4.3 Eosinophils % 0.0 Basophils % 0.1 Nucleated Red Blood 0.0 Cells % Immature 0.090 H Granulocytes # Neutrophils # 6.5 Lymphocytes # 0.5 L Monocytes # 0.3 Eosinophils # 0.0 Basophils # 0.0 Nucleated Red Blood 0.0 Cells # Prothrombin Time 12.5 # Prothrombin Time 1.0 Ratio INR International 0.92 Normalized Ratio Activated 22.2 L Partial Thromboplast Time Sodium Level 135 Potassium Level 3.0 L Chloride Level 103 Carbon Dioxide Level 21 Anion Gap 11 Blood Urea Nitrogen 10 Creatinine 0.44 Est Glomerular > 60 Filtrat Rate mL/min Glucose Level 111 Calcium Level 9.0 Ammonia < 9 L Urine Color STRAW Urine Clarity CLEAR Urine pH 7.0 Urine Specific 1.010 [place] Urine Ketones 1+ H Urine Nitrite NEGATIVE Urine Bilirubin NEGATIVE Urine Urobilinogen NEGATIVE Urine Leukocyte 1+ H Esterase Urine Microscopic 3 RBC Urine Microscopic 12 H WBC Urine Hemoglobin 1+ H Urine Glucose 1+ H Urine Total Protein NEGATIVE Test 02/23/19 09:32 Sodium Level 138 Potassium Level 3.6 Chloride Level 107 Carbon Dioxide Level 24 Anion Gap 7 Blood Urea Nitrogen 5 L Creatinine 0.46 Est Glomerular > 60 Filtrat Rate mL/min Glucose Level 95 Calcium Level 9.1 Phosphorus Level 2.5 Magnesium Level 1.8 Thyroid Stimulating 0.553 Hormone (TSH) Subjective 24 Hr Interval Summary Free Text/Dictation She has slight improvement today SOME , Headaches Oriented x2 Exam/Review of Systems Exam Vitals Vital Signs Date Temp Pulse Resp B/P (MAP) Pulse Ox O2 O2 Flow FiO2 Time Delivery Rate 02/23/19 98.0 81 16 114/75 100 Room Air 09:07 (88) Intake and Output 02/22/19 02/22/19 02/23/19 1515:00 23:00 07:00 IntakeIntake Total 600 ml OutputOutput Total 2750 ml BalanceBalance -2150 ml Exam ENERAL: The patient seems very agitated, confused, trying to get out of the bed, looks at us, tries to follow commands. HEENT: Normocephalic, atraumatic. Alopecia. NECK: Supple. HEART: Regular rate and rhythm. LUNGS: Clear to auscultate bilaterally. ABDOMEN: Soft, nontender, nondistended, positive normoactive bowel sounds. EXTREMITIES: No clubbing, cyanosis, or edema. NEUROLOGIC: Patient is awake and alert, oriented x2 Muscle weakness on the bilateral lower extremities Results Results 24hrs Laboratory Tests Test 02/22/19 12:21 02/22/19 12:51 02/22/19 16:42 02/22/19 19:40 Total Bilirubin 1.2 Direct Bilirubin 0.00 Indirect Bilirubin 1.2 H Aspartate Amino 27 Transf (AST/SGOT) Alanine 23 Aminotransferase (AL T/SGPT) Alkaline Phosphatase 50 Total Protein 5.9 L Albumin 3.3 Vitamin B12 Level 400 Folate 9.5 White Blood Count 7.4 Red Blood Count 3.94 L Hemoglobin 13.9 Hematocrit 39.4 Mean Corpuscular 100.0 Volume Mean Corpuscular 35.3 H Hemoglobin Mean Corpuscular 35.3 Hemoglobin Concent Red Cell 16.2 H Distribution Width Platelet Count 190 Mean Platelet Volume 8.6 Immature 1.200 H Granulocytes % Neutrophils % 87.4 H Lymphocytes % 7.0 L Monocytes % 4.3 Eosinophils % 0.0 Basophils % 0.1 Nucleated Red Blood 0.0 Cells % Immature 0.090 H Granulocytes # Neutrophils # 6.5 Lymphocytes # 0.5 L Monocytes # 0.3 Eosinophils # 0.0 Basophils # 0.0 Nucleated Red Blood 0.0 Cells # Prothrombin Time 12.5 # Prothrombin Time 1.0 Ratio INR International 0.92 Normalized Ratio Activated 22.2 L Partial Thromboplast Time Sodium Level 135 Potassium Level 3.0 L Chloride Level 103 Carbon Dioxide Level 21 Anion Gap 11 Blood Urea Nitrogen 10 Creatinine 0.44 Est Glomerular > 60 Filtrat Rate mL/min Glucose Level 111 Calcium Level 9.0 Ammonia < 9 L Urine Color STRAW Urine Clarity CLEAR Urine pH 7.0 Urine Specific 1.010 [place] Urine Ketones 1+ H Urine Nitrite NEGATIVE Urine Bilirubin NEGATIVE Urine Urobilinogen NEGATIVE Urine Leukocyte 1+ H Esterase Urine Microscopic 3 RBC Urine Microscopic 12 H WBC Urine Hemoglobin 1+ H Urine Glucose 1+ H Urine Total Protein NEGATIVE Test 02/23/19 09:32 Sodium Level 138 Potassium Level 3.6 Chloride Level 107 Carbon Dioxide Level 24 Anion Gap 7 Blood Urea Nitrogen 5 L Creatinine 0.46 Est Glomerular > 60 Filtrat Rate mL/min Glucose Level 95 Calcium Level 9.1 Phosphorus Level 2.5 Magnesium Level 1.8 Thyroid Stimulating 0.553 Hormone (TSH) Medications Medication Current Medications Dextrose/Sodium Chloride 1,000 ml @ 50 mls/hr Q20H IV Last administered on 02/22/19at 17:55; Admin Dose 50 MLS/HR; Start 02/22/19 at 15:59 IV Flush (NS 3 ml) 3 ml PER PROTOCOL IV ; Start 02/22/19 at 16:00 Ondansetron HCl (Zofran Inj) 4 mg Q6H PRN IV NAUSEA/VOMITING; Start 02/22/19 at 16:00 Acetaminophen (Tylenol Tab) 650 mg Q6H PRN PO .PAIN 1-3 OR TEMP; Start 02/22/19 at 16:00 Magnesium Hydroxide (Milk Of Mag) 30 ml DAILY PRN PO .CONSTIPATION; Start 02/22/19 at 16:00 Pantoprazole (Protonix Iv) 40 mg DAILY@06 IV Last administered on 02/23/19at 06:11; Admin Dose 40 MG; Start 02/23/19 at 06:00 Ketorolac Tromethamine (Toradol) 30 mg Q6H PRN IV PAIN LEVEL 1-3 Last administered on 02/23/19at 10:51; Admin Dose 30 MG; Start 02/22/19 at 18:30; Stop 02/25/19 at 18:29 Metoclopramide HCl (Reglan) 10 mg Q6 PRN IV NAUSEA Last administered on 01/26 18:19; Admin Dose 10 MG; Start 02/22/19 at 18:30 Ceftriaxone Sodium 50 ml @ 100 mls/hr Q24H IVPB Last administered on 02/23/19at 10:55; Admin Dose 100 MLS/HR; Start 02/23/19 at 10:00 OLIVIA VIDES MD Feb 23, 2019 11:46
--- NOTE | 2019-02-23 11:51 | CONSI ---
Assessment/Plan Assessment/Plan Assessment/Plan (Recall) 58 F c/ known brain metastases (breast primary) s/p radiation...who presents for evaluation of ams.. The clinical picture suggests an acute toxic encephalopathy, which has shown some clinical improvement.. A superimposed metabolic component 2/2 UTI is possible.. Also notable are severe and episodic headaches w/ nausea/vomiting..which is likely secondary to her metastatic disease.. A carcinomatous meningeal process would be expected to produce unremitting (rather than episodic) symptoms.. Head CT is without obvious acute intracranial pathology. P: NSAID for pain management w/ protonix, as medically able Limit sedating medications where possible PT/OT as tolerated Other medical management and supportive care per primary Consider EEG if her mental status begins to noticeably fluctuate Will follow clinically Consultation Date/Type/Reason Admit Date/Time Feb 22, 2019 at 14:32 Type of Consult Neurology Reason for Consultation ams Requesting Provider: OLIVIA VIDES MD Date/Time of Note DATE: 02/23/19 TIME: 11:40 Hx of Present Illness This is a 58-year-old female with a past medical history of right breast cancer with brain mets, status post right mastectomy, hypertension, with multiple admissions in the past secondary to headache and nausea, presented to the emergency department after being brought by the family secondary to worsening headaches. I spoke to the [id number] currently, as the patient is very altered. Patient has a history of breast cancer and is being followed by Dr. Colunga as an outpatient and also had been seen by Dr. Hassan for radiation. Her radiation had finished. Last MRI of the head done in 01/2019 showed no evidence of disease, so patient was not treated with radiation after that. Patient has been followed by Dr. Colunga as an outpatient and is currently 2 chemo meds. According to the family, she has been intermittently having on and off headaches. She came to the ER yesterday with headache and be discharged home. Today she complained of headache in the morning. They gave her 2 doses of Labolt then brought her to the emergency department. When she came into the ER a repeat CT of the head was done which was unchanged; however, patient also received Benadryl and Reglan and patient became increasingly confused, as per the [id number], and we were consulted for admission. per HPI Objective Exam Vitals Vital Signs Date Temp Pulse Resp B/P (MAP) Pulse Ox O2 O2 Flow FiO2 Time Delivery Rate 02/23/19 98.0 81 16 114/75 100 Room Air 09:07 (88) Intake and Output 02/22/19 02/22/19 02/23/19 1515:00 23:00 07:00 IntakeIntake Total 600 ml OutputOutput Total 2750 ml BalanceBalance -2150 ml Exam PE: Gen Appearance: No Apparent Distress HEENT: Normocephalic Cardiovascular: Regular rate Abdomen: Soft Extremities: Dry NE: The patient was alert and oriented to person and place. Language was normal. Fund of knowledge was adequate. Pupils were equal and reactive to light. There was no afferent pupillary defect. Visual mad[place] were normal. Funduscopic examination was limited. Extra-ocular movements were full. Ptosis was absent. There was no nystagmus. Facial sensation was normal. Face was symmetric with normal strength. Hearing was intact. Palate movements were normal. Neck strength was normal. There was normal tongue bulk and speed of movement. Tone was normal. Muscle bulk was reduced proximally. I did not see fasciculations. Arms were strong. Legs were severely weak proximally. Vibration sensation was normal. Temperature and pinprick sensation was normal. Rapid alternating movements were normal. There was no dysmetria. There was no in tention tremor. Gait was deferred due to bedrest. Arm and leg reflexes were symmetric. Jose's sign was absent. Plantar responses were flexor. Results Result Diagram: 02/22/19 1251 02/23/19 0932 Results 24hrs Laboratory Tests Test 02/22/19 12:21 02/22/19 12:51 02/22/19 16:42 02/22/19 19:40 Total Bilirubin 1.2 Direct Bilirubin 0.00 Indirect Bilirubin 1.2 H Aspartate Amino 27 Transf (AST/SGOT) Alanine 23 Aminotransferase (AL T/SGPT) Alkaline Phosphatase 50 Total Protein 5.9 L Albumin 3.3 Vitamin B12 Level 400 Folate 9.5 White Blood Count 7.4 Red Blood Count 3.94 L Hemoglobin 13.9 Hematocrit 39.4 Mean Corpuscular 100.0 Volume Mean Corpuscular 35.3 H Hemoglobin Mean Corpuscular 35.3 Hemoglobin Concent Red Cell 16.2 H Distribution Width Platelet Count 190 Mean Platelet Volume 8.6 Immature 1.200 H Granulocytes % Neutrophils % 87.4 H Lymphocytes % 7.0 L Monocytes % 4.3 Eosinophils % 0.0 Basophils % 0.1 Nucleated Red Blood 0.0 Cells % Immature 0.090 H Granulocytes # Neutrophils # 6.5 Lymphocytes # 0.5 L Monocytes # 0.3 Eosinophils # 0.0 Basophils # 0.0 Nucleated Red Blood 0.0 Cells # Prothrombin Time 12.5 # Prothrombin Time 1.0 Ratio INR International 0.92 Normalized Ratio Activated 22.2 L Partial Thromboplast Time Sodium Level 135 Potassium Level 3.0 L Chloride Level 103 Carbon Dioxide Level 21 Anion Gap 11 Blood Urea Nitrogen 10 Creatinine 0.44 Est Glomerular > 60 Filtrat Rate mL/min Glucose Level 111 Calcium Level 9.0 Ammonia < 9 L Urine Color STRAW Urine Clarity CLEAR Urine pH 7.0 Urine Specific 1.010 Carbon Urine Ketones 1+ H Urine Nitrite NEGATIVE Urine Bilirubin NEGATIVE Urine Urobilinogen NEGATIVE Urine Leukocyte 1+ H Esterase Urine Microscopic 3 RBC Urine Microscopic 12 H WBC Urine Hemoglobin 1+ H Urine Glucose 1+ H Urine Total Protein NEGATIVE Test 02/23/19 09:32 Sodium Level 138 Potassium Level 3.6 Chloride Level 107 Carbon Dioxide Level 24 Anion Gap 7 Blood Urea Nitrogen 5 L Creatinine 0.46 Est Glomerular > 60 Filtrat Rate mL/min Glucose Level 95 Calcium Level 9.1 Phosphorus Level 2.5 Magnesium Level 1.8 Thyroid Stimulating 0.553 Hormone (TSH) Past Medical History reviewed Home Meds Active Scripts Hydrocodone/Acetaminophen ([place]olt 10-325 Tablet) 1 Each Tablet, 1 TAB PO Q6H PRN for PAIN, #7 TAB Prov:DANNY BRANCH MD 11/10/18 Reported Medications Acetaminophen* (Acetaminophen*) 500 MG Extra Strength Tablet, 500 MG PO Q4H PRN for PAIN AND OR ELEVATED TEMP, TAB 02/01/19 Ondansetron Hcl* (Ondansetron Hcl*) 8 Mg Tablet, 1 TAB ORAL TID 02/01/19 Metoclopramide Hcl* (Metoclopramide Hcl*) 10 Mg Tablet, 1 TAB ORAL QID 02/01/19 Omeprazole* (Omeprazole*) 20 Mg Capsule.dr, 20 MG PO DAILY, #30 CAP 01/01/19 Lapatinib (Tykerb) 250 Mg Tab, 250 MG PO TID, TAB 01/01/19 Capecitabine* (Xeloda*) 500 Mg Tablet, 1000 MG PO BID, TBS STOP FOR 7 DAYS, START DAY 11/12/18 11/10/18 Metoprolol Succinate* (Toprol XL*) 25 Mg Tab.sr.24h, 25 MG PO QHS, #30 TAB 11/10/18 Discontinued Scripts Ondansetron (Ondansetron Odt) 4 Mg Tab.rapdis, 4 MG PO Q6H PRN for NAUSEA AND/OR VOMITING, #30 TAB Prov:MARILEE REYNAGA MD 02/21/19 Pantoprazole* (Protonix*) 40 Mg Tablet.dr, 40 MG PO DAILY, #10 TAB Prov:ANDRES DICKEY MD 02/01/19 Prochlorperazine* (Prochlorperazine*) 5 Mg Tablet, 5 MG PO Q4H PRN for NAUSEA, #10 TAB Prov:ANDRES DICKEY MD 02/01/19 Medications Current Medications Dextrose/Sodium Chloride 1,000 ml @ 50 mls/hr Q20H IV Last administered on 02/22/19at 17:55; Admin Dose 50 MLS/HR; Start 02/22/19 at 15:59 IV Flush (NS 3 ml) 3 ml PER PROTOCOL IV ; Start 02/22/19 at 16:00 Ondansetron HCl (Zofran Inj) 4 mg Q6H PRN IV NAUSEA/VOMITING; Start 02/22/19 at 16:00 Acetaminophen (Tylenol Tab) 650 mg Q6H PRN PO .PAIN 1-3 OR TEMP; Start 02/22/19 at 16:00 Magnesium Hydroxide (Milk Of Mag) 30 ml DAILY PRN PO .CONSTIPATION; Start 02/22/19 at 16:00 Pantoprazole (Protonix Iv) 40 mg DAILY@06 IV Last administered on 02/23/19at 06:11; Admin Dose 40 MG; Start 02/23/19 at 06:00 Ketorolac Tromethamine (Toradol) 30 mg Q6H PRN IV PAIN LEVEL 1-3 Last administered on 02/23/19at 10:51; Admin Dose 30 MG; Start 02/22/19 at 18:30; Stop 02/25/19 at 18:29 Metoclopramide HCl (Reglan) 10 mg Q6 PRN IV NAUSEA Last administered on 02/22/19at 18:19; Admin Dose 10 MG; Start 02/22/19 at 18:30 Ceftriaxone Sodium 50 ml @ 100 mls/hr Q24H IVPB Last administered on 02/23/19at 10:55; Admin Dose 100 MLS/HR; Start 02/23/19 at 10:00 Allergies: Coded Allergies: morphine (Verified Allergy, Unknown, 02/22/19) Past Surgical History Past Surgical Hx: other Social History Smoking Status: Never smoker KELLY OBANDO Feb 23, 2019 11:50
[2019-02-23] MEDS: ACETAMINOPHEN 325 MG TAB PO PRN ×2 (13:20→19:31)
[2019-02-23] MEDS: DEXTROSE 5%-0.45% NACL 1,000 ML IV SCH (13:39)
[2019-02-23] MEDS: IBUPROFEN 600 MG TAB PO PRN (14:37)
--- NOTE | 2019-02-23 15:07 | CONS ---
DATE OF ADMISSION: 02/22/2019 DATE OF CONSULTATION: 02/23/2019 REASON FOR EVALUATION: Advanced breast cancer with brain mets. 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 She got neoadj uvant preoperative systemic chemotherapy PTCH pertuzumab, Taxotere, carboplatin, Herceptin per protoc ol. Thereafter, 05/2017, underwent surgery, modified radical mastectomy and virgie evaluation. There was no residual cancer. Continued maintenance Herceptin per protocol. Unfortunately, back in 2018 the cancer came back with multiple brain metastases. She was started on Decadron, antiepile ptics and radiation therapy was given with appropriate response. Now currently on Tykerb and Xeloda, which started 09/2018 with an appreciated response and favorable response but the patient has been i n and out of the hospital because of mainly generalized defunctioning, decrease in the p.o. intake, d ebilitation and intermittent nausea and discomfort with some mental changes mainly a toxic metabolic post-tumor cancer brain tumors, radiation therapy, treatment therapy and multiple cancer treatments. She also gets repeated admission to the hospital for hyponatremia and a low sodium on multiple occas ions. this time comes to [facility] because of generalized weakness, fatigue and n ausea in addition to hypokalemia, low potassium. Her sodium has been normal, PAST MEDICAL HISTORY: Hypertension. SOCIAL HISTORY: , has 2 sons. PHYSICAL EXAMINATION: VITAL SIGNS: Temperature 96, respiration of 18, pulse of 80. SKIN: No supraclavicular nodes. No axillary nodes. LUNGS: Clear. HEART: Normal S1, S2. CHEST: Mastectomy operative wound. LABORATORY DATA: In the EMR. 1. Normal CBC. 2. CT brain done in the emergency room showed no new changes, only old multiple brain metastases pos t-therapy. ASSESSMENT AND PLAN: 1. A 58-year-old female with advanced stage IV, poorly differentiated breast cancer HER-2 amplified now brain metastases early 2018. The disease is well controlled with current antineoplastic treatmen t tablets Tykerb which crosses the blood brain barrier in addition to post-radiation. 2. Gastrointestinal evaluation for her constant nausea in spite of being on Zofran and Reglan. Prob ably patches and steroids will be necessary. 3. Neurological evaluation also will be done. 4. Physical therapy PT evaluation. 5. Recommend comfort measures at this time with supportive help. Dictated By: JENNA HAAS Conf#: [id number] DID#: [id number] CC: OLIVIA VIDES;*End*
[2019-02-23] MEDS ORDERED: QUETIAPINE 25 MG TAB PO STA (15:08)
[2019-02-23] MEDS ORDERED: QUETIAPINE 100 MG TAB PO STA (17:13)
[2019-02-23] MEDS ORDERED: HALOPERIDOL 5 MG INJ IM STA (17:15)
--- NOTE | 2019-02-23 17:33 | PSY ---
Date/Time of Note Date/Time of Note DATE: 02/23/19 TIME: 17:27 Psychiatric Subjective Eval Consent Pt consented to telemedicine: No Subjective Evaluation Patient location: inpatient Chief Complaint: HEADACHE X 1 DAY WITH N/V. CURRENTLY RECEIVING CHEMO. History of present illness Patient is a 58-year-old female, Gabonese-speaking only, with a past medical history of right breast cancer, status post right mastectomy and hypertension, admitted for worsening headaches. Translation is done by one-to-one staff. On a [id number] evaluation, patient is increasingly agitated difficult to redirect crying hysterical reports pain. Patient has poor coping skills and unable to contract for safety. Will benefit from one-to-one supervision to prevent her from falling out of bed Past psychiatric history Denies history of mental illness Medical history Problems Medical Problems: (1) Acute UTI Status: Acute (2) Acute weakness Status: Acute (3) Acute weakness Status: Acute (4) Brain tumor Status: Acute (5) Chronic headache Status: Acute (6) Cystitis Status: Acute (7) Encephalopathy Status: Acute (8) Headache Status: Acute (9) Headache Status: Acute (10) Hypokalemia Status: Acute (11) Hypokalemia Status: Acute (12) Hypokalemia Status: Acute (13) Leukopenia Status: Acute (14) Metastatic breast cancer Status: Acute (15) Metastatic cancer to brain Status: Acute (16) Nausea & vomiting Status: Acute (17) Nausea and vomiting Status: Acute (18) Severe sepsis Status: Acute (19) Vomiting Status: Acute (20) Vomiting Status: Acute Allergies: Coded Allergies: morphine (Verified Allergy, Unknown, 02/22/19) Substance Abuse Substance abuse history: No Prior substance abuse treatmen: No Social History Marital status: other DPA/Conservatorship: No Psychiatric Objective Eval Physical Examination: Energy: Other Interest: Other Mental Status Examination: Appearance: Groomed, Disheveled Eye Contact: Poor Psychomotor Activity: Agitated Behavior: Agitated Speech: Soft AFFECT: Anxious, Constricted Mood: Anxious, Irritable Though Process: Tangential On 72 hour hold: No Orientation: x2 Laboratory Results Laboratory Tests Test 02/22/19 12:21 02/22/19 12:51 02/22/19 16:42 02/22/19 19:40 Total Bilirubin 1.2 mg/dl Direct Bilirubin 0.00 mg/dl Indirect 1.2 mg/dl Bilirubin Aspartate Amino 27 IU/L Transf (AST/SGOT) Alanine 23 IU/L Aminotransferase (ALT/SGPT) Alkaline 50 IU/L Phosphatase Total Protein 5.9 g/dl Albumin 3.3 g/dl Vitamin B12 Level 400 pg/ml Folate 9.5 ng/ml White Blood Count 7.4 10^3/ul Red Blood Count 3.94 10^6/ul Hemoglobin 13.9 g/dl Hematocrit 39.4 % Mean Corpuscular 100.0 fl Volume Mean Corpuscular 35.3 pg Hemoglobin Mean Corpuscular 35.3 g/dl Hemoglobin Concen t Red Cell 16.2 % Distribution Width Platelet Count 190 10^3/UL Mean Platelet 8.6 fl Volume Immature 1.200 % Granulocytes % Neutrophils % 87.4 % Lymphocytes % 7.0 % Monocytes % 4.3 % Eosinophils % 0.0 % Basophils % 0.1 % Nucleated Red 0.0 /100WBC Blood Cells % Immature 0.090 10^3/ul Granulocytes # Neutrophils # 6.5 10^3/ul Lymphocytes # 0.5 10^3/ul Monocytes # 0.3 10^3/ul Eosinophils # 0.0 10^3/ul Basophils # 0.0 10^3/ul Nucleated Red 0.0 10^3/ul Blood Cells # Prothrombin Time 12.5 Sec Prothrombin Time 1.0 Ratio INR International 0.92 Normalized Ratio Activated 22.2 Sec Partial Thrombopl ast Time Sodium Level 135 mmol/L Potassium Level 3.0 mmol/L Chloride Level 103 mmol/L Carbon Dioxide 21 mmol/L Level Anion Gap 11 Blood Urea 10 mg/dl Nitrogen Creatinine 0.44 mg/dl Est Glomerular > 60 mL/min Filtrat Rate mL/min Glucose Level 111 mg/dl Calcium Level 9.0 mg/dl Ammonia < 9 umol/l Urine Color STRAW Urine Clarity CLEAR Urine pH 7.0 Urine Specific 1.010 [place] Urine Ketones 1+ mg/dL Urine Nitrite NEGATIVE mg/dL Urine Bilirubin NEGATIVE mg/dL Urine NEGATIVE mg/dL Urobilinogen Urine Leukocyte 1+ Deon/ul Esterase Urine Microscopic 3 /HPF RBC Urine Microscopic 12 /HPF WBC Urine Hemoglobin 1+ mg/dL Urine Glucose 1+ mg/dL Urine Total NEGATIVE mg/dl Protein Test 02/23/19 09:32 Sodium Level 138 mmol/L Potassium Level 3.6 mmol/L Chloride Level 107 mmol/L Carbon Dioxide 24 mmol/L Level Anion Gap 7 Blood Urea 5 mg/dl Nitrogen Creatinine 0.46 mg/dl Est Glomerular > 60 mL/min Filtrat Rate mL/min Glucose Level 95 mg/dl Calcium Level 9.1 mg/dl Phosphorus Level 2.5 mg/dl Magnesium Level 1.8 mg/dl Thyroid 0.553 MIU/L Stimulating Hormone (TSH) Assessment and Plan Assessment/Diagnosis Diagnosis Delirium, due to medical condition Recommendation/Plan Medication Management Zyprexa zydis 5mg 2 times a day Discharge Disposition: Other Legal Status: Voluntary (Does not meet criteria for 5150 hold) CARLIN RAY NP Feb 23, 2019 17:33
[2019-02-23 20:31] VITALS: BP 132/66; PULSE 82; RESP 20
[2019-02-23] MEDS: OLANZAPINE (ODT) 5 MG TAB ODT SCH (20:31)
[2019-02-23 23:30] VITALS: BP 190/83; PULSE 76; RESP 20
[2019-02-23 23:45] VITALS: BP 150/72; PULSE 62; RESP 20
[2019-02-24] VITALS (9 sets, daily range): BP systolic 116–169; BP diastolic 72–96; PULSE 66–103; RESP 14–22
[2019-02-24] MEDS ORDERED: LORAZEPAM 2 MG INJ IV STA (01:02)
[2019-02-24] MEDS ORDERED: LORAZEPAM 2 MG INJ IV ONE ×2 (04:56→05:30)
[2019-02-24] MEDS ORDERED: LORAZEPAM 2 MG INJ IM ONE (05:05)
[2019-02-24] MEDS ORDERED: HALOPERIDOL 5 MG INJ IM ONE (05:30)
[2019-02-24] MEDS: PANTOPRAZOLE 40 MG INJ IV SCH (06:07)
[2019-02-24] MEDS: DEXTROSE 5%-0.45% NACL 1,000 ML IV SCH (07:59)
[2019-02-24] MEDS: OLANZAPINE (ODT) 5 MG TAB ODT SCH ×2 (09:00→20:38)
[2019-02-24] MEDS ORDERED: LEVETIRACETAM 500 MG (PMX) 100 ML IVPB SCH (09:00)
[2019-02-24] MEDS: ENOXAPARIN 40 MG/0.4 ML SYG SC SCH (09:52)
[2019-02-24] MEDS: CEFTRIAXONE 1 GM/50 ML (PMX) 50 ML IVPB SCH (10:39)
--- NOTE | 2019-02-24 12:23 | PN ---
Date/Time of Note Date/Time of Note DATE: 02/24/19 TIME: 12:23 Assessment/Plan VTE Prophylaxis Risk score (from Ns)>0 risk: 3 SCD applied (from Ns): No SCD contraindicated: low risk/ambulating Pharmacological prophylaxis: NA/contraindicated Pharm contraindication: low risk/ambulating Lines/Catheters [facility] Peripheral IV Urinary Cath still in place: Yes Reason Cath still needed: urinary retention Assessment/Plan Assessment/Plan 58-year-old female who presented with: 1. Altered mental level of consciousness which became increasingly worse after the patient received Benadryl, 2 doses of [place] this morning and Reglan. The patient has been having increased episodes of headache, nausea, vomiting; however, CT of the head does not show any new mets, rule out drug-induced delirium versus increased intracranial pressure versus metabolic like UTI. Slight improvement today Currently currently still really altered now with seizure episodes? Meds versus meds versus leptomeningeal disease Repeat CT of the head was negative on admission ordered another CT of the head but patient's is very anxious and agitated too unstable to get a CT 2. History of hypertension. 3. Mild hypokalemia. 4. She has a history of hyponatremia. Now hyponatremic 129 5. Right breast cancer, status post right mastectomy with brain mets and status post whole brain radiation. 6. Nausea, vomiting, poor appetite, failure to thrive. 7 bilateral lower extremity weakness? Steroid related PLAN - npo - iv fluids - restart decadron low dose - repelet K - Samsca. will give thru NG - recheck Na> might need 3%> spoke to neuro she wants to wait -follLow up neuro recs, spoke to neuro was started on valproate - Avoid narcotics - toradol prn pain - > nutrition will address withj family - scd - GI consult - seizure precaution, iv ativan prn neurology - GI and dvt prophylaxsis - spoke too family at bedside Result Diagram: 02/24/19 0523 02/24/19 0529 Results 24hrs Laboratory Tests Test 02/24/19 05:23 02/24/19 05:29 02/24/19 06:19 White Blood Count 8.5 Red Blood Count 3.96 L Hemoglobin 13.5 Hematocrit 38.6 Mean Corpuscular Volume 97.5 Mean Corpuscular Hemoglobin 34.1 H Mean Corpuscular Hemoglobin Concent 35.0 Red Cell Distribution Width 15.7 H Platelet Count 192 Mean Platelet Volume 8.8 Immature Granulocytes % 0.700 H Neutrophils % 90.4 H Lymphocytes % 3.9 L Monocytes % 4.9 Eosinophils % 0.0 Basophils % 0.1 Nucleated Red Blood Cells % 0.0 Immature Granulocytes # 0.060 H Neutrophils # 7.7 H Lymphocytes # 0.3 L Monocytes # 0.4 Eosinophils # 0.0 Basophils # 0.0 Nucleated Red Blood Cells # 0.0 Sodium Level 129 L Potassium Level 2.9 *L Chloride Level 95 #L Carbon Dioxide Level 20 L Anion Gap 14 #H Blood Urea Nitrogen 5 L Creatinine 0.37 L Est Glomerular Filtrat Rate mL/min > 60 Glucose Level 112 Calcium Level 8.7 Bedside Glucose 118 Subjective 24 Hr Interval Summary Free Text/Dictation And had an uneventful course last night. She had a few absence seizures and was very agitated patient is curled up on the side of the bed try to get out of the bed And was do a given Seroquel and Ativan AND haldol Exam/Review of Systems Exam Vitals Vital Signs Date Temp Pulse Resp B/P (MAP) Pulse Ox O2 O2 Flow FiO2 Time Delivery Rate 02/24/19 97.4 81 18 141/80 100 Room Air 07:18 (100) Intake and Output 02/23/19 02/23/19 02/24/19 1515:00 23:00 07:00 IntakeIntake Total 450 ml 200 ml OutputOutput Total 500 ml BalanceBalance 450 ml -300 ml Exam ENERAL: The patient seems very agitated, confused, trying to get out of the bed, curled up on the side of the bed, confused mumbling HEENT: Normocephalic, atraumatic. Alopecia. NECK: Supple. HEART: Regular rate and rhythm. LUNGS: Clear to auscultate bilaterally. ABDOMEN: Soft, nontender, nondistended, positive normoactive bowel sounds. EXTREMITIES: No clubbing, cyanosis, or edema. NEUROLOGIC: confused mumbling Muscle weakness on the bilateral lower extremities Results Results Results 24hrs Laboratory Tests Test 02/24/19 05:23 02/24/19 05:29 02/24/19 06:19 White Blood Count 8.5 Red Blood Count 3.96 L Hemoglobin 13.5 Hematocrit 38.6 Mean Corpuscular Volume 97.5 Mean Corpuscular Hemoglobin 34.1 H Mean Corpuscular Hemoglobin Concent 35.0 Red Cell Distribution Width 15.7 H Platelet Count 192 Mean Platelet Volume 8.8 Immature Granulocytes % 0.700 H Neutrophils % 90.4 H Lymphocytes % 3.9 L Monocytes % 4.9 Eosinophils % 0.0 Basophils % 0.1 Nucleated Red Blood Cells % 0.0 Immature Granulocytes # 0.060 H Neutrophils # 7.7 H Lymphocytes # 0.3 L Monocytes # 0.4 Eosinophils # 0.0 Basophils # 0.0 Nucleated Red Blood Cells # 0.0 Sodium Level 129 L Potassium Level 2.9 *L Chloride Level 95 #L Carbon Dioxide Level 20 L Anion Gap 14 #H Blood Urea Nitrogen 5 L Creatinine 0.37 L Est Glomerular Filtrat Rate mL/min > 60 Glucose Level 112 Calcium Level 8.7 Bedside Glucose 118 Medications Medication Current Medications Dextrose/Sodium Chloride 1,000 ml @ 50 mls/hr Q20H IV Last administered on 02/23/19at 13:39; Admin Dose 50 MLS/HR; Start 02/22/19 at 15:59 IV Flush (NS 3 ml) 3 ml PER PROTOCOL IV ; Start 02/22/19 at 16:00 Ondansetron HCl (Zofran Inj) 4 mg Q6H PRN IV NAUSEA/VOMITING; Start 02/22/19 at 16:00 Acetaminophen (Tylenol Tab) 650 mg Q6H PRN PO .PAIN 1-3 OR TEMP Last administered on 02/23/19at 19:31; Admin Dose 650 MG; Start 02/22/19 at 16:00 Magnesium Hydroxide (Milk Of Mag) 30 ml DAILY PRN PO .CONSTIPATION; Start 02/22/19 at 16:00 Pantoprazole (Protonix Iv) 40 mg DAILY@06 IV Last administered on 02/24/19at 06:07; Admin Dose 40 MG; Start 02/23/19 at 06:00 Ketorolac Tromethamine (Toradol) 30 mg Q6H PRN IV PAIN LEVEL 1-3 Last administered on 02/23/19at 21:34; Admin Dose 30 MG; Start 02/22/19 at 18:30; S top 02/25/19 at 18:29 Ceftriaxone Sodium 50 ml @ 100 mls/hr Q24H IVPB Last administered on 02/24/19 10:39; Admin Dose 100 MLS/HR; Start 02/23/19 at 10:00 Enoxaparin Sodium (Lovenox) 40 mg DAILY SC Last administered on 02/24/19 09:52; Admin Dose 40 MG; Start 02/24/19 at 09:00 Ibuprofen (Motrin) 600 mg Q6H PRN PO MODERATE PAIN LEVEL 4-6 Last administered on 02/23/19at 14:37; Admin Dose 600 MG; Start 02/23/19 at 14:30 Olanzapine (Zyprexa Zydis) 5 mg BID ODT Last administered on 02/23/19 20:31; Admin Dose 5 MG; Start 02/23/19 at 21:00 Hydralazine HCl (Apresoline) 10 mg Q6H PRN IV ELEVATED BLOOD PRESSURE; Start 02/24/19 at 01:00 Levetiracetam 100 ml @ 400 mls/hr BID IVPB Last administered on 02/24/19at 09:21; Admin Dose 400 MLS/HR; Start 02/24/19 at 09:00 Lorazepam (Ativan) 2 mg Q4 PRN IV AGITATION; Start 02/24/19 at 11:00 Dexamethasone (Decadron) 2 mg Q8 IV ; Start 02/24/19 at 14:00 OLIVIA VIDES MD Feb 24, 2019 12:23
--- NOTE | 2019-02-24 12:26 | CONS ---
Assessment/Plan Assessment/Plan Assessment/Plan (Recall) 58 F c/ known brain metastases (breast primary) s/p radiation...who presents for evaluation of ams.. The clinical picture suggests an acute toxic encephalopathy, which has shown some clinical improvement.. A superimposed metabolic component 2/2 UTI is possible.. Also notable are severe and episodic headaches w/ nausea/vomiting..which is likely secondary to her metastatic disease.. A carcinomatous meningeal process would be expected to produce unremitting (rather than episodic) symptoms.. Head CT is without obvious acute intracranial pathology. Noted to have seizures on 02/23..likely provoked by antipsychotic medications.. P: Await Baseline EEG Hold Keppra; Start Depakote for seizure ppx Ativan iv prn prolonged seizure or cluster Behavioral management per psychiatry NSAID for pain management w/ protonix, as medically able PT/OT as tolerated Other medical management and supportive care per primary Will follow clinically Consultation Date/Type/Reason Admit Date/Time Feb 22, 2019 at 14:32 Type of Consult Neurology Reason for Consultation ams Requesting Provider: OLIVIA VIDES MD Date/Time of Note DATE: 02/24/19 TIME: 12:21 24 HR Interval Summary Free Text/Dictation seizures overnight agitated Exam/Review of Systems Exam Vitals Vital Signs Date Temp Pulse Resp B/P (MAP) Pulse Ox O2 O2 Flow FiO2 Time Delivery Rate 02/24/19 97.4 81 18 141/80 100 Room Air 07:18 (100) Intake and Output 02/23/19 02/23/19 02/24/19 1515:00 23:00 07:00 IntakeIntake Total 450 ml 200 ml OutputOutput Total 500 ml BalanceBalance 450 ml -300 ml Results Result Diagram: 02/24/19 0523 02/24/19 0529 Results 24hrs Laboratory Tests Test 02/24/19 05:23 02/24/19 05:29 02/24/19 06:19 White Blood Count 8.5 Red Blood Count 3.96 L Hemoglobin 13.5 Hematocrit 38.6 Mean Corpuscular Volume 97.5 Mean Corpuscular Hemoglobin 34.1 H Mean Corpuscular Hemoglobin Concent 35.0 Red Cell Distribution Width 15.7 H Platelet Count 192 Mean Platelet Volume 8.8 Immature Granulocytes % 0.700 H Neutrophils % 90.4 H Lymphocytes % 3.9 L Monocytes % 4.9 Eosinophils % 0.0 Basophils % 0.1 Nucleated Red Blood Cells % 0.0 Immature Granulocytes # 0.060 H Neutrophils # 7.7 H Lymphocytes # 0.3 L Monocytes # 0.4 Eosinophils # 0.0 Basophils # 0.0 Nucleated Red Blood Cells # 0.0 Sodium Level 129 L Potassium Level 2.9 *L Chloride Level 95 #L Carbon Dioxide Level 20 L Anion Gap 14 #H Blood Urea Nitrogen 5 L Creatinine 0.37 L Est Glomerular Filtrat Rate mL/min > 60 Glucose Level 112 Calcium Level 8.7 Bedside Glucose 118 Medications Medication Current Medications Dextrose/Sodium Chloride 1,000 ml @ 50 mls/hr Q20H IV Last administered on 02/23/19at 13:39; Admin Dose 50 MLS/HR; Start 02/22/19 at 15:59 IV Flush (NS 3 ml) 3 ml PER PROTOCOL IV ; Start 02/22/19 at 16:00 Ondansetron HCl (Zofran Inj) 4 mg Q6H PRN IV NAUSEA/VOMITING; Start 02/22/19 at 16:00 Acetaminophen (Tylenol Tab) 650 mg Q6H PRN PO .PAIN 1-3 OR TEMP Last administered on 02/23/19at 19:31; Admin Dose 650 MG; Start 02/22/19 at 16:00 Magnesium Hydroxide (Milk Of Mag) 30 ml DAILY PRN PO .CONSTIPATION; Start 02/22/19 at 16:00 Pantoprazole (Protonix Iv) 40 mg DAILY@06 IV Last administered on 02/24/19at 06:07; Admin Dose 40 MG; Start 02/23/19 at 06:00 Ketorolac Tromethamine (Toradol) 30 mg Q6H PRN IV PAIN LEVEL 1-3 Last administered on 02/23/19 21:34; Admin Dose 30 MG; Start 02/22/19 at 18:30; Stop 02/25/19 at 18:29 Ceftriaxone Sodium 50 ml @ 100 mls/hr Q24H IVPB Last administered on 02/24/19at 10:39; Admin Dose 100 MLS/HR; Start 02/23/19 at 10:00 Enoxaparin Sodium (Lovenox) 40 mg DAILY SC Last administered on 02/24/19at 09:52; Admin Dose 40 MG; Start 02/24/19 at 09:00 Ibuprofen (Motrin) 600 mg Q6H PRN PO MODERATE PAIN LEVEL 4-6 Last administered on 02/23/19at 14:37; Admin Dose 600 MG; Start 02/23/19 at 14:30 Olanzapine (Zyprexa Zydis) 5 mg BID ODT Last administered on 02/23/19at 20:31; Admin Dose 5 MG; Start 02/23/19 at 21:00 Hydralazine HCl (Apresoline) 10 mg Q6H PRN IV ELEVATED BLOOD PRESSURE; Start 02/24/19 at 01:00 Levetiracetam 100 ml @ 400 mls/hr BID IVPB Last administered on 02/24/19at 09:21; Admin Dose 400 MLS/HR; Start 02/24/19 at 09:00 Lorazepam (Ativan) 2 mg Q4 PRN IV AGITATION; Start 02/24/19 at 11:00 Dexamethasone (Decadron) 2 mg Q8 IV ; Start 02/24/19 at 14:00 KELLY OBANDO Feb 24, 2019 12:26
[2019-02-24] MEDS ORDERED: TOLVAPTAN 15 MG TABLET PO ONE (12:30)
[2019-02-24] MEDS ORDERED: VALPROATE IVPB STA (12:49)
[2019-02-24] MEDS ORDERED: SOD CHLORIDE 0.9% IVPB STA (12:49)
--- NOTE | 2019-02-24 13:54 | PN ---
Date/Time of Note Date/Time of Note DATE: 02/24/19 TIME: 13:51 Outpatient Progress Note HPI Deteriorating had seizures x 2 last night delirium no bleeding not in pain Review of Systems Const: No Fever, no chills, no Wt. loss, no Fatigue, normal appetite, no diaphoresis. Physical Exam Vital Signs Date Temp Pulse Resp B/P (MAP) Pulse Ox O2 O2 Flow FiO2 Time Delivery Rate 02/24/19 69 14 156/85 96 Room Air 12:26 (108) 02/24/19 97.4 07:18 Intake and Output 02/23/19 02/23/19 02/24/19 1515:00 23:00 07:00 IntakeIntake Total 450 ml 200 ml OutputOutput Total 500 ml BalanceBalance 450 ml -300 ml General Appearance: S1S2 clear lungs not following verbal commands Result Diagram: 02/24/19 0523 02/24/19 1243 Allergies Coded Allergies: morphine (Verified Allergy, Unknown, 02/22/19) Assessment/Plan ASSESSMENT AND PLAN: 1. A 58-year-old female with advanced stage IV, poorly differentiated breast cancer HER-2 amplified now brain metastases early 2018. The disease is well controlled with current antineoplastic treatment tablets Tykerb Xeloda which crosses the blood brain barrier in addition to post-radiation. 2. Gastrointestinal evaluation for her constant nausea in spite of being on Zofran and Reglan. Probably patches and steroids will be necessary. 3. Neurological evaluation change mental status and seizures, kekaroline ativan 4. Physical therapy PT evaluation. 5. Recommend comfort measures at this time with supportive help. 6. Psych evaluation and meds 7. Prognosis is poor, family aware 8. Fluid electrolyte balance Medications Home Meds Active Scripts Hydrocodone/Acetaminophen ([place] 10-325 Tablet) 1 Each Tablet, 1 TAB PO Q6H PRN for PAIN, #7 TAB Prov:DANNY BRANCH MD 11/10/18 Reported Medications Acetaminophen* (Acetaminophen*) 500 MG Extra Strength Tablet, 500 MG PO Q4H PRN for PAIN AND OR ELEVATED TEMP, TAB 02/01/19 Ondansetron Hcl* (Ondansetron Hcl*) 8 Mg Tablet, 1 TAB ORAL TID 02/01/19 Metoclopramide Hcl* (Metoclopramide Hcl*) 10 Mg Tablet, 1 TAB ORAL QID 02/01/19 Omeprazole* (Omeprazole*) 20 Mg Capsule.dr, 20 MG PO DAILY, #30 CAP 01/01/19 Lapatinib (Tykerb) 250 Mg Tab, 250 MG PO TID, TAB 01/01/19 Capecitabine* (Xeloda*) 500 Mg Tablet, 1000 MG PO BID, TBS STOP FOR 7 DAYS, START DAY 11/12/18 11/10/18 Metoprolol Succinate* (Toprol XL*) 25 Mg Tab.sr.24h, 25 MG PO QHS, #30 TAB 11/10/18 Discontinued Scripts Ondansetron (Ondansetron Odt) 4 Mg Tab.rapdis, 4 MG PO Q6H PRN for NAUSEA AND/OR VOMITING, #30 TAB Prov:MARILEE REYNAGA MD 02/21/19 Pantoprazole* (Protonix*) 40 Mg Tablet., 40 MG PO DAILY, #10 TAB Prov:ANDRES DICKEY MD 02/01/19 Prochlorperazine* (Prochlorperazine*) 5 Mg Tablet, 5 MG PO Q4H PRN for NAUSEA, #10 TAB Prov:ANDRES DICKEY MD 02/01/19 JENNA TSE Feb 24, 2019 13:54
[2019-02-24] MEDS: LORAZEPAM 2 MG INJ IV PRN (14:05)
[2019-02-24] MEDS: DEXTROSE 5%-0.9% NACL 1,000 ML IV SCH ×2 (15:30→20:52)
[2019-02-24] MEDS: DEXAMETHASONE 4 MG/ML 1 ML INJ IV SCH ×2 (15:40→22:29)
[2019-02-24] MEDS: POTASSIUM CHLORIDE 100 ML IVPB SCH ×4 (20:31→23:13)
[2019-02-24] MEDS: hydrALAzine 20 MG INJ IV PRN (20:47)
--- NOTE | 2019-02-24 22:38 | EN ---
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 Patient has history of breast cancer with metastasis of the brain. She has been recently having seizures, headache, nausea/vomiting and also at times have been very agitated/combative. On physical exam, patient appears comfortable. She does move her body spontaneously. Systolic blood pressure around 160. Oxygen saturation 99%. The question now is if her neurological status is a result of worsening metastasis vs medication induced vs post-ictal state vs other. I had a long conversation with several family members including patient's son, brother, [id number] and I have discussed recent CT findings as well. At one point, family expressed intention of withdrawing care saying that they do not want her to suffer anymore. They did however mention that, when she was able to make a decision, "she wanted to fight to to the end". Her last CT scan was 3 days ago, which showed no interval change from a previous CT. Plan now is to repeat CT because she has not had one since recent change in mentation. JUAN F LOMELI MD Feb 24, 2019 22:38
[2019-02-25] MEDS: KETOROLAC 30 MG INJ IV PRN (00:35)
[2019-02-25] MEDS ORDERED: VALPROATE INJ 250 MG in SOD CHLORIDE 0.9% 50 ML IVPB SCH (01:00)
[2019-02-25] MEDS: LORAZEPAM 2 MG INJ IV PRN (02:33)
--- NOTE | 2019-02-25 03:37 | CONS ---
DATE OF ADMISSION: 02/22/2019 DATE OF CONSULTATION: GI CONSULTATION HISTORY OF PRESENT ILLNESS: A 58-year-old female with a history of breast cancer with brain mets, ri ght mastectomy, hypertension, complaints of nausea and vomiting. The patient has been on antineoplas tic medication, which causes the blood brain barrier and disease is well under control as per the onc ologist. The patient is on Reglan, Zofran and antiemetic medication, but it is not controlling and s he gets repeatedly admitted for the same complaint, so GI consult was called in for a possible EGD to find out the cause of her symptoms. PAST MEDICAL HISTORY: As described, breast cancer with mets to the brain, prediabetic, history of de lirium, hypertension, history of syndrome of inappropriate antidiuretic hormone. MEDICATIONS 1. Reglan. 2. Zofran. 3. Metoprolol. 4. Xeloda. 5. [place]. SOCIAL HISTORY: No history for smoking or IV drug abuse. SURGICAL HISTORY: Right mastectomy. REVIEW OF SYSTEMS: Negative. PHYSICAL EXAMINATION: GENERAL: Moderately built, nourished, not in distress. VITAL SIGNS: Stable. HEENT: Unremarkable. NECK: Supple, no thyromegaly, no lymphadenopathy. CARDIOVASCULAR: No murmur, gallop or click. LUNGS: Clear. ABDOMEN: Benign. EXTREMITIES: No edema. CENTRAL NERVOUS SYSTEM: Grossly within normal limits. LABORATORY DATA: Hematocrit is 39, stable. WBC is within normal limits. Platelet count is normal. CMP is grossly within normal limits. 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 INR is normal. IMPRESSION: 1. Persistent nausea, vomiting. 2. Breast cancer with mets to brain. 3. Hypertension. 4. History of hyponatremia. 5. Bilateral lower extremity weakness. PLAN: To continue present care. We will proceed with EGD to find out the cause of nausea and vomiti ng. Dictated By: TREE BENJAMIN/SERINA Conf#: [id number] DID#: [id number] CC: OLIVIA VIDES;*EndCC*
[2019-02-25 04:10] VITALS: BP 137/85; PULSE 108; RESP 18
[2019-02-25] MEDS: PANTOPRAZOLE 40 MG INJ IV SCH (05:09)
[2019-02-25] MEDS: DEXAMETHASONE 4 MG/ML 1 ML INJ IV SCH ×3 (05:09→21:45)
--- NOTE | 2019-02-25 06:26 | EEG ---
EEG NOTE Report Details DATE OF TEST: 02/24/19 HISTORY: The patient is a 58-year-old F who presents with seizures. This EEG is requested to evaluate for an epileptic disorder. SEDATION: ? CONDITIONS OF RECORDING: This EEG was recorded digitally on the [employer] machine, using the International 10-20 System of electrodes plus anterior temporals and [place]. STATES SAMPLED: Lethargic. FINDINGS: The background is continuous and grossly symmetric.. There is an abundance of EMG artifact throughout. A well-formed posterior dominant rhythm is absent. The normal [id number] frequency-amplitude gradient was absent. Photic stimulation does not elicit any definite driving responses or epileptiform discharges. Hyperventilation was not performed. IMPRESSION: Technically limited and abnormal electroencephalogram due to: EMG artifact...and diffuse slowing. COMMENT: The slowing of the background indicates diffuse cortical dysfunction of nonspecific etiology. KELLY OBANDO Feb 25, 2019 06:26
[2019-02-25 08:07] VITALS: BP 143/79; PULSE 72; RESP 18
[2019-02-25] MEDS: POTASSIUM CHLORIDE 100 ML IVPB SCH ×4 (08:12→16:06)
[2019-02-25] MEDS: OLANZAPINE (ODT) 5 MG TAB ODT SCH ×2 (08:13→21:00)
[2019-02-25] MEDS: ENOXAPARIN 40 MG/0.4 ML SYG SC SCH (09:00)
[2019-02-25] MEDS ORDERED: MAGNESIUM SULFATE 2 GM/50 ML 50 ML IVPB ONE (09:30)
[2019-02-25] MEDS: CEFTRIAXONE 1 GM/50 ML (PMX) 50 ML IVPB SCH (09:52)
--- NOTE | 2019-02-25 10:12 | PN ---
Date/Time of Note Date/Time of Note DATE: 02/25/19 TIME: 10:12 Assessment/Plan VTE Prophylaxis Risk score (from Nsg)>0 risk: 7 SCD applied (from Ns): No SCD contraindicated: low risk/ambulating Pharmacological prophylaxis: NA/contraindicated Pharm contraindication: low risk/ambulating Lines/Catheters IV Catheter Type (from Rust): PORT A CATH Urinary Cath still in place: Yes Reason Cath still needed: urinary retention Assessment/Plan Assessment/Plan 58-year-old female who presented with: 1. Altered mental level of consciousness which became increasingly worse after the patient received Benadryl, 2 doses of [place] this morning and Reglan. The patient has been having increased episodes of headache, nausea, vomiting; however, CT of the head does not show any new mets, rule out drug-induced delirium versus increased intracranial pressure versus metabolic like UTI. Slight improvement today Currently currently still really altered now with seizure episodes? Meds versus meds versus leptomeningeal disease Repeat CT of the head was negative on admission ordered another CT of the head but patient's is very anxious and agitated too unstable to get a CT 2. History of hypertension. 3. Mild hypokalemia. 4. She has a history of hyponatremia. Now hyponatremic 129 5. Right breast cancer, status post right mastectomy with brain mets and status post whole brain radiation. 6. Nausea, vomiting, poor appetite, failure to thrive. 7 bilateral lower extremity weakness? Steroid related PLAN - npo, will start TPN for nutriiton as family refusing NG - Will hold EGD today as had rapid response yesterday and K was low this am - iv fluids - cw decadron low dose - sp samsca in 02/24 - will get MRI lumbar spine results -follLow up neuro recs, spoke to neuro was started on valproate - Avoid narcotics - toradol prn pain - > nutrition will address withj family - scd - will need onc assistance for goals of care as per notes pt has repsonded to treatment - cw ativan/depakote - seizure precaution, iv ativan prn neurology - GI and dvt prophylaxsis - spoke to family at bedside Result Diagram: 02/25/19 0506 02/25/19 0506 Results 24hrs Laboratory Tests Test 02/24/19 12:43 02/24/19 20:29 02/24/19 21:10 02/24/19 21:15 Sodium Level 128 L 126 L Aspartate Amino 43 Transf (AST/SGOT) Alanine 35 Aminotransferase (ALT/SGPT) Potassium Level 2.3 *L Lactic Acid Level 1.3 Valproic Acid 98 (Depakene) Level Bedside Glucose 137 Blood Gas Blood arterial Specimen Source Arterial Blood 02/24/2019 9:14:1 Date Drawn 4 PM Arterial Blood pH 7.599 *H (Temp corrected) Arterial Blood 21.9 L pCO2 (Temp correct) Arterial Blood 204.9 H pO2 (Temp corrected) Arterial Blood 21.0 L HCO3 Arterial Blood 1.5 Base Excess Arterial Blood 99.3 H Oxygen Saturation Parker Test ACCEPTAB Arterial Blood Left Radial Gas Puncture Site Arterial 0.2 Blood Carboxyhemo globin Arterial Blood 0.2 Methemoglobin Oxyhemoglobin 98.9 Percent Blood Gas 37.0 Temperature Blood Gas NASAL CANNULA Modality FiO2 27.0 Blood Gas D ARMANI ROLLE Critical Value Read Back Blood Gas RH Notified Whom Blood Gas 02/24/2019 9:25:3 Notified Time 0 PM Test 02/25/19 05:06 White Blood Count 6.1 # Red Blood Count 3.75 L Hemoglobin 13.0 Hematocrit 35.5 L Mean Corpuscular 94.7 Volume Mean Corpuscular 34.7 H Hemoglobin Mean Corpuscular 36.6 Hemoglobin Concen t Red Cell 15.3 H Distribution Width Platelet Count 161 Mean Platelet 9.9 Volume Immature 0.800 H Granulocytes % Neutrophils % 89.7 H Lymphocytes % 4.5 L Monocytes % 5.0 Eosinophils % 0.0 Basophils % 0.0 Nucleated Red 0.0 Blood Cells % Immature 0.050 H Granulocytes # Neutrophils # 5.4 Lymphocytes # 0.3 L Monocytes # 0.3 Eosinophils # 0.0 Basophils # 0.0 Nucleated Red 0.0 Blood Cells # Sodium Level 128 L Potassium Level 2.4 *L Chloride Level 97 Carbon Dioxide 21 Level Anion Gap 10 Blood Urea 6 L Nitrogen Creatinine 0.30 L Est Glomerular > 60 Filtrat Rate mL/min Glucose Level 180 Calcium Level 8.8 Phosphorus Level 2.0 L Magnesium Level 1.5 L Valproic Acid 50 (Depakene) Level Subjective 24 Hr Interval Summary Free Text/Dictation still confused na better today sp samsca yesterday pts family refusing NG tube Exam/Review of Systems Exam Vitals Vital Signs Date Temp Pulse Resp B/P (MAP) Pulse Ox O2 O2 Flow FiO2 Time Delivery Rate 02/25/19 97.8 72 18 143/79 95 08:07 (100) 02/24/19 Nasal 2.0 22:24 Cannula 02/24/19 28 21:39 Intake and Output 02/24/19 02/24/19 02/25/19 1515:00 23:00 07:00 IntakeIntake Total 150 ml 107 ml 400 ml OutputOutput Total 850 ml 850 ml 550 ml BalanceBalance -700 ml -743 ml -150 ml Exam ENERAL: The patient seems very agitated, confused, trying to get out of the bed, curled up on the side of the bed, confused mumbling, withdrew to pain HEENT: Normocephalic, atraumatic. Alopecia. NECK: Supple. HEART: Regular rate and rhythm. LUNGS: Clear to auscultate bilaterally. ABDOMEN: Soft, nontender, nondistended, positive normoactive bowel sounds. EXTREMITIES: No clubbing, cyanosis, or edema. NEUROLOGIC: confused mumbling Muscle weakness on the bilateral lower extremities responds to sternal rub Results Results 24hrs Laboratory Tests Test 02/24/19 12:43 02/24/19 20:29 02/24/19 21:10 02/24/19 21:15 Sodium Level 128 L 126 L Aspartate Amino 43 Transf (AST/SGOT) Alanine 35 Aminotransferase (ALT/SGPT) Potassium Level 2.3 *L Lactic Acid Level 1.3 Valproic Acid 98 (Depakene) Level Bedside Glucose 137 Blood Gas Blood arterial Specimen Source Arterial Blood 02/24/2019 9:14:1 Date Drawn 4 PM Arterial Blood pH 7.599 *H (Temp corrected) Arterial Blood 21.9 L pCO2 (Temp correct) Arterial Blood 204.9 H pO2 (Temp corrected) Arterial Blood 21.0 L HCO3 Arterial Blood 1.5 Base Excess Arterial Blood 99.3 H Oxygen Saturation Parker Test ACCEPTAB Arterial Blood Left Radial Gas Puncture Site Arterial 0.2 Blood Carboxyhemo globin Arterial Blood 0.2 Methemoglobin Oxyhemoglobin 98.9 Percent Blood Gas 37.0 Temperature Blood Gas NASAL CANNULA Modality FiO2 27.0 Blood Gas D ARMANI ROLLE Critical Value Read Back Blood Gas Notified Whom Blood Gas 02/24/2019 9:25:3 Notified Time 0 PM Test 02/25/19 05:06 White Blood Count 6.1 # Red Blood Count 3.75 L Hemoglobin 13.0 Hematocrit 35.5 L Mean Corpuscular 94.7 Volume Mean Corpuscular 34.7 H Hemoglobin Mean Corpuscular 36.6 Hemoglobin Concen t Red Cell 15.3 H Distribution Width Platelet Count 161 Mean Platelet 9.9 Volume Immature 0.800 H Granulocytes % Neutrophils % 89.7 H Lymphocytes % 4.5 L Monocytes % 5.0 Eosinophils % 0.0 Basophils % 0.0 Nucleated Red 0.0 Blood Cells % Immature 0.050 H Granulocytes # Neutrophils # 5.4 Lymphocytes # 0.3 L Monocytes # 0.3 Eosinophils # 0.0 Basophils # 0.0 Nucleated Red 0.0 Blood Cells # Sodium Level 128 L Potassium Level 2.4 *L Chloride Level 97 Carbon Dioxide 21 Level Anion Gap 10 Blood Urea 6 L Nitrogen Creatinine 0.30 L Est Glomerular > 60 Filtrat Rate mL/min Glucose Level 180 Calcium Level 8.8 Phosphorus Level 2.0 L Magnesium Level 1.5 L Valproic Acid 50 (Depakene) Level Medications Medication Current Medications IV Flush (NS 3 ml) 3 ml PER PROTOCOL IV ; Start 02/22/19 at 16:00 Ondansetron HCl (Zofran Inj) 4 mg Q6H PRN IV NAUSEA/VOMITING; Start 02/22/19 at 16:00 Acetaminophen (Tylenol Tab) 650 mg Q6H PRN PO .PAIN 1-3 OR TEMP Last administered on 02/23/19at 19:31; Admin Dose 650 MG; Start 02/22/19 at 16:00 Magnesium Hydroxide (Milk Of Mag) 30 ml DAILY PRN PO .CONSTIPATION; Start 02/22/19 at 16:00 Pantoprazole (Protonix Iv) 40 mg DAILY@06 IV Last administered on 02/25/19at 05:09; Admin Dose 40 MG; Start 02/23/19 at 06:00 Ketorolac Tromethamine (Toradol) 30 mg Q6H PRN IV PAIN LEVEL 1-3 Last administered on 02/25/19at 00:35; Admin Dose 30 MG; Start 02/22/19 at 18:30; Stop 02/25/19 at 18:29 Ceftriaxone Sodium 50 ml @ 100 mls/hr Q24H IVPB Last administered on 02/25/19 09:52; Admin Dose 100 MLS/HR; Start 02/23/19 at 10:00 Enoxaparin Sodium (Lovenox) 40 mg DAILY SC Last administered on 02/24/19 09:52; Admin Dose 40 MG; Start 02/24/19 at 09:00 Ibuprofen (Motrin) 600 mg Q6H PRN PO MODERATE PAIN LEVEL 4-6 Last administered on 02/23/19 14:37; Admin Dose 600 MG; Start 02/23/19 at 14:30 Olanzapine (Zyprexa Zydis) 5 mg BID ODT Last administered on 02/23/19 20:31; Admin Dose 5 MG; Start 02/23/19 at 21:00 Hydralazine HCl (Apresoline) 10 mg Q6H PRN IV ELEVATED BLOOD PRESSURE Last administered on 02/24/19 20:47; Admin Dose 10 MG; Start 02/24/19 at 01:00 Lorazepam (Ativan) 2 mg Q4 PRN IV AGITATION Last administered on 02/25/19 02:33; Admin Dose 2 MG; Start 02/24/19 at 11:00 Dexamethasone (Decadron) 2 mg Q8 IV Last administered on 02/25/19 05:09; Admin Dose 2 MG; Start 02/24/19 at 14:00 Valproate Sodium 250 mg/Sodium Chloride 52.5 ml @ 55 mls/hr Q12H IVPB Last administered on 02/25/19 00:40; Admin Dose 55 MLS/HR; Start 02/25/19 at 01:00 Dextrose/Sodium Chloride 1,000 ml @ 50 mls/hr Q20H IV Last administered on 02/24/19 20:52; Admin Dose 50 MLS/HR; Start 02/24/19 at 15:30 Lorazepam (Ativan) 1 mg Q4 PRN IV AGITATION/ANXIETY; Start 02/25/19 at 03:30 Potassium Chloride 100 ml @ 50 mls/hr Q2H IVPB Last administered on 02/25/19 09:53; Admin Dose 50 MLS/HR; Start 02/25/19 at 08:00; Stop 02/25/19 at 15:59 Magnesium Sulfate 50 ml @ 25 mls/hr ONCE ONCE IVPB Last administered on 02/25/19 09:52; Admin Dose 25 MLS/HR; Start 02/25/19 at 09:30; Stop 02/25/19 at 11:29 OLIVIA VIDES MD Feb 25, 2019 10:12
[2019-02-25] MEDS ORDERED: TPN 1,000 ML IV SCH (10:15)
[2019-02-25] MEDS ORDERED: LIDOCAINE 1% (MPF) 5 ML VIAL SC ONE (10:30)
--- NOTE | 2019-02-25 11:07 | CONS ---
Assessment/Plan Assessment/Plan Assessment/Plan (Recall) 58 F c/ known brain metastases (breast primary) s/p radiation...who presents for evaluation of ams.. The clinical picture suggests an acute toxic encephalopathy, which has shown some clinical improvement.. A superimposed metabolic component 2/2 UTI is possible.. Also notable are severe and episodic headaches w/ nausea/vomiting..which is likely secondary to her metastatic disease.. A carcinomatous meningeal process would be expected to produce unremitting (rather than episodic) symptoms.. Head CT is without obvious acute intracranial pathology. Noted to have seizures on 02/23..likely provoked by antipsychotic medications.. EEG was without epileptiform activity P: Continue Depakote for seizure ppx Ativan iv prn prolonged seizure or cluster Behavioral management per psychiatry NSAID for pain management w/ protonix, as medically able PT/OT as tolerated Other medical management and supportive care per primary Will follow clinically Consultation Date/Type/Reason Admit Date/Time Feb 22, 2019 at 14:32 Type of Consult Neurology Reason for Consultation ams Requesting Provider: OLIVIA VIDES MD Date/Time of Note DATE: 02/25/19 TIME: 11:05 24 HR Interval Summary Free Text/Dictation Continues acute care Exam/Review of Systems Exam Vitals Vital Signs Date Temp Pulse Resp B/P (MAP) Pulse Ox O2 O2 Flow FiO2 Time Delivery Rate 02/25/19 97.8 72 18 143/79 95 08:07 (100) 02/24/19 Nasal 2.0 22:24 Cannula 02/24/19 28 21:39 Intake and Output 02/24/19 02/24/19 02/25/19 1515:00 23:00 07:00 IntakeIntake Total 150 ml 107 ml 400 ml OutputOutput Total 850 ml 850 ml 550 ml BalanceBalance -700 ml -743 ml -150 ml Exam PE: Gen Appearance: No Apparent Distress HEENT: Normocephalic Cardiovascular: Regular rate Abdomen: Soft Extremities: Dry NE: The patient was obtunded and nonverbal. Cranial nerve examination was limited by mental status. Pupils were equal and reactive to light. There was no afferent pupillary defect. Funduscopic examination was limited. Face was grossly symmetric, w/ present corneal and cough reflexes. Tone was normal. Muscle bulk was normal. I did not see fasciculations. The patie nt withdrew to noxious stimulation x 4. Coordination and gait testing was limited by mental status. Arm and leg reflexes were symmetric. Jose's sign was absent. Plantar responses were flexor. Results Result Diagram: 02/25/19 0506 02/25/19 0506 Results 24hrs Laboratory Tests Test 02/24/19 12:43 02/24/19 20:29 02/24/19 21:10 02/24/19 21:15 Sodium Level 128 L 126 L Aspartate Amino 43 Transf (AST/SGOT) Alanine 35 Aminotransferase (ALT/SGPT) Potassium Level 2.3 *L Lactic Acid Level 1.3 Valproic Acid 98 (Depakene) Level Bedside Glucose 137 Blood Gas Blood arterial Specimen Source Arterial Blood 02/24/2019 9:14:1 Date Drawn 4 PM Arterial Blood pH 7.599 *H (Temp corrected) Arterial Blood 21.9 L pCO2 (Temp correct) Arterial Blood 204.9 H pO2 (Temp corrected) Arterial Blood 21.0 L HCO3 Arterial Blood 1.5 Base Excess Arterial Blood 99.3 H Oxygen Saturation Parker Test ACCEPTAB Arterial Blood Left Radial Gas Puncture Site Arterial 0.2 Blood Carboxyhemo globin Arterial Blood 0.2 Methemoglobin Oxyhemoglobin 98.9 Percent Blood Gas 37.0 Temperature Blood Gas NASAL CANNULA Modality FiO2 27.0 Blood Gas D ARMANI ROLLE Critical Value Read Back Blood Gas RH Notified Whom Blood Gas 02/24/2019 9:25:3 Notified Time 0 PM Test 02/25/19 05:06 White Blood Count 6.1 # Red Blood Count 3.75 L Hemoglobin 13.0 Hematocrit 35.5 L Mean Corpuscular 94.7 Volume Mean Corpuscular 34.7 H Hemoglobin Mean Corpuscular 36.6 Hemoglobin Concen t Red Cell 15.3 H Distribution Width Platelet Count 161 Mean Platelet 9.9 Volume Immature 0.800 H Granulocytes % Neutrophils % 89.7 H Lymphocytes % 4.5 L Monocytes % 5.0 Eosinophils % 0.0 Basophils % 0.0 Nucleated Red 0.0 Blood Cells % Immature 0.050 H Granulocytes # Neutrophils # 5.4 Lymphocytes # 0.3 L Monocytes # 0.3 Eosinophils # 0.0 Basophils # 0.0 Nucleated Red 0.0 Blood Cells # Sodium Level 128 L Potassium Level 2.4 *L Chloride Level 97 Carbon Dioxide 21 Level Anion Gap 10 Blood Urea 6 L Nitrogen Creatinine 0.30 L Est Glomerular > 60 Filtrat Rate mL/min Glucose Level 180 Calcium Level 8.8 Phosphorus Level 2.0 L Magnesium Level 1.5 L Valproic Acid 50 (Depakene) Level Medications Medication Current Medications IV Flush (NS 3 ml) 3 ml PER PROTOCOL IV ; Start 02/22/19 at 16:00 Ondansetron HCl (Zofran Inj) 4 mg Q6H PRN IV NAUSEA/VOMITING; Start 02/22/19 at 16:00 Acetaminophen (Tylenol Tab) 650 mg Q6H PRN PO .PAIN 1-3 OR TEMP Last administered on 02/23/19 19:31; Admin Dose 650 MG; Start 02/22/19 at 16:00 Magnesium Hydroxide (Milk Of Mag) 30 ml DAILY PRN PO .CONSTIPATION; Start 02/22/19 at 16:00 Pantoprazole (Protonix Iv) 40 mg DAILY@06 IV Last administered on 02/25/19at 05:09; Admin Dose 40 MG; Start 02/23/19 at 06:00 Ketorolac Tromethamine (Toradol) 30 mg Q6H PRN IV PAIN LEVEL 1-3 Last administered on 02/25/19 00:35; Admin Dose 30 MG; Start 02/22/19 at 18:30; Stop 02/25/19 at 18:29 Ceftriaxone Sodium 50 ml @ 100 mls/hr Q24H IVPB Last administered on 02/25/19 09:52; Admin Dose 100 MLS/HR; Start 02/23/19 at 10:00 Enoxaparin Sodium (Lovenox) 40 mg DAILY SC Last administered on 02/24/19 09:52; Admin Dose 40 MG; Start 02/24/19 at 09:00 Ibuprofen (Motrin) 600 mg Q6H PRN PO MODERATE PAIN LEVEL 4-6 Last administered on 02/23/19 14:37; Admin Dose 600 MG; Start 02/23/19 at 14:30 Olanzapine (Zyprexa Zydis) 5 mg BID ODT Last administered on 02/23/19 20:31; Admin Dose 5 MG; Start 02/23/19 at 21:00 Hydralazine HCl (Apresoline) 10 mg Q6H PRN IV ELEVATED BLOOD PRESSURE Last administered on 02/24/19 20:47; Admin Dose 10 MG; Start 02/24/19 at 01:00 Lorazepam (Ativan) 2 mg Q4 PRN IV AGITATION Last administered on 02/25/19at 02:33; Admin Dose 2 MG; Start 02/24/19 at 11:00 Dexamethasone (Decadron) 2 mg Q8 IV Last administered on 02/25/19at 05:09; Admin Dose 2 MG; Start 02/24/19 at 14:00 Valproate Sodium 250 mg/Sodium Chloride 52.5 ml @ 55 mls/hr Q12H IVPB Last adm inistered on 02/25/19at 00:40; Admin Dose 55 MLS/HR; Start 02/25/19 at 01:00 Dextrose/Sodium Chloride 1,000 ml @ 50 mls/hr Q20H IV Last administered on 02/24/19at 20:52; Admin Dose 50 MLS/HR; Start 02/24/19 at 15:30 Lorazepam (Ativan) 1 mg Q4 PRN IV AGITATION/ANXIETY; Start 02/25/19 at 03:30 Potassium Chloride 100 ml @ 50 mls/hr Q2H IVPB Last administered on 02/25/19at 09:53; Admin Dose 50 MLS/HR; Start 02/25/19 at 08:00; Stop 02/25/19 at 15:59 Magnesium Sulfate 50 ml @ 25 mls/hr ONCE ONCE IVPB Last administered on 02/25/19at 09:52; Admin Dose 25 MLS/HR; Start 02/25/19 at 09:30; Stop 02/25/19 at 11:29 Diagnostic Test (Pha) (Accu-Chek) 1 ea Q4 XX ; Start 02/25/19 at 13:00; Status UNV Total Parenteral Nutrition 1,000 ml @ 0 mls/hr Q0M IV ; Start 02/25/19 at 10:15; Status UNV KELLY OBANDO Feb 25, 2019 11:07
[2019-02-25 11:29] VITALS: BP 116/69; PULSE 67; RESP 18
--- NOTE | 2019-02-25 11:40 | CONS ---
Assessment/Plan Assessment/Plan Assessment/Plan (Daily) IMPRESSION: 1. Persistent nausea, vomiting. 2. Breast cancer with mets to brain. 3. Hypertension. 4. History of hyponatremia. 5. Bilateral lower extremity weakness 6. Severe hypokalemia Plan Correction of the potassium EGD deferred and we will do it once patient condition is more stable discussed with Dr. Longoria Consultation Date/Type/Reason Admit Date/Time Feb 22, 2019 at 14:32 Initial Consult Date Requesting Provider: OLIVIA LONGORIA MD Date/Time of Note DATE: 02/25/19 TIME: 11:39 24 HR Interval Summary Subjective hx not possible: pt critical Exam/Review of Systems Exam Vitals Vital Signs Date Temp Pulse Resp B/P (MAP) Pulse Ox O2 O2 Flow FiO2 Time Delivery Rate 02/25/19 67 18 116/69 95 11:29 (85) 02/25/19 97.8 08:07 02/24/19 Nasal 2.0 22:24 Cannula 02/24/19 28 21:39 Intake and Output 02/24/19 02/24/19 02/25/19 1515:00 23:00 07:00 IntakeIntake Total 150 ml 107 ml 400 ml OutputOutput Total 850 ml 850 ml 550 ml BalanceBalance -700 ml -743 ml -150 ml Constitutional: non-verbal, frail Respiratory: clear to auscultation Cardiovascular: regular rate and rhythm Results Result Diagram: 02/25/19 0506 02/25/19 0506 Results 24hrs Laboratory Tests Test 02/24/19 12:43 02/24/19 20:29 02/24/19 21:10 02/24/19 21:15 Sodium Level 128 L 126 L Aspartate Amino 43 Transf (AST/SGOT) Alanine 35 Aminotransferase (ALT/SGPT) Potassium Level 2.3 *L Lactic Acid Level 1.3 Valproic Acid 98 (Depakene) Level Bedside Glucose 137 Blood Gas Blood arterial Specimen Source Arterial Blood 02/24/2019 9:14:1 Date Drawn 4 PM Arterial Blood pH 7.599 *H (Temp corrected) Arterial Blood 21.9 L pCO2 (Temp correct) Arterial Blood 204.9 H pO2 (Temp corrected) Arterial Blood 21.0 L HCO3 Arterial Blood 1.5 Base Excess Arterial Blood 99.3 H Oxygen Saturation Parker Test ACCEPTAB Arterial Blood Left Radial Gas Puncture Site Arterial 0.2 Blood Carboxyhemo globin Arterial Blood 0.2 Methemoglobin Oxyhemoglobin 98.9 Percent Blood Gas 37.0 Temperature Blood Gas NASAL CANNULA Modality FiO2 27.0 Blood Gas Melvi LOMELI MD Critical Value Read Back Blood Gas RH Notified Whom Blood Gas 02/24/2019 9:25:3 Notified Time 0 PM Test 02/25/19 05:06 White Blood Count 6.1 # Red Blood Count 3.75 L Hemoglobin 13.0 Hematocrit 35.5 L Mean Corpuscular 94.7 Volume Mean Corpuscular 34.7 H Hemoglobin Mean Corpuscular 36.6 Hemoglobin Concen t Red Cell 15.3 H Distribution Width Platelet Count 161 Mean Platelet 9.9 Volume Immature 0.800 H Granulocytes % Neutrophils % 89.7 H Lymphocytes % 4.5 L Monocytes % 5.0 Eosinophils % 0.0 Basophils % 0.0 Nucleated Red 0.0 Blood Cells % Immature 0.050 H Granulocytes # Neutrophils # 5.4 Lymphocytes # 0.3 L Monocytes # 0.3 Eosinophils # 0.0 Basophils # 0.0 Nucleated Red 0.0 Blood Cells # Sodium Level 128 L Potassium Level 2.4 *L Chloride Level 97 Carbon Dioxide 21 Level Anion Gap 10 Blood Urea 6 L Nitrogen Creatinine 0.30 L Est Glomerular > 60 Filtrat Rate mL/min Glucose Level 180 Calcium Level 8.8 Phosphorus Level 2.0 L Magnesium Level 1.5 L Valproic Acid 50 (Depakene) Level Medications Medication Current Medications IV Flush (NS 3 ml) 3 ml PER PROTOCOL IV ; Start 02/22/19 at 16:00 Ondansetron HCl (Zofran Inj) 4 mg Q6H PRN IV NAUSEA/VOMITING; Start 02/22/19 at 16:00 Acetaminophen (Tylenol Tab) 650 mg Q6H PRN PO .PAIN 1-3 OR TEMP Last administered on 02/23/19at 19:31; Admin Dose 650 MG; Start 02/22/19 at 16:00 Magnesium Hydroxide (Milk Of Mag) 30 ml DAILY PRN PO .CONSTIPATION; Start 02/22/19 at 16:00 Pantoprazole (Protonix Iv) 40 mg DAILY@06 IV Last administered on 02/25/19at 05:09; Admin Dose 40 MG; Start 02/23/19 at 06:00 Ketorolac Tromethamine (Toradol) 30 mg Q6H PRN IV PAIN LEVEL 1-3 Last administered on 02/25/19 00:35; Admin Dose 30 MG; Start 02/22/19 at 18:30; Stop 02/25/19 at 18:29 Ceftriaxone Sodium 50 ml @ 100 mls/hr Q24H IVPB Last administered on 02/25/19 09:52; Admin Dose 100 MLS/HR; Start 02/23/19 at 10:00 Enoxaparin Sodium (Lovenox) 40 mg DAILY SC Last administered on 02/24/19 09:52; Admin Dose 40 MG; Start 02/24/19 at 09:00 Ibuprofen (Motrin) 600 mg Q6H PRN PO MODERATE PAIN LEVEL 4-6 Last administered on 02/23/19 14:37; Admin Dose 600 MG; Start 02/23/19 at 14:30 Olanzapine (Zyprexa Zydis) 5 mg BID ODT Last administered on 02/23/19 20:31; Admin Dose 5 MG; Start 02/23/19 at 21:00 Hydralazine HCl (Apresoline) 10 mg Q6H PRN IV ELEVATED BLOOD PRESSURE Last administered on 02/24/19 20:47; Admin Dose 10 MG; Start 02/24/19 at 01:00 Lorazepam (Ativan) 2 mg Q4 PRN IV AGITATION Last administered on 02/25/19at 02:33; Admin Dose 2 MG; Start 02/24/19 at 11:00 Dexamethasone (Decadron) 2 mg Q8 IV Last administered on 02/25/19at 05:09; Admin Dose 2 MG; Start 02/24/19 at 14:00 Dextrose/Sodium Chloride 1,000 ml @ 50 mls/hr Q20H IV Last administered on 20:52; Admin Dose 50 MLS/HR; Start 02/24/19 at 15:30 Lorazepam (Ativan) 1 mg Q4 PRN IV AGITATION/ANXIETY; Start 02/25/19 at 03:30 Potassium Chloride 100 ml @ 50 mls/hr Q2H IVPB Last administered on 02/25/19 09:53; Admin Dose 50 MLS/HR; Start 02/25/19 at 08:00; Stop 02/25/19 at 15:59 Diagnostic Test (Pha) (Accu-Chek) 1 ea Q4 XX ; Start 02/25/19 at 13:00; Status UNV Total Parenteral Nutrition 1,000 ml @ 0 mls/hr Q0M IV ; Start 02/25/19 at 10:15; Status UNV Valproate Sodium 500 mg/Sodium Chloride 55 ml @ 55 mls/hr Q12H IVPB ; Start 02/25/19 at 13:00; Status UNV TREE IBRAHIM MD Feb 25, 2019 11:40
[2019-02-25 15:30] VITALS: BP 136/83; PULSE 84; RESP 18
[2019-02-25] MEDS: VALPROATE INJ 500 MG in SOD CHLORIDE 0.9% 50 ML IVPB SCH (16:06)
[2019-02-25 19:32] VITALS: BP 145/80; PULSE 75; RESP 18
[2019-02-25] MEDS: ACCU-CHEK XX SCH (21:00)
[2019-02-25] MEDS: TPN 1,000 ML IV SCH (21:45)
[2019-02-26] MEDS: ACCU-CHEK XX SCH ×6 (01:00→21:00)
[2019-02-26] MEDS: VALPROATE INJ 500 MG in SOD CHLORIDE 0.9% 50 ML IVPB SCH ×2 (01:34→12:10)
[2019-02-26 04:00] VITALS: BP 154/80; PULSE 68; RESP 17
[2019-02-26] MEDS: DEXAMETHASONE 4 MG/ML 1 ML INJ IV SCH ×3 (05:41→21:08)
[2019-02-26] MEDS: PANTOPRAZOLE 40 MG INJ IV SCH (05:41)
[2019-02-26 07:11] VITALS: BP 136/82; PULSE 83; RESP 20
--- NOTE | 2019-02-26 08:35 | CONS ---
Assessment/Plan Assessment/Plan Assessment/Plan (Daily) Assessment/Plan (Daily) IMPRESSION: 1. Persistent nausea, vomiting. 2. Breast cancer with mets to brain. 3. Hypertension. 4. History of hyponatremia. 5. Bilateral lower extremity weakness 6. Severe hypokalemia Plan Correction of the potassium EGD deferred and we will do it once patient condition is more stable discussed with Dr. Longoria Discussed with the daughter declined EGD Continue TPN Consultation Date/Type/Reason Admit Date/Time Feb 22, 2019 at 14:32 Initial Consult Date Requesting Provider: OLIVIA LONGORIA MD Date/Time of Note DATE: 02/26/19 TIME: 08:34 24 HR Interval Summary Constitutional: poor po Exam/Review of Systems Exam Vitals Vital Signs Date Temp Pulse Resp B/P (MAP) Pulse Ox O2 O2 Flow FiO2 Time Delivery Rate 02/26/19 97.6 83 20 136/82 98 07:11 (100) 02/26/19 2.0 27 01:10 02/25/19 Room Air 19:32 Intake and Output 02/25/19 02/25/19 02/26/19 1515:00 23:00 07:00 IntakeIntake Total 100 ml 355 ml 375 ml OutputOutput Total 900 ml 300 ml 75 ml BalanceBalance -800 ml 55 ml 300 ml Constitutional: alert, oriented, well developed Psych: no complaints, nl mood/affect Head: normocephalic, atraumatic Eyes: nl conjunctiva, EOMI, nl lids, nl sclera, PERRL ENMT: nl external ears & nose, nl lips & teeth, nl nasal mucosa & septum Neck: supple, non-tender Respiratory: clear to auscultation, normal air movement Cardiovascular: regular rate and rhythm, nl pulses Gastrointestinal: soft, nl liver, spleen, non-tender Musculoskeletal: nl extremities to inspection, nl gait and stance Extremities: normal pulses Neurological: MANAGER SWITCH II-XII intact, nl mental status, nl speech, nl strength Skin: nl turgor; No rash or lesions Lymph: nl lymph nodes Results Result Diagram: 02/26/19 0544 02/26/19 0544 Results 24hrs Laboratory Tests Test 02/25/19 11:25 02/25/19 21:47 02/26/19 01:36 02/26/19 05:40 Sodium Level 132 L Potassium Level 4.3 Chloride Level 104 Carbon Dioxide Level 22 Anion Gap 6 Blood Urea Nitrogen 4 L Creatinine 0.35 L Est Glomerular Filtrat > 60 Rate mL/min Glucose Level 113 # Calcium Level 9.2 Phosphorus Level 2.2 L Magnesium Level 1.7 Total Bilirubin 0.8 Direct Bilirubin 0.00 Indirect Bilirubin 0.8 Aspartate Amino 29 Transf (AST/SGOT) Alanine 34 Aminotransferase (ALT/SG PT) Alkaline Phosphatase 44 Total Protein 4.9 L Albumin 2.9 L Globulin 2.00 Albumin/Globulin Ratio 1.45 Prealbumin 21.5 Triglycerides Level 67 Bedside Glucose 104 148 114 Test 02/26/19 05:44 White Blood Count 9.0 # Red Blood Count 3.93 L Hemoglobin 13.4 Hematocrit 38.9 Mean Corpuscular Volume 99.0 Mean Corpuscular 34.1 H Hemoglobin Mean Corpuscular 34.4 Hemoglobin Concent Red Cell Distribution 16.8 H Width Platelet Count 200 # Mean Platelet Volume 9.0 Immature Granulocytes % 0.800 H Neutrophils % 88.1 H Lymphocytes % 2.9 L Monocytes % 8.2 Eosinophils % 0.0 Basophils % 0.0 Nucleated Red Blood 0.0 Cells % Immature Granulocytes # 0.070 H Neutrophils # 7.9 H Lymphocytes # 0.3 L Monocytes # 0.7 Eosinophils # 0.0 Basophils # 0.0 Nucleated Red Blood 0.0 Cells # Sodium Level 136 Potassium Level 3.4 L Chloride Level 109 Carbon Dioxide Level 21 Anion Gap 6 Blood Urea Nitrogen 13 # Creatinine 0.47 Est Glomerular Filtrat > 60 Rate mL/min Glucose Level 127 Calcium Level 10.3 H Phosphorus Level 2.2 L Magnesium Level 2.1 Valproic Acid (Depakene) 73 Level Medications Medication Current Medications IV Flush (NS 3 ml) 3 ml PER PROTOCOL IV ; Start 02/22/19 at 16:00 Ondansetron HCl (Zofran Inj) 4 mg Q6H PRN IV NAUSEA/VOMITING; Start 02/22/19 at 16:00 Acetaminophen (Tylenol Tab) 650 mg Q6H PRN PO .PAIN 1-3 OR TEMP Last administered on 02/23/19at 19:31; Admin Dose 650 MG; Start 02/22/19 at 16:00 Magnesium Hydroxide (Milk Of Mag) 30 ml DAILY PRN PO .CONSTIPATION; Start 02/22/19 at 16:00 Pantoprazole (Protonix Iv) 40 mg DAILY@06 IV Last administered on 02/26/19 05:41; Admin Dose 40 MG; Start 02/23/19 at 06:00 Ceftriaxone Sodium 50 ml @ 100 mls/hr Q24H IVPB Last administered on 02/25/19 09:52; Admin Dose 100 MLS/HR; Start 02/23/19 at 10:00 Enoxaparin Sodium (Lovenox) 40 mg DAILY SC Last administered on 02/24/19 09:52; Admin Dose 40 MG; Start 02/24/19 at 09:00 Ibuprofen (Motrin) 600 mg Q6H PRN PO MODERATE PAIN LEVEL 4-6 Last administered on 02/23/19 14:37; Admin Dose 600 MG; Start 02/23/19 at 14:30 Olanzapine (Zyprexa Zydis) 5 mg BID ODT Last administered on 02/23/19 20:31; Admin Dose 5 MG; Start 02/23/19 at 21:00 Hydralazine HCl (Apresoline) 10 mg Q6H PRN IV ELEVATED BLOOD PRESSURE Last administered on 02/24/19 20:47; Admin Dose 10 MG; Start 02/24/19 at 01:00 Lorazepam (Ativan) 2 mg Q4 PRN IV AGITATION Last administered on 02/25/19 02:33; Admin Dose 2 MG; Start 02/24/19 at 11:00 Dexamethasone (Decadron) 2 mg Q8 IV Last administered on 02/26/19 05:41; Admin Dose 2 MG; Start 02/24/19 at 14:00 Dextrose/Sodium Chloride 1,000 ml @ 50 mls/hr Q20H IV Last administered on 02/24/19 20:52; Admin Dose 50 MLS/HR; Start 02/24/19 at 15:30; Status Hold Lorazepam (Ativan) 1 mg Q4 PRN IV AGITATION/ANXIETY; Start 02/25/19 at 03:30 Diagnostic Test (Pha) (Accu-Chek) 1 ea Q4 XX ; Start 02/25/19 at 21:00 Valproate Sodium 500 mg/Sodium Chloride 55 ml @ 55 mls/hr Q12H IVPB Last administered on 02/26/19 01:34; Admin Dose 55 MLS/HR; Start 02/25/19 at 13:00 IV Flush (NS 10 ml) 10 ml PRN PRN IV IV PROTOCOL; Start 02/25/19 at 16:30 Total Parenteral Nutrition 1,000 ml @ 40 mls/hr Q24H IV Last administered on 02/25/19at 21:45; Admin Dose 40 MLS/HR; Start 02/25/19 at 21:00 TREE IBRAHIM MD Feb 26, 2019 08:35
[2019-02-26] MEDS: OLANZAPINE (ODT) 5 MG TAB ODT SCH ×2 (08:59→21:00)
[2019-02-26] MEDS: CEFTRIAXONE 1 GM/50 ML (PMX) 50 ML IVPB SCH (09:01)
[2019-02-26] MEDS: ENOXAPARIN 40 MG/0.4 ML SYG SC SCH (09:07)
--- NOTE | 2019-02-26 11:25 | CONS ---
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 Beck has already ordered -I also explained that her disease is terminal and that all therapies given are for palliative reasons and will not cure her disease -I explained that her disease is very advanced that her her life expectancy is on the order of months, with or without intrathecal chemotherapy -family and patient will decide on whether or not to continue treatment or to proceed with comfort measures and hospice Thank you for the opportunity to participate in this patients care A total of 40 minutes of face to face time was spent speaking with the patient, of which greater than 50% was spent in counseling and coordination of care and the detailed question and answer session. 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 Pt and family have been in discussions with their oncologist regarding treatment, management and options. They are now seeking a second opinion. Constitutional: diaphoresis, poor po Eyes: no complaints ENT: no complaints Respiratory: no complaints, shortness of breath Cardiovascular: no complaints Gastrointestinal: no complaints Genitourinary: no complaints Musculoskeletal: bone/joint pain Skin: no complaints Neurologic: no complaints Endocrine: no complaints Psychological: anxiety, depression Past Medical History HTN Home Meds Active Scripts Hydrocodone/Acetaminophen ([place] 10-325 Tablet) 1 Each Tablet, 1 TAB PO Q6H PRN for PAIN, #7 TAB Prov:DANNY BRANCH MD 11/10/18 Reported Medications Acetaminophen* (Acetaminophen*) 500 MG Extra Strength Tablet, 500 MG PO Q4H PRN for PAIN AND OR ELEVATED TEMP, TAB 7/8/19 Ondansetron Hcl* (Ondansetron Hcl*) 8 Mg Tablet, 1 TAB ORAL TID 02/01/19 Metoclopramide Hcl* (Metoclopramide Hcl*) 10 Mg Tablet, 1 TAB ORAL QID 02/01/19 Omeprazole* (Omeprazole*) 20 Mg Capsule.dr, 20 MG PO DAILY, #30 CAP 01/01/19 Lapatinib (Tykerb) 250 Mg Tab, 250 MG PO TID, TAB 01/01/19 Capecitabine* (Xeloda*) 500 Mg Tablet, 1000 MG PO BID, TBS STOP FOR 7 DAYS, START DAY 11/12/18 11/10/18 Metoprolol Succinate* (Toprol XL*) 25 Mg Tab.sr.24h, 25 MG PO QHS, #30 TAB 11/10/18 Discontinued Scripts Ondansetron (Ondansetron Odt) 4 Mg Tab.rapdis, 4 MG PO Q6H PRN for NAUSEA AND/OR VOMITING, #30 TAB Prov:MARILEE REYNAGA MD 02/21/19 Pantoprazole* (Protonix*) 40 Mg Tablet.dr, 40 MG PO DAILY, #10 TAB Prov:ANDRES DICKEY MD 02/01/19 Prochlorperazine* (Prochlorperazine*) 5 Mg Tablet, 5 MG PO Q4H PRN for NAUSEA, #10 TAB Prov:ANDRES DICKEY MD 02/01/19 Medications Current Medications IV Flush (NS 3 ml) 3 ml PER PROTOCOL IV ; Start 02/22/19 at 16:00 Ondansetron HCl (Zofran Inj) 4 mg Q6H PRN IV NAUSEA/VOMITING; Start 02/22/19 at 16:00 Acetaminophen (Tylenol Tab) 650 mg Q6H PRN PO .PAIN 1-3 OR TEMP Last administered on 02/23/19at 19:31; Admin Dose 650 MG; Start 02/22/19 at 16:00 Magnesium Hydroxide (Milk Of Mag) 30 ml DAILY PRN PO .CONSTIPATION; Start 02/22/19 at 16:00 Pantoprazole (Protonix Iv) 40 mg DAILY@06 IV Last administered on 02/26/19at 05:41; Admin Dose 40 MG; Start 02/23/19 at 06:00 Ceftriaxone Sodium 50 ml @ 100 mls/hr Q24H IVPB Last administered on 02/26/19 09:01; Admin Dose 100 MLS/HR; Start 02/23/19 at 10:00 Enoxaparin Sodium (Lovenox) 40 mg DAILY SC Last administered on 02/26/19 09:07; Admin Dose 40 MG; Start 02/24/19 at 09:00 Ibuprofen (Motrin) 600 mg Q6H PRN PO MODERATE PAIN LEVEL 4-6 Last administered on 02/23/19 14:37; Admin Dose 600 MG; Start 02/23/19 at 14:30 Olanzapine (Zyprexa Zydis) 5 mg BID ODT Last administered on 02/23/19 20:31; Admin Dose 5 MG; Start 02/23/19 at 21:00 Hydralazine HCl (Apresoline) 10 mg Q6H PRN IV ELEVATED BLOOD PRESSURE Last administered on 02/24/19 20:47; Admin Dose 10 MG; Start 02/24/19 at 01:00 Lorazepam (Ativan) 2 mg Q4 PRN IV AGITATION Last administered on 02/25/19 02:33; Admin Dose 2 MG; Start 02/24/19 at 11:00 Dexamethasone (Decadron) 2 mg Q8 IV Last administered on 02/26/19 05:41; Admin Dose 2 MG; Start 02/24/19 at 14:00 Dextrose/Sodium Chloride 1,000 ml @ 50 mls/hr Q20H IV Last administered on 02/24/19at 20:52; Admin Dose 50 MLS/HR; Start 02/24/19 at 15:30; Status Hold Lorazepam (Ativan) 1 mg Q4 PRN IV AGITATION/ANXIETY; Start 02/25/19 at 03:30 Diagnostic Test (Pha) (Accu-Chek) 1 ea Q4 XX ; Start 02/25/19 at 21:00 Valproate Sodium 500 mg/Sodium Chloride 55 ml @ 55 mls/hr Q12H IVPB Last administered on 02/26/19 01:34; Admin Dose 55 MLS/HR; Start 02/25/19 at 13:00 IV Flush (NS 10 ml) 10 ml PRN PRN IV IV PROTOCOL; Start 02/25/19 at 16:30 Total Parenteral Nutrition 1,000 ml @ 40 mls/hr Q24H IV Last administered on 02/25/19at 21:45; Admin Dose 40 MLS/HR; Start 02/25/19 at 21:00 Potassium Phosphate 20 meq/ Sodium Chloride 254.5455 ml @ 63.636 m... ONCE ONCE IVPB ; Start 02/26/19 at 12:00; Stop 02/26/19 at 15:59 Allergies: Coded Allergies: morphine (Verified Allergy, Unknown, 02/22/19) Past Surgical History Past Surgical Hx: no surgical history, other Family History Significant Family History: no pertinent family hx Social History Alcohol Use: none Smoking Status: Never smoker Drug Use: none Exam/Review of Systems Exam Vitals Vital Signs Date Temp Pulse Resp B/P (MAP) Pulse Ox O2 O2 Flow FiO2 Time Delivery Rate 02/26/19 97.6 83 20 136/82 98 07:11 (100) 02/26/19 2.0 27 01:10 02/25/19 Room Air 19:32 Intake and Output 02/25/19 02/25/19 02/26/19 1515:00 23:00 07:00 IntakeIntake Total 100 ml 355 ml 375 ml OutputOutput Total 900 ml 300 ml 75 ml BalanceBalance -800 ml 55 ml 300 ml Constitutional: distress, frail Psych: nl mood/affect, anxiety, depression Head: normocephalic Eyes: nl conjunctiva ENMT: nl external ears & nose Neck: supple Respiratory: clear to auscultation Cardiovascular: regular rate and rhythm Gastrointestinal: soft Musculoskeletal: nl extremities to inspection Results Result Diagram: 02/26/19 0544 02/26/19 0544 Results 24hrs Laboratory Tests Test 02/25/19 11:25 02/25/19 21:47 02/26/19 01:36 02/26/19 05:40 Sodium Level 132 L Potassium Level 4.3 Chloride Level 104 Carbon Dioxide Level 22 Anion Gap 6 Blood Urea Nitrogen 4 L Creatinine 0.35 L Est Glomerular Filtrat > 60 Rate mL/min Glucose Level 113 # Calcium Level 9.2 Phosphorus Level 2.2 L Magnesium Level 1.7 Total Bilirubin 0.8 Direct Bilirubin 0.00 Indirect Bilirubin 0.8 Aspartate Amino 29 Transf (AST/SGOT) Alanine 34 Aminotransferase (ALT/SG PT) Alkaline Phosphatase 44 Total Protein 4.9 L Albumin 2.9 L Globulin 2.00 Albumin/Globulin Ratio 1.45 Prealbumin 21.5 Triglycerides Level 67 Bedside Glucose 104 148 114 Test 02/26/19 05:44 02/26/19 09:00 White Blood Count 9.0 # Red Blood Count 3.93 L Hemoglobin 13.4 Hematocrit 38.9 Mean Corpuscular Volume 99.0 Mean Corpuscular 34.1 H Hemoglobin Mean Corpuscular 34.4 Hemoglobin Concent Red Cell Distribution 16.8 H Width Platelet Count 200 # Mean Platelet Volume 9.0 Immature Granulocytes % 0.800 H Neutrophils % 88.1 H Lymphocytes % 2.9 L Monocytes % 8.2 Eosinophils % 0.0 Basophils % 0.0 Nucleated Red Blood 0.0 Cells % Immature Granulocytes # 0.070 H Neutrophils # 7.9 H Lymphocytes # 0.3 L Monocytes # 0.7 Eosinophils # 0.0 Basophils # 0.0 Nucleated Red Blood 0.0 Cells # Sodium Level 136 Potassium Level 3.4 L Chloride Level 109 Carbon Dioxide Level 21 Anion Gap 6 Blood Urea Nitrogen 13 # Creatinine 0.47 Est Glomerular Filtrat > 60 Rate mL/min Glucose Level 127 Calcium Level 10.3 H Phosphorus Level 2.2 L Magnesium Level 2.1 Valproic Acid (Depakene) 73 Level Bedside Glucose 135 Medications Medication Current Medications IV Flush (NS 3 ml) 3 ml PER PROTOCOL IV ; Start 02/22/19 at 16:00 Ondansetron HCl (Zofran Inj) 4 mg Q6H PRN IV NAUSEA/VOMITING; Start 02/22/19 at 16:00 Acetaminophen (Tylenol Tab) 650 mg Q6H PRN PO .PAIN 1-3 OR TEMP Last administered on 02/23/19at 19:31; Admin Dose 650 MG; Start 02/22/19 at 16:00 Magnesium Hydroxide (Milk Of Mag) 30 ml DAILY PRN PO .CONSTIPATION; Start 02/22/19 at 16:00 Pantoprazole (Protonix Iv) 40 mg DAILY@06 IV Last administered on 02/26/19at 05:41; Admin Dose 40 MG; Start 02/23/19 at 06:00 Ceftriaxone Sodium 50 ml @ 100 mls/hr Q24H IVPB Last administered on 02/26/19at 09:01; Admin Dose 100 MLS/HR; Start 02/23/19 at 10:00 Enoxaparin Sodium (Lovenox) 40 mg DAILY SC Last administered on 02/26/19 09:07; Admin Dose 40 MG; Start 02/24/19 at 09:00 Ibuprofen (Motrin) 600 mg Q6H PRN PO MODERATE PAIN LEVEL 4-6 Last administered on 02/23/19 14:37; Admin Dose 600 MG; Start 02/23/19 at 14:30 Olanzapine (Zyprexa Zydis) 5 mg BID ODT Last administered on 02/23/19 20:31; Admin Dose 5 MG; Start 02/23/19 at 21:00 Hydralazine HCl (Apresoline) 10 mg Q6H PRN IV ELEVATED BLOOD PRESSURE Last administered on 02/24/19 20:47; Admin Dose 10 MG; Start 02/24/19 at 01:00 Lorazepam (Ativan) 2 mg Q4 PRN IV AGITATION Last administered on 02/25/19 02:33; Admin Dose 2 MG; Start 02/24/19 at 11:00 Dexamethasone (Decadron) 2 mg Q8 IV Last administered on 02/26/19 05:41; Admin Dose 2 MG; Start 02/24/19 at 14:00 Dextrose/Sodium Chloride 1,000 ml @ 50 mls/hr Q20H IV Last administered on 02/24/19at 20:52; Admin Dose 50 MLS/HR; Start 02/24/19 at 15:30; Status Hold Lorazepam (Ativan) 1 mg Q4 PRN IV AGITATION/ANXIETY; Start 02/25/19 at 03:30 Diagnostic Test (Pha) (Accu-Chek) 1 ea Q4 XX ; Start 02/25/19 at 21:00 Valproate Sodium 500 mg/Sodium Chloride 55 ml @ 55 mls/hr Q12H IVPB Last administered on 02/26/19 01:34; Admin Dose 55 MLS/HR; Start 02/25/19 at 13:00 IV Flush (NS 10 ml) 10 ml PRN PRN IV IV PROTOCOL; Start 02/25/19 at 16:30 Total Parenteral Nutrition 1,000 ml @ 40 mls/hr Q24H IV Last administered on 02/25/19at 21:45; Admin Dose 40 MLS/HR; Start 02/25/19 at 21:00 Potassium Phosphate 20 meq/ Sodium Chloride 254.5455 ml @ 63.636 m... ONCE ONCE IVPB ; Start 02/26/19 at 12:00; Stop 02/26/19 at 15:59 XANDER MATIAS M.D. Feb 26, 2019 11:25
[2019-02-26 11:33] VITALS: BP 127/70; PULSE 64; RESP 20
[2019-02-26] MEDS ORDERED: POTASSIUM PHOSPHATE 20 MEQ in SOD CHLORIDE 0.9% 250 ML IVPB ONE (12:00)
--- NOTE | 2019-02-26 13:26 | PN ---
Date/Time of Note Date/Time of Note DATE: 02/26/19 TIME: 13:21 Outpatient Progress Note HPI no change deteriorating bed bound no SOB no bleeding Review of Systems Const: No Fever, no chills, mild distress Physical Exam Vital Signs Date Temp Pulse Resp B/P (MAP) Pulse Ox O2 O2 Flow FiO2 Time Delivery Rate 02/26/19 97.3 64 20 127/70 98 11:33 (89) 02/26/19 2.0 27 01:10 02/25/19 Room Air 19:32 Intake and Output 02/25/19 02/25/19 02/26/19 1515:00 23:00 07:00 IntakeIntake Total 100 ml 355 ml 375 ml OutputOutput Total 900 ml 300 ml 75 ml BalanceBalance -800 ml 55 ml 300 ml General Appearance:poor cognitive function S1S2 clear lungs soft abdomen Result Diagram: 02/26/19 0544 02/26/19 0544 Allergies Coded Allergies: morphine (Verified Allergy, Unknown, 02/22/19) Assessment/Plan ASSESSMENT AND PLAN: 1. A 58-year-old female with advanced stage IV, poorly differentiated breast cancer HER-2 amplified now brain metastases early 2018. The disease is well controlled with current antineoplastic treatment tablets Tykerb Xeloda which crosses the blood brain barrier in addition to post-radiation. 2. Gastrointestinal evaluation for her constant nausea in spite of being on Zofran and Reglan. Probably patches and steroids will be necessary. 3. Neurological evaluation change mental status and seizures, keppra, ativan 4. Physical therapy PT evaluation. 5. Recommend comfort measures at this time with supportive help. 6. Psych evaluation and meds 7. Prognosis is poor, family aware, poor performance and limited functional s russell ECOG=4 8. Fluid electrolyte balance 9. 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 OUTCOME IS POOR, pt and family decided to be on Hospice care 11.HOSPICE care Medications Home Meds Active Scripts Hydrocodone/Acetaminophen ([place] 10-325 Tablet) 1 Each Tablet, 1 TAB PO Q6H PRN for PAIN, #7 TAB Prov:DANNY BRANCH MD 11/10/18 Reported Medications Acetaminophen* (Acetaminophen*) 500 MG Extra Strength Tablet, 500 MG PO Q4H PRN for PAIN AND OR ELEVATED TEMP, TAB 02/01/19 Ondansetron Hcl* (Ondansetron Hcl*) 8 Mg Tablet, 1 TAB ORAL TID 02/01/19 Metoclopramide Hcl* (Metoclopramide Hcl*) 10 Mg Tablet, 1 TAB ORAL QID 02/01/19 Omeprazole* (Omeprazole*) 20 Mg Capsule.dr, 20 MG PO DAILY, #30 CAP 01/01/19 Lapatinib (Tykerb) 250 Mg Tab, 250 MG PO TID, TAB 01/01/19 Capecitabine* (Xeloda*) 500 Mg Tablet, 1000 MG PO BID, TBS STOP FOR 7 DAYS, START DAY 11/12/18 11/10/18 Metoprolol Succinate* (Toprol XL*) 25 Mg Tab.sr.24h, 25 MG PO QHS, #30 TAB 11/10/18 Discontinued Scripts Ondansetron (Ondansetron Odt) 4 Mg Tab.rapdis, 4 MG PO Q6H PRN for NAUSEA AND/OR VOMITING, #30 TAB Prov:MARILEE REYNAGA MD 02/21/19 Pantoprazole* (Protonix*) 40 Mg Tablet.dr, 40 MG PO DAILY, #10 TAB Prov:ANDRES DICKEY MD 02/01/19 Prochlorperazine* (Prochlorperazine*) 5 Mg Tablet, 5 MG PO Q4H PRN for NAUSEA, #10 TAB Prov:ANDRES DICKEY MD 02/01/19 JENNA TSE Feb 26, 2019 13:26
[2019-02-26 14:55] VITALS: BP 142/77; PULSE 79; RESP 19
--- NOTE | 2019-02-26 15:19 | CONS ---
Assessment/Plan Assessment/Plan Assessment/Plan (Recall) 58 F c/ known brain metastases (breast primary) s/p radiation...who presents for evaluation of ams.. The clinical picture suggests an acute toxic encephalopathy, which has shown some clinical improvement.. A superimposed metabolic component 2/2 UTI is possible.. Also notable are severe and episodic headaches w/ nausea/vomiting..which is likely secondary to her metastatic disease.. A carcinomatous meningeal process would be expected to produce unremitting (rather than episodic) symptoms, but is possible The patient is, though, reportedly already s/p cranial radiation.. Head CT is without obvious acute intracranial pathology. Noted to have seizures on 02/23..likely provoked by antipsychotic medications.. EEG was without epileptiform activity P: Continue Depakote for seizure ppx Ativan iv prn prolonged seizure or cluster Behavioral management per psychiatry NSAID for pain management w/ protonix, as medically able PT/OT as tolerated Other medical management and supportive care per primary Will follow clinically Consultation Date/Type/Reason Admit Date/Time Feb 22, 2019 at 14:32 Type of Consult Neurology Reason for Consultation ams Requesting Provider: OLIVIA VIDES MD Date/Time of Note DATE: 02/26/19 TIME: 15:18 24 HR Interval Summary Free Text/Dictation Continues acute care Exam/Review of Systems Exam Vitals Vital Signs Date Temp Pulse Resp B/P (MAP) Pulse Ox O2 O2 Flow FiO2 Time Delivery Rate 02/26/19 97.4 79 19 142/77 96 14:55 (98) 02/26/19 2.0 27 01:10 02/25/19 Room Air 19:32 Intake and Output 02/25/19 02/25/19 02/26/19 1515:00 23:00 07:00 IntakeIntake Total 100 ml 355 ml 375 ml OutputOutput Total 900 ml 300 ml 75 ml BalanceBalance -800 ml 55 ml 300 ml Results Result Diagram: 02/26/19 0544 02/26/19 0544 Results 24hrs Laboratory Tests Test 02/25/19 21:47 02/26/19 01:36 02/26/19 05:40 02/26/19 05:44 Bedside Glucose 104 148 114 White Blood Count 9.0 # Red Blood Count 3.93 L Hemoglobin 13.4 Hematocrit 38.9 Mean Corpuscular Volume 99.0 Mean Corpuscular 34.1 H Hemoglobin Mean Corpuscular 34.4 Hemoglobin Concent Red Cell Distribution 16.8 H Width Platelet Count 200 # Mean Platelet Volume 9.0 Immature Granulocytes % 0.800 H Neutrophils % 88.1 H Lymphocytes % 2.9 L Monocytes % 8.2 Eosinophils % 0.0 Basophils % 0.0 Nucleated Red Blood 0.0 Cells % Immature Granulocytes # 0.070 H Neutrophils # 7.9 H Lymphocytes # 0.3 L Monocytes # 0.7 Eosinophils # 0.0 Basophils # 0.0 Nucleated Red Blood 0.0 Cells # Sodium Level 136 Potassium Level 3.4 L Chloride Level 109 Carbon Dioxide Level 21 Anion Gap 6 Blood Urea Nitrogen 13 # Creatinine 0.47 Est Glomerular Filtrat > 60 Rate mL/min Glucose Level 127 Calcium Level 10.3 H Phosphorus Level 2.2 L Magnesium Level 2.1 Valproic Acid (Depakene) 73 Level Test 02/26/19 09:00 02/26/19 12:09 Bedside Glucose 135 151 Medications Medication Current Medications IV Flush (NS 3 ml) 3 ml PER PROTOCOL IV ; Start 02/22/19 at 16:00 Ondansetron HCl (Zofran Inj) 4 mg Q6H PRN IV NAUSEA/VOMITING; Start 02/22/19 at 16:00 Acetaminophen (Tylenol Tab) 650 mg Q6H PRN PO .PAIN 1-3 OR TEMP Last admi nistered on 02/23/19at 19:31; Admin Dose 650 MG; Start 02/22/19 at 16:00 Magnesium Hydroxide (Milk Of Mag) 30 ml DAILY PRN PO .CONSTIPATION; Start 02/22/19 at 16:00 Pantoprazole (Protonix Iv) 40 mg DAILY@06 IV Last administered on 02/26/19at 05:41; Admin Dose 40 MG; Start 02/23/19 at 06:00 Ceftriaxone Sodium 50 ml @ 100 mls/hr Q24H IVPB Last administered on 02/26/19at 09:01; Admin Dose 100 MLS/HR; Start 02/23/19 at 10:00 Enoxaparin Sodium (Lovenox) 40 mg DAILY SC Last administered on 02/26/19at 09:07; Admin Dose 40 MG; Start 02/24/19 at 09:00 Ibuprofen (Motrin) 600 mg Q6H PRN PO MODERATE PAIN LEVEL 4-6 Last administered on 02/23/19 14:37; Admin Dose 600 MG; Start 02/23/19 at 14:30 Olanzapine (Zyprexa Zydis) 5 mg BID ODT Last administered on 02/23/19 20:31; Admin Dose 5 MG; Start 02/23/19 at 21:00 Hydralazine HCl (Apresoline) 10 mg Q6H PRN IV ELEVATED BLOOD PRESSURE Last administered on 02/24/19 20:47; Admin Dose 10 MG; Start 02/24/19 at 01:00 Lorazepam (Ativan) 2 mg Q4 PRN IV AGITATION Last administered on 02/25/19 02:33; Admin Dose 2 MG; Start 02/24/19 at 11:00 Dexamethasone (Decadron) 2 mg Q8 IV Last administered on 02/26/19at 14:06; Admin Dose 2 MG; Start 02/24/19 at 14:00 Lorazepam (Ativan) 1 mg Q4 PRN IV AGITATION/ANXIETY; Start 02/25/19 at 03:30 Diagnostic Test (Pha) (Accu-Chek) 1 ea Q4 XX ; Start 02/25/19 at 21:00 Valproate Sodium 500 mg/Sodium Chloride 55 ml @ 55 mls/hr Q12H IVPB Last administered on 02/26/19 12:10; Admin Dose 55 MLS/HR; Start 02/25/19 at 13:00 IV Flush (NS 10 ml) 10 ml PRN PRN IV IV PROTOCOL; Start 02/25/19 at 16:30 Total Parenteral Nutrition 1,000 ml @ 40 mls/hr Q24H IV Last administered on 02/25/19at 21:45; Admin Dose 40 MLS/HR; Start 02/25/19 at 21:00 Potassium Phosphate 20 meq/ Sodium Chloride 254.5455 ml @ 63.636 m... ONCE ONCE IVPB Last administered on 02/26/19 12:09; Admin Dose 63.636 MLS/HR; Start 02/26/19 at 12:00; Stop 02/26/19 at 15:59 Fat Emulsion Intravenous 250 ml @ 20.833 mls/ hr DAILY@16 IV ; Start 02/26/19 at 16:00 KELLY OBANDO Feb 26, 2019 15:19
--- NOTE | 2019-02-26 15:49 | PN ---
Date/Time of Note Date/Time of Note DATE: 02/26/19 TIME: 15:40 Assessment/Plan VTE Prophylaxis Risk score (from [facility] [place])>0 risk: 9 SCD applied (from [facility] [place]): No SCD contraindicated: other Pharmacological prophylaxis: LMWH Lines/Catheters IV Catheter Type (from [facility]): PICC Line Central line still needed: Yes Urinary Cath still in place: Yes Reason Cath still needed: urinary retention Assessment/Plan Hospital Course 1. Altered mental level of consciousness 2. History of hypertension. 3. Mild hypokalemia. 4. She has a history of hyponatremia. Now hyponatremic 129 5. Right breast cancer, status post right mastectomy with brain mets and status post whole brain radiation. 6. Nausea, vomiting, poor appetite, failure to thrive. 7. bilateral lower extremity weakness? Steroid related 8. Hypokalemia Assessment/Plan -c/w TPN for now -hospice eval -sup. is given -DNR/DNI - support nursing - cw Decadron low dose Result Diagram: 02/26/19 0544 02/26/19 0544 Results 24hrs Laboratory Tests Test 02/25/19 21:47 02/26/19 01:36 02/26/19 05:40 02/26/19 05:44 Bedside Glucose 104 148 114 White Blood Count 9.0 # Red Blood Count 3.93 L Hemoglobin 13.4 Hematocrit 38.9 Mean Corpuscular Volume 99.0 Mean Corpuscular 34.1 H Hemoglobin Mean Corpuscular 34.4 Hemoglobin Concent Red Cell Distribution 16.8 H Width Platelet Count 200 # Mean Platelet Volume 9.0 Immature Granulocytes % 0.800 H Neutrophils % 88.1 H Lymphocytes % 2.9 L Monocytes % 8.2 Eosinophils % 0.0 Basophils % 0.0 Nucleated Red Blood 0.0 Cells % Immature Granulocytes # 0.070 H Neutrophils # 7.9 H Lymphocytes # 0.3 L Monocytes # 0.7 Eosinophils # 0.0 Basophils # 0.0 Nucleated Red Blood 0.0 Cells # Sodium Level 136 Potassium Level 3.4 L Chloride Level 109 Carbon Dioxide Level 21 Anion Gap 6 Blood Urea Nitrogen 13 # Creatinine 0.47 Est Glomerular Filtrat > 60 Rate mL/min Glucose Level 127 Calcium Level 10.3 H Phosphorus Level 2.2 L Magnesium Level 2.1 Valproic Acid (Depakene) 73 Level Test 02/26/19 09:00 02/26/19 12:09 Bedside Glucose 135 151 Subjective 24 Hr Interval Summary Free Text/Dictation pt is incoherent, confused . Exam/Review of Systems Exam Vitals Vital Signs Date Temp Pulse Resp B/P (MAP) Pulse Ox O2 O2 Flow FiO2 Time Delivery Rate 02/26/19 97.4 79 19 142/77 96 14:55 (98) 02/26/19 2.0 27 01:10 02/25/19 Room Air 19:32 Intake and Output 02/25/19 02/25/19 02/26/19 1515:00 23:00 07:00 IntakeIntake Total 100 ml 355 ml 375 ml OutputOutput Total 900 ml 300 ml 75 ml BalanceBalance -800 ml 55 ml 300 ml Exam PICC line Constitutional: distress Psych: confusion Head: normocephalic Eyes: nl conjunctiva Neck: supple Respiratory: diminished breath sounds Cardiovascular: regular rate and rhythm Gastrointestinal: soft Genitourinary - Female: other (quinn) Results Results 24hrs Laboratory Tests Test 02/25/19 21:47 02/26/19 01:36 02/26/19 05:40 02/26/19 05:44 Bedside Glucose 104 148 114 White Blood Count 9.0 # Red Blood Count 3.93 L Hemoglobin 13.4 Hematocrit 38.9 Mean Corpuscular Volume 99.0 Mean Corpuscular 34.1 H Hemoglobin Mean Corpuscular 34.4 Hemoglobin Concent Red Cell Distribution 16.8 H Width Platelet Count 200 # Mean Platelet Volume 9.0 Immature Granulocytes % 0.800 H Neutrophils % 88.1 H Lymphocytes % 2.9 L Monocytes % 8.2 Eosinophils % 0.0 Basophils % 0.0 Nucleated Red Blood 0.0 Cells % Immature Granulocytes # 0.070 H Neutrophils # 7.9 H Lymphocytes # 0.3 L Monocytes # 0.7 Eosinophils # 0.0 Basophils # 0.0 Nucleated Red Blood 0.0 Cells # Sodium Level 136 Potassium Level 3.4 L Chloride Level 109 Carbon Dioxide Level 21 Anion Gap 6 Blood Urea Nitrogen 13 # Creatinine 0.47 Est Glomerular Filtrat > 60 Rate mL/min Glucose Level 127 Calcium Level 10.3 H Phosphorus Level 2.2 L Magnesium Level 2.1 Valproic Acid (Depakene) 73 Level Test 02/26/19 09:00 02/26/19 12:09 Bedside Glucose 135 151 Medications Medication Current Medications IV Flush (NS 3 ml) 3 ml PER PROTOCOL IV ; Start 02/22/19 at 16:00 Ondansetron HCl (Zofran Inj) 4 mg Q6H PRN IV NAUSEA/VOMITING; Start 02/22/19 at 16:00 Acetaminophen (Tylenol Tab) 650 mg Q6H PRN PO .PAIN 1-3 OR TEMP Last administered on 02/23/19 19:31; Admin Dose 650 MG; Start 02/22/19 at 16:00 Magnesium Hydroxide (Milk Of Mag) 30 ml DAILY PRN PO .CONSTIPATION; Start 02/22/19 at 16:00 Pantoprazole (Protonix Iv) 40 mg DAILY@06 IV Last administered on 02/26/19 05:41; Admin Dose 40 MG; Start 02/23/19 at 06:00 Ceftriaxone Sodium 50 ml @ 100 mls/hr Q24H IVPB Last administered on 02/26/19 09:01; Admin Dose 100 MLS/HR; Start 02/23/19 at 10:00 Enoxaparin Sodium (Lovenox) 40 mg DAILY SC Last administered on 02/26/19 09:07; Admin Dose 40 MG; Start 02/24/19 at 09:00 Ibuprofen (Motrin) 600 mg Q6H PRN PO MODERATE PAIN LEVEL 4-6 Last administered on 02/23/19 14:37; Admin Dose 600 MG; Start 02/23/19 at 14:30 Olanzapine (Zyprexa Zydis) 5 mg BID ODT Last administered on 02/23/19 20:31; Admin Dose 5 MG; Start 02/23/19 at 21:00 Hydralazine HCl (Apresoline) 10 mg Q6H PRN IV ELEVATED BLOOD PRESSURE Last administered on 02/24/19 20:47; Admin Dose 10 MG; Start 02/24/19 at 01:00 Lorazepam (Ativan) 2 mg Q4 PRN IV AGITATION Last administered on 02/25/19 02:33; Admin Dose 2 MG; Start 02/24/19 at 11:00 Dexamethasone (Decadron) 2 mg Q8 IV Last administered on 02/26/19 14:06; Admin Dose 2 MG; Start 02/24/19 at 14:00 Lorazepam (Ativan) 1 mg Q4 PRN IV AGITATION/ANXIETY; Start 02/25/19 at 03:30 Diagnostic Test (Pha) (Accu-Chek) 1 ea Q4 XX ; Start 02/25/19 at 21:00 Valproate Sodium 500 mg/Sodium Chloride 55 ml @ 55 mls/hr Q12H IVPB Last administered on 02/26/19at 12:10; Admin Dose 55 MLS/HR; Start 02/25/19 at 13:00 IV Flush (NS 10 ml) 10 ml PRN PRN IV IV PROTOCOL; Start 02/25/19 at 16:30 Total Parenteral Nutrition 1,000 ml @ 40 mls/hr Q24H IV Last administered on 02/25/19at 21:45; Admin Dose 40 MLS/HR; Start 02/25/19 at 21:00 Potassium Phosphate 20 meq/ Sodium Chloride 254.5455 ml @ 63.636 m... ONCE ONCE IVPB Last administered on 02/26/19at 12:09; Admin Dose 63.636 MLS/HR; Start 02/26/19 at 12:00; Stop 02/26/19 at 15:59 Fat Emulsion Intravenous 250 ml @ 20.833 mls/ hr DAILY@16 IV ; Start 02/26/19 at 16:00 CORINA TIERNEY NP Feb 26, 2019 15:48
[2019-02-26] MEDS: FAT EMULSION 20% 250 ML IV SCH (17:02)
[2019-02-26 19:00] VITALS: BP 144/88; PULSE 78; RESP 18
[2019-02-26] MEDS: KETOROLAC 30 MG INJ IV PRN (22:48)
[2019-02-26] MEDS: TPN 1,000 ML IV SCH (23:02)
[2019-02-27] VITALS (8 sets, daily range): BP systolic 118–167; BP diastolic 64–91; PULSE 70–110; RESP 17–20
[2019-02-27] MEDS: VALPROATE INJ 500 MG in SOD CHLORIDE 0.9% 50 ML IVPB SCH ×2 (00:51→12:22)
[2019-02-27] MEDS: ACCU-CHEK XX SCH ×6 (01:00→21:50)
[2019-02-27] MEDS: PANTOPRAZOLE 40 MG INJ IV SCH (05:40)
[2019-02-27] MEDS: DEXAMETHASONE 4 MG/ML 1 ML INJ IV SCH ×3 (05:40→21:58)
[2019-02-27] MEDS: OLANZAPINE (ODT) 5 MG TAB ODT SCH ×2 (09:00→20:31)
[2019-02-27] MEDS: CEFTRIAXONE 1 GM/50 ML (PMX) 50 ML IVPB SCH (09:09)
[2019-02-27] MEDS: ENOXAPARIN 40 MG/0.4 ML SYG SC SCH (09:32)
[2019-02-27] MEDS ORDERED: POTASSIUM PHOSPHATE 15 MM in SOD CHLORIDE 0.9% 250 ML IV ONE (11:30)
[2019-02-27] MEDS: hydrALAzine 20 MG INJ IV PRN (11:43)
[2019-02-27] MEDS: KETOROLAC 30 MG INJ IV PRN ×2 (12:21→23:09)
--- NOTE | 2019-02-27 13:20 | CONS ---
Assessment/Plan Assessment/Plan Assessment/Plan (Daily) Consultation Assessment/Plan Assessment/Plan Assessment/Plan (Daily) Assessment/Plan (Daily) IMPRESSION: 1. Persistent nausea, vomiting. 2. Breast cancer with mets to brain. 3. Hypertension. 4. History of hyponatremia. 5. Bilateral lower extremity weakness 6. Severe hypokalemia Plan Correction of the potassium EGD deferred and we will do it once patient condition is more stable discussed with Dr. Longoria Discussed with the daughter declined EGD Continue TPN Patient be placed on Megace and Reglan family has agreed Consultation Date/Type/Reason Admit Date/Time Feb 22, 2019 at 14:32 Initial Consult Date Requesting Provider: OLIVIA LONGORIA MD Date/Time of Note DATE: 02/27/19 TIME: 13:19 24 HR Interval Summary Constitutional: no complaints Exam/Review of Systems Exam Vitals Vital Signs Date Temp Pulse Resp B/P (MAP) Pulse Ox O2 O2 Flow FiO2 Time Delivery Rate 02/27/19 110 118/64 12:32 (82) 02/27/19 98.0 18 95 11:03 02/27/19 Room Air 03:53 02/27/19 2.0 01:14 02/26/19 27 01:10 Intake and Output 02/26/19 02/26/19 02/27/19 1515:00 23:00 07:00 IntakeIntake Total 1039.5455 ml 55 ml OutputOutput Total 150 ml 155 ml BalanceBalance 889.5455 ml -100 ml Constitutional: alert, oriented, well developed Psych: no complaints, nl mood/affect Head: normocephalic, atraumatic Eyes: nl conjunctiva, EOMI, nl lids, nl sclera, PERRL ENMT: nl external ears & nose, nl lips & teeth, nl nasal mucosa & septum Neck: supple, non-tender Respiratory: clear to auscultation, normal air movement Cardiovascular: regular rate and rhythm, nl pulses Gastrointestinal: soft, nl liver, spleen, non-tender Musculoskeletal: nl extremities to inspection, nl gait and stance Extremities: normal pulses Neurological: [employer]ER II-XII intact, nl mental status, nl speech, nl strength Skin: nl turgor; No rash or lesions Lymph: nl lymph nodes Results Result Diagram: 02/26/19 0544 02/27/19 0549 Results 24hrs Laboratory Tests Test 02/26/19 17:03 02/26/19 21:15 02/27/19 00:58 02/27/19 05:49 Bedside Glucose 121 127 144 Sodium Level 135 Potassium Level 3.3 L Chloride Level 109 Carbon Dioxide Level 22 Anion Gap 4 L Blood Urea Nitrogen 21 H Creatinine 0.38 L Est Glomerular Filtrat > 60 Rate mL/min Glucose Level 128 Calcium Level 9.2 Phosphorus Level 2.4 L Magnesium Level 2.0 Test 02/27/19 05:54 02/27/19 09:08 02/27/19 12:19 Bedside Glucose 113 130 147 Medications Medication Current Medications IV Flush (NS 3 ml) 3 ml PER PROTOCOL IV ; Start 02/22/19 at 16:00 Ondansetron HCl (Zofran Inj) 4 mg Q6H PRN IV NAUSEA/VOMITING; Start 02/22/19 at 16:00 Acetaminophen (Tylenol Tab) 650 mg Q6H PRN PO .PAIN 1-3 OR TEMP Last administered on 02/23/19 19:31; Admin Dose 650 MG; Start 02/22/19 at 16:00 Magnesium Hydroxide (Milk Of Mag) 30 ml DAILY PRN PO .CONSTIPATION; Start 02/22/19 at 16:00 Pantoprazole (Protonix Iv) 40 mg DAILY@06 IV Last administered on 02/27/19 05:40; Admin Dose 40 MG; Start 02/23/19 at 06:00 Ceftriaxone Sodium 50 ml @ 100 mls/hr Q24H IVPB Last administered on 02/27/19 09:09; Admin Dose 100 MLS/HR; Start 02/23/19 at 10:00 Enoxaparin Sodium (Lovenox) 40 mg DAILY SC Last administered on 02/27/19 09:32; Admin Dose 40 MG; Start 02/24/19 at 09:00 Ibuprofen (Motrin) 600 mg Q6H PRN PO MODERATE PAIN LEVEL 4-6 Last administered on 02/23/19at 14:37; Admin Dose 600 MG; Start 02/23/19 at 14:30 Olanzapine (Zyprexa Zydis) 5 mg BID ODT Last administered on 02/23/19 20:31; Admin Dose 5 MG; Start 02/23/19 at 21:00 Hydralazine HCl (Apresoline) 10 mg Q6H PRN IV ELEVATED BLOOD PRESSURE Last administered on 02/27/19 11:43; Admin Dose 10 MG; Start 02/24/19 at 01:00 Lorazepam (Ativan) 2 mg Q4 PRN IV AGITATION Last administered on 02/25/19 02:33; Admin Dose 2 MG; Start 02/24/19 at 11:00 Dexamethasone (Decadron) 2 mg Q8 IV Last administered on 02/27/19 05:40; Admin Dose 2 MG; Start 02/24/19 at 14:00 Lorazepam (Ativan) 1 mg Q4 PRN IV AGITATION/ANXIETY; Start 02/25/19 at 03:30 Diagnostic Test (Pha) (Accu-Chek) 1 ea Q4 XX Last administered on 02/27/19 12:20; Admin Dose 1 EA; Start 02/25/19 at 21:00 Valproate Sodium 500 mg/Sodium Chloride 55 ml @ 55 mls/hr Q12H IVPB Last administered on 02/27/19 12:22; Admin Dose 55 MLS/HR; Start 02/25/19 at 13:00 IV Flush (NS 10 ml) 10 ml PRN PRN IV IV PROTOCOL; Start 02/25/19 at 16:30 Total Parenteral Nutrition 1,000 ml @ 60 mls/hr [id number] IV Last administered on 02/26/19 23:02; Admin Dose 40 MLS/HR; Start 02/25/19 at 21:00 Fat Emulsion Intravenous 250 ml @ 20.833 mls/ hr DAILY@16 IV Last administered on 02/26/19 17:02; Admin Dose 20.833 MLS/HR; Start 02/26/19 at 16:00 Ketorolac Tromethamine (Toradol) 30 mg TID PRN IV PAIN LEVEL 1-3 Last administered on 02/27/19 12:21; Admin Dose 30 MG; Start 02/26/19 at 22:30; Stop 03/01/19 at 22:29 Potassium Phosphate 15 mm/ Sodium Chloride 255 ml @ 63.75 mls/ hr ONCE ONCE IV ; Start 02/27/19 at 11:30; Stop 02/27/19 at 15:29 TREE IBRAHIM MD Feb 27, 2019 13:20
--- NOTE | 2019-02-27 16:10 | PN ---
Date/Time of Note Date/Time of Note DATE: 02/27/19 TIME: 16:05 Assessment/Plan VTE Prophylaxis Risk score (from [facility] [place]0 risk: 9 SCD applied (from [facility] [place]): No SCD contraindicated: other Pharmacological prophylaxis: LMWH Lines/Catheters IV Catheter Type (from [facility]): PICC Line Central line still needed: Yes Urinary Cath still in place: Yes Reason Cath still needed: urinary retention Assessment/Plan Hospital Course 1. Altered mental level of consciousness 2. History of hypertension. 3. Mild hypokalemia. 4. She has a history of hyponatremia. Now hyponatremic 129 5. Right breast cancer, status post right mastectomy with brain mets and status post whole brain radiation. 6. Nausea, vomiting, poor appetite, failure to thrive. 7. bilateral lower extremity weakness? Steroid related 8. Hypokalemia Assessment/Plan -c/w TPN for now -hospice eval. done pt family disagree with stopping TPN, they want to c.w TPN -social support is given -DNR/DNI, son and sighing a form - support nursing - cw Decadron low dose Result Diagram: 02/26/19 0544 02/27/19 0549 Results 24hrs Laboratory Tests Test 02/26/19 17:03 02/26/19 21:15 02/27/19 00:58 02/27/19 05:49 Bedside Glucose 121 127 144 Sodium Level 135 Potassium Level 3.3 L Chloride Level 109 Carbon Dioxide Level 22 Anion Gap 4 L Blood Urea Nitrogen 21 H Creatinine 0.38 L Est Glomerular Filtrat > 60 Rate mL/min Glucose Level 128 Calcium Level 9.2 Phosphorus Level 2.4 L Magnesium Level 2.0 Test 02/27/19 05:54 02/27/19 09:08 02/27/19 12:19 Bedside Glucose 113 130 147 Subjective 24 Hr Interval Summary Free Text/Dictation Constitutional: No fever, cough or chills. body pain, unable to walk did not sleep well no nausea, no vomit No Seizures. Neurologic: confusion Exam/Review of Systems Exam Vitals Vital Signs Date Temp Pulse Resp B/P (MAP) Pulse Ox O2 O2 Flow FiO2 Time Delivery Rate 02/27/19 95 145/70 95 15:08 (95) 02/27/19 98.0 18 11:03 02/27/19 Room Air 03:53 02/27/19 2.0 01:14 02/26/19 27 01:10 Intake and Output 02/26/19 02/26/19 02/27/19 1515:00 23:00 07:00 IntakeIntake Total 1039.5455 ml 55 ml OutputOutput Total 150 ml 155 ml BalanceBalance 889.5455 ml -100 ml Exam PICC line Constitutional: no distress Psych: alert x2, some confusion is present Head: normocephalic Eyes: nl conjunctiva Neck: supple Respiratory: diminished breath sounds Cardiovascular: regular rate and rhythm Gastrointestinal: soft Genitourinary - Female: (quinn) LE : no edema Results Results 24hrs Laboratory Tests Test 02/26/19 17:03 02/26/19 21:15 02/27/19 00:58 02/27/19 05:49 Bedside Glucose 121 127 144 Sodium Level 135 Potassium Level 3.3 L Chloride Level 109 Carbon Dioxide Level 22 Anion Gap 4 L Blood Urea Nitrogen 21 H Creatinine 0.38 L Est Glomerular Filtrat > 60 Rate mL/min Glucose Level 128 Calcium Level 9.2 Phosphorus Level 2.4 L Magnesium Level 2.0 Test 02/27/19 05:54 02/27/19 09:08 02/27/19 12:19 Bedside Glucose 113 130 147 Medications Medication Current Medications IV Flush (NS 3 ml) 3 ml PER PROTOCOL IV ; Start 02/22/19 at 16:00 Ondansetron HCl (Zofran Inj) 4 mg Q6H PRN IV NAUSEA/VOMITING; Start 02/22/19 at 16:00 Acetaminophen (Tylenol Tab) 650 mg Q6H PRN PO .PAIN 1-3 OR TEMP Last administered on 02/23/19at 19:31; Admin Dose 650 MG; Start 02/22/19 at 16:00 Magnesium Hydroxide (Milk Of Mag) 30 ml DAILY PRN PO .CONSTIPATION; Start 02/22/19 at 16:00 Pantoprazole (Protonix Iv) 40 mg DAILY@06 IV Last administered on 02/27/19at 05:40; Admin Dose 40 MG; Start 02/23/19 at 06:00 Ceftriaxone Sodium 50 ml @ 100 mls/hr Q24H IVPB Last administered on 02/27/19at 09:09; Admin Dose 100 MLS/HR; Start 02/23/19 at 10:00 Enoxaparin Sodium (Lovenox) 40 mg DAILY SC Last administered on 02/27/19 09:32; Admin Dose 40 MG; Start 02/24/19 at 09:00 Ibuprofen (Motrin) 600 mg Q6H PRN PO MODERATE PAIN LEVEL 4-6 Last administered on 02/23/19 14:37; Admin Dose 600 MG; Start 02/23/19 at 14:30 Olanzapine (Zyprexa Zydis) 5 mg BID ODT Last administered on 02/23/19 20:31; Admin Dose 5 MG; Start 02/23/19 at 21:00 Hydralazine HCl (Apresoline) 10 mg Q6H PRN IV ELEVATED BLOOD PRESSURE Last administered on 02/27/19 11:43; Admin Dose 10 MG; Start 02/24/19 at 01:00 Lorazepam (Ativan) 2 mg Q4 PRN IV AGITATION Last administered on 02/25/19 02:33; Admin Dose 2 MG; Start 02/24/19 at 11:00 Dexamethasone (Decadron) 2 mg Q8 IV Last administered on 02/27/19 13:51; Admin Dose 2 MG; Start 02/24/19 at 14:00 Lorazepam (Ativan) 1 mg Q4 PRN IV AGITATION/ANXIETY; Start 02/25/19 at 03:30 Diagnostic Test (Pha) (Accu-Chek) 1 ea Q4 XX Last administered on 02/27/19 12:20; Admin Dose 1 EA; Start 02/25/19 at 21:00 Valproate Sodium 500 mg/Sodium Chloride 55 ml @ 55 mls/hr Q12H IVPB Last administered on 02/27/19 12:22; Admin Dose 55 MLS/HR; Start 02/25/19 at 13:00 IV Flush (NS 10 ml) 10 ml PRN PRN IV IV PROTOCOL; Start 02/25/19 at 16:30 Total Parenteral Nutrition 1,000 ml @ 60 mls/hr [id number] IV Last administered on 02/26/19 23:02; Admin Dose 40 MLS/HR; Start 02/25/19 at 21:00 Fat Emulsion Intravenous 250 ml @ 20.833 mls/ hr DAILY@16 IV Last administered on 02/26/19 17:02; Admin Dose 20.833 MLS/HR; Start 02/26/19 at 16:00 Ketorolac Tromethamine (Toradol) 30 mg TID PRN IV PAIN LEVEL 1-3 Last administered on 02/27/19at 12:21; Admin Dose 30 MG; Start 02/26/19 at 22:30; Stop 03/01/19 at 22:29 Megestrol Acetate (Megace Susp) 800 mg DAILY PO ; Start 02/28/19 at 09:00 Metoclopramide HCl (Reglan) 5 mg Q6 IV ; Start 02/27/19 at 18:00 CORINA TIERNEY NP Feb 27, 2019 16:10
[2019-02-27] MEDS: FAT EMULSION 20% 250 ML IV SCH (16:27)
[2019-02-27] MEDS: TPN 1,000 ML IV SCH (17:45)
[2019-02-27] MEDS ORDERED: METOCLOPRAMIDE 10 MG INJ IV SCH (18:00)
[2019-02-27] MEDS ORDERED: METOCLOPRAMIDE 10 MG INJ IV PRN (18:00)
[2019-02-27] MEDS: ACETAMINOPHEN 325 MG TAB PO PRN (20:38)
[2019-02-28] VITALS (8 sets, daily range): BP systolic 117–175; BP diastolic 70–89; PULSE 69–87; RESP 18–22
[2019-02-28] MEDS: VALPROATE INJ 500 MG in SOD CHLORIDE 0.9% 50 ML IVPB SCH ×2 (00:23→13:57)
[2019-02-28] MEDS: ACCU-CHEK XX SCH ×6 (01:25→20:52)
[2019-02-28] MEDS: KETOROLAC 30 MG INJ IV PRN ×2 (04:30→15:08)
[2019-02-28] MEDS: DEXAMETHASONE 4 MG/ML 1 ML INJ IV SCH ×3 (05:37→21:16)
[2019-02-28] MEDS: PANTOPRAZOLE 40 MG INJ IV SCH (05:37)
[2019-02-28] MEDS: LORAZEPAM 2 MG INJ IV PRN ×2 (06:10→19:11)
[2019-02-28] MEDS: OLANZAPINE (ODT) 5 MG TAB ODT SCH ×2 (09:00→20:52)
[2019-02-28] MEDS ORDERED: MEGESTROL (40 MG/ML) 10ML CUP PO SCH (09:00)
[2019-02-28] MEDS: CEFTRIAXONE 1 GM/50 ML (PMX) 50 ML IVPB SCH (09:27)
[2019-02-28] MEDS: TPN 1,000 ML IV SCH (10:38)
[2019-02-28] MEDS: ENOXAPARIN 40 MG/0.4 ML SYG SC SCH (11:38)
--- NOTE | 2019-02-28 12:01 | CONS ---
Assessment/Plan Assessment/Plan Assessment/Plan (Daily) Consultation Assessment/Plan Assessment/Plan Assessment/Plan (Daily) Assessment/Plan (Daily) IMPRESSION: 1. Persistent nausea, vomiting. 2. Breast cancer with mets to brain. 3. Hypertension. 4. History of hyponatremia. 5. Bilateral lower extremity weakness 6. Severe hypokalemia Plan Correction of the potassium EGD deferred and we will do it once patient condition is more stable discussed with Dr. Longoria Discussed with the daughter declined EGD Continue TPN Patient be placed on Megace and Reglan family has agreed P.o. feeding slowly Consultation Date/Type/Reason Admit Date/Time Feb 22, 2019 at 14:32 Initial Consult Date Requesting Provider: OLIVIA LONGORIA MD Date/Time of Note DATE: 02/28/19 TIME: 12:00 24 HR Interval Summary Free Text/Dictation No nausea no vomiting. No abdominal pain Exam/Review of Systems Exam Vitals Vital Signs Date Temp Pulse Resp B/P (MAP) Pulse Ox O2 O2 Flow FiO2 Time Delivery Rate 02/28/19 99.6 76 22 117/73 96 Nasal 11:58 (88) Cannula 02/27/19 2.0 01:14 02/26/19 27 01:10 Intake and Output 02/27/19 02/27/19 02/28/19 1515:00 23:00 07:00 IntakeIntake Total 1065 ml OutputOutput Total 800 ml 1000 ml BalanceBalance -800 ml 65 ml Constitutional: alert, oriented, well developed Psych: no complaints, nl mood/affect Head: normocephalic, atraumatic Eyes: nl conjunctiva, EOMI, nl lids, nl sclera, PERRL ENMT: nl external ears & nose, nl lips & teeth, nl nasal mucosa & septum Neck: supple, non-tender Respiratory: clear to auscultation, normal air movement Cardiovascular: regular rate and rhythm, nl pulses Gastrointestinal: soft, nl liver, spleen, non-tender Musculoskeletal: nl extremities to inspection, nl gait and stance Extremities: normal pulses Neurological: UROGYNECOLOGY PHYSICIAN II-XII intact, nl mental status, nl speech, nl strength Skin: nl turgor; No rash or lesions Lymph: nl lymph nodes Results Result Diagram: 02/26/19 0544 02/28/19 0522 Results 24hrs Laboratory Tests Test 02/27/19 12:19 02/27/19 16:24 02/27/19 21:48 02/28/19 01:22 Bedside Glucose 147 130 124 162 Test 02/28/19 05:22 02/28/19 05:34 Sodium Level 135 Potassium Level 3.1 L Chloride Level 104 Carbon Dioxide Level 24 Anion Gap 7 Blood Urea Nitrogen 19 Creatinine 0.35 L Est Glomerular Filtrat > 60 Rate mL/min Glucose Level 140 Calcium Level 8.8 Phosphorus Level 2.5 Magnesium Level 1.9 Bedside Glucose 131 Medications Medication Current Medications IV Flush (NS 3 ml) 3 ml PER PROTOCOL IV ; Start 02/22/19 at 16:00 Ondansetron HCl (Zofran Inj) 4 mg Q6H PRN IV NAUSEA/VOMITING; Start 02/22/19 at 16:00 Acetaminophen (Tylenol Tab) 650 mg Q6H PRN PO .PAIN 1-3 OR TEMP Last administe red on 02/27/19 20:38; Admin Dose 650 MG; Start 02/22/19 at 16:00 Magnesium Hydroxide (Milk Of Mag) 30 ml DAILY PRN PO .CONSTIPATION; Start 02/22/19 at 16:00 Pantoprazole (Protonix Iv) 40 mg DAILY@06 IV Last administered on 02/28/19 05:37; Admin Dose 40 MG; Start 02/23/19 at 06:00 Ceftriaxone Sodium 50 ml @ 100 mls/hr Q24H IVPB Last administered on 02/28/19 09:27; Admin Dose 100 MLS/HR; Start 02/23/19 at 10:00 Enoxaparin Sodium (Lovenox) 40 mg DAILY SC Last administered on 02/28/19 11:38; Admin Dose 40 MG; Start 02/24/19 at 09:00 Ibuprofen (Motrin) 600 mg Q6H PRN PO MODERATE PAIN LEVEL 4-6 Last administered on 02/23/19 14:37; Admin Dose 600 MG; Start 02/23/19 at 14:30 Olanzapine (Zyprexa Zydis) 5 mg BID ODT Last administered on 02/23/19 20:31; Admin Dose 5 MG; Start 02/23/19 at 21:00 Hydralazine HCl (Apresoline) 10 mg Q6H PRN IV ELEVATED BLOOD PRESSURE Last administered on 02/27/19 11:43; Admin Dose 10 MG; Start 02/24/19 at 01:00 Lorazepam (Ativan) 2 mg Q4 PRN IV AGITATION Last administered on 02/25/19 02:33; Admin Dose 2 MG; Start 02/24/19 at 11:00 Dexamethasone (Decadron) 2 mg Q8 IV Last administered on 02/28/19 05:37; Admin Dose 2 MG; Start 02/24/19 at 14:00 Lorazepam (Ativan) 1 mg Q4 PRN IV AGITATION/ANXIETY Last administered on 02/28/19 06:10; Admin Dose 1 MG; Start 02/25/19 at 03:30 Diagnostic Test (Pha) (Accu-Chek) 1 ea Q4 XX Last administered on 02/28/19 05 :36; Admin Dose 1 EA; Start 02/25/19 at 21:00 Valproate Sodium 500 mg/Sodium Chloride 55 ml @ 55 mls/hr Q12H IVPB Last administered on 02/28/19 00:23; Admin Dose 55 MLS/HR; Start 02/25/19 at 13:00 IV Flush (NS 10 ml) 10 ml PRN PRN IV IV PROTOCOL; Start 02/25/19 at 16:30 Total Parenteral Nutrition 1,000 ml @ 60 mls/hr [id number] IV Last administered on 02/28/19 10:38; Admin Dose 60 MLS/HR; Start 02/25/19 at 21:00 Fat Emulsion Intravenous 250 ml @ 20.833 mls/ hr DAILY@16 IV Last administered on 02/27/19 16:27; Admin Dose 20.833 MLS/HR; Start 02/26/19 at 16:00 Ketorolac Tromethamine (Toradol) 30 mg TID PRN IV PAIN LEVEL 1-3 Last administered on 02/28/19 04:30; Admin Dose 30 MG; Start 02/26/19 at 22:30; Stop 03/01/19 at 22:29 Metoclopramide HCl (Reglan) 5 mg Q6 PRN IV NAUSEA; Start 02/27/19 at 18:00 TREE IBRAHIM MD Feb 28, 2019 12:01
[2019-02-28] MEDS: POTASSIUM CHLORIDE 50 ML IVPB SCH ×3 (12:42→16:26)
[2019-02-28] MEDS ORDERED: POTASSIUM CHLORIDE 50 ML IVPB SCH (13:30)
--- NOTE | 2019-02-28 14:26 | PN ---
Date/Time of Note Date/Time of Note DATE: 02/28/19 TIME: 14:25 Assessment/Plan VTE Prophylaxis Risk score (from Ns)>0 risk: 6 [place]CD [place] [facility] SCD contraindicated: other (dnr/dni terminal) Pharmacological prophylaxis: NA/contraindicated, other Pharm contraindication: other Lines/Catheters IV C[facility]ter Type (from [facility] PICC Line Central line still needed: Yes Urinary Cath still in place: Yes Reason Cath still needed: urinary retention Assessment/Plan Hospital Course 1. Altered mental level of consciousness 2. History of hypertension. 3. Mild hypokalemia. 4. She has a history of hyponatremia. Now hyponatremic 129 5. Right breast cancer, status post right mastectomy with brain mets and status post whole brain radiation. 6. Nausea, vomiting, poor appetite, failure to thrive. 7. bilateral lower extremity weakness? Steroid related 8. Hypokalemia Assessment/Plan -family in disagreement with [facility] for stopping TPN -spoke to and son they are adamant -called [facility] hospice, left a message -pain control -pt is not eating, clear liquid trial -c/w TPN for now -pain control Result Diagram: 02/26/19 0544 02/28/19 0522 Results 24hrs Laboratory Tests Test 02/27/19 16:24 02/27/19 21:48 02/28/19 01:22 02/28/19 05:22 Bedside Glucose 130 124 162 Sodium Level 135 Potassium Level 3.1 L Chloride Level 104 Carbon Dioxide Level 24 Anion Gap 7 Blood Urea Nitrogen 19 Creatinine 0.35 L Est Glomerular Filtrat > 60 Rate mL/min Glucose Level 140 Calcium Level 8.8 Phosphorus Level 2.5 Magnesium Level 1.9 Test 02/28/19 05:34 02/28/19 14:02 Bedside Glucose 131 139 Subjective 24 Hr Interval Summary Free Text/Dictation headache, tired Exam/Review of Systems Exam Vitals Vital Signs Date Temp Pulse Resp B/P (MAP) Pulse Ox O2 O2 Flow FiO2 Time Delivery Rate 02/28/19 99.6 76 22 117/73 96 Nasal 11:58 (88) Cannula 02/27/19 2.0 01:14 02/26/19 27 01:10 Intake and Output 02/27/19 02/27/19 02/28/19 1515:00 23:00 07:00 IntakeIntake Total 1065 ml OutputOutput Total 800 ml 1000 ml BalanceBalance -800 ml 65 ml Constitutional: frail Head: normocephalic Eyes: nl conjunctiva ENMT: nl external ears & nose Neck: supple Respiratory: diminished breath sounds Cardiovascular: regular rate and rhythm Gastrointestinal: soft Genitourinary - Female: CVA tenderness; No nl adnexae, No nl external genitalia, No CMT, No uterus, No other Musculoskeletal: muscle weakness Extremities: calf tenderness; No normal pulses, No cyanosis, No clubbing, No edema, No pitting pedal edema, No palpable cord, No tenderness, No other Results Results 24hrs Laboratory Tests Test 02/27/19 16:24 02/27/19 21:48 02/28/19 01:22 02/28/19 05:22 Bedside Glucose 130 124 162 Sodium Level 135 Potassium Level 3.1 L Chloride Level 104 Carbon Dioxide Level 24 Anion Gap 7 Blood Urea Nitrogen 19 Creatinine 0.35 L Est Glomerular Filtrat > 60 Rate mL/min Glucose Level 140 Calcium Level 8.8 Phosphorus Level 2.5 Magnesium Level 1.9 Test 02/28/19 05:34 02/28/19 14:02 Bedside Glucose 131 139 Medications Medication Current Medications IV Flush (NS 3 ml) 3 ml PER PROTOCOL IV ; Start 02/22/19 at 16:00 Ondansetron HCl (Zofran Inj) 4 mg Q6H PRN IV NAUSEA/VOMITING; Start 02/22/19 at 16:00 Acetaminophen (Tylenol Tab) 650 mg Q6H PRN PO .PAIN 1-3 OR TEMP Last administered on 02/27/19at 20:38; Admin Dose 650 MG; Start 02/22/19 at 16:00 Magnesium Hydroxide (Milk Of Mag) 30 ml DAILY PRN PO .CONSTIPATION; Start 02/22/19 at 16:00 Pantoprazole (Protonix Iv) 40 mg DAILY@06 IV Last administered on 02/28/19at 05:37; Admin Dose 40 MG; Start 02/23/19 at 06:00 Ceftriaxone Sodium 50 ml @ 100 mls/hr Q24H IVPB Last administered on 02/28/19at 09:27; Admin Dose 100 MLS/HR; Start 02/23/19 at 10:00 Enoxaparin Sodium (Lovenox) 40 mg DAILY SC Last administered on 02/28/19 11:38; Admin Dose 40 MG; Start 02/24/19 at 09:00 Ibuprofen (Motrin) 600 mg Q6H PRN PO MODERATE PAIN LEVEL 4-6 Last administered on 02/23/19 14:37; Admin Dose 600 MG; Start 02/23/19 at 14:30 Olanzapine (Zyprexa Zydis) 5 mg BID ODT Last administered on 02/23/19 20:31; Admin Dose 5 MG; Start 02/23/19 at 21:00 Hydralazine HCl (Apresoline) 10 mg Q6H PRN IV ELEVATED BLOOD PRESSURE Last administered on 02/27/19 11:43; Admin Dose 10 MG; Start 02/24/19 at 01:00 Lorazepam (Ativan) 2 mg Q4 PRN IV AGITATION Last administered on 02/25/19 02:33; Admin Dose 2 MG; Start 02/24/19 at 11:00 Dexamethasone (Decadron) 2 mg Q8 IV Last administered on 02/28/19 05:37; Admin Dose 2 MG; Start 02/24/19 at 14:00 Lorazepam (Ativan) 1 mg Q4 PRN IV AGITATION/ANXIETY Last administered on 02/28/19 at 06:10; Admin Dose 1 MG; Start 02/25/19 at 03:30 Diagnostic Test (Pha) (Accu-Chek) 1 ea Q4 XX Last administered on 02/28/19 13:56; Admin Dose 1 EA; Start 02/25/19 at 21:00 Valproate Sodium 500 mg/Sodium Chloride 55 ml @ 55 mls/hr Q12H IVPB Last administered on 02/28/19 13:57; Admin Dose 55 MLS/HR; Start 02/25/19 at 13:00 IV Flush (NS 10 ml) 10 ml PRN PRN IV IV PROTOCOL; Start 02/25/19 at 16:30 Total Parenteral Nutrition 1,000 ml @ 60 mls/hr [id number] IV Last administered on 02/28/19 10:38; Admin Dose 60 MLS/HR; Start 02/25/19 at 21:00 Fat Emulsion Intravenous 250 ml @ 20.833 mls/ hr DAILY@16 IV Last administered on 02/27/19 16:27; Admin Dose 20.833 MLS/HR; Start 02/26/19 at 16:00 Ketorolac Tromethamine (Toradol) 30 mg TID PRN IV PAIN LEVEL 1-3 Last administered on 02/28/19at 04:30; Admin Dose 30 MG; Start 02/26/19 at 22:30; Stop 03/01/19 at 22:29 Metoclopramide HCl (Reglan) 5 mg Q6 PRN IV NAUSEA; Start 02/27/19 at 18:00 Potassium Chloride 50 ml @ 50 mls/hr Q1H IVPB Last administered on 02/28/19at 13:57; Admin Dose 50 MLS/HR; Start 02/28/19 at 12:30; Stop 02/28/19 at 15:29 CORINA TIERNEY NP Feb 28, 2019 14:26
--- NOTE | 2019-02-28 14:47 | CONS ---
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 - On TPN # Hypokalemia - replacement per PMD Physical therapy PT evaluation. Recommend comfort measures at this time with supportive help. Psych evaluation and meds Prognosis is poor, family aware Fluid electrolyte balance -Dr. Pham had an extensive discussion with her son Thomas and explained that the treatment for leptomeningeal disease is intrathecal chemotherapy, which is what Dr. Beck has already ordered -Dr. Pham had explained that her disease is terminal and that all therapies given are for palliative reasons and will not cure her disease -Dr. Pham had dw family that her disease is very advanced that her her life expectancy is on the order of months, with or without intrathecal chemotherapy, family and patient will decide on whether or not to continue treatment or to proceed with comfort measures and hospice. Thank you for the opportunity to participate in this patients care. A total of 40 minutes of face to face time was spent speaking with the patient family, of which greater than 50% was spent in counseling and coordination of care and the detailed question and answer session. Patient seen in collaboration with Dr Pham. dw staff Consultation Date/Type/Reason Admit Date/Time Feb 22, 2019 at 14:32 Initial Consult Date 02/26/19 Type of Consult HEM/ONC Reason for Consultation Metastatic Breast Cancer Requesting Provider: OLIVIA VIDES MD Date/Time of Note DATE: 02/27/19 TIME: 14:00 24 HR Interval Summary Free Text/Dictation c/o nausea no event overnight Family at bed side; want to talk to manager social work regarding a letter from Oncologist for patient son who lives is in [place] and wants to see his Mom in [place]- jose staff Constitutional: requiring IVF (TPN), requiring O2 Detailed Summary Eyes: no complaints ENT: no complaints Respiratory: no complaints Cardiovascular: no complaints Gastrointestinal: nausea Genitourinary: no complaints Musculoskeletal: restricted range of motion Skin: no complaints Neurologic: no complaints Immunologic: no complaints Exam/Review of Systems Exam Vitals Vital Signs Date Temp Pulse Resp B/P (MAP) Pulse Ox O2 O2 Flow FiO2 Time Delivery Rate 02/28/19 99.6 76 22 117/73 96 Nasal 11:58 (88) Cannula 02/27/19 2.0 01:14 02/26/19 27 01:10 Intake and Output 02/27/19 02/27/19 02/28/19 1515:00 23:00 07:00 IntakeIntake Total 1065 ml OutputOutput Total 800 ml 1000 ml BalanceBalance -800 ml 65 ml Constitutional: alert, well developed, frail Psych: nl mood/affect Eyes: nl lids, nl sclera ENMT: nl external ears & nose Neck: non-tender Respiratory: clear to auscultation Cardiovascular: nl pulses, other (s1s2) Gastrointestinal: soft, non-tender Musculoskeletal: joint tenderness, muscle weakness Extremities: normal pulses Neurological: nl speech, other (alert/responsive) Skin: nl turgor Results Result Diagram: 02/26/19 0544 02/28/19 0522 Results 24hrs Laboratory Tests Test 02/27/19 16:24 02/27/19 21:48 02/28/19 01:22 02/28/19 05:22 Bedside Glucose 130 124 162 Sodium Level 135 Potassium Level 3.1 L Chloride Level 104 Carbon Dioxide Level 24 Anion Gap 7 Blood Urea Nitrogen 19 Creatinine 0.35 L Est Glomerular Filtrat > 60 Rate mL/min Glucose Level 140 Calcium Level 8.8 Phosphorus Level 2.5 Magnesium Level 1.9 Test 02/28/19 05:34 02/28/19 14:02 Bedside Glucose 131 139 Medications Medication Current Medications IV Flush (NS 3 ml) 3 ml PER PROTOCOL IV ; Start 02/22/19 at 16:00 Ondansetron HCl (Zofran Inj) 4 mg Q6H PRN IV NAUSEA/VOMITING; Start 02/22/19 at 16:00 Acetaminophen (Tylenol Tab) 650 mg Q6H PRN PO .PAIN 1-3 OR TEMP Last administered on 02/27/19at 20:38; Admin Dose 650 MG; Start 02/22/19 at 16:00 Magnesium Hydroxide (Milk Of Mag) 30 ml DAILY PRN PO .CONSTIPATION; Start 02/22/19 at 16:00 Pantoprazole (Protonix Iv) 40 mg DAILY@06 IV Last administered on 02/28/19at 05:37; Admin Dose 40 MG; Start 02/23/19 at 06:00 Ceftriaxone Sodium 50 ml @ 100 mls/hr Q24H IVPB Last administered on 02/28/19 09:27; Admin Dose 100 MLS/HR; Start 02/23/19 at 10:00 Enoxaparin Sodium (Lovenox) 40 mg DAILY SC Last administered on 02/28/19 11:38; Admin Dose 40 MG; Start 02/24/19 at 09:00 Ibuprofen (Motrin) 600 mg Q6H PRN PO MODERATE PAIN LEVEL 4-6 Last administered on 02/23/19 14:37; Admin Dose 600 MG; Start 02/23/19 at 14:30 Olanzapine (Zyprexa Zydis) 5 mg BID ODT Last administered on 02/23/19 20:31; Admin Dose 5 MG; Start 02/23/19 at 21:00 Hydralazine HCl (Apresoline) 10 mg Q6H PRN IV ELEVATED BLOOD PRESSURE Last administered on 02/27/19 11:43; Admin Dose 10 MG; Start 02/24/19 at 01:00 Lorazepam (Ativan) 2 mg Q4 PRN IV AGITATION Last administered on 02/25/19 02:33; Admin Dose 2 MG; Start 02/24/19 at 11:00 Dexamethasone (Decadron) 2 mg Q8 IV Last administered on 02/28/19 05:37; Admin Dose 2 MG; Start 02/24/19 at 14:00 Lorazepam (Ativan) 1 mg Q4 PRN IV AGITATION/ANXIETY Last administered on 02/28/19 06:10; Admin Dose 1 MG; Start 02/25/19 at 03:30 Diagnostic Test (Pha) (Accu-Chek) 1 ea Q4 XX Last administered on 02/28/19 13:56; Admin Dose 1 EA; Start 02/25/19 at 21:00 Valproate Sodium 500 mg/Sodium Chloride 55 ml @ 55 mls/hr Q12H IVPB Last administered on 02/28/19 13:57; Admin Dose 55 MLS/HR; Start 02/25/19 at 13:00 IV Flush (NS 10 ml) 10 ml PRN PRN IV IV PROTOCOL; Start 02/25/19 at 16:30 Total Parenteral Nutrition 1,000 ml @ 60 mls/hr [id number] IV Last administered on 8/4/19at 10:38; Admin Dose 60 MLS/HR; Start 02/25/19 at 21:00 Fat Emulsion Intravenous 250 ml @ 20.833 mls/ hr DAILY@16 IV Last administered on 02/27/19at 16:27; Admin Dose 20.833 MLS/HR; Start 02/26/19 at 16:00 Ketorolac Tromethamine (Toradol) 30 mg TID PRN IV PAIN LEVEL 1-3 Last administered on 02/28/19at 04:30; Admin Dose 30 MG; Start 02/26/19 at 22:30; Stop 03/01/19 at 22:29 Metoclopramide HCl (Reglan) 5 mg Q6 PRN IV NAUSEA; Start 02/27/19 at 18:00 Potassium Chloride 50 ml @ 50 mls/hr Q1H IVPB Last administered on 02/28/19at 13:57; Admin Dose 50 MLS/HR; Start 02/28/19 at 12:30; Stop 02/28/19 at 15:29 RONALD VILLARREAL Feb 28, 2019 14:47
--- NOTE | 2019-02-28 14:48 | CONS ---
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 - On TPN # Hypokalemia - replacement per PMD Physical therapy PT evaluation. Recommend comfort measures at this time with supportive help. Psych evaluation and meds Prognosis is poor, family aware Fluid electrolyte balance -Dr. Pham had an extensive discussion with her son Thomas and explained that the treatment for leptomeningeal disease is intrathecal chemotherapy, which is what Dr. Beck has already ordered -Dr. Pham had explained that her disease is terminal and that all therapies given are for palliative reasons and will not cure her disease -Dr. Pham had dw family that her disease is very advanced that her her life expectancy is on the order of months, with or without intrathecal chemotherapy, family and patient will decide on whether or not to continue treatment or to proceed with comfort measures and hospice. Thank you for the opportunity to participate in this patients care. A total of 40 minutes of face to face time was spent speaking with the patient family, of which greater than 50% was spent in counseling and coordination of care and the detailed question and answer session. Patient seen in collaboration with Dr Pham. dw staff Consultation Date/Type/Reason Admit Date/Time Feb 22, 2019 at 14:32 Initial Consult Date 02/26/19 Type of Consult HEM/ONC Reason for Consultation Metastatic Breast Cancer Requesting Provider: OLIVIA VIDES MD Date/Time of Note DATE: 02/28/19 TIME: 14:48 24 HR Interval Summary Free Text/Dictation c/o nausea on TPN no events overnight Constitutional: requiring IVF Detailed Summary Eyes: no complaints ENT: no complaints Respiratory: no complaints Cardiovascular: no complaints Gastrointestinal: nausea Genitourinary: no complaints Musculoskeletal: no complaints Skin: no complaints Neurologic: no complaints Endocrine: no complaints Lymphatic: no complaints Psychological: nl mood/affect Exam/Review of Systems Exam Vitals Vital Signs Date Temp Pulse Resp B/P (MAP) Pulse Ox O2 O2 Flow FiO2 Time Delivery Rate 02/28/19 99.6 76 22 117/73 96 Nasal 11:58 (88) Cannula 02/27/19 2.0 01:14 02/26/19 27 01:10 Intake and Output 02/27/19 02/27/19 02/28/19 1515:00 23:00 07:00 IntakeIntake Total 1065 ml OutputOutput Total 800 ml 1000 ml BalanceBalance -800 ml 65 ml Constitutional: alert, well developed Psych: nl mood/affect Head: normocephalic Eyes: nl lids, nl sclera ENMT: nl external ears & nose Neck: non-tender Respiratory: clear to auscultation Cardiovascular: nl pulses, other (s1s2) Gastrointestinal: soft, non-tender Musculoskeletal: nl extremities to inspection Extremities: normal pulses Neurological: nl speech, other (alert/reponsive) Results Result Diagram: 02/26/19 0544 02/28/19 0522 Results 24hrs Laboratory Tests Test 02/27/19 16:24 02/27/19 21:48 02/28/19 01:22 02/28/19 05:22 Bedside Glucose 130 124 162 Sodium Level 135 Potassium Level 3.1 L Chloride Level 104 Carbon Dioxide Level 24 Anion Gap 7 Blood Urea Nitrogen 19 Creatinine 0.35 L Est Glomerular Filtrat > 60 Rate mL/min Glucose Level 140 Calcium Level 8.8 Phosphorus Level 2.5 Magnesium Level 1.9 Test 02/28/19 05:34 02/28/19 14:02 Bedside Glucose 131 139 Medications Medication Current Medications IV Flush (NS 3 ml) 3 ml PER PROTOCOL IV ; Start 02/22/19 at 16:00 Ondansetron HCl (Zofran Inj) 4 mg Q6H PRN IV NAUSEA/VOMITING; Start 02/22/19 at 16:00 Acetaminophen (Tylenol Tab) 650 mg Q6H PRN PO .PAIN 1-3 OR TEMP Last administered on 02/27/19at 20:38; Admin Dose 650 MG; Start 02/22/19 at 16:00 Magnesium Hydroxide (Milk Of Mag) 30 ml DAILY PRN PO .CONSTIPATION; Start 02/22/19 at 16:00 Pantoprazole (Protonix Iv) 40 mg DAILY@06 IV Last administered on 02/28/19at 05:37; Admin Dose 40 MG; Start 02/23/19 at 06:00 Ceftriaxone Sodium 50 ml @ 100 mls/hr Q24H IVPB Last administered on 02/28/19at 09:27; Admin Dose 100 MLS/HR; Start 02/23/19 at 10:00 Enoxaparin Sodium (Lovenox) 40 mg DAILY SC Last administered on 02/28/19 11:38; Admin Dose 40 MG; Start 02/24/19 at 09:00 Ibuprofen (Motrin) 600 mg Q6H PRN PO MODERATE PAIN LEVEL 4-6 Last administered on 02/23/19 14:37; Admin Dose 600 MG; Start 02/23/19 at 14:30 Olanzapine (Zyprexa Zydis) 5 mg BID ODT Last administered on 02/23/19 20:31; Admin Dose 5 MG; Start 02/23/19 at 21:00 Hydralazine HCl (Apresoline) 10 mg Q6H PRN IV ELEVATED BLOOD PRESSURE Last administered on 02/27/19 11:43; Admin Dose 10 MG; Start 02/24/19 at 01:00 Lorazepam (Ativan) 2 mg Q4 PRN IV AGITATION Last administered on 02/25/19 02:33; Admin Dose 2 MG; Start 02/24/19 at 11:00 Dexamethasone (Decadron) 2 mg Q8 IV Last administered on 02/28/19 05:37; Admin Dose 2 MG; Start 02/24/19 at 14:00 Lorazepam (Ativan) 1 mg Q4 PRN IV AGITATION/ANXIETY Last administered on 02/28/19 06:10; Admin Dose 1 MG; Start 02/25/19 at 03:30 Diagnostic Test (Pha) (Accu-Chek) 1 ea Q4 XX Last administered on 02/28/19 13:56; Admin Dose 1 EA; Start 02/25/19 at 21:00 Valproate Sodium 500 mg/Sodium Chloride 55 ml @ 55 mls/hr Q12H IVPB Last administered on 02/28/19 13:57; Admin Dose 55 MLS/HR; Start 02/25/19 at 13:00 IV Flush (NS 10 ml) 10 ml PRN PRN IV IV PROTOCOL; Start 02/25/19 at 16:30 Total Parenteral Nutrition 1,000 ml @ 60 mls/hr [id number] IV Last administered on 02/28/19 10:38; Admin Dose 60 MLS/HR; Start 02/25/19 at 21:00 Fat Emulsion Intravenous 250 ml @ 20.833 mls/ hr DAILY@16 IV Last administered on 02/27/19at 16:27; Admin Dose 20.833 MLS/HR; Start 02/26/19 at 16:00 Ketorolac Tromethamine (Toradol) 30 mg TID PRN IV PAIN LEVEL 1-3 Last administered on 02/28/19at 04:30; Admin Dose 30 MG; Start 02/26/19 at 22:30; Stop 03/01/19 at 22:29 Metoclopramide HCl (Reglan) 5 mg Q6 PRN IV NAUSEA; Start 02/27/19 at 18:00 Potassium Chloride 50 ml @ 50 mls/hr Q1H IVPB Last administered on 02/28/19at 13:57; Admin Dose 50 MLS/HR; Start 02/28/19 at 12:30; Stop 02/28/19 at 15:29 RONALD VILLARREAL Feb 28, 2019 14:48
[2019-02-28] MEDS ORDERED: morphine SULFATE/PF (2 MG/2 ML) SYG IV PRN (16:00)
[2019-02-28] MEDS: SCOPOLAMINE 1.5 MG PATCH TRANSDERM SCH (16:25)
[2019-02-28] MEDS: FAT EMULSION 20% 250 ML IV SCH (16:26)
[2019-02-28] MEDS: IBUPROFEN 600 MG TAB PO PRN (18:25)
[2019-02-28] MEDS: hydrALAzine 20 MG INJ IV PRN (23:51)
[2019-03-01] MEDS: IBUPROFEN 600 MG TAB PO PRN ×2 (00:20→15:59)
[2019-03-01] MEDS: ACCU-CHEK XX SCH ×6 (01:00→21:23)
[2019-03-01] MEDS: VALPROATE INJ 500 MG in SOD CHLORIDE 0.9% 50 ML IVPB SCH ×2 (01:08→13:19)
[2019-03-01 01:45] VITALS: BP 129/70; PULSE 91; RESP 16
[2019-03-01] MEDS: LORAZEPAM 2 MG INJ IV PRN ×2 (02:53→19:49)
[2019-03-01] MEDS: DEXAMETHASONE 4 MG/ML 1 ML INJ IV SCH ×3 (05:07→21:21)
[2019-03-01] MEDS: PANTOPRAZOLE 40 MG INJ IV SCH (05:07)
[2019-03-01] MEDS: TPN 1,000 ML IV SCH ×3 (05:07→22:42)
[2019-03-01 08:12] VITALS: BP 162/85; PULSE 92; RESP 18
--- NOTE | 2019-03-01 08:31 | CONS ---
Assessment/Plan Assessment/Plan Hospital Course (Demo Recall) 58 yo female with metastatic breast cancer 1. Persistent nausea, vomiting. -improved but not eating much, drinking small sips of water 2. Breast cancer with mets to brain. 3. Hypertension. 4. History of hyponatremia. 5. Bilateral lower extremity weakness 6. Severe hypokalemia -K3.0, replace per primary Plan Ensure QD Correction of the potassium per primary EGD was declined for time being Continue with reglan Continue TPN Encourage PO feeding slowly prn anti emetics pain management Pt examined and plan of care d/w Dr. Machuca Consultation Date/Type/Reason Admit Date/Time Feb 22, 2019 at 14:32 Initial Consult Date 02/26/19 Requesting Provider: OLIVIA VIDES MD Date/Time of Note DATE: 03/01/19 TIME: 08:23 24 HR Interval Summary Free Text/Dictation Per niece at bedside, pt's nausea is improved but she is still not eating only drinking small sips of water. Pt c/o headache. Exam/Review of Systems Exam Vitals Vital Signs Date Temp Pulse Resp B/P (MAP) Pulse Ox O2 O2 Flow FiO2 Time Delivery Rate 03/01/19 98.0 92 18 162/85 100 Room Air 08:12 (110) 02/28/19 2.0 21:59 02/26/19 27 01:10 Intake and Output 02/28/19 02/28/19 03/01/19 1515:00 23:00 07:00 IntakeIntake Total 380 ml 1645 ml OutputOutput Total 700 ml 900 ml BalanceBalance 380 ml -700 ml 745 ml Constitutional: alert, oriented Psych: no complaints Eyes: nl sclera, PERRL Respiratory: normal air movement Cardiovascular: regular rate and rhythm Gastrointestinal: soft, non-tender Neurological: nl mental status Results Result Diagram: 02/26/19 0544 03/01/19 0447 Results 24hrs Laboratory Tests Test 02/28/19 14:02 02/28/19 20:51 03/01/19 01:04 03/01/19 04:47 Bedside Glucose 139 145 200 Sodium Level 131 L Potassium Level 3.0 L Chloride Level 99 Carbon Dioxide Level 20 L Anion Gap 12 Blood Urea Nitrogen 18 Creatinine 0.25 L Est Glomerular Filtrat > 60 Rate mL/min Glucose Level 217 Calcium Level 8.7 Phosphorus Level 2.3 L Magnesium Level 1.6 L Test 03/01/19 05:05 Bedside Glucose 208 Medications Medication Current Medications IV Flush (NS 3 ml) 3 ml PER PROTOCOL IV ; Start 02/22/19 at 16:00 Ondansetron HCl (Zofran Inj) 4 mg Q6H PRN IV NAUSEA/VOMITING; Start 02/22/19 at 16:00 Acetaminophen (Tylenol Tab) 650 mg Q6H PRN PO .PAIN 1-3 OR TEMP Last administered on 02/27/19 20:38; Admin Dose 650 MG; Start 02/22/19 at 16:00 Magnesium Hydroxide (Milk Of Mag) 30 ml DAILY PRN PO .CONSTIPATION; Start 02/22/19 at 16:00 Pantoprazole (Protonix Iv) 40 mg DAILY@06 IV Last administered on 03/01/19 05:07; Admin Dose 40 MG; Start 02/23/19 at 06:00 Ceftriaxone Sodium 50 ml @ 100 mls/hr Q24H IVPB Last administered on 02/28/19 09:27; Admin Dose 100 MLS/HR; Start 02/23/19 at 10:00 Ibuprofen (Motrin) 600 mg Q6H PRN PO MODERATE PAIN LEVEL 4-6 Last administered on 03/01/19 00:20; Admin Dose 600 MG; Start 02/23/19 at 14:30 Olanzapine (Zyprexa Zydis) 5 mg BID ODT Last administered on 02/23/19 20:31; Admin Dose 5 MG; Start 02/23/19 at 21:00 Hydralazine HCl (Apresoline) 10 mg Q6H PRN IV ELEVATED BLOOD PRESSURE Last administered on 02/28/19 23:51; Admin Dose 10 MG; Start 02/24/19 at 01:00 Lorazepam (Ativan) 2 mg Q4 PRN IV AGITATION Last administered on 02/25/19 02:33; Admin Dose 2 MG; Start 02/24/19 at 11:00 Dexamethasone (Decadron) 2 mg Q8 IV Last administered on 03/01/19 05:07; Admin Dose 2 MG; Start 02/24/19 at 14:00 Lorazepam (Ativan) 1 mg Q4 PRN IV AGITATION/ANXIETY Last administered on 03/01/19 02:53; Admin Dose 1 MG; Start 02/25/19 at 03:30 Diagnostic Test (Pha) (Accu-Chek) 1 ea Q4 XX Last administered on 02/28/19 20:52; Admin Dose 1 EA; Start 02/25/19 at 21:00 Valproate Sodium 500 mg/Sodium Chloride 55 ml @ 55 mls/hr Q12H IVPB Last administered on 03/01/19 01:08; Admin Dose 55 MLS/HR; Start 02/25/19 at 13:00 IV Flush (NS 10 ml) 10 ml PRN PRN IV IV PROTOCOL; Start 02/25/19 at 16:30 Total Parenteral Nutrition 1,000 ml @ 60 mls/hr [id number] IV Last administered on 03/01/19 05:07; Admin Dose 60 MLS/HR; Start 02/25/19 at 21:00 Fat Emulsion Intravenous 250 ml @ 20.833 mls/ hr DAILY@16 IV Last administered on 02/28/19 16:26; Admin Dose 20.833 MLS/HR; Start 02/26/19 at 16:00 Ketorolac Tromethamine (Toradol) 30 mg TID PRN IV PAIN LEVEL 1-3 Last administered on 02/28/19 15:08; Admin Dose 30 MG; Start 02/26/19 at 22:30; Stop 03/01/19 at 22:29 Metoclopramide HCl (Reglan) 5 mg Q6 PRN IV NAUSEA; Start 02/27/19 at 18:00 Scopolamine (Transderm-Scop) 1 patch Q72H TRANSDERM Last administered on 02/28/19 16:25; Admin Dose 1 PATCH; Start 02/28/19 at 16:00 Morphine Sulfate (morphine) 3 mg Q4H PRN IV SEVERE PAIN LEVEL 7-10; Start 02/28/19 at 16:30 JASON MCKAY Mar 01, 2019 08:31
[2019-03-01] MEDS ORDERED: MAGNESIUM SULFATE 2 GM/50 ML 50 ML IVPB ONE (09:30)
[2019-03-01] MEDS: CEFTRIAXONE 1 GM/50 ML (PMX) 50 ML IVPB SCH (09:56)
[2019-03-01] MEDS: OLANZAPINE (ODT) 5 MG TAB ODT SCH ×2 (09:57→21:00)
[2019-03-01] MEDS ORDERED: POTASSIUM PHOSPHATE 20 MEQ in SOD CHLORIDE 0.9% 250 ML IVPB ONE (11:00)
[2019-03-01] MEDS: KETOROLAC 30 MG INJ IV PRN (11:22)
[2019-03-01] MEDS ORDERED: GLUCOSE GEL 15 GRAM TUBE PO PRN ×2 (12:00)
[2019-03-01] MEDS ORDERED: GLUCAGON 1 MG INJ IM PRN (12:00)
[2019-03-01] MEDS ORDERED: GLUCOSE GEL 15 GRAM TUBE BUCCAL PRN (12:00)
[2019-03-01] MEDS ORDERED: DEXTROSE 50% 50 ML SYRINGE IV PRN ×2 (12:00)
--- NOTE | 2019-03-01 12:34 | PN ---
Date/Time of Note Date/Time of Note DATE: 03/01/19 TIME: 12:20 Assessment/Plan VTE Prophylaxis Risk score (from Ns)>0 risk: 4 SCD applied (from Ns): No SCD contraindicated: low risk/ambulating Pharmacological prophylaxis: NA/contraindicated Pharm contraindication: low risk/ambulating Lines/Catheters IV Catheter Type (from Nrsg): PICC Line Central line still needed: Yes Urinary Cath still in place: Yes Reason Cath still needed: urinary retention Assessment/Plan Assessment/Plan pital Course 1. Altered mental level of consciousness with seizures with rt breast ca sp Right breast cancer, status post right mastectomy with brain mets and status post whole brain radiation. 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 History of hypertension. 3. Mild hypokalemia. 4. She has a history of hyponatremia. Now hyponatremic 129 5. Right breast cancer, status post right mastectomy with brain mets and status post whole brain radiation. 6. Nausea, vomiting, poor appetite, failure to thrive. 7. bilateral lower extremity weakness? Steroid related 8. Hypokalemia 9 Intractable nausea Assessment/Plan -family in disagreement stopping TPN -spoke to and son with help of SW -Will call for 2nd opinion with [facility] if they take TPN - Family does not want NG tub e/ Gt tube -pain control/ ativan/ antiepileptic -CW zyprexa and rocephin /decadron - DNR -CLD -pain control Result Diagram: 02/26/19 0544 03/01/19 0447 Results 24hrs Laboratory Tests Test 02/28/19 14:02 02/28/19 20:51 03/01/19 01:04 03/01/19 04:47 Bedside Glucose 139 145 200 Sodium Level 131 L Potassium Level 3.0 L Chloride Level 99 Carbon Dioxide Level 20 L Anion Gap 12 Blood Urea Nitrogen 18 Creatinine 0.25 L Est Glomerular Filtrat > 60 Rate mL/min Glucose Level 217 Calcium Level 8.7 Phosphorus Level 2.3 L Magnesium Level 1.6 L Test 03/01/19 05:05 03/01/19 09:59 Bedside Glucose 208 208 Subjective 24 Hr Interval Summary Free Text/Dictation pt lying in bed, trying to take clothes off had long discussion with son and who want to try keep her on TPN Exam/Review of Systems Exam Vitals Vital Signs Date Temp Pulse Resp B/P (MAP) Pulse Ox O2 O2 Flow FiO2 Time Delivery Rate 03/01/19 98.0 92 18 162/85 100 Room Air 08:12 (110) 02/28/19 2.0 21:59 02/26/19 27 01:10 Intake and Output 02/28/19 02/28/19 03/01/19 1515:00 23:00 07:00 IntakeIntake Total 380 ml 1645 ml OutputOutput Total 700 ml 900 ml BalanceBalance 380 ml -700 ml 745 ml Exam Constitutional: frail , lying on bed, opens eyes Neck: supple Respiratory: diminished breath sounds Cardiovascular: regular rate and rhythm Gastrointestinal: soft Genitourinary - Female: CVA tenderness; No nl adnexae, No nl external genitalia, No CMT, No uterus, No other Musculoskeletal: muscle weakness some bruising Results Results 24hrs Laboratory Tests Test 02/28/19 14:02 02/28/19 20:51 03/01/19 01:04 03/01/19 04:47 Bedside Glucose 139 145 200 Sodium Level 131 L Potassium Level 3.0 L Chloride Level 99 Carbon Dioxide Level 20 L Anion Gap 12 Blood Urea Nitrogen 18 Creatinine 0.25 L Est Glomerular Filtrat > 60 Rate mL/min Glucose Level 217 Calcium Level 8.7 Phosphorus Level 2.3 L Magnesium Level 1.6 L Test 03/01/19 05:05 03/01/19 09:59 Bedside Glucose 208 208 Medications Medication Current Medications IV Flush (NS 3 ml) 3 ml PER PROTOCOL IV ; Start 02/22/19 at 16:00 Ondansetron HCl (Zofran Inj) 4 mg Q6H PRN IV NAUSEA/VOMITING; Start 02/22/19 at 16:00 Acetaminophen (Tylenol Tab) 650 mg Q6H PRN PO .PAIN 1-3 OR TEMP Last ad ministered on 02/27/19at 20:38; Admin Dose 650 MG; Start 02/22/19 at 16:00 Magnesium Hydroxide (Milk Of Mag) 30 ml DAILY PRN PO .CONSTIPATION; Start 02/22/19 at 16:00 Pantoprazole (Protonix Iv) 40 mg DAILY@06 IV Last administered on 03/01/19at 05:07; Admin Dose 40 MG; Start 02/23/19 at 06:00 Ceftriaxone Sodium 50 ml @ 100 mls/hr Q24H IVPB Last administered on 03/01/19 09:56; Admin Dose 100 MLS/HR; Start 02/23/19 at 10:00 Ibuprofen (Motrin) 600 mg Q6H PRN PO MODERATE PAIN LEVEL 4-6 Last administered on 03/01/19 00:20; Admin Dose 600 MG; Start 02/23/19 at 14:30 Olanzapine (Zyprexa Zydis) 5 mg BID ODT Last administered on 03/01/19 09:57; Admin Dose 5 MG; Start 02/23/19 at 21:00 Hydralazine HCl (Apresoline) 10 mg Q6H PRN IV ELEVATED BLOOD PRESSURE Last administered on 02/28/19 23:51; Admin Dose 10 MG; Start 02/24/19 at 01:00 Lorazepam (Ativan) 2 mg Q4 PRN IV AGITATION Last administered on 02/25/19 02:33; Admin Dose 2 MG; Start 02/24/19 at 11:00 Dexamethasone (Decadron) 2 mg Q8 IV Last administered on 03/01/19 05:07; Admin Dose 2 MG; Start 02/24/19 at 14:00 Lorazepam (Ativan) 1 mg Q4 PRN IV AGITATION/ANXIETY Last administered on 03/01/19 02:53; Admin Dose 1 MG; Start 02/25/19 at 03:30 Diagnostic Test (Pha) (Accu-Chek) 1 ea Q4 XX Last administered on 03/01/19 09:59; Admin Dose 1 EA; Start 02/25/19 at 21:00 Valproate Sodium 500 mg/Sodium Chloride 55 ml @ 55 mls/hr Q12H IVPB Last administered on 03/01/19 01:08; Admin Dose 55 MLS/HR; Start 02/25/19 at 13:00 IV Flush (NS 10 ml) 10 ml PRN PRN IV IV PROTOCOL; Start 02/25/19 at 16:30 Total Parenteral Nutrition 1,000 ml @ 60 mls/hr [id number] IV Last administered on 03/01/19 05:07; Admin Dose 60 MLS/HR; Start 02/25/19 at 21:00 Fat Emulsion Intravenous 250 ml @ 20.833 mls/ hr DAILY@16 IV Last administered on 02/28/19at 16:26; Admin Dose 20.833 MLS/HR; Start 02/26/19 at 16:00 Ketorolac Tromethamine (Toradol) 30 mg TID PRN IV PAIN LEVEL 1-3 Last administered on 03/01/19at 11:22; Admin Dose 30 MG; Start 02/26/19 at 22:30; Stop 03/01/19 at 22:29 Metoclopramide HCl (Reglan) 5 mg Q6 PRN IV NAUSEA; Start 02/27/19 at 18:00 Scopolamine (Transderm-Scop) 1 patch Q72H TRANSDERM Last administered on 02/28/19at 16:25; Admin Dose 1 PATCH; Start 02/28/19 at 16:00 Morphine Sulfate (morphine) 3 mg Q4H PRN IV SEVERE PAIN LEVEL 7-10; Start 02/28/19 at 16:30 Potassium Phosphate 20 meq/ Sodium Chloride 254.5455 ml @ 63.636 m... ONCE ONCE IVPB ; Start 03/01/19 at 11:00; Stop 03/01/19 at 14:59 Diagnostic Test (Pha) (Accu-Chek) 1 ea 02 XX ; Start 03/02/19 at 02:00 Insulin Aspart (Novolog Insulin Pen) NOVOLOG *MILD* ALGORITHM WITH MEALS BEDTIME SC ; Start 03/01/19 at 17:55 Miscellaneous Information 1 ea NOTE XX ; Start 03/01/19 at 12:00 Glucose (Glutose) 15 gm Q15M PRN PO DECREASED GLUCOSE; Start 03/01/19 at 12:00 Glucose (Glutose) 22.5 gm Q15M PRN PO DECREASED GLUCOSE; Start 03/01/19 at 12:00 Dextrose (D50w Syringe) 25 ml Q15M PRN IV DECREASED GLUCOSE; Start 03/01/19 at 12:00 Dextrose (D50w Syringe) 50 ml Q15M PRN IV DECREASED GLUCOSE; Start 03/01/19 at 12:00 Glucagon (Glucagen) 1 mg Q15M PRN IM DECREASED GLUCOSE; Start 03/01/19 at 12:00 Glucose (Glutose) 15 gm Q15M PRN BUCCAL DECREASED GLUCOSE; Start 03/01/19 at 12:00 OLIVIA VIDES MD Mar 01, 2019 12:31
--- NOTE | 2019-03-01 13:46 | CONS ---
Assessment/Plan Assessment/Plan Assessment/Plan (Recall) 58 F c/ known brain metastases (breast primary) s/p radiation...who presents for evaluation of ams.. The clinical picture suggests an acute toxic encephalopathy, which has shown some clinical improvement.. A superimposed metabolic component 2/2 UTI is possible.. Also notable are severe and episodic headaches w/ nausea/vomiting..which is likely secondary to her metastatic disease.. A carcinomatous meningeal process would be expected to produce unremitting (rather than episodic) symptoms, but is nonetheless possible Head CT is without obvious acute intracranial pathology. Noted to have seizures on 02/23..likely provoked by antipsychotic medications.. EEG was without epileptiform activity P: Continue Depakote for seizure ppx Ativan iv prn prolonged seizure or cluster Behavioral management per psychiatry NSAID for pain management w/ protonix, as medically able PT/OT as tolerated Other medical management and supportive care per primary Will sign off for now; please call w/ ?s Consultation Date/Type/Reason Admit Date/Time Feb 22, 2019 at 14:32 Type of Consult Neurology Reason for Consultation ams Requesting Provider: OLIVIA VIDES MD Date/Time of Note DATE: 03/01/19 TIME: 13:45 24 HR Interval Summary Free Text/Dictation continues acute care Exam/Review of Systems Exam Vitals Vital Signs Date Temp Pulse Resp B/P (MAP) Pulse Ox O2 O2 Flow FiO2 Time Delivery Rate 03/01/19 98.0 92 18 162/85 100 Room Air 08:12 (110) 02/28/19 2.0 21:59 02/26/19 27 01:10 Intake and Output 02/28/19 02/28/19 03/01/19 1515:00 23:00 07:00 IntakeIntake Total 380 ml 1645 ml OutputOutput Total 700 ml 900 ml BalanceBalance 380 ml -700 ml 745 ml Results Result Diagram: 02/26/19 0544 03/01/19 0447 Results 24hrs Laboratory Tests Test 02/28/19 14:02 02/28/19 20:51 03/01/19 01:04 03/01/19 04:47 Bedside Glucose 139 145 200 Sodium Level 131 L Potassium Level 3.0 L Chloride Level 99 Carbon Dioxide Level 20 L Anion Gap 12 Blood Urea Nitrogen 18 Creatinine 0.25 L Est Glomerular Filtrat > 60 Rate mL/min Glucose Level 217 Calcium Level 8.7 Phosphorus Level 2.3 L Magnesium Level 1.6 L Test 03/01/19 05:05 03/01/19 09:59 Bedside Glucose 208 208 Medications Medication Current Medications IV Flush (NS 3 ml) 3 ml PER PROTOCOL IV ; Start 02/22/19 at 16:00 Ondansetron HCl (Zofran Inj) 4 mg Q6H PRN IV NAUSEA/VOMITING; Start 02/22/19 at 16:00 Acetaminophen (Tylenol Tab) 650 mg Q6H PRN PO .PAIN 1-3 OR TEMP Last administered on 02/27/19 20:38; Admin Dose 650 MG; Start 02/22/19 at 16:00 Magnesium Hydroxide (Milk Of Mag) 30 ml DAILY PRN PO .CONSTIPATION; Start 02/22/19 at 16:00 Pantoprazole (Protonix Iv) 40 mg DAILY@06 IV Last administered on 03/01/19 05:07; Admin Dose 40 MG; Start 02/23/19 at 06:00 Ceftriaxone Sodium 50 ml @ 100 mls/hr Q24H IVPB Last administered on 03/01/19 09:56; Admin Dose 100 MLS/HR; Start 02/23/19 at 10:00 Ibuprofen (Motrin) 600 mg Q6H PRN PO MODERATE PAIN LEVEL 4-6 Last administered on 03/01/19 00:20; Admin Dose 600 MG; Start 02/23/19 at 14:30 Olanzapine (Zyprexa Zydis) 5 mg BID ODT Last administered on 03/01/19 09:57; Admin Dose 5 MG; Start 02/23/19 at 21:00 Hydralazine HCl (Apresoline) 10 mg Q6H PRN IV ELEVATED BLOOD PRESSURE Last administered on 02/28/19 23:51; Admin Dose 10 MG; Start 02/24/19 at 01:00 Lorazepam (Ativan) 2 mg Q4 PRN IV AGITATION Last administered on 02/25/19 02:33; Admin Dose 2 MG; Start 02/24/19 at 11:00 Dexamethasone (Decadron) 2 mg Q8 IV Last administered on 03/01/19 05:07; Admin Dose 2 MG; Start 02/24/19 at 14:00 Lorazepam (Ativan) 1 mg Q4 PRN IV AGITATION/ANXIETY Last administered on 03/01/19 02:53; Admin Dose 1 MG; Start 02/25/19 at 03:30 Diagnostic Test (Pha) (Accu-Chek) 1 ea Q4 XX Last administered on 03/01/19 09:59; Admin Dose 1 EA; Start 02/25/19 at 21:00 Valproate Sodium 500 mg/Sodium Chloride 55 ml @ 55 mls/hr Q12H IVPB Last administered on 03/01/19 13:19; Admin Dose 55 MLS/HR; Start 02/25/19 at 13:00 IV Flush (NS 10 ml) 10 ml PRN PRN IV IV PROTOCOL; Start 02/25/19 at 16:30 Total Parenteral Nutrition 1,000 ml @ 60 mls/hr [id number] IV Last administered on 03/01/19 05:07; Admin Dose 60 MLS/HR; Start 02/25/19 at 21:00 Fat Emulsion Intravenous 250 ml @ 20.833 mls/ hr DAILY@16 IV Last administered on 02/28/19 16:26; Admin Dose 20.833 MLS/HR; Start 02/26/19 at 16:00 Ketorolac Tromethamine (Toradol) 30 mg TID PRN IV PAIN LEVEL 1-3 Last admini stered on 03/01/19 11:22; Admin Dose 30 MG; Start 02/26/19 at 22:30; Stop 03/01/19 at 22:29 Metoclopramide HCl (Reglan) 5 mg Q6 PRN IV NAUSEA; Start 02/27/19 at 18:00 Scopolamine (Transderm-Scop) 1 patch Q72H TRANSDERM Last administered on 02/28/19 16:25; Admin Dose 1 PATCH; Start 02/28/19 at 16:00 Morphine Sulfate (morphine) 3 mg Q4H PRN IV SEVERE PAIN LEVEL 7-10; Start 02/28/19 at 16:30 Potassium Phosphate 20 meq/ Sodium Chloride 254.5455 ml @ 63.636 m... ONCE ONCE IVPB ; Start 03/01/19 at 11:00; Stop 03/01/19 at 14:59 Diagnostic Test (Pha) (Accu-Chek) 1 ea 02 XX ; Start 03/02/19 at 02:00 Insulin Aspart (Novolog Insulin Pen) NOVOLOG *MILD* ALGORITHM WITH MEALS BEDTIME SC ; Start 03/01/19 at 17:55 Miscellaneous Information 1 ea NOTE XX ; Start 03/01/19 at 12:00 Glucose (Glutose) 15 gm Q15M PRN PO DECREASED GLUCOSE; Start 03/01/19 at 12:00 Glucose (Glutose) 22.5 gm Q15M PRN PO DECREASED GLUCOSE; Start 03/01/19 at 12:00 Dextrose (D50w Syringe) 25 ml Q15M PRN IV DECREASED GLUCOSE; Start 03/01/19 at 12:00 Dextrose (D50w Syringe) 50 ml Q15M PRN IV DECREASED GLUCOSE; Start 03/01/19 at 12:00 Glucagon (Glucagen) 1 mg Q15M PRN IM DECREASED GLUCOSE; Start 03/01/19 at 12:00 Glucose (Glutose) 15 gm Q15M PRN BUCCAL DECREASED GLUCOSE; Start 03/01/19 at 12:00 KELLY OBANDO Mar 01, 2019 13:46
--- NOTE | 2019-03-01 14:31 | CONS ---
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 Beck has already ordered -I also explained that her disease is terminal and that all therapies given are for palliative reasons and will not cure her disease -I explained that her disease is very advanced that her her life expectancy is on the order of months, with or without intrathecal chemotherapy -family and patient have agreed on comfort measures and hospice. They are trying to continue TPN on hospice -continue Depakote for seizures Thank you for the opportunity to participate in this patients care A total of 40 minutes of face to face time was spent speaking with the patient, of which greater than 50% was spent in counseling and coordination of care and the detailed question and answer session. Consultation Date/Type/Reason Admit Date/Time Feb 22, 2019 at 14:32 Initial Consult Date 02/26/19 Type of Consult oncology Reason for Consultation metastatic her 2 positive breast cancer Requesting Provider: OLIVIA VIDES MD Date/Time of Note DATE: 03/01/19 TIME: 14:28 24 HR Interval Summary Free Text/Dictation patient and family have agreed on hospice but they want to continue TPN while on hospice. pt did have a seizure yesterday Exam/Review of Systems Exam Vitals Vital Signs Date Temp Pulse Resp B/P (MAP) Pulse Ox O2 O2 Flow FiO2 Time Delivery Rate 03/01/19 98.0 92 18 162/85 100 Room Air 08:12 (110) 02/28/19 2.0 21:59 02/26/19 27 01:10 Intake and Output 02/28/19 02/28/19 03/01/19 1515:00 23:00 07:00 IntakeIntake Total 380 ml 1645 ml OutputOutput Total 700 ml 900 ml BalanceBalance 380 ml -700 ml 745 ml Constitutional: alert, distress, frail Psych: no complaints, anxiety, depression Head: normocephalic Eyes: nl conjunctiva ENMT: nl external ears & nose Neck: supple Respiratory: clear to auscultation Cardiovascular: regular rate and rhythm Gastrointestinal: soft Musculoskeletal: nl extremities to inspection Results Result Diagram: 02/26/19 0544 03/01/19 0447 Results 24hrs Laboratory Tests Test 02/28/19 20:51 03/01/19 01:04 03/01/19 04:47 03/01/19 05:05 Bedside Glucose 145 200 208 Sodium Level 131 L Potassium Level 3.0 L Chloride Level 99 Carbon Dioxide Level 20 L Anion Gap 12 Blood Urea Nitrogen 18 Creatinine 0.25 L Est Glomerular Filtrat > 60 Rate mL/min Glucose Level 217 Calcium Level 8.7 Phosphorus Level 2.3 L Magnesium Level 1.6 L Test 03/01/19 09:59 03/01/19 14:18 Bedside Glucose 208 175 Medications Medication Current Medications IV Flush (NS 3 ml) 3 ml PER PROTOCOL IV ; Start 02/22/19 at 16:00 Ondansetron HCl (Zofran Inj) 4 mg Q6H PRN IV NAUSEA/VOMITING; Start 02/22/19 at 16:00 Acetaminophen (Tylenol Tab) 650 mg Q6H PRN PO .PAIN 1-3 OR TEMP Last administered on 02/27/19 20:38; Admin Dose 650 MG; Start 02/22/19 at 16:00 Magnesium Hydroxide (Milk Of Mag) 30 ml DAILY PRN PO .CONSTIPATION; Start 02/22/19 at 16:00 Pantoprazole (Protonix Iv) 40 mg DAILY@06 IV Last administered on 03/01/19 05:07; Admin Dose 40 MG; Start 02/23/19 at 06:00 Ceftriaxone Sodium 50 ml @ 100 mls/hr Q24H IVPB Last administered on 03/01/19 09:56; Admin Dose 100 MLS/HR; Start 02/23/19 at 10:00 Ibuprofen (Motrin) 600 mg Q6H PRN PO MODERATE PAIN LEVEL 4-6 Last administered on 03/01/19 00:20; Admin Dose 600 MG; Start 02/23/19 at 14:30 Olanzapine (Zyprexa Zydis) 5 mg BID ODT Last administered on 03/01/19 09:57; Admin Dose 5 MG; Start 02/23/19 at 21:00 Hydralazine HCl (Apresoline) 10 mg Q6H PRN IV ELEVATED BLOOD PRESSURE Last administered on 02/28/19 23:51; Admin Dose 10 MG; Start 02/24/19 at 01:00 Lorazepam (Ativan) 2 mg Q4 PRN IV AGITATION Last administered on 02/25/19 02:33; Admin Dose 2 MG; Start 02/24/19 at 11:00 Dexamethasone (Decadron) 2 mg Q8 IV Last administered on 03/01/19 14:16; Admin Dose 2 MG; Start 02/24/19 at 14:00 Lorazepam (Ativan) 1 mg Q4 PRN IV AGITATION/ANXIETY Last administered on 03/01/19 02:53; Admin Dose 1 MG; Start 02/25/19 at 03:30 Diagnostic Test (Pha) (Accu-Chek) 1 ea Q4 XX Last administered on 03/01/19 14:24; Admin Dose 1 EA; Start 02/25/19 at 21:00 Valproate Sodium 500 mg/Sodium Chloride 55 ml @ 55 mls/hr Q12H IVPB Last administered on 03/01/19 13:19; Admin Dose 55 MLS/HR; Start 02/25/19 at 13:00 IV Flush (NS 10 ml) 10 ml PRN PRN IV IV PROTOCOL; Start 02/25/19 at 16:30 Total Parenteral Nutrition 1,000 ml @ 60 mls/hr [id number] IV Last administered on 03/01/19 05:07; Admin Dose 60 MLS/HR; Start 02/25/19 at 21:00 Fat Emulsion Intravenous 250 ml @ 20.833 mls/ hr DAILY@16 IV Last administered on 02/28/19 16:26; Admin Dose 20.833 MLS/HR; Start 02/26/19 at 16:00 Ketorolac Tromethamine (Toradol) 30 mg TID PRN IV PAIN LEVEL 1-3 Last administered on 03/01/19 11:22; Admin Dose 30 MG; Start 02/26/19 at 22:30; Stop 03/01/19 at 22:29 Metoclopramide HCl (Reglan) 5 mg Q6 PRN IV NAUSEA; Start 02/27/19 at 18:00 Scopolamine (Transderm-Scop) 1 patch Q72H TRANSDERM Last administered on 02/28/19 16:25; Admin Dose 1 PATCH; Start 02/28/19 at 16:00 Morphine Sulfate (morphine) 3 mg Q4H PRN IV SEVERE PAIN LEVEL 7-10; Start 02/28/19 at 16:30 Potassium Phosphate 20 meq/ Sodium Chloride 254.5455 ml @ 63.636 m... ONCE ONCE IVPB ; Start 03/01/19 at 11:00; Stop 03/01/19 at 14:59 Diagnostic Test (Pha) (Accu-Chek) 1 ea 02 XX ; Start 03/02/19 at 02:00 Insulin Aspart (Novolog Insulin Pen) NOVOLOG *MILD* ALGORITHM WITH MEALS BEDTIME SC ; Start 03/01/19 at 17:55 Miscellaneous Information 1 ea NOTE XX ; Start 03/01/19 at 12:00 Glucose (Glutose) 15 gm Q15M PRN PO DECREASED GLUCOSE; Start 03/01/19 at 12:00 Glucose (Glutose) 22.5 gm Q15M PRN PO DECREASED GLUCOSE; Start 03/01/19 at 12:00 Dextrose (D50w Syringe) 25 ml Q15M PRN IV DECREASED GLUCOSE; Start 03/01/19 at 12:00 Dextrose (D50w Syringe) 50 ml Q15M PRN IV DECREASED GLUCOSE; Start 03/01/19 at 12:00 Glucagon (Glucagen) 1 mg Q15M PRN IM DECREASED GLUCOSE; Start 03/01/19 at 12:00 Glucose (Glutose) 15 gm Q15M PRN BUCCAL DECREASED GLUCOSE; Start 03/01/19 at 12:00 XANEDR MATIAS M.D. Mar 01, 2019 14:31
[2019-03-01 14:57] VITALS: BP 163/79; PULSE 77; RESP 18
[2019-03-01] MEDS: FAT EMULSION 20% 250 ML IV SCH (16:54)
[2019-03-01] MEDS: INSULIN ASPART [NOVOLOG] 3 ML PEN SC SCH ×2 (17:30→21:22)
[2019-03-01 19:32] VITALS: BP 178/85; PULSE 70; RESP 18
[2019-03-01] MEDS: hydrALAzine 20 MG INJ IV PRN (20:38)
[2019-03-02] MEDS: ACCU-CHEK XX SCH ×2 (01:00→02:32)
[2019-03-02] MEDS: VALPROATE INJ 500 MG in SOD CHLORIDE 0.9% 50 ML IVPB SCH ×2 (01:27→13:14)
[2019-03-02 02:00] VITALS: BP 166/84; PULSE 99; RESP 16
[2019-03-02] MEDS: morphine 2 MG INJ IV PRN ×3 (02:31→22:11)
[2019-03-02] MEDS: PANTOPRAZOLE 40 MG INJ IV SCH (05:29)
[2019-03-02] MEDS: DEXAMETHASONE 4 MG/ML 1 ML INJ IV SCH ×3 (05:29→22:03)
[2019-03-02 07:31] VITALS: BP 140/66; PULSE 82; RESP 17
[2019-03-02] MEDS: INSULIN ASPART [NOVOLOG] 3 ML PEN SC SCH ×4 (08:46→20:36)
[2019-03-02] MEDS: OLANZAPINE (ODT) 5 MG TAB ODT SCH ×2 (09:00→20:40)
[2019-03-02] MEDS ORDERED: TOLVAPTAN 15 MG TABLET PO ONE (09:30)
[2019-03-02] MEDS: CEFTRIAXONE 1 GM/50 ML (PMX) 50 ML IVPB SCH (10:11)
--- NOTE | 2019-03-02 11:56 | CONS ---
Assessment/Plan Assessment/Plan Assessment/Plan (Daily) Consultation Assessment/Plan Assessment/Plan Hospital Course (Demo Recall) 58 yo female with metastatic breast cancer 1. Persistent nausea, vomiting. -improved but not eating much, drinking small sips of water 2. Breast cancer with mets to brain. 3. Hypertension. 4. History of hyponatremia. 5. Bilateral lower extremity weakness 6. Severe hypokalemia -K3.0, replace per primary Plan Ensure QD Correction of the potassium per primary EGD was declined for time being Continue with reglan Continue TPN Encourage PO feeding slowly prn anti emetics pain management Discussed with the family regarding the placement of G-tube for long-term enteral nutrition instead of TPN but they declined it Consultation Date/Type/Reason Admit Date/Time Feb 22, 2019 at 14:32 Initial Consult Date Requesting Provider: OLIVIA VIDES MD Date/Time of Note DATE: 03/02/19 TIME: 11:55 24 HR Interval Summary Subjective hx not possible: pt non-verbal Exam/Review of Systems Exam Vitals Vital Signs Date Temp Pulse Resp B/P (MAP) Pulse Ox O2 O2 Flow FiO2 Time Delivery Rate 03/02/19 97.6 82 17 140/66 95 Room Air 07:31 (90) 02/28/19 2.0 21:59 Intake and Output 03/01/19 03/01/19 03/02/19 1515:00 23:00 07:00 IntakeIntake Total 675 ml 1084.46 ml 55 ml OutputOutput Total 1200 ml 800 ml BalanceBalance 675 ml -115.54 ml -745 ml Constitutional: alert, oriented, well developed Psych: no complaints, nl mood/affect Head: normocephalic, atraumatic Eyes: nl conjunctiva, EOMI, nl lids, nl sclera, PERRL ENMT: nl external ears & nose, nl lips & teeth, nl nasal mucosa & septum Neck: supple, non-tender Respiratory: clear to auscultation, normal air movement Cardiovascular: regular rate and rhythm, nl pulses Gastrointestinal: soft, nl liver, spleen, non-tender Musculoskeletal: nl extremities to inspection, nl gait and stance Extremities: normal pulses Neurological: P[employer] II-XII intact, nl mental status, nl speech, nl strength Skin: nl turgor; No rash or lesions Lymph: nl lymph nodes Results Result Diagram: 02/26/19 0544 03/02/19 0500 Results 24hrs Laboratory Tests Test 03/01/19 14:18 03/01/19 17:27 03/01/19 21:17 03/02/19 02:38 Bedside Glucose 175 175 184 185 Test 03/02/19 04:31 03/02/19 05:00 03/02/19 08:40 Sodium Level 126 L 125 L Potassium Level 3.2 L Chloride Level 93 L Carbon Dioxide Level 24 Anion Gap 9 Blood Urea Nitrogen 17 Creatinine 0.28 L Est Glomerular Filtrat > 60 Rate mL/min Glucose Level 196 Calcium Level 8.2 L Phosphorus Level 3.1 Magnesium Level 1.9 Aspartate Amino 21 Transf (AST/SGOT) Alanine 39 Aminotransferase (ALT/SG PT) Bedside Glucose 196 Medications Medication Current Medications IV Flush (NS 3 ml) 3 ml PER PROTOCOL IV ; Start 02/22/19 at 16:00 Ondansetron HCl (Zofran Inj) 4 mg Q6H PRN IV NAUSEA/VOMITING; Start 02/22/19 at 16:00 Acetaminophen (Tylenol Tab) 650 mg Q6H PRN PO .PAIN 1-3 OR TEMP Last administered on 02/27/19at 20:38; Admin Dose 650 MG; Start 02/22/19 at 16:00 Magnesium Hydroxide (Milk Of Mag) 30 ml DAILY PRN PO .CONSTIPATION; Start 02/22/19 at 16:00 Pantoprazole (Protonix Iv) 40 mg DAILY@06 IV Last administered on 03/02/19at 05:29; Admin Dose 40 MG; Start 02/23/19 at 06:00 Ceftriaxone Sodium 50 ml @ 100 mls/hr Q24H IVPB Last administered on 03/02/19at 10:11; Admin Dose 100 MLS/HR; Start 02/23/19 at 10:00 Ibuprofen (Motrin) 600 mg Q6H PRN PO MODERATE PAIN LEVEL 4-6 Last administered on 03/01/19at 15:59; Admin Dose 600 MG; Start 02/23/19 at 14:30 Olanzapine (Zyprexa Zydis) 5 mg BID ODT Last administered on 03/01/19at 09:57; Admin Dose 5 MG; Start 02/23/19 at 21:00 Hydralazine HCl (Apresoline) 10 mg Q6H PRN IV ELEVATED BLOOD PRESSURE Last administered on 03/01/19 20:38; Admin Dose 10 MG; Start 02/24/19 at 01:00 Lorazepam (Ativan) 2 mg Q4 PRN IV AGITATION Last administered on 02/25/19 02:33; Admin Dose 2 MG; Start 02/24/19 at 11:00 Dexamethasone (Decadron) 2 mg Q8 IV Last administered on 03/02/19 05:29; Admin Dose 2 MG; Start 02/24/19 at 14:00 Lorazepam (Ativan) 1 mg Q4 PRN IV AGITATION/ANXIETY Last administered on 03/01/19 19:49; Admin Dose 1 MG; Start 02/25/19 at 03:30 Valproate Sodium 500 mg/Sodium Chloride 55 ml @ 55 mls/hr Q12H IVPB Last administered on 03/02/19 01:27; Admin Dose 55 MLS/HR; Start 02/25/19 at 13:00 IV Flush (NS 10 ml) 10 ml PRN PRN IV IV PROTOCOL; Start 02/25/19 at 16:30 Total Parenteral Nutrition 1,000 ml @ 60 mls/hr [id number] IV Last administered on 03/01/19 22:42; Admin Dose 60 MLS/HR; Start 02/25/19 at 21:00 Fat Emulsion Intravenous 250 ml @ 20.833 mls/ hr DAILY@16 IV Last administered on 03/01/19 16:54; Admin Dose 20.833 MLS/HR; Start 02/26/19 at 16:00 Metoclopramide HCl (Reglan) 5 mg Q6 PRN IV NAUSEA; Start 02/27/19 at 18:00 Scopolamine (Transderm-Scop) 1 patch Q72H TRANSDERM Last administered on 02/28/19 16:25; Admin Dose 1 PATCH; Start 02/28/19 at 16:00 Morphine Sulfate (morphine) 3 mg Q4H PRN IV SEVERE PAIN LEVEL 7-10 Last administered on 03/02/19 02:31; Admin Dose 3 MG; Start 02/28/19 at 16:30 Diagnostic Test (Pha) (Accu-Chek) 1 ea 02 XX Last administered on 03/02/19 02:32; Admin Dose 1 EA; Start 03/02/19 at 02:00 Insulin Aspart (Novolog Insulin Pen) NOVOLOG *MILD* ALGORITHM WITH MEALS BEDTIME SC Last administered on 03/02/19at 08:46; Admin Dose 1 UNIT; Start 03/01/19 at 17:55 Miscellaneous Information 1 ea NOTE XX ; Start 03/01/19 at 12:00 Glucose (Glutose) 15 gm Q15M PRN PO DECREASED GLUCOSE; Start 03/01/19 at 12:00 Glucose (Glutose) 22.5 gm Q15M PRN PO DECREASED GLUCOSE; Start 03/01/19 at 12:00 Dextrose (D50w Syringe) 25 ml Q15M PRN IV DECREASED GLUCOSE; Start 03/01/19 at 12:00 Dextrose (D50w Syringe) 50 ml Q15M PRN IV DECREASED GLUCOSE; Start 03/01/19 at 12:00 Glucagon (Glucagen) 1 mg Q15M PRN IM DECREASED GLUCOSE; Start 03/01/19 at 12:00 Glucose (Glutose) 15 gm Q15M PRN BUCCAL DECREASED GLUCOSE; Start 03/01/19 at 12:00 TREE IBRAHIM MD Mar 02, 2019 11:55
--- NOTE | 2019-03-02 12:42 | PN ---
Date/Time of Note Date/Time of Note DATE: 03/02/19 TIME: 12:40 Assessment/Plan VTE Prophylaxis Risk score (from Ns)>0 risk: 7 SCD applied (from Ns): No SCD contraindicated: low risk/ambulating Pharmacological prophylaxis: NA/contraindicated Pharm contraindication: low risk/ambulating Lines/Catheters IV Catheter Type (from Nrsg): PICC Line Central line still needed: Yes Urinary Cath still in place: Yes Reason Cath still needed: urinary retention Assessment/Plan Assessment/Plan 1. Altered mental level of consciousness with seizures with rt breast ca sp Right breast cancer, status post right mastectomy with brain mets and status post whole brain radiation. 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 History of hypertension. 3. Mild hypokalemia. 4. She has a history of hyponatremia. Now hyponatremic 129 5. Right breast cancer, status post right mastectomy with brain mets and status post whole brain radiation. 6. Nausea, vomiting, poor appetite, failure to thrive. 7. bilateral lower extremity weakness? Steroid related 8. Hypokalemia 9 Intractable nausea Assessment/Plan -family in disagreement stopping TPN, meeting with [facility] today -na to be corrected with TPN - Family does not want NG tub e/ Gt tube -pain control/ ativan/ antiepileptic -CW zyprexa and rocephin /decadron - DNR -CLD -pain control Result Diagram: 02/26/19 0544 03/02/19 0500 Results 24hrs Laboratory Tests Test 03/01/19 14:18 03/01/19 17:27 03/01/19 21:17 03/02/19 02:38 Bedside Glucose 175 175 184 185 Test 03/02/19 04:31 03/02/19 05:00 03/02/19 08:40 03/02/19 12:16 Sodium Level 126 L 125 L Potassium Level 3.2 L Chloride Level 93 L Carbon Dioxide Level 24 Anion Gap 9 Blood Urea Nitrogen 17 Creatinine 0.28 L Est Glomerular Filtrat > 60 Rate mL/min Glucose Level 196 Calcium Level 8.2 L Phosphorus Level 3.1 Magnesium Level 1.9 Aspartate Amino 21 Transf (AST/SGOT) Alanine 39 Aminotransferase (ALT/SG PT) Bedside Glucose 196 173 Subjective 24 Hr Interval Summary Free Text/Dictation pt opens eys, goes back to sleep givena tivan last nigh family meeting with hospice today Exam/Review of Systems Exam Vitals Vital Signs Date Temp Pulse Resp B/P (MAP) Pulse Ox O2 O2 Flow FiO2 Time Delivery Rate 03/02/19 97.6 82 17 140/66 95 Room Air 07:31 (90) 02/28/19 2.0 21:59 Intake and Output 03/01/19 03/01/19 03/02/19 1515:00 23:00 07:00 IntakeIntake Total 675 ml 1084.46 ml 55 ml OutputOutput Total 1200 ml 800 ml BalanceBalance 675 ml -115.54 ml -745 ml Exam Constitutional: frail , lying on bed, opens eyes Neck: supple Respiratory: diminished breath sounds Cardiovascular: regular rate and rhythm Gastrointestinal: soft Genitourinary - Female: CVA tenderness; No nl adnexae, No nl external genitalia, No CMT, No uterus, No other Musculoskeletal: muscle weakness some bruising Results Results 24hrs Laboratory Tests Test 03/01/19 14:18 03/01/19 17:27 03/01/19 21:17 03/02/19 02:38 Bedside Glucose 175 175 184 185 Test 03/02/19 04:31 03/02/19 05:00 03/02/19 08:40 03/02/19 12:16 Sodium Level 126 L 125 L Potassium Level 3.2 L Chloride Level 93 L Carbon Dioxide Level 24 Anion Gap 9 Blood Urea Nitrogen 17 Creatinine 0.28 L Est Glomerular Filtrat > 60 Rate mL/min Glucose Level 196 Calcium Level 8.2 L Phosphorus Level 3.1 Magnesium Level 1.9 Aspartate Amino 21 Transf (AST/SGOT) Alanine 39 Aminotransferase (ALT/SG PT) Bedside Glucose 196 173 Medications Medication Current Medications IV Flush (NS 3 ml) 3 ml PER PROTOCOL IV ; Start 02/22/19 at 16:00 Ondansetron HCl (Zofran Inj) 4 mg Q6H PRN IV NAUSEA/VOMITING; Start 02/22/19 at 16:00 Acetaminophen (Tylenol Tab) 650 mg Q6H PRN PO .PAIN 1-3 OR TEMP Last administered on 02/27/19at 20:38; Admin Dose 650 MG; Start 02/22/19 at 16:00 Magnesium Hydroxide (Milk Of Mag) 30 ml DAILY PRN PO .CONSTIPATION; Start 02/22/19 at 16:00 Pantoprazole (Protonix Iv) 40 mg DAILY@06 IV Last administered on 03/02/19 05:29; Admin Dose 40 MG; Start 02/23/19 at 06:00 Ceftriaxone Sodium 50 ml @ 100 mls/hr Q24H IVPB Last administered on 03/02/19 10:11; Admin Dose 100 MLS/HR; Start 02/23/19 at 10:00 Ibuprofen (Motrin) 600 mg Q6H PRN PO MODERATE PAIN LEVEL 4-6 Last administered on 03/01/19 15:59; Admin Dose 600 MG; Start 02/23/19 at 14:30 Olanzapine (Zyprexa Zydis) 5 mg BID ODT Last administered on 03/01/19 09:57; Admin Dose 5 MG; Start 02/23/19 at 21:00 Hydralazine HCl (Apresoline) 10 mg Q6H PRN IV ELEVATED BLOOD PRESSURE Last administered on 03/01/19 20:38; Admin Dose 10 MG; Start 02/24/19 at 01:00 Lorazepam (Ativan) 2 mg Q4 PRN IV AGITATION Last administered on 02/25/19 02:33; Admin Dose 2 MG; Start 02/24/19 at 11:00 Dexamethasone (Decadron) 2 mg Q8 IV Last administered on 03/02/19 05:29; Admin Dose 2 MG; Start 02/24/19 at 14:00 Lorazepam (Ativan) 1 mg Q4 PRN IV AGITATION/ANXIETY Last administered on 03/01/19 19:49; Admin Dose 1 MG; Start 02/25/19 at 03:30 Valproate Sodium 500 mg/Sodium Chloride 55 ml @ 55 mls/hr Q12H IVPB Last administered on 03/02/19 01:27; Admin Dose 55 MLS/HR; Start 02/25/19 at 13:00 IV Flush (NS 10 ml) 10 ml PRN PRN IV IV PROTOCOL; Start 02/25/19 at 16:30 Total Parenteral Nutrition 1,000 ml @ 60 mls/hr [id number] IV Last administered on 03/01/19 22:42; Admin Dose 60 MLS/HR; Start 02/25/19 at 21:00 Fat Emulsion Intravenous 250 ml @ 20.833 mls/ hr DAILY@16 IV Last administered on 03/01/19 16:54; Admin Dose 20.833 MLS/HR; Start 02/26/19 at 16:00 Metoclopramide HCl (Reglan) 5 mg Q6 PRN IV NAUSEA; Start 02/27/19 at 18:00 Scopolamine (Transderm-Scop) 1 patch Q72H TRANSDERM Last administered on 02/28/19 16:25; Admin Dose 1 PATCH; Start 02/28/19 at 16:00 Morphine Sulfate (morphine) 3 mg Q4H PRN IV SEVERE PAIN LEVEL 7-10 Last administered on 03/02/19 02:31; Admin Dose 3 MG; Start 02/28/19 at 16:30 Diagnostic Test (Pha) (Accu-Chek) 1 ea 02 XX Last administered on 03/02/19at 02:32; Admin Dose 1 EA; Start 03/02/19 at 02:00 Insulin Aspart (Novolog Insulin Pen) NOVOLOG *MILD* ALGORITHM WITH MEALS BEDTIME SC Last administered on 03/02/19 12:18; Admin Dose 1 UNIT; Start 03/01/19 at 17:55 Miscellaneous Information 1 ea NOTE XX ; Start 03/01/19 at 12:00 Glucose (Glutose) 15 gm Q15M PRN PO DECREASED GLUCOSE; Start 03/01/19 at 12:00 Glucose (Glutose) 22.5 gm Q15M PRN PO DECREASED GLUCOSE; Start 03/01/19 at 12:00 Dextrose (D50w Syringe) 25 ml Q15M PRN IV DECREASED GLUCOSE; Start 03/01/19 at 12:00 Dextrose (D50w Syringe) 50 ml Q15M PRN IV DECREASED GLUCOSE; Start 03/01/19 at 12:00 Glucagon (Glucagen) 1 mg Q15M PRN IM DECREASED GLUCOSE; Start 03/01/19 at 12:00 Glucose (Glutose) 15 gm Q15M PRN BUCCAL DECREASED GLUCOSE; Start 03/01/19 at 12:00 OLIVIA VIDES MD Mar 02, 2019 12:42
[2019-03-02 14:00] VITALS: BP 158/60; PULSE 85; RESP 16
[2019-03-02] MEDS: TPN 1,000 ML IV SCH (14:56)
[2019-03-02] MEDS: FAT EMULSION 20% 250 ML IV SCH (15:50)
[2019-03-02 18:02] VITALS: BP 152/67
[2019-03-02 20:11] VITALS: BP 116/69; PULSE 85; RESP 18
[2019-03-03] MEDS: VALPROATE INJ 500 MG in SOD CHLORIDE 0.9% 50 ML IVPB SCH (00:31)
[2019-03-03] MEDS: ACCU-CHEK XX SCH (01:23)
[2019-03-03] MEDS: DEXAMETHASONE 4 MG/ML 1 ML INJ IV SCH (05:34)
[2019-03-03] MEDS: PANTOPRAZOLE 40 MG INJ IV SCH (05:34)
[2019-03-03 08:22] VITALS: BP 107/65; PULSE 95; RESP 18
[2019-03-03] MEDS: INSULIN ASPART [NOVOLOG] 3 ML PEN SC SCH ×4 (08:39→21:00)
[2019-03-03] MEDS: OLANZAPINE (ODT) 5 MG TAB ODT SCH ×2 (08:40→21:02)
[2019-03-03] MEDS: TPN 1,000 ML IV SCH ×2 (08:43→22:20)
[2019-03-03] MEDS: CEFTRIAXONE 1 GM/50 ML (PMX) 50 ML IVPB SCH (09:51)
[2019-03-03] MEDS: NYSTATIN SUSP 5 ML CUP PO SCH ×4 (10:30→21:02)
--- NOTE | 2019-03-03 12:05 | PN ---
Date/Time of Note Date/Time of Note DATE: 03/03/19 TIME: 12:02 Assessment/Plan VTE Prophylaxis Risk score (from Ns)>0 risk: 8 SCD applied (from Ns): Yes Pharmacological prophylaxis: NA/contraindicated Pharm contraindication: low risk/ambulating Lines/Catheters IV Catheter Type (from Nrsg): PICC Line Central line still needed: Yes Urinary Cath still in place: Yes Reason Cath still needed: urinary retention Assessment/Plan Assessment/Plan ssessment/Plan 1. Altered mental level of consciousness with seizures with rt breast ca sp Right breast cancer, status post right mastectomy with brain mets and status post whole brain radiation. 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 History of hypertension. 3. Mild hypokalemia. 4. She has a history of hyponatremia. Now hyponatremic 129 5. Right breast cancer, status post right mastectomy with brain mets and status post whole brain radiation. 6. Nausea, vomiting, poor appetite, failure to thrive. 7. bilateral lower extremity weakness? Steroid related 8. Hypokalemia 9 Intractable nausea Assessment/Plan -now family agrred with hospice with no TPN - Family does not want NG tub e/ Gt tube -pain control/ ativan/ antiepileptic -CW zyprexa - DNR -CLD -pain control spoke to dfamily at bedside dc home today with hospice Result Diagram: 03/02/19 0500 Results 24hrs Laboratory Tests Test 03/02/19 12:16 03/02/19 17:46 03/02/19 20:36 03/03/19 08:37 Bedside Glucose 173 180 167 152 Subjective 24 Hr Interval Summary Free Text/Dictation pt much more awake today spoke to family at bedside Exam/Review of Systems Exam Vitals Vital Signs Date Temp Pulse Resp B/P (MAP) Pulse Ox O2 O2 Flow FiO2 Time Delivery Rate 03/03/19 97.5 95 18 107/65 100 Room Air 08:22 (79) 02/28/19 2.0 21:59 Intake and Output 03/02/19 03/02/19 03/03/19 1515:00 23:00 07:00 IntakeIntake Total 645 ml 140.83 ml 1379.17 ml OutputOutput Total 1200 ml BalanceBalance 645 ml 140.83 ml 179.17 ml Exam Constitutional: frail , lying on bed, opens eyes answered yes to questions Neck: supple Respiratory: diminished breath sounds Cardiovascular: regular rate and rhythm Gastrointestinal: soft Genitourinary - Female: CVA tenderness; No nl adnexae, No nl external genitalia, No CMT, No uterus, No other Musculoskeletal: muscle weakness ble some bruising quinn Results Results 24hrs Laboratory Tests Test 03/02/19 12:16 03/02/19 17:46 03/02/19 20:36 03/03/19 08:37 Bedside Glucose 173 180 167 152 Medications Medication Current Medications IV Flush (NS 3 ml) 3 ml PER PROTOCOL IV ; Start 02/22/19 at 16:00 Ondansetron HCl (Zofran Inj) 4 mg Q6H PRN IV NAUSEA/VOMITING; Start 02/22/19 at 16:00 Acetaminophen (Tylenol Tab) 650 mg Q6H PRN PO .PAIN 1-3 OR TEMP Last administered on 02/27/19 20:38; Admin Dose 650 MG; Start 02/22/19 at 16:00 Magnesium Hydroxide (Milk Of Mag) 30 ml DAILY PRN PO .CONSTIPATION; Start 02/22/19 at 16:00 Pantoprazole (Protonix Iv) 40 mg DAILY@06 IV Last administered on 03/03/19 05:34; Admin Dose 40 MG; Start 02/23/19 at 06:00 Ibuprofen (Motrin) 600 mg Q6H PRN PO MODERATE PAIN LEVEL 4-6 Last administered on 03/01/19 15:59; Admin Dose 600 MG; Start 02/23/19 at 14:30 Olanzapine (Zyprexa Zydis) 5 mg BID ODT Last administered on 03/01/19 09:57; Admin Dose 5 MG; Start 02/23/19 at 21:00 Hydralazine HCl (Apresoline) 10 mg Q6H PRN IV ELEVATED BLOOD PRESSURE Last administered on 03/01/19 20:38; Admin Dose 10 MG; Start 02/24/19 at 01:00 Lorazepam (Ativan) 2 mg Q4 PRN IV AGITATION Last administered on 02/25/19 02:33; Admin Dose 2 MG; Start 02/24/19 at 11:00 Lorazepam (Ativan) 1 mg Q4 PRN IV AGITATION/ANXIETY Last administered on 8/5/19at 19:49; Admin Dose 1 MG; Start 02/25/19 at 03:30 IV Flush (NS 10 ml) 10 ml PRN PRN IV IV PROTOCOL; Start 02/25/19 at 16:30 Total Parenteral Nutrition 1,000 ml @ 60 mls/hr [id number] IV Last administered on 03/03/19 08:43; Admin Dose 60 MLS/HR; Start 02/25/19 at 21:00 Fat Emulsion Intravenous 250 ml @ 20.833 mls/ hr DAILY@16 IV Last administered on 03/02/19 15:50; Admin Dose 20.833 MLS/HR; Start 02/26/19 at 16:00 Metoclopramide HCl (Reglan) 5 mg Q6 PRN IV NAUSEA; Start 02/27/19 at 18:00 Scopolamine (Transderm-Scop) 1 patch Q72H TRANSDERM Last administered on 02/28/19 16:25; Admin Dose 1 PATCH; Start 02/28/19 at 16:00 Morphine Sulfate (morphine) 3 mg Q4H PRN IV SEVERE PAIN LEVEL 7-10 Last administered on 03/02/19 22:11; Admin Dose 3 MG; Start 02/28/19 at 16:30 Diagnostic Test (Pha) (Accu-Chek) 1 ea 02 XX Last administered on 03/02/19 02:32; Admin Dose 1 EA; Start 03/02/19 at 02:00 Insulin Aspart (Novolog Insulin Pen) NOVOLOG *MILD* ALGORITHM WITH MEALS BEDTIME SC Last administered on 03/03/19 08:39; Admin Dose 1 UNIT; Start 03/01/19 at 17:55 Miscellaneous Information 1 ea NOTE XX ; Start 03/01/19 at 12:00 Glucose (Glutose) 15 gm Q15M PRN PO DECREASED GLUCOSE; Start 03/01/19 at 12:00 Glucose (Glutose) 22.5 gm Q15M PRN PO DECREASED GLUCOSE; Start 03/01/19 at 12:00 Dextrose (D50w Syringe) 25 ml Q15M PRN IV DECREASED GLUCOSE; Start 03/01/19 at 12:00 Dextrose (D50w Syringe) 50 ml Q15M PRN IV DECREASED GLUCOSE; Start 03/01/19 at 12:00 Glucagon (Glucagen) 1 mg Q15M PRN IM DECREASED GLUCOSE; Start 03/01/19 at 12:00 Glucose (Glutose) 15 gm Q15M PRN BUCCAL DECREASED GLUCOSE; Start 03/01/19 at 12:00 Nystatin (Nystatin Susp) 5 ml QID PO ; Start 03/03/19 at 10:30 Dexamethasone (Decadron Intensol Liquid) 2 mg Q8 PO ; Start 03/03/19 at 14:00 Divalproex Sodium (Depakote) 500 mg BID PO ; Start 03/03/19 at 13:00 OLIVIA VIDES MD Mar 03, 2019 12:05
--- NOTE | 2019-03-03 12:06 | PDOCDIS ---
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
[2019-03-03] MEDS: morphine 2 MG INJ IV PRN ×2 (12:35→21:43)
[2019-03-03] MEDS: DIVALPROEX (EC) 500 MG TAB PO SCH ×2 (13:00→21:02)
[2019-03-03] MEDS ORDERED: DEXAMETHASONE (1 MG/ML PO SYG) PO SCH (14:00)
[2019-03-03 17:18] VITALS: BP 109/57; PULSE 94; RESP 18
[2019-03-03] MEDS: FAT EMULSION 20% 250 ML IV SCH (17:32)
[2019-03-03] MEDS: SCOPOLAMINE 1.5 MG PATCH TRANSDERM SCH (17:32)
[2019-03-03 19:30] VITALS: BP 112/71; PULSE 95; RESP 18
[2019-03-03] MEDS: DEXAMETHASONE (1 MG/ML PO SYG) PO SCH (21:41)
[2019-03-04] MEDS: TPN 1,000 ML IV SCH ×2 (00:23→17:31)
[2019-03-04] MEDS: ACCU-CHEK XX SCH (01:26)
[2019-03-04 02:15] VITALS: BP 133/76; PULSE 88; RESP 18
[2019-03-04] MEDS: DEXAMETHASONE (1 MG/ML PO SYG) PO SCH ×3 (05:11→21:34)
[2019-03-04] MEDS: PANTOPRAZOLE 40 MG INJ IV SCH (05:11)
[2019-03-04 07:33] VITALS: BP 136/84; PULSE 96; RESP 18
[2019-03-04] MEDS: INSULIN ASPART [NOVOLOG] 3 ML PEN SC SCH ×4 (07:50→21:00)
[2019-03-04] MEDS: DIVALPROEX (EC) 500 MG TAB PO SCH ×2 (08:34→21:00)
[2019-03-04] MEDS: NYSTATIN SUSP 5 ML CUP PO SCH ×4 (08:35→21:00)
[2019-03-04] MEDS: OLANZAPINE (ODT) 5 MG TAB ODT SCH ×2 (08:35→21:00)
[2019-03-04] MEDS: IBUPROFEN 600 MG TAB PO PRN (08:41)
[2019-03-04] MEDS: morphine 2 MG INJ IV PRN ×2 (09:19→18:19)
[2019-03-04] MEDS ORDERED: HYDROCODONE/APAP (5/325) TAB PO PRN (10:00)
--- NOTE | 2019-03-04 16:06 | PN ---
Date/Time of Note Date/Time of Note DATE: 03/04/19 TIME: 16:05 Assessment/Plan VTE Prophylaxis Risk score (from Nsg)>0 risk: 6 SCD applied (from Ns): Yes Pharmacological prophylaxis: NA/contraindicated Pharm contraindication: low risk/ambulating Lines/Catheters IV Catheter Type (from Nrsg): PICC Line Central line still needed: Yes Urinary Cath still in place: Yes Reason Cath still needed: urinary retention Assessment/Plan Assessment/Plan essment/Plan 1. Altered mental level of consciousness with seizures with rt breast ca sp Right breast cancer, status post right mastectomy with brain mets and status post whole brain radiation. 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 History of hypertension. 3. Mild hypokalemia. 4. She has a history of hyponatremia. Now hyponatremic 129 5. Right breast cancer, status post right mastectomy with brain mets and status post whole brain radiation. 6. Nausea, vomiting, poor appetite, failure to thrive. 7. bilateral lower extremity weakness? Steroid related 8. Hypokalemia 9 Intractable nausea Assessment/Plan -now family agrred with hospice with no TPN - Family does not want NG tub e/ Gt tube -pain control/ ativan/ antiepileptic> changed to po - po narcotic fo pain -CW zyprexa - DNR -CLD -pain control spoke to family at bedside. roge tmw with [facility] at home Result Diagram: 03/04/19 0452 Results 24hrs Laboratory Tests Test 03/03/19 18:13 03/03/19 21:06 03/04/19 00:36 03/04/19 04:51 Bedside Glucose 114 154 128 Prealbumin 30.6 Test 03/04/19 04:52 03/04/19 05:17 03/04/19 08:33 03/04/19 14:35 Sodium Level 133 L Potassium Level 4.0 Chloride Level 104 Carbon Dioxide Level 30 Anion Gap -1 L Blood Urea Nitrogen 25 H Creatinine 0.24 L Est Glomerular Filtrat > 60 Rate mL/min Glucose Level 150 Calcium Level 8.3 L Phosphorus Level 2.9 Magnesium Level 2.0 Bedside Glucose 137 135 141 Subjective 24 Hr Interval Summary Free Text/Dictation no acute events pt opened her eyes, answered some questions Exam/Review of Systems Exam Vitals Vital Signs Date Temp Pulse Resp B/P (MAP) Pulse Ox O2 O2 Flow FiO2 Time Delivery Rate 03/04/19 97.7 96 18 136/84 99 Room Air 07:33 (101) 02/28/19 2.0 21:59 Intake and Output 03/03/19 03/03/19 03/04/19 1515:00 23:00 07:00 IntakeIntake Total 630 ml 620 ml 1070 ml OutputOutput Total 1000 ml BalanceBalance -370 ml 620 ml 1070 ml Exam Constitutional: frail , lying on bed, opens eyes answered yes to questions Neck: supple Respiratory: diminished breath sounds Cardiovascular: regular rate and rhythm Gastrointestinal: soft Genitourinary - Female: CVA tenderness; No nl adnexae, No nl external genitalia, No CMT, No uterus, No other Musculoskeletal: muscle weakness ble some bruising quinn Results Results 24hrs Laboratory Tests Test 03/03/19 18:13 03/03/19 21:06 03/04/19 00:36 03/04/19 04:51 Bedside Glucose 114 154 128 Prealbumin 30.6 Test 03/04/19 04:52 03/04/19 05:17 03/04/19 08:33 03/04/19 14:35 Sodium Level 133 L Potassium Level 4.0 Chloride Level 104 Carbon Dioxide Level 30 Anion Gap -1 L Blood Urea Nitrogen 25 H Creatinine 0.24 L Est Glomerular Filtrat > 60 Rate mL/min Glucose Level 150 Calcium Level 8.3 L Phosphorus Level 2.9 Magnesium Level 2.0 Bedside Glucose 137 135 141 Medications Medication Current Medications IV Flush (NS 3 ml) 3 ml PER PROTOCOL IV ; Start 02/22/19 at 16:00 Ondansetron HCl (Zofran Inj) 4 mg Q6H PRN IV NAUSEA/VOMITING; Start 02/22/19 at 16:00 Acetaminophen (Tylenol Tab) 650 mg Q6H PRN PO .PAIN 1-3 OR TEMP Last admi nistered on 02/27/19at 20:38; Admin Dose 650 MG; Start 02/22/19 at 16:00 Magnesium Hydroxide (Milk Of Mag) 30 ml DAILY PRN PO .CONSTIPATION; Start 02/22/19 at 16:00 Pantoprazole (Protonix Iv) 40 mg DAILY@06 IV Last administered on 03/04/19at 05:11; Admin Dose 40 MG; Start 02/23/19 at 06:00 Ibuprofen (Motrin) 600 mg Q6H PRN PO MODERATE PAIN LEVEL 4-6 Last administered on 03/04/19 08:41; Admin Dose 600 MG; Start 02/23/19 at 14:30 Olanzapine (Zyprexa Zydis) 5 mg BID ODT Last administered on 03/03/19 21:02; Admin Dose 5 MG; Start 02/23/19 at 21:00 Hydralazine HCl (Apresoline) 10 mg Q6H PRN IV ELEVATED BLOOD PRESSURE Last administered on 03/01/19 20:38; Admin Dose 10 MG; Start 02/24/19 at 01:00 Lorazepam (Ativan) 2 mg Q4 PRN IV AGITATION Last administered on 02/25/19 02:33; Admin Dose 2 MG; Start 02/24/19 at 11:00 Lorazepam (Ativan) 1 mg Q4 PRN IV AGITATION/ANXIETY Last administered on 03/01 19:49; Admin Dose 1 MG; Start 02/25/19 at 03:30 IV Flush (NS 10 ml) 10 ml PRN PRN IV IV PROTOCOL; Start 02/25/19 at 16:30 Total Parenteral Nutrition 1,000 ml @ 60 mls/hr [id number] IV Last administered on 03/04/19 00:23; Admin Dose 60 MLS/HR; Start 02/25/19 at 21:00 Fat Emulsion Intravenous 250 ml @ 20.833 mls/ hr DAILY@16 IV Last administered on 03/03/19 17:32; Admin Dose 20.833 MLS/HR; Start 02/26/19 at 16:00 Metoclopramide HCl (Reglan) 5 mg Q6 PRN IV NAUSEA; Start 02/27/19 at 18:00 Scopolamine (Transderm-Scop) 1 patch Q72H TRANSDERM Last administered on 03/03/19 17:32; Admin Dose 1 PATCH; Start 02/28/19 at 16:00 Morphine Sulfate (morphine) 3 mg Q4H PRN IV SEVERE PAIN LEVEL 7-10 Last administered on 03/04/19 09:19; Admin Dose 3 MG; Start 02/28/19 at 16:30 Diagnostic Test (Pha) (Accu-Chek) 1 ea 02 XX Last administered on 03/02/19at 02:32; Admin Dose 1 EA; Start 03/02/19 at 02:00 Insulin Aspart (Novolog Insulin Pen) NOVOLOG *MILD* ALGORITHM WITH MEALS BEDTIME SC Last administered on 03/03/19at 12:46; Admin Dose 2 UNIT; Start 03/01/19 at 17:55 Miscellaneous Information 1 ea NOTE XX ; Start 03/01/19 at 12:00 Glucose (Glutose) 15 gm Q15M PRN PO DECREASED GLUCOSE; Start 03/01/19 at 12:00 Glucose (Glutose) 22.5 gm Q15M PRN PO DECREASED GLUCOSE; Start 03/01/19 at 12:00 Dextrose (D50w Syringe) 25 ml Q15M PRN IV DECREASED GLUCOSE; Start 03/01/19 at 12:00 Dextrose (D50w Syringe) 50 ml Q15M PRN IV DECREASED GLUCOSE; Start 03/01/19 at 12:00 Glucagon (Glucagen) 1 mg Q15M PRN IM DECREASED GLUCOSE; Start 03/01/19 at 12:00 Glucose (Glutose) 15 gm Q15M PRN BUCCAL DECREASED GLUCOSE; Start 03/01/19 at 12:00 Nystatin (Nystatin Susp) 5 ml QID PO Last administered on 03/04/19at 08:35; Admin Dose 5 ML; Start 03/03/19 at 10:30 Divalproex Sodium (Depakote) 500 mg BID PO Last administered on 03/04/19at 08:34; Admin Dose 500 MG; Start 03/03/19 at 13:00 Dexamethasone (Decadron Intensol Liquid) 2 mg Q8 PO Last administered on 03/04/19at 05:11; Admin Dose 2 MG; Start 03/03/19 at 21:06 Acetaminophen/ Hydrocodone Bitart ([place] (5/325)) 1 tab Q4H PRN PO MODERATE PAIN LEVEL 4-6; Start 03/04/19 at 10:00 OLIVIA VIDES MD Mar 04, 2019 16:06
[2019-03-04] MEDS: FAT EMULSION 20% 250 ML IV SCH (17:36)
[2019-03-04 21:39] VITALS: BP 131/63; PULSE 81; RESP 17
[2019-03-05] MEDS: morphine 2 MG INJ IV PRN ×2 (01:25→11:15)
[2019-03-05] MEDS: ACCU-CHEK XX SCH (01:35)
[2019-03-05 02:35] VITALS: BP 115/57; PULSE 104; RESP 18
[2019-03-05] MEDS: PANTOPRAZOLE 40 MG INJ IV SCH (06:24)
[2019-03-05] MEDS: DEXAMETHASONE (1 MG/ML PO SYG) PO SCH ×2 (06:25→14:00)
[2019-03-05 07:39] VITALS: BP 127/63; PULSE 104; RESP 19
[2019-03-05] MEDS: OLANZAPINE (ODT) 5 MG TAB ODT SCH (08:52)
[2019-03-05] MEDS: DIVALPROEX (EC) 500 MG TAB PO SCH (08:52)
[2019-03-05] MEDS: NYSTATIN SUSP 5 ML CUP PO SCH ×2 (08:52→14:31)
[2019-03-05] MEDS: INSULIN ASPART [NOVOLOG] 3 ML PEN SC SCH ×2 (08:54→11:40)
--- NOTE | 2019-03-05 09:14 | CONS ---
Assessment/Plan Assessment/Plan Hospital Course (Demo Recall) 58 yo female with metastatic breast cancer 1. Persistent nausea, vomiting. -improved 2. Breast cancer with mets to brain. 3. Hypertension. 4. History of hyponatremia. 5. Bilateral lower extremity weakness 6. Severe hypokalemia -resolved Plan continue current care EGD was declined for time being, pt's family continues to decline PEG Continue with reglan Continue TPN Encourage PO feeding slowly prn anti emetics pain management Pt examined and plan of care d/w Dr. Machuca Consultation Date/Type/Reason Admit Date/Time Feb 22, 2019 at 14:32 Initial Consult Date 02/26/19 Requesting Provider: OLIVIA VIDES MD Date/Time of Note DATE: 03/05/19 TIME: 09:12 24 HR Interval Summary Free Text/Dictation No acute changes Exam/Review of Systems Exam Vitals Vital Signs Date Temp Pulse Resp B/P (MAP) Pulse Ox O2 O2 Flow FiO2 Time Delivery Rate 03/05/19 98.4 104 19 127/63 98 Room Air 07:39 (84) Intake and Output 03/04/19 03/04/19 03/05/19 1515:00 23:00 07:00 IntakeIntake Total 1060 ml 1000 ml OutputOutput Total 1825 ml 700 ml BalanceBalance -765 ml 300 ml Constitutional: alert, oriented Psych: no complaints Head: normocephalic Eyes: PERRL Respiratory: normal air movement Cardiovascular: regular rate and rhythm Gastrointestinal: soft, tender Neurological: nl mental status Results Result Diagram: 03/05/19 0444 Results 24hrs Laboratory Tests Test 03/04/19 14:35 03/04/19 17:43 03/04/19 21:17 03/05/19 04:44 Bedside Glucose 141 111 139 Sodium Level 134 L Potassium Level 4.4 Chloride Level 104 Carbon Dioxide Level 31 Anion Gap -1 L Blood Urea Nitrogen 26 H Creatinine 0.26 L Est Glomerular Filtrat > 60 Rate mL/min Glucose Level 119 Calcium Level 8.0 L Phosphorus Level 3.4 Magnesium Level 1.9 Test 03/05/19 08:51 Bedside Glucose 161 Medications Medication Current Medications IV Flush (NS 3 ml) 3 ml PER PROTOCOL IV ; Start 02/22/19 at 16:00 Ondansetron HCl (Zofran Inj) 4 mg Q6H PRN IV NAUSEA/VOMITING; Start 02/22/19 at 16:00 Acetaminophen (Tylenol Tab) 650 mg Q6H PRN PO .PAIN 1-3 OR TEMP Last administered on 02/27/19 20:38; Admin Dose 650 MG; Start 02/22/19 at 16:00 Magnesium Hydroxide (Milk Of Mag) 30 ml DAILY PRN PO .CONSTIPATION; Start 02/22/19 at 16:00 Pantoprazole (Protonix Iv) 40 mg DAILY@06 IV Last administered on 03/05/19 06: 24; Admin Dose 40 MG; Start 02/23/19 at 06:00 Ibuprofen (Motrin) 600 mg Q6H PRN PO MODERATE PAIN LEVEL 4-6 Last administered on 03/04/19 08:41; Admin Dose 600 MG; Start 02/23/19 at 14:30 Olanzapine (Zyprexa Zydis) 5 mg BID ODT Last administered on 03/05/19 08:52; Admin Dose 5 MG; Start 02/23/19 at 21:00 Hydralazine HCl (Apresoline) 10 mg Q6H PRN IV ELEVATED BLOOD PRESSURE Last administered on 03/01/19 20:38; Admin Dose 10 MG; Start 02/24/19 at 01:00 Lorazepam (Ativan) 2 mg Q4 PRN IV AGITATION Last administered on 02/25/19 02:33; Admin Dose 2 MG; Start 02/24/19 at 11:00 Lorazepam (Ativan) 1 mg Q4 PRN IV AGITATION/ANXIETY Last administered on 03/01/19 19:49; Admin Dose 1 MG; Start 02/25/19 at 03:30 IV Flush (NS 10 ml) 10 ml PRN PRN IV IV PROTOCOL; Start 02/25/19 at 16:30 Total Parenteral Nutrition 1,000 ml @ 60 mls/hr [id number] IV Last administered on 03/04/19 17:31; Admin Dose 60 MLS/HR; Start 02/25/19 at 21:00 Fat Emulsion Intravenous 250 ml @ 20.833 mls/ hr DAILY@16 IV Last administered on 03/04/19 17:36; Admin Dose 20.833 MLS/HR; Start 02/26/19 at 16:00 Metoclopramide HCl (Reglan) 5 mg Q6 PRN IV NAUSEA; Start 02/27/19 at 18:00 Scopolamine (Transderm-Scop) 1 patch Q72H TRANSDERM Last administered on 03/03/19 17:32; Admin Dose 1 PATCH; Start 02/28/19 at 16:00 Morphine Sulfate (morphine) 3 mg Q4H PRN IV SEVERE PAIN LEVEL 7-10 Last administered on 03/05/19 01:25; Admin Dose 3 MG; Start 02/28/19 at 16:30 Diagnostic Test (Pha) (Accu-Chek) 1 ea 02 XX Last administered on 03/02/19 02:32; Admin Dose 1 EA; Start 03/02/19 at 02:00 Insulin Aspart (Novolog Insulin Pen) NOVOLOG *MILD* ALGORITHM WITH MEALS BEDTIME SC Last administered on 03/05/19 08:54; Admin Dose 1 UNIT; Start 03/01/19 at 17:55 Miscellaneous Information 1 ea NOTE XX ; Start 03/01/19 at 12:00 Glucose (Glutose) 15 gm Q15M PRN PO DECREASED GLUCOSE; Start 03/01/19 at 12:00 Glucose (Glutose) 22.5 gm Q15M PRN PO DECREASED GLUCOSE; Start 03/01/19 at 12:00 Dextrose (D50w Syringe) 25 ml Q15M PRN IV DECREASED GLUCOSE; Start 03/01/19 at 12:00 Dextrose (D50w Syringe) 50 ml Q15M PRN IV DECREASED GLUCOSE; Start 03/01/19 at 12:00 Glucagon (Glucagen) 1 mg Q15M PRN IM DECREASED GLUCOSE; Start 03/01/19 at 12:00 Glucose (Glutose) 15 gm Q15M PRN BUCCAL DECREASED GLUCOSE; Start 03/01/19 at 12:00 Nystatin (Nystatin Susp) 5 ml QID PO Last administered on 03/05/19 08:52; Admin Dose 5 ML; Start 03/03/19 at 10:30 Divalproex Sodium (Depakote) 500 mg BID PO Last administered on 03/05/19 08:52; Admin Dose 500 MG; Start 03/03/19 at 13:00 Dexamethasone (Decadron Intensol Liquid) 2 mg Q8 PO Last administered on 03/05/19 06:25; Admin Dose 2 MG; Start 03/03/19 at 21:06 Acetaminophen/ Hydrocodone Bitart ([place] (5/325)) 1 tab Q4H PRN PO MODERATE PAIN LEVEL 4-6; Start 03/04/19 at 10:00 JASON MCKAY Mar 05, 2019 09:14
--- NOTE | 2019-03-05 09:24 | PN ---
Date/Time of Note Date/Time of Note DATE: 03/05/19 TIME: 09:22 Assessment/Plan VTE Prophylaxis Risk score (from Nsg)>0 risk: 6 SCD applied (from Nsg): Yes Pharmacological prophylaxis: NA/contraindicated Pharm contraindication: low risk/ambulating Lines/Catheters IV Catheter Type (from Nrsg): PICC Line Central line still needed: Yes Urinary Cath still in place: Yes Reason Cath still needed: urinary retention Assessment/Plan Assessment/Plan essment/Plan 1. Altered mental level of consciousness with seizures with rt breast ca sp Right breast cancer, status post right mastectomy with brain mets and status post whole brain radiation. 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 History of hypertension. 3. Mild hypokalemia. 4. She has a history of hyponatremia. Now hyponatremic 129 5. Right breast cancer, status post right mastectomy with brain mets and status post whole brain radiation. 6. Nausea, vomiting, poor appetite, failure to thrive. 7. bilateral lower extremity weakness? Steroid related 8. Hypokalemia 9 Intractable nausea Assessment/Plan -now family agrred with hospice with no TPN - Family does not want NG tub e/ Gt tube -pain control/ ativan/ antiepileptic -CW zyprexa - DNR -CLD> advanced diet -pain control spoke to dfamily at bedside dc home today with hospice Result Diagram: 03/05/19 0444 Results 24hrs Laboratory Tests Test 03/04/19 14:35 03/04/19 17:43 03/04/19 21:17 03/05/19 04:44 Bedside Glucose 141 111 139 Sodium Level 134 L Potassium Level 4.4 Chloride Level 104 Carbon Dioxide Level 31 Anion Gap -1 L Blood Urea Nitrogen 26 H Creatinine 0.26 L Est Glomerular Filtrat > 60 Rate mL/min Glucose Level 119 Calcium Level 8.0 L Phosphorus Level 3.4 Magnesium Level 1.9 Test 03/05/19 08:51 Bedside Glucose 161 Subjective 24 Hr Interval Summary Free Text/Dictation doing well eating up and sitting with Exam/Review of Systems Exam Vitals Vital Signs Date Temp Pulse Resp B/P (MAP) Pulse Ox O2 O2 Flow FiO2 Time Delivery Rate 03/05/19 98.4 104 19 127/63 98 Room Air 07:39 (84) Intake and Output 803/04/19 03/05/19 1515:00 23:00 07:00 IntakeIntake Total 1060 ml 1000 ml OutputOutput Total 1825 ml 700 ml BalanceBalance -765 ml 300 ml Exam Constitutional: frail , lying on bed, opens eyes answered yes to questions Neck: supple Respiratory: diminished breath sounds Cardiovascular: regular rate and rhythm Gastrointestinal: soft Genitourinary - Female: CVA tenderness; No nl adnexae, No nl external genitalia, No CMT, No uterus, No other Musculoskeletal: muscle weakness ble some bruising quinn Results Results 24hrs Laboratory Tests Test 03/04/19 14:35 03/04/19 17:43 03/04/19 21:17 03/05/19 04:44 Bedside Glucose 141 111 139 Sodium Level 134 L Potassium Level 4.4 Chloride Level 104 Carbon Dioxide Level 31 Anion Gap -1 L Blood Urea Nitrogen 26 H Creatinine 0.26 L Est Glomerular Filtrat > 60 Rate mL/min Glucose Level 119 Calcium Level 8.0 L Phosphorus Level 3.4 Magnesium Level 1.9 Test 03/05/19 08:51 Bedside Glucose 161 Medications Medication Current Medications IV Flush (NS 3 ml) 3 ml PER PROTOCOL IV ; Start 02/22/19 at 16:00 Ondansetron HCl (Zofran Inj) 4 mg Q6H PRN IV NAUSEA/VOMITING; Start 02/22/19 at 16:00 Acetaminophen (Tylenol Tab) 650 mg Q6H PRN PO .PAIN 1-3 OR TEMP Last administered on 02/27/19at 20:38; Admin Dose 650 MG; Start 02/22/19 at 16:00 Magnesium Hydroxide (Milk Of Mag) 30 ml DAILY PRN PO .CONSTIPATION; Start 02/22/19 at 16:00 Pantoprazole (Protonix Iv) 40 mg DAILY@06 IV Last administered on 03/05/19at 06:24; Admin Dose 40 MG; Start 02/23/19 at 06:00 Ibuprofen (Motrin) 600 mg Q6H PRN PO MODERATE PAIN LEVEL 4-6 Last administered on 03/04/19at 08:41; Admin Dose 600 MG; Start 02/23/19 at 14:30 Olanzapine (Zyprexa Zydis) 5 mg BID ODT Last administered on 03/05/19at 08:52; Admin Dose 5 MG; Start 02/23/19 at 21:00 Hydralazine HCl (Apresoline) 10 mg Q6H PRN IV ELEVATED BLOOD PRESSURE Last administered on 03/01/19 20:38; Admin Dose 10 MG; Start 02/24/19 at 01:00 Lorazepam (Ativan) 2 mg Q4 PRN IV AGITATION Last administered on 02/25/19 02:33; Admin Dose 2 MG; Start 02/24/19 at 11:00 Lorazepam (Ativan) 1 mg Q4 PRN IV AGITATION/ANXIETY Last administered on 03/01/19 19:49; Admin Dose 1 MG; Start 02/25/19 at 03:30 IV Flush (NS 10 ml) 10 ml PRN PRN IV IV PROTOCOL; Start 02/25/19 at 16:30 Total Parenteral Nutrition 1,000 ml @ 60 mls/hr [id number] IV Last administered on 03/04/19 17:31; Admin Dose 60 MLS/HR; Start 02/25/19 at 21:00 Fat Emulsion Intravenous 250 ml @ 20.833 mls/ hr DAILY@16 IV Last administered on 03/04/19 17:36; Admin Dose 20.833 MLS/HR; Start 02/26/19 at 16:00 Metoclopramide HCl (Reglan) 5 mg Q6 PRN IV NAUSEA; Start 02/27/19 at 18:00 Scopolamine (Transderm-Scop) 1 patch Q72H TRANSDERM Last administered on 03/03/19 17:32; Admin Dose 1 PATCH; Start 02/28/19 at 16:00 Morphine Sulfate (morphine) 3 mg Q4H PRN IV SEVERE PAIN LEVEL 7-10 Last administered on 03/05/19 01:25; Admin Dose 3 MG; Start 02/28/19 at 16:30 Diagnostic Test (Pha) (Accu-Chek) 1 ea 02 XX Last administered on 03/02/19 02:32; Admin Dose 1 EA; Start 03/02/19 at 02:00 Insulin Aspart (Novolog Insulin Pen) NOVOLOG *MILD* ALGORITHM WITH MEALS BEDTIME SC Last administered on 03/05/19 08:54; Admin Dose 1 UNIT; Start 03/01/19 at 17:55 Miscellaneous Information 1 ea NOTE XX ; Start 03/01/19 at 12:00 Glucose (Glutose) 15 gm Q15M PRN PO DECREASED GLUCOSE; Start 03/01/19 at 12:00 Glucose (Glutose) 22.5 gm Q15M PRN PO DECREASED GLUCOSE; Start 03/01/19 at 12:00 Dextrose (D50w Syringe) 25 ml Q15M PRN IV DECREASED GLUCOSE; Start 03/01/19 at 12:00 Dextrose (D50w Syringe) 50 ml Q15M PRN IV DECREASED GLUCOSE; Start 03/01/19 at 12:00 Glucagon (Glucagen) 1 mg Q15M PRN IM DECREASED GLUCOSE; Start 03/01/19 at 12:00 Glucose (Glutose) 15 gm Q15M PRN BUCCAL DECREASED GLUCOSE; Start 03/01/19 at 12 :00 Nystatin (Nystatin Susp) 5 ml QID PO Last administered on 03/05/19at 08:52; Admin Dose 5 ML; Start 03/03/19 at 10:30 Divalproex Sodium (Depakote) 500 mg BID PO Last administered on 03/05/19at 08:52; Admin Dose 500 MG; Start 03/03/19 at 13:00 Dexamethasone (Decadron Intensol Liquid) 2 mg Q8 PO Last administered on 03/05/19at 06:25; Admin Dose 2 MG; Start 03/03/19 at 21:06 Acetaminophen/ Hydrocodone Bitart ([place] (5/325)) 1 tab Q4H PRN PO MODERATE PAIN LEVEL 4-6; Start 03/04/19 at 10:00 OLIVIA VIDES MD Mar 05, 2019 09:24
[2019-03-05] MEDS ORDERED: HEPARIN (100 UNITS/ML) 5 ML SYG CATHETER ONE (12:00)
--- NOTE | 2019-03-05 20:51 | DS ---
DATE OF ADMISSION: 02/22/2019 DATE OF DISCHARGE: 03/05/2019 HISTORY OF PRESENTING ILLNESS AND HOSPITAL COURSE: This is a 58-year-old female with a past medical history of right breast cancer with brain mets, status post right mastectomy, hypertension, multiple admissions in the past, came to the emergency department being brought by the family secondary to wor sening headaches. The patient had been seen by Dr. Tse as an outpatient and following Dr. Charbel wilson for radiation. The patient had last MRI of the head in 01/2019 that showed no evidence of disea se. The patient was not treated with radiation. After that, the patient has been followed by Dr. Peewee bruner an outpatient. Currently, she was on 2 chemo meds. The patient was intermittently having h eadaches with episodes of nausea and vomiting. The patient was admitted to telemetry unit, having ne uro checks every 4 hours. Ammonia levels were checked that were negative. The patient had CT of the head that showed no acute intracranial pathology; however during the hospitalization stay next day, the patient started having seizures. The patient was very agitated. Rapid response was called. The patient was started on Ativan and was also initially started on Keppra, then changed to valproate. The patient was seen by neurology consultation with Dr. Donaldson. According to her, carcinomatous menin geal process unremitting rather than episodic symptoms. The patient was also seen by psych and was started on behavior treatment; however, we got the report from MRI of the lumbar spine which sukumar wed patient had leptomeningeal disease. Case was discussed with Dr. Tse and Dr. Donaldson. Per D lluvia Tse, wanted to offer the patient intrathecal chemotherapy. Family also requested second op inion with Dr. Pham. Extensive discussion was made and explained that the treatment for leptomening eal disease, intrathecal chemotherapy and the disease is terminal. All therapies given are palliativ e reasons, not to cure the disease. Family and patient agreed on comfort measures and hospice. They wanted to continue TPN on hospice. The patient also had a PICC line and was getting TPN; however, [facility] was called for hosp[facility]. They would not take her on TPN. Then, family requested second opinion with another hospice. [facility] was called; however TPN was still not approved. The patient also started eating. She was having some solid diet. The patient's mental status improved a little bit. Currently, the patient is going with [facility] to home. FINAL DISCHARGE DIAGNOSES: 1. Altered level of consciousness with seizures, right breast cancer status post right mastectomy wi th brain mets with whole brain radiation, now with leptomeningeal spread on MRI of the lumbar spine. Family reported intrathecal chemo, currently going on hospice. 2. Hypertension. 3. Hypokalemia. 4. History of hyponatremia. 5. Nausea, vomiting, poor appetite, failure to thrive. 6. Bilateral lower extremity weakness with leptomeningeal disease. DISCHARGE CONDITION: Fair. DISPOSITION: Discharged to hospice. DISCHARGE MEDICATIONS: Med reconciliation: 1. Depakote 500 mg p.o. b.i.d. 2. Decadron liquid 2 mg p.o. q.8. 3. [place] p.r.n. pain. 4. Scopolamine patch. 5. Reglan p.r.n. nausea. 6. Olanzapine 5 mg b.i.d. 7. Ibuprofen p.r.n. pain. The patient will be followed by [facility] at home. Dictated By: OLIVIA LEMOS/SERINA Conf#: [id number] DID#: [id number] CC: JENNA TSE;*End*
== END 2019-03-05 16:20 | disposition hospice, home (50) | DRG 92 ==
LOC: E/R 11:35 → MS1 14:32 → MS3 02-23 21:13 → 6WM 02-24 01:45 → MS1 02-28 21:51
PROVIDERS: ADMIT Internal Medicine; ATTEND Internal Medicine
PROC: 02HV33Z Insertion of Infusion Device into Superior Vena Cava, Percutaneous Approach (ICD-10-PCS; principal; 2019-02-25)
PROC: 3E0436Z Introduction of Nutritional Substance into Central Vein, Percutaneous Approach (ICD-10-PCS; 2019-02-25)
DX: G92 Toxic encephalopathy (principal); C79.31 Secondary malignant neoplasm of brain; E87.1 Hypo-osmolality and hyponatremia; C79.49 Secondary malignant neoplasm of other parts of nervous system; E87.6 Hypokalemia; R62.7 Adult failure to thrive; R56.9 Unspecified convulsions; R53.1 Weakness; R11.2 Nausea with vomiting, unspecified; R63.0 Anorexia; I10 Essential (primary) hypertension; T43.505A Adverse effect of unspecified antipsychotics and neuroleptics, initial encounter; Z66 Do not resuscitate; Z68.22 Body mass index [BMI] 22.0-22.9, adult; Z90.11 Acquired absence of right breast and nipple; Z85.3 Personal history of malignant neoplasm of breast; Z92.3 Personal history of irradiation; Z92.21 Personal history of antineoplastic chemotherapy
CPT/HCPCS: 36415; 36569; 36600; 70450; 71045; 76937; 80048; 80053; 80076; 80164; 81001; 82140; 82607; 82746; 82803; 82962; 83605; 83735; 84100; 84132; 84134; 84295; 84443; 84450; 84460; 84478; 85025; 85610; 85730; 95819; 96374; 96375; C9113; J0360; J0696; J1100; J1200; J1630; J1642; J1650; J1815; J1885; J1953; J2060; J2270; J2405; J2765; J3475; J3480; J7030; J7042; J7050